=== PATIENT | female | born 1935 | race Caucasian/White ===

== ENCOUNTER 2017-05-25 17:42 | Inpatient (IN) | payer OTHER, BC ==
[~2017-05-25] VITALS: Ht 165.1 cm; Wt 110.1 kg
[~2017-05-25 17:42] MED LIST: ACT15 PO; ASPEC81 PO; CHOL100010 PO; CYAN10005 PO; EPGI40M SC; ESCI10TA17 PO; GABA-112 PO; GLC500 PO; PROLIA SC; SIMV40TA2 PO; TRAM-10 PO; midodrine PO
[2017-05-25] MEDS ORDERED: LEVOFLOXACIN / D5W 500 MG in PREMIXED IN D5W 100 ML IV SCH (18:00)
[2017-05-25] MEDS ORDERED: ACETAMINOPHEN 500 MG TAB PO STA (18:12)
[2017-05-25] MEDS ORDERED: ACETAMINOPHEN 500 MG TAB PO PRN (18:15)
--- NOTE | 2017-05-25 18:31 | DIAGNOSTIC IMAGING REPORT ---
CHEST ONE VIEW PORTABLE CLINICAL HISTORY: sob, cough COMPARISON STUDY: 03/12/2011 FINDINGS: The heart remains enlarged. There is no overt failure. There are minor left basilar opacities, likely atelectatic. There are no significant pleural effusions.[ IMPRESSION: 1. Mild cardiomegaly 2. No evidence of lobar consolidation 3. Minor left basilar opacities, likely atelectatic Electronically signed by: Klever Guillen M.D. 05/25/2017 6:30 PM Dictated Date/Time: 05/25/2017 6:29 PM
[2017-05-25 18:33] LABS: BASO % 0.4 %; BASO ABS # 0.02 K/uL (0-0.2); EOS % 0.5 %; EOS ABS # 0.03 K/uL (0-0.5); HEMATOCRIT 33.2 % (37-47); HEMOGLOBIN 10.6 g/dL (12.0-16.0); IG# 0.01 K/uL (0.00-0.02); LYMPH % 7.8 %; LYMPH ABS # 0.43 K/uL (1.2-3.4); MEAN CELL VOLUME 95.4 fL (80-100); MEAN CORPUSCULAR HEMOGLOBIN 30.5 pg (25-34); MEAN CORPUSCULAR HGB CONC 31.9 g/dl (32-36); MEAN PLATELET VOLUME 10.2 fL (7.4-10.4); MONO % 9.8 %; MONO ABS # 0.54 K/uL (0.11-0.59); NEUT % 81.3 %; NEUT ABS # 4.48 K/uL (1.4-6.5); PLATELET COUNT 173 K/uL (130-400); RED CELL DISTRIBUTION WIDTH CV 14.6 % (11.5-14.5); RED CELL DISTRIBUTION WIDTH SD 50.8 fL (36.4-46.3); WHITE BLOOD COUNT 5.51 K/uL (4.8-10.8)
[2017-05-25] MEDS ORDERED: ACETAMINOPHEN 325 MG TAB PO STA (18:47)
[2017-05-25 18:48] LABS: ALBUMIN 3.8 gm/dl (3.4-5.0); ALT/SGPT 19 U/L (12-78); BLOOD UREA NITROGEN 19 mg/dl (7-18); CALCIUM 9.4 mg/dl (8.5-10.1); CARBON DIOXIDE 27 mmol/L (21-32); CREATININE 1.03 mg/dl (0.60-1.20); GLUCOSE 124 mg/dl (70-99); LIPASE 51 U/L (73-393); SODIUM 136 mmol/L (136-145)
[2017-05-25 18:50] LABS: ALKALINE PHOSPHATASE 70 U/L (45-117); AST/SGOT 23 U/L (15-37); TOTAL PROTEIN 7.3 gm/dl (6.4-8.2)
--- NOTE | 2017-05-25 19:02 | EMERGENCY ROOM VISIT NOTE ---
History First contact with patient: 17:50 Chief Complaint: FLU LIKE SX Stated Complaint: FLU LIKE SX History of Present Illness The patient is a 81 year old female with history of HTN. T2DM, HLD, CKD, who presents to the Emergency Room with complaints of progressive Cough, Sore throat, Shortness of Breath nausea, with 1 episode of vomiting subjective fever. Symptoms started around 6 am today when she awakened She also reports, bodyache, fatigue, lightheadedness in addition to increased urinary frequency and urgency without dysuria. She denies Chest pain, palpitation, abdominal pain , diarrhea. She reports having taken Flu vaccine this season and previously had Prevnar 13 vaccine. Review of Systems Pt denies change in vision, fevers, chest pain,, diarrhea, pain with urination , and melena. Otherwise refer to HPI Past Medical/Surgical History Medical Problems: (1) Dizziness and giddiness (2) Flu-like symptoms (3) UTI (urinary tract infection) Hypertension T2DM HLD CKD Social History Smoking Status: Never Smoker Drug Use: none Housing Status: lives alone Occupation Status: retired Current/Historical Medications Scheduled Aspirin Enteric Coated (Ecotrin Or Generic *), 81 MG PO DAILY Bisacodyl (Dulcolax), 2 TAB PO UD Cholecalciferol (Vitamin D), 1,000 INTER.UNIT PO DAILY Cyanocobalamin (Vitamin B-12), 1,000 MCG PO DAILY Epoetin Lavell (Epogen Or Procrit *), 40,000 UNITS SC UD Gabapentin (Neurontin), 100 MG PO TID Metformin HCL (Glucophage *), 1,000 MG PO BID Pioglitazone (Actos *), 45 MG PO DAILY Simvastatin (Zocor), 40 MG PO QPM Tramadol (Ultram), 50 MG PO Q6HR PRN Scheduled PRN Hydrocodone/Acetaminophen 5MG/325MG ([place] 5MG/325MG), 1 TABLET PO DIRECTED PRN for Pain Physical Exam Vital Signs Date Time Temp Pulse Resp B/P (MAP) Pulse Ox O2 Delivery O2 Flow Rate FiO2 05/25/17 20:13 37.1 88 18 158/70 94 Room Air 05/25/17 19:33 37.8 91 16 153/104 94 Room Air 05/25/17 18:40 22 146/119 97 Room Air 05/25/17 18:24 93 05/25/17 17:50 37.9 102 20 134/114 95 Room Air Physical Exam GENERAL: alerto distress OROPHARYNX: no exudate, no erythema, lips, buccal mucosa, and tongue normal and mucous membranes are moist NECK: supple, no nuchal rigidity, no adenopathy, non-tender LUNGS: Clear to auscultation. Normal chest wall mechanics HEART: no murmurs, S1 normal and S2 normal ABDOMEN: abdomen soft, non-tender, normo-active bowel sounds, no masses, no rebound or guarding. SKIN: no rashes LOWER EXTREMITIES: No pitting edema. NEURO EXAM: Normal sensorium, cranial nerves II-XII grossly intact, normal speech Medical Decision & Procedures Laboratory Results 05/25/17 18:20 Red Blood Count 3.48, Mean Corpuscular Volume 95.4, Mean Corpuscular Hemoglobin 30.5, Mean Corpuscular Hemoglobin Concent 31.9, Mean Platelet Volume 10.2, Neutrophils (%) (Auto) 81.3, Lymphocytes (%) (Auto) 7.8, Monocytes (%) (Auto) 9.8, Eosinophils (%) (Auto) 0.5, Basophils (%) (Auto) 0.4, Neutrophils # (Auto) 4.48, Lymphocytes # (Auto) 0.43, Monocytes # (Auto) 0.54, Eosinophils # (Auto) 0.03, Basophils # (Auto) 0.02 05/25/17 18:20 Test 05/25/17 18:05 05/25/17 18:20 05/25/17 19:04 Urine Color YELLOW Urine Appearance CLEAR (CLEAR) Urine pH 8.5 (4.5-7.5) Urine Specific [place] 1.014 (1.000-1.030) Urine Protein NEG (NEG) Urine Glucose (UA) NEG (NEG) Urine Ketones NEG (NEG) Urine Occult Blood NEG (NEG) Urine Nitrite POS (NEG) Urine Bilirubin NEG (NEG) Urine Urobilinogen NEG (NEG) Urine Leukocyte Esterase TRACE (NEG) Urine WBC (Auto) 1-5 /hpf (0-5) Urine RBC (Auto) 0-4 /hpf (0-4) Urine Hyaline Casts (Auto) 1-5 /lpf (0-5) Urine Epithelial Cells (Auto) 10-20 /lpf (0-5) Urine Bacteria (Auto) 4+ (NEG) White Blood Count 5.51 K/uL (4.8-10.8) Red Blood Count 3.48 M/uL (4.2-5.4) Hemoglobin 10.6 g/dL (12.0-16.0) Hematocrit 33.2 % (37-47) Mean Corpuscular Volume 95.4 fL (80-100) Mean Corpuscular Hemoglobin 30.5 pg (25-34) Mean Corpuscular Hemoglobin Concent 31.9 g/dl (32-36) Platelet Count 173 K/uL (130-400) Mean Platelet Volume 10.2 fL (7.4-10.4) Neutrophils (%) (Auto) 81.3 % Lymphocytes (%) (Auto) 7.8 % Monocytes (%) (Auto) 9.8 % Eosinophils (%) (Auto) 0.5 % Basophils (%) (Auto) 0.4 % Neutrophils # (Auto) 4.48 K/uL (1.4-6.5) Lymphocytes # (Auto) 0.43 K/uL (1.2-3.4) Monocytes # (Auto) 0.54 K/uL (0.11-0.59) Eosinophils # (Auto) 0.03 K/uL (0-0.5) Basophils # (Auto) 0.02 K/uL (0-0.2) RDW Standard Deviation 50.8 fL (36.4-46.3) RDW Coefficient of Variation 14.6 % (11.5-14.5) Immature Granulocyte % (Auto) 0.2 % Immature Granulocyte # (Auto) 0.01 K/uL (0.00-0.02) Anion Gap 8.0 mmol/L (3-11) Est Creatinine Clear Calc Drug Dose 54.3 ml/min Estimated GFR () 59.0 Estimated GFR (Non- 50.9 BUN/Creatinine Ratio 18.7 (10-20) Calcium Level 9.4 mg/dl (8.5-10.1) Total Bilirubin 0.4 mg/dl (0.2-1) Direct Bilirubin < 0.1 mg/dl (0-0.2) Aspartate Amino Transf (AST/SGOT) 23 U/L (15-37) Alanine Aminotransferase (ALT/SGPT) 19 U/L (12-78) Alkaline Phosphatase 70 U/L (45-117) Total Protein 7.3 gm/dl (6.4-8.2) Albumin 3.8 gm/dl (3.4-5.0) Lipase 51 U/L (73-393) Influenza Type A Antigen Neg for Influ A (NEG) Influenza Type B Antigen Neg for Influ B (NEG) Medications Administered Medications (Trade) Dose Ordered Sig/Pool Route Start Time Stop Time Status Last Admin Dose Admin Acetaminophen (Tylenol Tab) 500 mg NOW STAT PO 05/25/17 18:12 05/25/17 18:18 DC 05/25/17 19:00 500 MG Levofloxacin (Levaquin / D5W) 750 mg NOW STAT IV 05/25/17 19:34 05/25/17 19:35 DC 05/25/17 19:42 750 MG Ondansetron HCl (Zofran Inj) 4 mg STK-MED ONCE .ROUTE 05/25/17 21:39 05/25/17 21:40 DC 05/25/17 21:44 4 MG Procedure CHEST ONE VIEW PORTABLE CLINICAL HISTORY: sob, cough COMPARISON STUDY: 03/12/2011 FINDINGS: The heart remains enlarged. There is no overt failure. There are minor left basilar opacities, likely atelectatic. There are no significant pleural effusions.[ IMPRESSION: 1. Mild cardiomegaly 2. No evidence of lobar consolidation 3. Minor left basilar opacities, likely atelectatic Medical Decision 81 yo F with history of HTN T2DM, HLD, CKD presenting with flu-like symptoms, SOB and urinary urgency/frequency found to have CXR consistent with Pneumonia, negative flu swab, and UA positive for UTI Differential diagnoses includes but is not limited to pneumonia, bronchitis, COPD/Asthma exacerbation, congestive heart failure Rapid flu: negative CMP: unremarkable CBC: H/H 10.6/33/2 BMP: unremarkable Lipase: negative CXR: . Minor left basilar opacities -Given 750 mg IV Levaquin -Given Acetaminophen 500 mg Based on age, symptoms of Cough, SOB, fever on arrival, Xray with Left basilar opacities UA consistent with UTI, patient was treated with IV Levaquin. Flu swab was negative and lab work unremarkable other than mild anemia as above. Upon evaluation, patient was stable. I discussed the findings and the treatment plan with the patient Lab work unremarkable as above. Patient expresses agreement and understanding. [facility] Patient will be evaluated for further management. Impression Primary Impression: Pneumonia Additional Impression: UTI (urinary tract infection) Departure Information Dispostion Admitted as an inpatient Referrals Ant Gifford M.D. (PCP) Patient Instructions My [facility] Resident Tracking Resident Involvement: Resident Care Provided Care Provided: Adult ED Problem Qualifiers
[2017-05-25] MEDS ORDERED: LEVAQUIN 750MG / 150ML D5W IV STA (19:34)
[2017-05-25 19:44] LABS: INFLUENZA B ANTIGEN Neg for Influ B (NEG)
[2017-05-25] MEDS ORDERED: HYDR-5688 PO (21:07)
[2017-05-25] MEDS ORDERED: BISA-16 PO (21:08)
[2017-05-25] MEDS ORDERED: ONDANSETRON INJ 2 MG/ML 2 ML VIAL IV PRN (21:15)
[2017-05-25] MEDS ORDERED: ACETAMINOPHEN 325 MG TAB PO PRN (21:15)
[2017-05-25] MEDS ORDERED: LEVOFLOXACIN / D5W 750 MG in PREMIXED IN D5W 150 ML IV SCH (21:30)
[2017-05-25] MEDS ORDERED: BISACODYL 5 MG TABEC PO PRN (21:30)
[2017-05-25] MEDS ORDERED: ONDANSETRON INJ 2 MG/ML 2 ML VIAL ONE (21:39)
[2017-05-25] MEDS ORDERED: SODIUM CHLORIDE 0.9% 1000ML 1,000 ML IV SCH (22:15)
--- NOTE | 2017-05-25 22:23 | EMERGENCY ROOM VISIT NOTE ---
History Report prepared by Carine: Estrellita Singleton Under the Supervision of: Dr. Reuben Shepherd D.O. First contact with patient: 17:50 Chief Complaint: FLU LIKE SX Stated Complaint: FLU LIKE SX History of Present Illness The patient is an 81 year old female who presents to the Emergency Room with complaints of persistent flu symptoms starting this morning. The patient started having some rhinorrhea yesterday. This morning she started having a sore throat, body aches, and headache. She is nauseous. She had a deep dry cough. She vomited once after coughing. She has had urinary frequency and urgency. She feels generally weak. She did not have any fevers above 100.4. She denies any ear pain, abdominal pain, or pain with urination. She has a history of hypertension, diabetes, hyperlipidemia, and CKD. She has not had her medications today. She received a flu shot this year. Source of History: patient Onset: this morning Position: other (global) Quality: other (flu symptoms) Timing: other (persistent) Associated Symptoms: + headache, + sorethroat, + cough, + nausea, + vomiting , + weakness, No fevers, No abdominal pain Note: Pt reports rhinorrhea, body aches. Review of Systems See HPI for pertinent positives & negatives. A total of 10 systems reviewed and were otherwise negative. Past Medical & Surgical Medical Problems: (1) Dizziness and giddiness (2) Flu-like symptoms (3) UTI (urinary tract infection) Family History Noncontributory secondary to age. Social History Smoking Status: Never Smoker Marital Status: Occupation Status: retired Current/Historical Medications Scheduled Aspirin Enteric Coated (Ecotrin Or Generic *), 81 MG PO DAILY Bisacodyl (Dulcolax), 2 TAB PO UD Cholecalciferol (Vitamin D), 1,000 INTER.UNIT PO DAILY Cyanocobalamin (Vitamin B-12), 1,000 MCG PO DAILY Epoetin [place] (Epogen Or Procrit *), 40,000 UNITS SC UD Gabapentin (Neurontin), 100 MG PO TID Metformin HCL (Glucophage *), 1,000 MG PO BID Pioglitazone (Actos *), 45 MG PO DAILY Simvastatin (Zocor), 40 MG PO QPM Tramadol (Ultram), 50 MG PO Q6HR PRN Scheduled PRN Hydrocodone/Acetaminophen 5MG/325MG ([place] 5MG/325MG), 1 TABLET PO DIRECTED PRN for Pain Allergies Coded Allergies: No Known Allergies (Verified , NONE, 05/25/17) Physical Exam Vital Signs Date Time Temp Pulse Resp B/P (MAP) Pulse Ox O2 Delivery O2 Flow Rate FiO2 05/25/17 20:13 37.1 88 18 158/70 94 Room Air 05/25/17 19:33 37.8 91 16 153/104 94 Room Air 05/25/17 18:40 22 146/119 97 Room Air 05/25/17 18:24 93 05/25/17 17:50 37.9 102 20 134/114 95 Room Air Physical Exam GENERAL: Chronically ill appearing, sitting up in bed, no acute distress EYE EXAM: normal conjunctiva. OROPHARYNX: no exudate, no erythema, lips, buccal mucosa, and tongue normal and mucous membranes are moist NECK: supple, no nuchal rigidity, no adenopathy, non-tender LUNGS: Diminished at the bases. Normal chest wall mechanics HEART: tachycardic, no murmurs, S1 normal and S2 normal ABDOMEN: abdomen soft, non-tender, normo-active bowel sounds, no masses, no rebound or guarding. BACK: Back is symmetrical on inspection and there is no deformity, no midline tenderness, no CVA tenderness. SKIN: no rashes and no bruising UPPER EXTREMITIES: upper extremities are grossly normal. LOWER EXTREMITIES: No pitting edema. NEURO EXAM: Normal sensorium, cranial nerves II-XII grossly intact, normal speech, no gross weakness of arms, no gross weakness of legs. Medical Decision & Procedures ER Provider Diagnostic Interpretation: Xray results as stated below per my and the radiologist's interpretation: CHEST ONE VIEW PORTABLE CLINICAL HISTORY: sob, cough COMPARISON STUDY: 03/12/2011 FINDINGS: The heart remains enlarged. There is no overt failure. There are minor left basilar opacities, likely atelectatic. There are no significant pleural effusions.[ IMPRESSION: 1. Mild cardiomegaly 2. No evidence of lobar consolidation 3. Minor left basilar opacities, likely atelectatic Electronically signed by: Klever Guillen M.D. 05/25/2017 6:30 PM Dictated Date/Time: 05/25/2017 6:29 PM Laboratory Results 05/25/17 18:20 Red Blood Count 3.48, Mean Corpuscular Volume 95.4, Mean Corpuscular Hemoglobin 30.5, Mean Corpuscular Hemoglobin Concent 31.9, Mean Platelet Volume 10.2, Neutrophils (%) (Auto) 81.3, Lymphocytes (%) (Auto) 7.8, Monocytes (%) (Auto) 9.8, Eosinophils (%) (Auto) 0.5, Basophils (%) (Auto) 0.4, Neutrophils # (Auto) 4.48, Lymphocytes # (Auto) 0.43, Monocytes # (Auto) 0.54, Eosinophils # (Auto) 0.03, Basophils # (Auto) 0.02 05/25/17 18:20 Test 05/25/17 18:05 05/25/17 18:20 05/25/17 19:04 Urine Color YELLOW Urine Appearance CLEAR (CLEAR) Urine pH 8.5 (4.5-7.5) Urine Specific [place] 1.014 (1.000-1.030) Urine Protein NEG (NEG) Urine Glucose (UA) NEG (NEG) Urine Ketones NEG (NEG) Urine Occult Blood NEG (NEG) Urine Nitrite POS (NEG) Urine Bilirubin NEG (NEG) Urine Urobilinogen NEG (NEG) Urine Leukocyte Esterase TRACE (NEG) Urine WBC (Auto) 1-5 /hpf (0-5) Urine RBC (Auto) 0-4 /hpf (0-4) Urine Hyaline Casts (Auto) 1-5 /lpf (0-5) Urine Epithelial Cells (Auto) 10-20 /lpf (0-5) Urine Bacteria (Auto) 4+ (NEG) White Blood Count 5.51 K/uL (4.8-10.8) Red Blood Count 3.48 M/uL (4.2-5.4) Hemoglobin 10.6 g/dL (12.0-16.0) Hematocrit 33.2 % (37-47) Mean Corpuscular Volume 95.4 fL (80-100) Mean Corpuscular Hemoglobin 30.5 pg (25-34) Mean Corpuscular Hemoglobin Concent 31.9 g/dl (32-36) Platelet Count 173 K/uL (130-400) Mean Platelet Volume 10.2 fL (7.4-10.4) Neutrophils (%) (Auto) 81.3 % Lymphocytes (%) (Auto) 7.8 % Monocytes (%) (Auto) 9.8 % Eosinophils (%) (Auto) 0.5 % Basophils (%) (Auto) 0.4 % Neutrophils # (Auto) 4.48 K/uL (1.4-6.5) Lymphocytes # (Auto) 0.43 K/uL (1.2-3.4) Monocytes # (Auto) 0.54 K/uL (0.11-0.59) Eosinophils # (Auto) 0.03 K/uL (0-0.5) Basophils # (Auto) 0.02 K/uL (0-0.2) RDW Standard Deviation 50.8 fL (36.4-46.3) RDW Coefficient of Variation 14.6 % (11.5-14.5) Immature Granulocyte % (Auto) 0.2 % Immature Granulocyte # (Auto) 0.01 K/uL (0.00-0.02) Anion Gap 8.0 mmol/L (3-11) Est Creatinine Clear Calc Drug Dose 54.3 ml/min Estimated GFR () 59.0 Estimated GFR (Non- 50.9 BUN/Creatinine Ratio 18.7 (10-20) Calcium Level 9.4 mg/dl (8.5-10.1) Total Bilirubin 0.4 mg/dl (0.2-1) Direct Bilirubin < 0.1 mg/dl (0-0.2) Aspartate Amino Transf (AST/SGOT) 23 U/L (15-37) Alanine Aminotransferase (ALT/SGPT) 19 U/L (12-78) Alkaline Phosphatase 70 U/L (45-117) Total Protein 7.3 gm/dl (6.4-8.2) Albumin 3.8 gm/dl (3.4-5.0) Lipase 51 U/L (73-393) Influenza Type A Antigen Neg for Influ A (NEG) Influenza Type B Antigen Neg for Influ B (NEG) Laboratory results per my review. Medications Administered Medications (Trade) Dose Ordered Sig/Pool Route Start Time Stop Time Status Last Admin Dose Admin Acetaminophen (Tylenol Tab) 500 mg NOW STAT PO 05/25/17 18:12 05/25/17 18:18 DC 05/25/17 19:00 500 MG Levofloxacin (Levaquin / D5W) 750 mg NOW STAT IV 05/25/17 19:34 05/25/17 19:35 DC 05/25/17 19:42 750 MG ED Course ED COURSE: Vital signs were reviewed and showed fever, tachycardia, hypertension. The patients medical record was reviewed The above diagnostic studies were performed and reviewed. ED treatments and interventions as stated above. 1811: Acetaminophen 500 mg PO. 1849: The patient was evaluated in room C11B. A complete history and physical examination was performed. 1933: Levofloxacin 750 mg IV. 2013: I reviewed the patient's case [facility] He will evaluate the patient for further management. 2014: Upon reevaluation, the patient is resting comfortably. I discussed my findings with the patient and she understands and agrees with the treatment plan. Based on the patients age, coexisting illnesses, exam and lab findings the decision to treat as an inpatient was made. The patient remained stable while under my care. The patient will be evaluated for further management. Medical Decision Differential diagnosis includes etiologies such as sepsis, UTI, pneumonia, metabolic, electrolyte abnormalities, cardiac sources, intracerebral event, toxicologic, neurologic, as well as others were entertained. Patient is an 81-year-old female who presents to ER for body aches, runny nose, feeling weak and coughing. Patient also admits to a sore throat. CBC all BMP, LFTs, bilirubin lipase is unremarkable. UA shows nitrites, leuks and +4 bacteria. Based on this patient was treated for UTI with IV antibiotics. Influence was negative. Chest x-ray shows a small consolidation. Patient was febrile and tachycardic upon presentation. She was given fluids. Heart rate trended down. Discussed case with internal medicine and patient was admitted for further workup. Medication Reconcilliation Current Medication List: was personally reviewed by me Blood Pressure Screening Patient's blood pressure: Elevated blood pressure Blood pressure disposition: Referred to PCP Consults Time Called: 2009 Consulting Physician[facility] Returned Call: 2013 I reviewed the patient's case with him. He will evaluate the patient for further management. Impression Primary Impression: UTI (urinary tract infection) Additional Impression: Pneumonia Scribe Attestation The scribe's documentation has been prepared under my direction and personally reviewed by me in its entirety. I confirm that the note above accurately reflects all work, treatment, procedures, and medical decision making performed by me. Departure Information Dispostion Being Evaluated By Hospitalist Referrals Ant Gifford M.D. (PCP) Patient Instructions My [facility] Problem Qualifiers Primary Impression: UTI (urinary tract infection) Urinary tract infection type: acute cystitis Hematuria presence: with hematuria Qualified Codes: N30.01 - Acute cystitis with hematuria Additional Impression: Pneumonia Pneumonia type: due to unspecified organism Laterality: unspecified laterality Lung location: unspecified part of lung Qualified Codes: J18.9 - Pneumonia, unspecified organism
[2017-05-25] MEDS: HYDROCODONE/ACETAMIN 5/325MG TAB PO PRN (22:36)
[2017-05-25 22:37] VITALS: BP 148/87; PULSE 118; TEMP 36.7; O2SAT 95; Ht 165.1 cm; Wt 110.1 kg
[2017-05-25 23:18] LABS: PTT PATIENT 23.2 SECONDS (21.0-31.0)
[2017-05-26] VITALS (7 sets, daily range): BP systolic 141–177; BP diastolic 67–78; PULSE 87–98; TEMP 36.4–39.2; O2SAT 91–97
[2017-05-26] MEDS: TRAMADOL HCL 50 MG TAB PO PRN ×2 (02:24→11:08)
[2017-05-26] MEDS: HEPARIN SOD 5000 UNIT/0.5 ML CARP SQ SCH ×2 (06:33→20:15)
[2017-05-26 07:12] LABS: HEMATOCRIT 34.4 % (37-47); MEAN CORPUSCULAR HEMOGLOBIN 30.4 pg (25-34); MEAN PLATELET VOLUME 10.5 fL (7.4-10.4); PLATELET COUNT 190 K/uL (130-400); RED CELL DISTRIBUTION WIDTH CV 14.5 % (11.5-14.5); RED CELL DISTRIBUTION WIDTH SD 50.7 fL (36.4-46.3); WHITE BLOOD COUNT 4.66 K/uL (4.8-10.8)
[2017-05-26 07:28] LABS: CALCIUM 9.2 mg/dl (8.5-10.1); CREATININE 1.07 mg/dl (0.60-1.20); POTASSIUM 3.9 mmol/L (3.5-5.1)
[2017-05-26 07:29] LABS: PHOSPHORUS 1.9 mg/dl (2.5-4.9)
[2017-05-26] MEDS ORDERED: SODIUM PHOSPHATE 3 MMOL/1 ML INFUSION IV ONE (07:45)
[2017-05-26] MEDS ORDERED: SODIUM PHOSPHATE INJ 15 MMOL in SODIUM CHLORIDE 0.9% 250ML 250 ML IV ONE (08:00)
--- NOTE | 2017-05-26 08:11 | HISTORY & PHYSICAL EXAMINATION ---
DATE OF ADMISSION: 05/25/2017 PRIMARY CARE PHYSICIAN: Dr. Gifford. CHIEF COMPLAINT: Flu-like symptoms with fever and chills and body aches for the last 2-3 days. HISTORY OF PRESENT COMPLAINT: She is an 81-year-old female with significant past medical history of chronic kidney disease stage III, type 2 diabetes, vitamin B12 deficiency, anemia, hyperlipidemia, generalized osteoarthritis, hypertension, migraine, hyperparathyroidism and also goiter, apparently has been complaining of flu-like symptoms for the last couple of days. She complains to have fever, sore throat but no difficulty in swallowing. She has cough without any phlegm and she has generalized body aches. She had nausea this morning and vomited once. She has been also going to the bathroom frequently to pass urine. She denies to have any dysuria. In the Emergency Room, she was hemodynamically stable and her UA examination was suggestive of infection and the chest x-ray did show probable atelectasis left lower lobe but no definite pneumonia. She received Levaquin, and from that point, she was admitted to medical floor for continuation of care. PAST MEDICAL HISTORY: Significant for chronic kidney disease stage III, type 2 diabetes, vitamin B12 deficiency, anemia, hypertension, hyperlipidemia, osteoarthritis, osteoporosis, hyperparathyroidism and also has goiter. PAST SURGICAL HISTORY: Significant for ligation of the oviduct, partial colectomy due to diverticulosis and diverticulitis, and minor wrist surgery. FAMILY HISTORY: Significant for mother at 77 from diabetes, AMI, osteoarthritis. Father at 78 from diabetes and AMI. Sister has diabetes. Brother from AMI and diabetes at the age of 44. SOCIAL HISTORY: She is a . She lives alone. She has 6 children. She does not smoke and does not use any tobacco and she has been reasonably ambulant. ALLERGIES: NKDA. MEDICATIONS: As an outpatient, she has been taking Procrit 40,000 units as directed, metformin 1 gram b.i.d., aspirin 81 mg daily, Dulcolax 10 mg daily, vitamin D 1000 unit daily, vitamin B12 1000 mcg daily, Neurontin 100 mg 3 times daily, hydrocodone 5/325 one tablet as directed, Actos 45 mg daily, simvastatin 40 mg daily and tramadol 50 mg q. 6 hourly p.r.n. REVIEW OF SYSTEMS: Other systems reviewed unremarkable except those mentioned in history of present complaint. PHYSICAL EXAMINATION: GENERAL: On examination in the Emergency Room, she was not having any acute distress. VITAL SIGNS: Temperature 37.8, pulse 88, blood pressure 158/70, saturation 94% on room air. HEENT: Unremarkable. NECK: Supple. No JVD, no bruit. CHEST: Clear to auscultation bilaterally with minimal crackles left base. HEART: S1, S2, regular, no murmur. ABDOMEN: Soft, benign, nontender. No organomegaly. She has moderate umbilical hernia with no obstruction. EXTREMITIES: Chronic edema bilaterally but no acute changes. CENTRAL NERVOUS SYSTEM: She is alert, awake, oriented x3. No focal sensory and/or motor deficit appreciated. LABORATORY DATA: Noted today white count was 5.51, H&H 10.6/33.2, platelets 173. Sodium 136, potassium 4.0, chloride 102, carbon dioxide 27, BUN 19, creatinine 1.03, random glucose 124. LFTs normal. Lipase less than 5. UA examination shows leukocyte esterase trace, bacteria 4+, white count 1-5. suggestive of infection, that was sent for culture. Chest x-ray reported as mild cardiomegaly, no evidence of lobar consolidation, minor left basilar opacities, likely atelectasis. EKG that was done last in February did not show any prolonged QT. IMPRESSION AND PLAN: 1. Urinary tract infection. She was started on intravenous Levaquin to cover the respiratory pathogens as well. She does not have any pneumonia but she does have atelectasis. She will be admitted to medical floor and continue Levaquin for now and wait for urine culture to come back. 2. Flu-like symptoms. Her flu test was negative for A and B. She does not have any significant respiratory symptom, no wheezing. We will give some cough medicine for symptomatic relief. 3. Diabetes type 2. Hold metformin. Put her on sliding scale coverage while in the hospital. 4. Chronic kidney disease stage III. Creatinine seems to be stable. Has some dehydration. We will put small amount of IV fluid while in the hospital. 5. Hypertension. Blood pressure seems to be controlled. 6. Gastrointestinal prophylaxis with Maalox and Mylanta as needed. 7. Deep venous thrombosis prophylaxis with subcu heparin. 8. Code status. She will be full code. In my clinical judgment, the beneficiary meets criteria as per CMS for 2-midnight stay in the hospital. MTDD
[2017-05-26] MEDS: GABAPENTIN 100 MG CAP PO SCH ×3 (08:12→20:12)
[2017-05-26] MEDS: CHOLECALCIFEROL 1000 INTER.UNIT TAB PO SCH (08:12)
[2017-05-26] MEDS: CYANOCOBALAMIN 500 MCG TAB (VIT B-12) PO SCH (08:12)
[2017-05-26] MEDS: PIOGLITAZONE TAB 15 MG TAB PO SCH (08:12)
[2017-05-26] MEDS: ASPIRIN 81 MG ECTAB PO SCH (08:12)
[2017-05-26] MEDS: MAGNESIUM SULFATE 1GM / D5W 1 GM in PREMIXED IN D5W 100 ML IV SCH ×2 (08:16→10:04)
[2017-05-26 12:23] LABS: INFLUENZA B PCR Neg for Influ B (NEG)
[2017-05-26 12:26] LABS: INFLUENZA A PCR POS for Influ A (NEG)
[2017-05-26] MEDS ORDERED: OSELTAMIVIR PHOSPHATE 75 MG CAP PO SCH (13:00)
[2017-05-26] MEDS ORDERED: TAMIFLU PHARMACY CONSULT IN PROGRESS PRN (14:00)
--- NOTE | 2017-05-26 14:15 | Progress Note ---
Internal Med Progress Note Date of Service: May 26, 2017. Provider Documentation: SUBJECTIVE: Seen and examined at bedside States feeling better Still has cough Denies dysuria, CP, SOB OBJECTIVE: Vital Signs-as noted below Physical Exam: General Appearance:Obese, no apparent distress Head: normocephalic, Atraumatic Eyes: normal inspection, EOMI, PERRL Neck: supple, Trachea midline Respiratory/Chest: Normal breath sounds, CTA Cardiovascular: S1, S2, No murmur Abdomen/GI:Soft, Non tender, Bowel sounds present, +Umbilical hernia Extremities/Musculoskelatal:normal inspection, no edema Neurologic/Psych:AAOX3, grossly no focal neurological deficits Skin: normal color, warm Lab data as noted below. ASSESSMENT & PLAN: UTI: Urine culture:E.coli Continue Levaquin Gentle IV fluids Influenza A Started on Tamiflu Supportive care DM II: Hold metformin Continue ISS, Monitor BG levels CKD III: Cr at baseline monitor renal function Hypomagnesemia/Hypophosphatemia: Replace and monitor Hypertension: Stable Obesity: BMI:40.4 DVT Px: Heparin SQ Code status: full code Vital Signs: Date Time Temp Pulse Resp B/P (MAP) Pulse Ox O2 Delivery O2 Flow Rate FiO2 05/26/17 14:26 37.1 87 17 177/67 (103) 93 05/26/17 08:00 Room Air 05/26/17 07:47 36.8 98 18 141/78 (99) 95 Room Air 05/26/17 03:18 39.2 05/26/17 00:23 36.4 98 18 149/77 (101) 97 Room Air 05/26/17 00:00 95 Room Air 05/25/17 22:37 36.7 118 20 148/87 95 Room Air 05/25/17 21:54 105 20 163/88 95 Room Air 05/25/17 20:13 37.1 88 18 158/70 94 Room Air 05/25/17 19:33 37.8 91 16 153/104 94 Room Air 05/25/17 18:40 22 146/119 97 Room Air 05/25/17 18:24 93 05/25/17 17:50 37.9 102 20 134/114 95 Room Air Lab Results: Results Past 24 Hours Test 05/25/17 18:05 05/25/17 18:20 05/25/17 19:04 05/25/17 22:50 Range/Units Urine Color YELLOW Urine Appearance CLEAR CLEAR Urine pH 8.5 4.5-7.5 Urine Specific [place] 1.014 1.000-1.030 Urine Protein NEG NEG Urine Glucose (UA) NEG NEG Urine Ketones NEG NEG Urine Occult Blood NEG NEG Urine Nitrite POS NEG Urine Bilirubin NEG NEG Urine Urobilinogen NEG NEG Urine Leukocyte Esterase TRACE NEG Urine WBC (Auto) 1-5 0-5 /hpf Urine RBC (Auto) 0-4 0-4 /hpf Urine Hyaline Casts (Auto) 1-5 0-5 /lpf Urine Epithelial Cells (Auto) 10-20 0-5 /lpf Urine Bacteria (Auto) 4+ NEG White Blood Count 5.51 4.8-10.8 K/uL Red Blood Count 3.48 4.2-5.4 M/uL Hemoglobin 10.6 12.0-16.0 g/dL Hematocrit 33.2 37-47 % Mean Corpuscular Volume 95.4 80-100 fL Mean Corpuscular Hemoglobin 30.5 25-34 pg Mean Corpuscular Hemoglobin Concent 31.9 32-36 g/dl Platelet Count 173 130-400 K/uL Mean Platelet Volume 10.2 7.4-10.4 fL Neutrophils (%) (Auto) 81.3 % Lymphocytes (%) (Auto) 7.8 % Monocytes (%) (Auto) 9.8 % Eosinophils (%) (Auto) 0.5 % Basophils (%) (Auto) 0.4 % Neutrophils # (Auto) 4.48 1.4-6.5 K/uL Lymphocytes # (Auto) 0.43 1.2-3.4 K/uL Monocytes # (Auto) 0.54 0.11-0.59 K/uL Eosinophils # (Auto) 0.03 0-0.5 K/uL Basophils # (Auto) 0.02 0-0.2 K/uL RDW Standard Deviation 50.8 36.4-46.3 fL RDW Coefficient of Variation 14.6 11.5-14.5 % Immature Granulocyte % (Auto) 0.2 % Immature Granulocyte # (Auto) 0.01 0.00-0.02 K/uL Sodium Level 136 136-145 mmol/L Potassium Level 4.0 3.5-5.1 mmol/L Chloride Level 102 98-107 mmol/L Carbon Dioxide Level 27 21-32 mmol/L Anion Gap 8.0 3-11 mmol/L Blood Urea Nitrogen 19 7-18 mg/dl Creatinine 1.03 0.60-1.20 mg/dl Est Creatinine Clear Calc Drug Dose 54.3 ml/min Estimated GFR () 59.0 Estimated GFR (Non- 50.9 BUN/Creatinine Ratio 18.7 10-20 Random Glucose 124 70-99 mg/dl Calcium Level 9.4 8.5-10.1 mg/dl Total Bilirubin 0.4 0.2-1 mg/dl Direct Bilirubin < 0.1 0-0.2 mg/dl Aspartate Amino Transf (AST/SGOT) 23 15-37 U/L Alanine Aminotransferase (ALT/SGPT) 19 12-78 U/L Alkaline Phosphatase 70 45-117 U/L Total Protein 7.3 6.4-8.2 gm/dl Albumin 3.8 3.4-5.0 gm/dl Lipase 51 73-393 U/L Influenza Type A Antigen Neg for Influ A NEG Influenza Type B Antigen Neg for Influ B NEG Prothrombin Time 10.4 9.0-12.0 SECONDS Prothromb Time International Ratio 1.0 0.9-1.1 Activated Partial Thromboplast Time 23.2 21.0-31.0 SECONDS Partial Thromboplastin Ratio 0.9 Test 05/26/17 06:52 05/26/17 07:33 05/26/17 10:53 Range/Units White Blood Count 4.66 4.8-10.8 K/uL Red Blood Count 3.62 4.2-5.4 M/uL Hemoglobin 11.0 12.0-16.0 g/dL Hematocrit 34.4 37-47 % Mean Corpuscular Volume 95.0 80-100 fL Mean Corpuscular Hemoglobin 30.4 25-34 pg Mean Corpuscular Hemoglobin Concent 32.0 32-36 g/dl RDW Standard Deviation 50.7 36.4-46.3 fL RDW Coefficient of Variation 14.5 11.5-14.5 % Platelet Count 190 130-400 K/uL Mean Platelet Volume 10.5 7.4-10.4 fL Sodium Level 138 136-145 mmol/L Potassium Level 3.9 3.5-5.1 mmol/L Chloride Level 104 98-107 mmol/L Carbon Dioxide Level 26 21-32 mmol/L Anion Gap 9.0 3-11 mmol/L Blood Urea Nitrogen 16 7-18 mg/dl Creatinine 1.07 0.60-1.20 mg/dl Est Creatinine Clear Calc Drug Dose 50.9 ml/min Estimated GFR () 56.4 Estimated GFR (Non- 48.6 BUN/Creatinine Ratio 15.1 10-20 Random Glucose 105 70-99 mg/dl Calcium Level 9.2 8.5-10.1 mg/dl Phosphorus Level 1.9 2.5-4.9 mg/dl Magnesium Level 1.4 1.8-2.4 mg/dl Bedside Glucose 124 70-90 mg/dl Influenza Type A (RT-PCR) POS for Influ A NEG Influenza Type B (RT-PCR) Neg for Influ B NEG Microbiology Results 05/25/17 Urine Culture - Preliminary, Resulted Escherichia Coli
[2017-05-26] MEDS: OSELTAMIVIR PHOSPHATE SUSP 30 MG/5 ML UDP PO SCH ×2 (15:35→20:12)
[2017-05-26] MEDS: LEVOFLOXACIN / D5W 500 MG in PREMIXED IN D5W 100 ML IV SCH (20:11)
[2017-05-26] MEDS: SIMVASTATIN 40 MG TAB PO SCH (20:12)
[2017-05-26] MEDS: HYDROCODONE/ACETAMIN 5/325MG TAB PO PRN (21:32)
[2017-05-27] MEDS: HEPARIN SOD 5000 UNIT/0.5 ML CARP SQ SCH ×2 (06:07→18:26)
[2017-05-27 06:46] LABS: HEMATOCRIT 36.3 % (37-47); HEMOGLOBIN 11.2 g/dL (12.0-16.0); MEAN CELL VOLUME 94.5 fL (80-100); MEAN CORPUSCULAR HEMOGLOBIN 29.2 pg (25-34); MEAN CORPUSCULAR HGB CONC 30.9 g/dl (32-36); MEAN PLATELET VOLUME 10.6 fL (7.4-10.4); PLATELET COUNT 150 K/uL (130-400); RED CELL DISTRIBUTION WIDTH CV 14.5 % (11.5-14.5); RED CELL DISTRIBUTION WIDTH SD 49.5 fL (36.4-46.3); WHITE BLOOD COUNT 3.18 K/uL (4.8-10.8)
[2017-05-27 06:59] VITALS: BP 186/96; PULSE 95; TEMP 36.9; O2SAT 93
[2017-05-27 07:19] LABS: CALCIUM 8.8 mg/dl (8.5-10.1); CREATININE 1.05 mg/dl (0.60-1.20); POTASSIUM 3.9 mmol/L (3.5-5.1)
[2017-05-27] MEDS: CYANOCOBALAMIN 500 MCG TAB (VIT B-12) PO SCH (08:03)
[2017-05-27] MEDS: GABAPENTIN 100 MG CAP PO SCH ×3 (08:03→20:47)
[2017-05-27] MEDS: PIOGLITAZONE TAB 15 MG TAB PO SCH (08:03)
[2017-05-27] MEDS: CHOLECALCIFEROL 1000 INTER.UNIT TAB PO SCH (08:03)
[2017-05-27] MEDS: ASPIRIN 81 MG ECTAB PO SCH (08:03)
[2017-05-27] MEDS: HYDROCODONE/ACETAMIN 5/325MG TAB PO PRN ×3 (08:06→20:51)
[2017-05-27] MEDS: OSELTAMIVIR PHOSPHATE SUSP 30 MG/5 ML UDP PO SCH ×2 (08:06→20:46)
[2017-05-27] MEDS ORDERED: AMLODIPINE BESYLATE 5 MG TAB PO ONE (13:45)
[2017-05-27] MEDS: MAGNESIUM CHLORIDE 64MG DELAYED REL TAB PO SCH ×2 (14:09→20:47)
--- NOTE | 2017-05-27 15:19 | Progress Note ---
Internal Med Progress Note Date of Service: May 27, 2017. Provider Documentation: SUBJECTIVE: Seen and examined at bedside Less cough Denies dysuria, CP, SOB Reports chronic back pain "I don't feel I am ready for discharge yet" No other complaints OBJECTIVE: Vital Signs-as noted below Physical Exam: General Appearance:Obese, no apparent distress Head: normocephalic, Atraumatic Eyes: normal inspection, EOMI, PERRL Neck: supple, Trachea midline Respiratory/Chest: Normal breath sounds, CTA Cardiovascular: S1, S2, No murmur Abdomen/GI:Soft, Non tender, Bowel sounds present, +Umbilical hernia Extremities/Musculoskelatal:normal inspection, no edema Neurologic/Psych:AAOX3, grossly no focal neurological deficits Skin: normal color, warm Lab data as noted below. ASSESSMENT & PLAN: UTI: Urine culture:E.coli Continue Levaquin Day # 3 Influenza A Continue Tamiflu Day # 2 Supportive care HTN: BP elevated likely secondary to pain Was on Midodrine at home (?Orthostatic Hypotension) Start on amlodipine not on BP meds at home DM II: Hold metformin Continue ISS, Monitor BG levels CKD III: Cr at baseline monitor renal function Hypomagnesemia/Hypophosphatemia: Replace and monitor Hypertension: Stable Obesity: BMI:40.4 DVT Px: Heparin SQ Code status: full code Disposition: Likely discharge tomorrow if stable Vital Signs: Date Time Temp Pulse Resp B/P (MAP) Pulse Ox O2 Delivery O2 Flow Rate FiO2 05/27/17 08:00 Room Air 05/27/17 06:59 36.9 95 18 186/96 (126) 93 Room Air 05/27/17 00:00 Room Air 05/26/17 23:12 37.8 87 20 156/78 (104) 91 Room Air 05/26/17 16:02 93 Room Air 05/26/17 14:26 37.1 87 17 177/67 (103) 93 Lab Results: Results Past 24 Hours Test 05/27/17 06:25 05/27/17 07:25 05/27/17 11:24 Range/Units White Blood Count 3.18 4.8-10.8 K/uL Red Blood Count 3.84 4.2-5.4 M/uL Hemoglobin 11.2 12.0-16.0 g/dL Hematocrit 36.3 37-47 % Mean Corpuscular Volume 94.5 80-100 fL Mean Corpuscular Hemoglobin 29.2 25-34 pg Mean Corpuscular Hemoglobin Concent 30.9 32-36 g/dl RDW Standard Deviation 49.5 36.4-46.3 fL RDW Coefficient of Variation 14.5 11.5-14.5 % Platelet Count 150 130-400 K/uL Mean Platelet Volume 10.6 7.4-10.4 fL Sodium Level 138 136-145 mmol/L Potassium Level 3.9 3.5-5.1 mmol/L Chloride Level 105 98-107 mmol/L Carbon Dioxide Level 28 21-32 mmol/L Anion Gap 5.0 3-11 mmol/L Blood Urea Nitrogen 16 7-18 mg/dl Creatinine 1.05 0.60-1.20 mg/dl Est Creatinine Clear Calc Drug Dose 51.9 ml/min Estimated GFR () 57.7 Estimated GFR (Non- 49.8 BUN/Creatinine Ratio 15.1 10-20 Random Glucose 114 70-99 mg/dl Calcium Level 8.8 8.5-10.1 mg/dl Phosphorus Level 3.0 2.5-4.9 mg/dl Magnesium Level 1.7 1.8-2.4 mg/dl Bedside Glucose 113 114 70-90 mg/dl
[2017-05-27 15:36] VITALS: BP 157/78; PULSE 84; TEMP 36.8; O2SAT 96
[2017-05-27 16:00] VITALS: O2SAT 96
[2017-05-27] MEDS: LEVOFLOXACIN / D5W 500 MG in PREMIXED IN D5W 100 ML IV SCH (18:28)
[2017-05-27] MEDS: SIMVASTATIN 40 MG TAB PO SCH (20:46)
[2017-05-27 22:55] VITALS: BP 150/82; PULSE 89; TEMP 37; O2SAT 94
[2017-05-28] MEDS: HEPARIN SOD 5000 UNIT/0.5 ML CARP SQ SCH ×2 (05:50→18:00)
[2017-05-28] MEDS: HYDROCODONE/ACETAMIN 5/325MG TAB PO PRN ×2 (05:56→13:12)
[2017-05-28 06:49] VITALS: BP 131/82; PULSE 82; TEMP 36.5; O2SAT 93
[2017-05-28 07:19] LABS: HEMATOCRIT 34.2 % (37-47); HEMOGLOBIN 10.9 g/dL (12.0-16.0); MEAN CELL VOLUME 94.7 fL (80-100); MEAN CORPUSCULAR HEMOGLOBIN 30.2 pg (25-34); MEAN CORPUSCULAR HGB CONC 31.9 g/dl (32-36); MEAN PLATELET VOLUME 10.9 fL (7.4-10.4); PLATELET COUNT 161 K/uL (130-400); RED CELL DISTRIBUTION WIDTH CV 14.9 % (11.5-14.5); RED CELL DISTRIBUTION WIDTH SD 51.6 fL (36.4-46.3); WHITE BLOOD COUNT 2.48 K/uL (4.8-10.8)
[2017-05-28] MEDS: GABAPENTIN 100 MG CAP PO SCH ×2 (07:39→13:13)
[2017-05-28] MEDS: MAGNESIUM CHLORIDE 64MG DELAYED REL TAB PO SCH (07:40)
[2017-05-28] MEDS: PIOGLITAZONE TAB 15 MG TAB PO SCH (07:40)
[2017-05-28] MEDS: CHOLECALCIFEROL 1000 INTER.UNIT TAB PO SCH (07:40)
[2017-05-28] MEDS: CYANOCOBALAMIN 500 MCG TAB (VIT B-12) PO SCH (07:41)
[2017-05-28] MEDS: ASPIRIN 81 MG ECTAB PO SCH (07:41)
[2017-05-28] MEDS: OSELTAMIVIR PHOSPHATE SUSP 30 MG/5 ML UDP PO SCH (07:41)
[2017-05-28 07:49] LABS: CALCIUM 8.4 mg/dl (8.5-10.1); CREATININE 1.24 mg/dl (0.60-1.20); PHOSPHORUS 2.9 mg/dl (2.5-4.9)
[2017-05-28] MEDS ORDERED: AMLODIPINE BESYLATE 5 MG TAB PO SCH (09:00)
[2017-05-28] MEDS ORDERED: CYCLOBENZAPRINE HCL 10 MG TAB PO ONE (14:15)
--- NOTE | 2017-05-28 15:12 | Progress Note ---
Internal Med Progress Note Date of Service: May 28, 2017. Provider Documentation: SUBJECTIVE: Seen and examined at bedside Feels well today Fever resolved Minimal cough Denies dysuria, CP, SOB Reports chronic back pain No other complaints OBJECTIVE: Vital Signs-as noted below Physical Exam: General Appearance:Obese, no apparent distress Head: normocephalic, Atraumatic Eyes: normal inspection, EOMI, PERRL Neck: supple, Trachea midline Respiratory/Chest: Normal breath sounds, CTA Cardiovascular: S1, S2, No murmur Abdomen/GI:Soft, Non tender, Bowel sounds present, +Umbilical hernia Extremities/Musculoskelatal:normal inspection, no edema Neurologic/Psych:AAOX3, grossly no focal neurological deficits Skin: normal color, warm Lab data as noted below. ASSESSMENT & PLAN: UTI: Urine culture:E.coli Continue Levaquin Day # 4 Influenza A Continue Tamiflu Day # 3 Supportive care HTN: BP better today Was on Midodrine at home (?Orthostatic Hypotension) not on BP meds at home BP elevated likely secondary to pain DM II: Hold metformin Continue ISS, Monitor BG levels CKD III: Cr at baseline monitor renal function Hypomagnesemia/Hypophosphatemia: Replace and monitor Hypertension: Stable Obesity: BMI:40.4 DVT Px: Heparin SQ Code status: full code Disposition: Likely discharge home today Patient previously had Home Health but currently denies any requirement Follow up with your PCP on 06/02/17 at 2:05pm Complete the antibiotic and Tamiflu course as prescribed Seek immediate medical attention if your symptoms reoccur or worsen Vital Signs: Date Time Temp Pulse Resp B/P (MAP) Pulse Ox O2 Delivery O2 Flow Rate FiO2 05/28/17 08:00 Room Air 05/28/17 06:49 36.5 82 20 131/82 (98) 93 Room Air 05/28/17 00:00 Room Air 05/27/17 22:55 37.0 89 18 150/82 (104) 94 Room Air 05/27/17 16:00 96 Room Air 05/27/17 15:36 36.8 84 18 157/78 (104) 96 Room Air Lab Results: Results Past 24 Hours Test 05/27/17 16:28 05/27/17 19:36 05/28/17 06:36 05/28/17 07:27 Range/Units Bedside Glucose 93 137 138 70-90 mg/dl White Blood Count 2.48 4.8-10.8 K/uL Red Blood Count 3.61 4.2-5.4 M/uL Hemoglobin 10.9 12.0-16.0 g/dL Hematocrit 34.2 37-47 % Mean Corpuscular Volume 94.7 80-100 fL Mean Corpuscular Hemoglobin 30.2 25-34 pg Mean Corpuscular Hemoglobin Concent 31.9 32-36 g/dl RDW Standard Deviation 51.6 36.4-46.3 fL RDW Coefficient of Variation 14.9 11.5-14.5 % Platelet Count 161 130-400 K/uL Mean Platelet Volume 10.9 7.4-10.4 fL Sodium Level 139 136-145 mmol/L Potassium Level 4.0 3.5-5.1 mmol/L Chloride Level 108 98-107 mmol/L Carbon Dioxide Level 25 21-32 mmol/L Anion Gap 6.0 3-11 mmol/L Blood Urea Nitrogen 27 7-18 mg/dl Creatinine 1.24 0.60-1.20 mg/dl Est Creatinine Clear Calc Drug Dose 43.9 ml/min Estimated GFR () 47.2 Estimated GFR (Non- 40.7 BUN/Creatinine Ratio 21.9 10-20 Random Glucose 147 70-99 mg/dl Calcium Level 8.4 8.5-10.1 mg/dl Phosphorus Level 2.9 2.5-4.9 mg/dl Magnesium Level 1.7 1.8-2.4 mg/dl Test 05/28/17 11:31 Range/Units Bedside Glucose 128 70-90 mg/dl
[2017-05-28] MEDS ORDERED: SLWMEC PO (15:15)
[2017-05-28] MEDS ORDERED: LVQ250 PO (15:15)
[2017-05-28] MEDS ORDERED: OSEL30CA PO (15:15)
--- NOTE | 2017-05-28 15:17 | Discharge Summary ---
Discharge Summary Date of Service May 28, 2017. Discharge Summary Admission Date: May 25, 2017 at 21:18 Discharge Date: May 28, 2017 Discharge Disposition: Home Principal Diagnosis: Influenza, UTI Procedures: CXR: 1. Mild cardiomegaly 2. No evidence of lobar consolidation 3. Minor left basilar opacities, likely atelectatic Consultations: None Pending Studies/Follow-Up: Follow up with your PCP on 06/02/17 at 2:05pm Complete the antibiotic and Tamiflu course as prescribed Seek immediate medical attention if your symptoms reoccur or worsen Medication Reconciliation New Medications: Oseltamivir Phosphate (Tamiflu) 30 Mg Cap 1 CAP PO BID for 3 Days, #6 CAP Levofloxacin (Levofloxacin) 250 Mg Tab 250 MG PO DAILY@11 for 2 Days, #2 TAB Magnesium Chloride (Slow-Mag Tab) 64 Mg Tabcr 64 MG PO BID for 7 Days, #14 EA Continued Medications: Aspirin Enteric Coated (Ecotrin Or Generic *) 81 Mg Ectab 81 MG PO DAILY Bisacodyl (Dulcolax) 5 Mg Tab 2 TAB PO UD for 1 Day, #2 TAB Cholecalciferol (Vitamin D) 1,000 Inter.unit Tab 1000 INTER.UNIT PO DAILY Cyanocobalamin (Vitamin B-12) 1,000 Mcg Tab 1000 MCG PO DAILY Epoetin Lavell (Epogen Or Procrit *) 40,000 Units [place] 01826 UNITS SC UD, 0 Refills depending on lab results Gabapentin (Neurontin) 100 Mg Cap 100 MG PO TID, 0 Refills Hydrocodone/Acetaminophen 5MG/325MG ([place] 5MG/325MG) Tab 1 TABLET PO DIRECTED PRN for Pain, TAB PRN PAIN Metformin HCL (Glucophage *) 1,000 Mg Tab 1000 MG PO BID Pioglitazone (Actos *) 45 Mg Tab 45 MG PO DAILY Simvastatin (Zocor) 40 Mg Tab 40 MG PO QPM, 0 Refills Tramadol (Ultram) 50 Mg Tab 50 MG PO Q6HR PRN, 0 Refills As needed for pain. Admission Information HPI (per Admitting provider): CHIEF COMPLAINT: Flu-like symptoms with fever and chills and body aches for the last 2-3 days. HISTORY OF PRESENT COMPLAINT: She is an 81-year-old female with significant past medical history of chronic kidney disease stage III, type 2 diabetes, vitamin B12 deficiency, anemia, hyperlipidemia, generalized osteoarthritis, hypertension, migraine, hyperparathyroidism and also goiter, apparently has been complaining of flu-like symptoms for the last couple of days. She complains to have fever, sore throat but no difficulty in swallowing. She has cough without any phlegm and she has generalized body aches. She had nausea this morning and vomited once. She has been also going to the bathroom frequently to pass urine. She denies to have any dysuria. In the Emergency Room, she was hemodynamically stable and her UA examination was suggestive of infection and the chest x-ray did show probable atelectasis left lower lobe but no definite pneumonia. She received Levaquin, and from that point, she was admitted to medical floor for continuation of care. Physical Exam (per Admitting): PHYSICAL EXAMINATION: GENERAL: On examination in the Emergency Room, she was not having any acute distress. VITAL SIGNS: Temperature 37.8, pulse 88, blood pressure 158/70, saturation 94% on room air. HEENT: Unremarkable. NECK: Supple. No JVD, no bruit. CHEST: Clear to auscultation bilaterally with minimal crackles left base. HEART: S1, S2, regular, no murmur. ABDOMEN: Soft, benign, nontender. No organomegaly. She has moderate umbilical hernia with no obstruction. EXTREMITIES: Chronic edema bilaterally but no acute changes. CENTRAL NERVOUS SYSTEM: She is alert, awake, oriented x3. No focal sensory and/or motor deficit appreciated. Hospital Course UTI: Urine culture:E.coli Continue Levaquin Day # 4 Influenza A Continue Tamiflu Day # 3 Supportive care HTN: BP better today Was on Midodrine at home (?Orthostatic Hypotension) not on BP meds at home BP elevated likely secondary to pain DM II: Hold metformin Continue ISS, Monitor BG levels CKD III: Cr at baseline monitor renal function Hypomagnesemia/Hypophosphatemia: Replace and monitor Hypertension: Stable Obesity: BMI:40.4 DVT Px: Heparin SQ Code status: full code Disposition: Likely discharge home today Patient previously had Home Health but currently denies any requirement Follow up with your PCP on 06/02/17 at 2:05pm Complete the antibiotic and Tamiflu course as prescribed Seek immediate medical attention if your symptoms reoccur or worsen Total time spent on discharge = 36 minutes This includes examination of the patient, discharge planning, medication reconciliation, and communication with other providers. Discharge Instructions Discharge Instructions Date of Service May 28, 2017. Admission Reason for Admission: Dizziness And Giddiness, Flu-Like Symptoms, Uti Discharge Discharge Diagnosis / Problem: Influenza, UTI Discharge Goals Goal(s): Decrease discomfort, Improve function Activity Recommendations Activity Limitations: resume your previous activity Exercise/Sports Limitations: as tolerated . Instructions / Follow-Up Instructions / Follow-Up Follow up with your PCP on 06/02/17 at 2:05pm Complete the antibiotic and Tamiflu course as prescribed Seek immediate medical attention if your symptoms reoccur or worsen Current Hospital Diet Patient's current hospital diet: Diabetes Type 2 Diet Discharge Diet Recommended Diet: Diabetes Type 2 Diet Pending Studies Studies pending at discharge: no Medical Emergencies . Who to Call and When: Medical Emergencies: If at any time you feel your situation is an emergency, please call 911 immediately. . Non-Emergent Contact Non-Emergency issues call your: Primary Care Provider Call Non-Emergent contact if: you have a fever, your pain is not controlled, your pain is worsening, your pain is unusual for you, your pain is concerning you, you have any medication questions Seek immediate medical attention if your symptoms reoccur or worsen . . "Provider Documentation" section prepared by Freddie Murillo. . VTE Core Measure Inpt VTE Proph given/why not?: Unfractionated heparin SQ <Electronically signed by Freddie Murillo MD> Signed: 05/28/17 1517 Signed: The status of this report is Signed * If report status is Draft, the document has not been finalized by the responsible provider.
[2017-05-28 15:26] VITALS: BP 131/82; PULSE 82; TEMP 36.5; O2SAT 93
[2017-05-28 16:05] VITALS: BP 147/80; PULSE 84; TEMP 36.8; O2SAT 90
[2017-05-28] MEDS ORDERED: LEVOFLOXACIN 250 MG TAB PO SCH (18:00)
[2017-05-28] MEDS ORDERED: LEVOFLOXACIN 500 MG TAB PO SCH (18:00)
== END 2017-05-28 18:36 | disposition home or self-care (01) | DRG 689 ==
LOC: EDBD 17:42 → C.EDC 17:43 → C.MS2W 21:18 → ENRESERV 21:32
PROVIDERS: ADMIT Internal Medicine; ATTEND Internal Medicine
DX: N39.0 Urinary tract infection, site not specified (principal); J10.00 Influenza due to other identified influenza virus with unspecified type of pneumonia; Z68.41 Body mass index [BMI] 40.0-44.9, adult; J18.9 Pneumonia, unspecified organism; Z87.440 Personal history of urinary (tract) infections; Z79.82 Long term (current) use of aspirin; E11.21 Type 2 diabetes mellitus with diabetic nephropathy; Z79.84 Long term (current) use of oral hypoglycemic drugs; N18.3 Chronic kidney disease, stage 3 (moderate); E53.8 Deficiency of other specified B group vitamins; E78.5 Hyperlipidemia, unspecified; I12.9 Hypertensive chronic kidney disease with stage 1 through stage 4 chronic kidney disease, or unspecified chronic kidney disease; E21.3 Hyperparathyroidism, unspecified; Z90.49 Acquired absence of other specified parts of digestive tract; Z83.3 Family history of diabetes mellitus; Z82.49 Family history of ischemic heart disease and other diseases of the circulatory system; B96.20 Unspecified Escherichia coli [E. coli] as the cause of diseases classified elsewhere; E66.9 Obesity, unspecified; E83.42 Hypomagnesemia; E83.39 Other disorders of phosphorus metabolism

== ENCOUNTER 2024-08-17 18:45 | Inpatient (IN) ==
[2024-08-17] MEDS: MoRPHine SULFATE 2 MG/ML CARP IV STA (19:15)
[2024-08-17] MEDS: ACETAMINOPHEN 1,000 MG/100 ML VIAL IV STA (19:16)
[2024-08-17] MEDS: ONDANSETRON INJ 2 MG/ML 2 ML VIAL IV STA (19:16)
--- NOTE | 2024-08-17 19:18 | Emergency Department Note ---
Impression & Plan Sepsis, Incarcerated umbilical hernia, Cholecystitis, Acute UTI, Dementia, Left bundle branch block ED Provider Note NAME: WENDY BEVERLY AGE: 88 SEX: F : 1935 ARRIVES VIA: Ambulance INFORMANT: Patient ED PROVIDER(S): Israel Cornell MD CHIEF COMPLAINT: Abdominal pain, confusion. PLAN: Disposition: Admit MEDICAL DECISION MAKING: The patient is an 88-year-old woman with a past medical history of severe dementia, diabetes, hypertension who presents to the emergency department via EMS for evaluation of acute onset of abdominal pain this evening where the patient's mental status had also declined where she was inconsolable and unresponsive but writhing in pain. Family reports that the patient was doing fine earlier today and had lunch without any issues. They deny any recent fevers, chills, cough or congestion. They do report that the patient deals with constipation and she does use a stool softener. They further added that since the patient's recent complicated history of cholecystitis where she was transferred from this facility to [facility] where she was managed with placement of an Axios stent, she has been doing well. They report that the patient has had a large abdominal hernia for years that in the past several weeks has been increasingly more uncomfortable for the patient. On evaluation the patient is in severe distress/pain with heart rate in the 130s-140s where she did have a rectal temperature of 40.0 with vital signs otherwise stable. Abdomen was rigid with large protruding umbilical abdominal hernia which was hard and tender to palpation. This was reduced at the bedside with gradual uniform downward pressure with subsequent significant relief in the patient's discomfort. EKG demonstrates sinus tachycardia with first degree AVB and baseline LBBB without sgarbossa criteria. CXR negative for acute cardiopulmonary process per my personal preliminary review/interpretation. WBC within normal limits. H/H and platelets within normal limits. There is left shift present but no neutrophilia. Chemistry without metabolic acidosis. Initial lactic acid 3.1. BUN/creatinine 32 consistent patient's clinically dry appearance. Alk phos is 292 similar to prior and otherwise LFTs including total bilirubin are normal. Initial high-sensitivity troponin 65 with repeat HS troponin increased to 116, nonspecific and in the setting of the patient's tachycardia. Lipase is not elevated. Procalcitonin is elevated 9.7. TSH within the limits. UA is consistent with infection with positive nitrites, WBCs, 3+ bacteria. Respiratory BioFire was negative. CT of the head was negative for acute abnormalities. CT of the abdomen pelvis demonstrates the patient's axials stent/Colegastrostomy tube in place. However description of the gallbladder is inflamed containing stones with pericholecystic fluid. Pneumobilia is also noted within the liver. This appearance is suggestive of cholecystitis. Mucosal thickening in the CBD can be seen in the setting of cholangitis. Description of a right hepatic lobe lesion is new from 07/18/2024. Patient [place] umbilical hernia is described containing nonobstructive transverse colon however imaging obtained after her bedside reduction of her clinically incarcerated hernia on presentation. Abdominal abdominal binder was placed following CT to avoid recurrence of incarceration as the hernia would spontaneously recur though easily reducible subsequently. Blood cultures were obtained and empiric treatment initiated with IV Zosyn given presentation consistent with sepsis. Patient was ordered for 30 cc/KG of IV fluid with normal saline per IBW. Patient's heart rate did progressively improve. Family at the bedside reported the patient continued to feel more comfortable and that placement of her abdominal binder following bedside reduction of her hernia has resulted in significant improvement in her pain. Case discussed with Gautam Hsu, general surgery PA-C with Dr. Cruz, general surgery on-call. Given the patient's recent Axios stent placement for cholecystitis and CT findings recommends consultation with patient's [facility] GI providers to see if there are any concerns where they would want the patient transferred. Case and imaging discussed with Dr. Calvillo, [facility]. Findings on CT imaging are not unexpected given the patient's recent Axios stent placement. Pneumobilia described confirms stent patency. Additionally, given the patient's normal LFTs, suggestion of cholangitis is not likely and can be excluded at this time. Agrees with description that patient's presentation is likely more related to her incarcerated hernia on presentation and urinary tract infection. General surgery was updated and agrees with admission to our facility for IV antibiotics and further management. Case was discussed with Dr. Martinez, [facility] hospitalist, who will evaluate the patient for admission. Further management per admitting team. Appreciate consultations and recommendations. Triage Nursing notes reviewed and agree them. Prior/external medical records reviewed Vital Signs: reviewed Differential diagnosis: Sepsis, UTI, pneumonia, metabolic, electrolyte abnormalities, cardiac sources, intracerebral event, toxicologic, neurologic, as well as other pathologies. ER treatment provided: See below. Diagnostics interpreted by me: ECG 1854: Sinus tachycardia with first-degree AV block,, 130 bpm, left bundle branch block, no Sgarbossa criteria, QTc 541, QRS 150. ECG 2306: Sinus tachycardia with first-degree AV block, 112 bpm, left bundle branch block, no Sgarbossa criteria, QTc 455, QRS 148. Cardiac Monitoring: An order for continuous cardiac monitoring was placed and demonstrated sinus tachycardia, 138 bpm, no ectopy. Laboratory studies: See below Imaging studies: See below Consultation(s): Gautam Hsu, general surgery PA-C with Dr. Cruz, general surgery on- call. Dr. Calvillo, [facility]. Dr. Martinez, [facility]. HPI: Per MDM. ROS: See above HPI for pertinent positives & negatives. A total of 10 systems reviewed and were otherwise negative. VITALS:See Below PHYSICAL EXAMINATION: GENERAL: Awake, alert, ill-appearing, in severe distress secondary to pain. HENT: Normocephalic, atraumatic. Oropharynx with dry mucous membranes and otherwise unremarkable. EYES: Normal conjunctiva. Sclera non-icteric. NECK: Supple. No nuchal rigidity. FROM. No JVD. RESPIRATORY: Clear to auscultation. CARDIAC: Tachycardic rate, normal rhythm. Extremities warm and well perfused. Pulses equal. ABDOMEN: Abdomen was rigid with large protruding umbilical abdominal hernia which was hard and tender to palpation. This was reduced at the bedside with gradual uniform downward pressure with subsequent significant relief in the patient's discomfort. MUSCULOSKELETAL: Chest examination reveals no tenderness. The back is symmetrical on inspection without obvious abnormality. There is no CVA tenderness to palpation. No joint edema. LOWER EXTREMITIES: Calves are equal size bilaterally and non-tender. No edema. No discoloration. NEURO: Alert to voice and follows commands. Moving all extremities equally. SKIN: No rash or jaundice noted. ED COURSE: Critical Care: I have personally spent greater than 65 minutes of critical care time in the direct management of this patient. This includes bedside care, interpretation of diagnostic studies, and testing, discussion with consultants, patient, and family members, and other required patient management activities. This 65 minutes is in excess of all separately billable procedures. 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 Current Living Situation: Other Current Living Situation Comment: [facility] Feels Safe at Home: Yes Allergies Allergies Allergy/AdvReac Type Severity Reaction Status Date / Time No Known Allergies Allergy Unknown NONE Verified 07/18/24 17:20 Home Meds Home Medications Medication Instructions Recorded Confirmed aspirin 81 mg tablet,delayed 81 mg PO QPM 07/18/24 08/17/24 release atorvastatin 40 mg tablet 40 mg PO QAM 07/18/24 08/17/24 cholecalciferol (vitamin D3) 25 25 mcg PO QAM 07/18/24 08/17/24 mcg (1,000 unit) tablet (Vitamin D3) cinacalcet 30 mg tablet 30 mg PO 3XWK 07/18/24 08/17/24 cyanocobalamin (vitamin B-12) 1,000 mcg PO QAM 07/18/24 08/17/24 1,000 mcg tablet docusate sodium 100 mg capsule 100 mg PO QAM 07/18/24 08/17/24 (Stool Softener) donepezil 5 mg tablet 5 mg PO QAM 07/18/24 08/17/24 duloxetine 60 mg capsule,delayed 60 mg PO QAM 07/18/24 08/17/24 release empagliflozin 25 mg tablet 25 mg PO QAM 07/18/24 08/17/24 (Jardiance) famotidine 10 mg tablet 10 mg PO QAM 07/18/24 08/17/24 gabapentin 100 mg capsule 100 mg PO TID 07/18/24 08/17/24 glipizide 5 mg tablet, extended 5 mg PO DAILYBB 07/18/24 08/17/24 release 24 hr hydrocodone 10 mg-acetaminophen 1 tab PO .Q4-6H 07/18/24 08/17/24 325 mg tablet lidocaine 5 % topical patch 2 patch topical .DAILY X 12HRS 07/18/24 08/17/24 magnesium oxide 400 mg (241.3 mg 400 mg PO QAM 07/18/24 08/17/24 magnesium) tablet metformin 500 mg tablet,extended 500 mg PO QAM 07/18/24 08/17/24 release 24 hr metoprolol succinate 25 mg 12.5 mg PO QAM 07/18/24 08/17/24 tablet,extended release 24 hr naloxone 4 mg/actuation nasal 4 mg intranasal DAILY PRN Drug 07/18/24 08/17/24 spray (Narcan) Intoxication Symptoms polysaccharide iron complex 150 mg 150 mg PO HS 07/18/24 08/17/24 iron capsule (Ferrex) sacubitril 24 mg-valsartan 26 mg 1 tab PO AMHS 07/18/24 08/17/24 tablet (Entresto) Results & Data (ED) Vital Signs Vital Signs - 24 hr 08/17/24 18:34 08/17/24 18:56 08/17/24 19:35 Temperature 36.6 C 40.0 C H Temperature Source Oral Rectal Pulse Rate 136 H 128 H Pulse Rate [Apical] 124 H Pulse Rate from SpO2 Sensor Pulse Rhythm Irregular Respiratory Rate 24 19 Blood Pressure 123/76 Blood Pressure [Left Arm] 124/77 Blood Pressure Mean 91 Blood Pressure Mean [Left Arm] 92 Blood Pressure Position Sitting Blood Pressure Position [Left Arm] Semi-fowlers Pulse Oximetry 92 90 Oxygen Delivery Method Room Air Room Air Oxygen Flow Rate Sepsis Recent Fever Within 48 Hours No Sepsis New/Unexplained Change in Mental Status No Sepsis Action Taken by Nursing Physician Notified Oxygen Flow Rate - Titration Pulse Oximetry Post Tiitration 08/17/24 19:45 08/17/24 19:46 08/17/24 21:00 Temperature Temperature Source Pulse Rate Pulse Rate [Apical] 108 H Pulse Rate from SpO2 Sensor Pulse Rhythm Respiratory Rate 19 Blood Pressure Blood Pressure [Left Arm] 124/77 Blood Pressure Mean Blood Pressure Mean [Left Arm] 92 Blood Pressure Position Blood Pressure Position [Left Arm] Pulse Oximetry 89 L 95 94 Oxygen Delivery Method Room Air Nasal Cannula Nasal Cannula Oxygen Flow Rate 2 2 Sepsis Recent Fever Within 48 Hours Sepsis New/Unexplained Change in Mental Status Sepsis Action Taken by Nursing Oxygen Flow Rate - Titration Pulse Oximetry Post Tiitration 08/17/24 21:00 08/17/24 22:59 08/17/24 23:00 Temperature 36.9 C Temperature Source Axillary Pulse Rate 110 H 111 H Pulse Rate [Apical] Pulse Rate from SpO2 Sensor 111 H Pulse Rhythm Respiratory Rate 18 Blood Pressure 105/68 Blood Pressure [Left Arm] Blood Pressure Mean 80 Blood Pressure Mean [Left Arm] Blood Pressure Position Blood Pressure Position [Left Arm] Pulse Oximetry 93 Oxygen Delivery Method Nasal Cannula Oxygen Flow Rate 2 Sepsis Recent Fever Within 48 Hours Sepsis New/Unexplained Change in Mental Status Sepsis Action Taken by Nursing Oxygen Flow Rate - Titration Pulse Oximetry Post Tiitration 08/17/24 23:12 08/17/24 23:33 08/18/24 00:16 Temperature Temperature Source Pulse Rate 113 H 108 H Pulse Rate [Apical] Pulse Rate from SpO2 Sensor 111 H 112 H Pulse Rhythm Respiratory Rate 23 20 Blood Pressure 97/64 L 90/62 L Blood Pressure [Left Arm] Blood Pressure Mean 75 71 Blood Pressure Mean [Left Arm] Blood Pressure Position Blood Pressure Position [Left Arm] Pulse Oximetry 94 94 87 L Oxygen Delivery Method Nasal Cannula Nasal Cannula Nasal Cannula Oxygen Flow Rate 2 3 2 Sepsis Recent Fever Within 48 Hours Sepsis New/Unexplained Change in Mental Status Sepsis Action Taken by Nursing Oxygen Flow Rate - Titration 3 Pulse Oximetry Post Tiitration 96 08/18/24 00:24 08/18/24 00:30 08/18/24 01:00 Temperature Temperature Source Pulse Rate 107 H 106 H 105 H Pulse Rate [Apical] Pulse Rate from SpO2 Sensor 109 H 106 H 105 H Pulse Rhythm Respiratory Rate 22 20 20 Blood Pressure 102/68 106/61 114/73 Blood Pressure [Left Arm] Blood Pressure Mean 79 76 76 Blood Pressure Mean [Left Arm] Blood Pressure Position Blood Pressure Position [Left Arm] Pulse Oximetry 94 94 93 Oxygen Delivery Method Nasal Cannula Nasal Cannula Nasal Cannula Oxygen Flow Rate 3 3 3 Sepsis Recent Fever Within 48 Hours Sepsis New/Unexplained Change in Mental Status Sepsis Action Taken by Nursing Oxygen Flow Rate - Titration Pulse Oximetry Post Tiitration 08/18/24 01:30 08/18/24 02:03 Temperature Temperature Source Pulse Rate 100 H 104 H Pulse Rate [Apical] Pulse Rate from SpO2 Sensor 103 H 104 H Pulse Rhythm Respiratory Rate 21 15 Blood Pressure 105/69 94/67 L Blood Pressure [Left Arm] Blood Pressure Mean 81 76 Blood Pressure Mean [Left Arm] Blood Pressure Position Blood Pressure Position [Left Arm] Pulse Oximetry 93 97 Oxygen Delivery Method Room Air Nasal Cannula Oxygen Flow Rate 3 Sepsis Recent Fever Within 48 Hours Sepsis New/Unexplained Change in Mental Status Sepsis Action Taken by Nursing Oxygen Flow Rate - Titration Pulse Oximetry Post Tiitration Laboratory Data 08/18/24 11:01 08/18/24 09:31 Lab Results 08/17/24 08/17/24 08/17/24 Range/Units 19:10 19:17 19:29 WBC 5.67 (4.8-10.8) K/ul RBC 4.10 L (4.20-5.40) M/uL Hgb 12.0 (12.0-16.0) g/dl POC Hgb 12.9 (12.0-16.0) g/dl Hct 38.4 (37.0-47.0) % POC Hct 38 (37-47) % MCV 93.7 (80.0-100.0) fL MCH 29.3 (25.0-34.0) pg MCHC 31.3 L (32.0-36.0) g/dL RDW Std Deviation 46.0 (36.4-46.3) fL RDW Coeff of Joseph 13.5 (11.5-14.5) % Plt Count 148 (130-400) K/uL MPV 11.0 (9.4-12.4) fL Immature Gran % (Auto) 6.5 % Neut % (Auto) 87.8 % Lymph % (Auto) 4.2 % [place] % (Auto) 1.1 % Eos % (Auto) 0.2 % Baso % (Auto) 0.2 % Neut # (Auto) 4.98 (1.40-6.50) K/uL Lymph # (Auto) 0.24 L (1.20-3.40) K/uL [place] # (Auto) 0.06 L (0.11-0.59) K/uL Eos # (Auto) 0.01 (0.00-0.50) K/uL Baso # (Auto) 0.01 (0.00-0.20) K/uL Immature Gran # (Auto) 0.37 H (0.01-0.20) K/uL Toxic Vacuolation 1+ Polychromasia 1+ PT Cancelled INR Cancelled POC Sodium 137 (135-144) mmol/L Sodium 139 (136-145) mmol/L POC Potassium 4.9 (3.3-5.0) mmol/L Potassium 5.0 (3.5-5.1) mmol/L POC Chloride 104 (101-112) mmol/L Chloride 102 (98-107) mmol/L Carbon Dioxide 28 (21-32) mmol/L POC Total CO2 25 (24-31) mmol/L Anion Gap 9 (3-11) POC Anion Gap 14.0 L (16-25) mmol/L POC BUN 32 H (7-18) mg/dl BUN 32 H (6-23) mg/dl Creatinine 0.99 (0.6-1.2) mg/dl POC Creatinine 1.0 (0.6-1.3) mg/dl Est Cr Clr Drug Dosing 40.7 ml/min eGFR 54.84 BUN/Creatinine Ratio 32.3 H (10-20) Glucose 154 H (70-99(Fasting)) mg/dl POC Glucose (other) 155 H (70-99) mg/dl Lactate (0.4-2.0) mmol/L Calcium 10.3 (8.6-10.3) mg/dl POC Ioniz Calcium George 1.17 (1.12-1.32) mmol/l Phosphorus 2.3 L (2.5-4.9) mg/dl Magnesium 1.9 (1.7-2.4) mg/dl Total Bilirubin 0.7 (0.2-1.0) mg/dl AST 28 (13-39) U/L ALT 49 (7-52) U/L Alkaline Phosphatase 292 H (34-104) U/L Troponin I High Sens 65.1 H* (0-14) pg/ml Total Protein 7.2 (6.0-8.3) gm/dl Albumin 3.9 (3.4-5.0) gm/dl Globulin 3.3 (2.5-4.0) gm/dl Albumin/Globulin Ratio 1.2 (0.9-2) Lipase 13 (11-82) U/L Procalcitonin (0-0.5) ng/ml TSH 0.601 (0.300-4.500) uIu/ml Urine Color Yellow Urine Appearance Cloudy A (Clear) Urine pH 5.5 (4.5-7.5) Ur Specific [place] 1.018 (1.000-1.030) Urine Protein Negative (Negative) Urine Glucose (UA) 3+ H (Negative) Urine Ketones Negative (Negative) Urine Blood Negative (Negative) Urine Nitrite Positive A (Negative) Urine Bilirubin Negative (Negative) Urine Urobilinogen Negative (Negative) Ur Leukocyte Esterase 2+ H (Negative) Urine WBC (Auto) >50 H (0-5) /hpf Urine RBC (Auto) 3-5 H (0-2) /hpf U Hyaline Cast (Auto) 0-2 (0-2) /lpf U Epithel Cells (Auto) 11-20 H (0-2) /hpf Urine Bacteria (Auto) 3+ H (None Seen) Urine Yeast Present A (None Prsent) Nasal Screen MRSA (PCR) (Negative) Adenovirus (PCR) (NotDetected) B. pertussis DNA (PCR) (NotDetected) B.parapertussis DNA PCR (NotDetected) C. pneumoniae DNA (PCR) (NotDetected) Coronavirus OC43 (PCR) (NotDetected) Coronavirus HKU1 (PCR) (NotDetected) Coronavirus 229E (PCR) (NotDetected) SARS-CoV-2 (PCR) (NotDetected) Coronavirus NL63 (PCR) (NotDetected) Enterobacterales (PCR) (NotDetected) Human Metapneumovir PCR (NotDetected) Influenza Type A (PCR) (NotDetected) Influenza Type B (PCR) (NotDetected) Klebsiella oxytoca PCR (NotDetected) M. pneumoniae (PCR) (NotDetected) Parainfluenza 1 (PCR) (NotDetected) Parainfluenza 2 (PCR) (NotDetected) Parainfluenza 3 (PCR) (NotDetected) Parainfluenza 4 (PCR) (NotDetected) RSV (PCR) (NotDetected) Entero/Rhino (PCR) (NotDetected) Staphylococcus sp PCR (NotDetected) mcr-1 Colistin Res Gene PCR (NotDetected) blaIMP Car res Gene PCR (NotDetected) KPC-Carbap Res Gene PCR (NotDetected) blaNDM Car Res Gene PCR (NotDetected) OXA-48 Carbapenem Resis Gene (PCR) (NotDetected) blaVIM Car Res Gene PCR (NotDetected) CTX-M Gene Resistance (PCR) (NotDetected) Bld Cult ID Panel PCR (NotDetected) 08/17/24 08/17/24 08/17/24 Range/Units 19:51 19:51 19:53 WBC (4.8-10.8) K/ul RBC (4.20-5.40) M/uL Hgb (12.0-16.0) g/dl POC Hgb (12.0-16.0) g/dl Hct (37.0-47.0) % POC Hct (37-47) % MCV (80.0-100.0) fL MCH (25.0-34.0) pg MCHC (32.0-36.0) g/dL RDW Std Deviation (36.4-46.3) fL RDW Coeff of Joseph (11.5-14.5) % Plt Count (130-400) K/uL MPV (9.4-12.4) fL Immature Gran % (Auto) % Neut % (Auto) % Lymph % (Auto) % [place] % (Auto) % Eos % (Auto) % Baso % (Auto) % Neut # (Auto) (1.40-6.50) K/uL Lymph # (Auto) (1.20-3.40) K/uL [place] # (Auto) (0.11-0.59) K/uL Eos # (Auto) (0.00-0.50) K/uL Baso # (Auto) (0.00-0.20) K/uL Immature Gran # (Auto) (0.01-0.20) K/uL Toxic Vacuolation Polychromasia PT 11.0 INR 1.0 POC Sodium (135-144) mmol/L Sodium (136-145) mmol/L POC Potassium (3.3-5.0) mmol/L Potassium (3.5-5.1) mmol/L POC Chloride (101-112) mmol/L Chloride (98-107) mmol/L Carbon Dioxide (21-32) mmol/L POC Total CO2 (24-31) mmol/L Anion Gap (3-11) POC Anion Gap (16-25) mmol/L POC BUN (7-18) mg/dl BUN (6-23) mg/dl Creatinine (0.6-1.2) mg/dl POC Creatinine (0.6-1.3) mg/dl Est Cr Clr Drug Dosing ml/min eGFR BUN/Creatinine Ratio (10-20) Glucose (70-99(Fasting)) mg/dl POC Glucose (other) (70-99) mg/dl Lactate 3.1 H* (0.4-2.0) mmol/L Calcium (8.6-10.3) mg/dl POC Ioniz Calcium George (1.12-1.32) mmol/l Phosphorus (2.5-4.9) mg/dl Magnesium (1.7-2.4) mg/dl Total Bilirubin (0.2-1.0) mg/dl AST (13-39) U/L ALT (7-52) U/L Alkaline Phosphatase (34-104) U/L Troponin I High Sens (0-14) pg/ml Total Protein (6.0-8.3) gm/dl Albumin (3.4-5.0) gm/dl Globulin (2.5-4.0) gm/dl Albumin/Globulin Ratio (0.9-2) Lipase (11-82) U/L Procalcitonin 9.71 H (0-0.5) ng/ml TSH (0.300-4.500) uIu/ml Urine Color Urine Appearance (Clear) Urine pH (4.5-7.5) Ur Specific [place] (1.000-1.030) Urine Protein (Negative) Urine Glucose (UA) (Negative) Urine Ketones (Negative) Urine Blood (Negative) Urine Nitrite (Negative) Urine Bilirubin (Negative) Urine Urobilinogen (Negative) Ur Leukocyte Esterase (Negative) Urine WBC (Auto) (0-5) /hpf Urine RBC (Auto) (0-2) /hpf U Hyaline Cast (Auto) (0-2) /lpf U Epithel Cells (Auto) (0-2) /hpf Urine Bacteria (Auto) (None Seen) Urine Yeast (None Prsent) Nasal Screen MRSA (PCR) Negative (Negative) Adenovirus (PCR) Not Detected (NotDetected) B. pertussis DNA (PCR) Not Detected (NotDetected) B.parapertussis DNA PCR Not Detected (NotDetected) C. pneumoniae DNA (PCR) Not Detected (NotDetected) Coronavirus OC43 (PCR) Not Detected (NotDetected) Coronavirus HKU1 (PCR) Not Detected (NotDetected) Coronavirus 229E (PCR) Not Detected (NotDetected) SARS-CoV-2 (PCR) Not Detected (NotDetected) Coronavirus NL63 (PCR) Not Detected (NotDetected) Enterobacterales (PCR) DETECTED A (NotDetected) Human Metapneumovir PCR Not Detected (NotDetected) Influenza Type A (PCR) Not Detected (NotDetected) Influenza Type B (PCR) Not Detected (NotDetected) Klebsiella oxytoca PCR DETECTED A (NotDetected) M. pneumoniae (PCR) Not Detected (NotDetected) Parainfluenza 1 (PCR) Not Detected (NotDetected) Parainfluenza 2 (PCR) Not Detected (NotDetected) Parainfluenza 3 (PCR) Not Detected (NotDetected) Parainfluenza 4 (PCR) Not Detected (NotDetected) RSV (PCR) Not Detected (NotDetected) Entero/Rhino (PCR) Not Detected (NotDetected) Staphylococcus sp PCR DETECTED A (NotDetected) mcr-1 Colistin Res Gene PCR Not Detected (NotDetected) blaIMP Car res Gene PCR Not Detected (NotDetected) KPC-Carbap Res Gene PCR Not Detected (NotDetected) blaNDM Car Res Gene PCR Not Detected (NotDetected) OXA-48 Carbapenem Resis Gene (PCR) Not Detected (NotDetected) blaVIM Car Res Gene PCR Not Detected (NotDetected) CTX-M Gene Resistance (PCR) Not Detected (NotDetected) Bld Cult ID Panel PCR See PCR Comment See PCR Comment (NotDetected) 08/17/24 08/17/24 Range/Units 21:27 23:28 WBC (4.8-10.8) K/ul RBC (4.20-5.40) M/uL Hgb (12.0-16.0) g/dl POC Hgb (12.0-16.0) g/dl Hct (37.0-47.0) % POC Hct (37-47) % MCV (80.0-100.0) fL MCH (25.0-34.0) pg MCHC (32.0-36.0) g/dL RDW Std Deviation (36.4-46.3) fL RDW Coeff of Joseph (11.5-14.5) % Plt Count (130-400) K/uL MPV (9.4-12.4) fL Immature Gran % (Auto) % Neut % (Auto) % Lymph % (Auto) % [place] % (Auto) % Eos % (Auto) % Baso % (Auto) % Neut # (Auto) (1.40-6.50) K/uL Lymph # (Auto) (1.20-3.40) K/uL [place] # (Auto) (0.11-0.59) K/uL Eos # (Auto) (0.00-0.50) K/uL Baso # (Auto) (0.00-0.20) K/uL Immature Gran # (Auto) (0.01-0.20) K/uL Toxic Vacuolation Polychromasia PT INR POC Sodium (135-144) mmol/L Sodium (136-145) mmol/L POC Potassium (3.3-5.0) mmol/L Potassium (3.5-5.1) mmol/L POC Chloride (101-112) mmol/L Chloride (98-107) mmol/L Carbon Dioxide (21-32) mmol/L POC Total CO2 (24-31) mmol/L Anion Gap (3-11) POC Anion Gap (16-25) mmol/L POC BUN (7-18) mg/dl BUN (6-23) mg/dl Creatinine (0.6-1.2) mg/dl POC Creatinine (0.6-1.3) mg/dl Est Cr Clr Drug Dosing ml/min eGFR BUN/Creatinine Ratio (10-20) Glucose (70-99(Fasting)) mg/dl POC Glucose (other) (70-99) mg/dl Lactate 1.7 (0.4-2.0) mmol/L Calcium (8.6-10.3) mg/dl POC Ioniz Calcium George (1.12-1.32) mmol/l Phosphorus (2.5-4.9) mg/dl Magnesium (1.7-2.4) mg/dl Total Bilirubin (0.2-1.0) mg/dl AST (13-39) U/L ALT (7-52) U/L Alkaline Phosphatase (34-104) U/L Troponin I High Sens 116.7 H* D (0-14) pg/ml Total Protein (6.0-8.3) gm/dl Albumin (3.4-5.0) gm/dl Globulin (2.5-4.0) gm/dl Albumin/Globulin Ratio (0.9-2) Lipase (11-82) U/L Procalcitonin (0-0.5) ng/ml TSH (0.300-4.500) uIu/ml Urine Color Urine Appearance (Clear) Urine pH (4.5-7.5) Ur Specific [place] (1.000-1.030) Urine Protein (Negative) Urine Glucose (UA) (Negative) Urine Ketones (Negative) Urine Blood (Negative) Urine Nitrite (Negative) Urine Bilirubin (Negative) Urine Urobilinogen (Negative) Ur Leukocyte Esterase (Negative) Urine WBC (Auto) (0-5) /hpf Urine RBC (Auto) (0-2) /hpf U Hyaline Cast (Auto) (0-2) /lpf U Epithel Cells (Auto) (0-2) /hpf Urine Bacteria (Auto) (None Seen) Urine Yeast (None Prsent) Nasal Screen MRSA (PCR) (Negative) Adenovirus (PCR) (NotDetected) B. pertussis DNA (PCR) (NotDetected) B.parapertussis DNA PCR (NotDetected) C. pneumoniae DNA (PCR) (NotDetected) Coronavirus OC43 (PCR) (NotDetected) Coronavirus HKU1 (PCR) (NotDetected) Coronavirus 229E (PCR) (NotDetected) SARS-CoV-2 (PCR) (NotDetected) Coronavirus NL63 (PCR) (NotDetected) Enterobacterales (PCR) (NotDetected) Human Metapneumovir PCR (NotDetected) Influenza Type A (PCR) (NotDetected) Influenza Type B (PCR) (NotDetected) Klebsiella oxytoca PCR (NotDetected) M. pneumoniae (PCR) (NotDetected) Parainfluenza 1 (PCR) (NotDetected) Parainfluenza 2 (PCR) (NotDetected) Parainfluenza 3 (PCR) (NotDetected) Parainfluenza 4 (PCR) (NotDetected) RSV (PCR) (NotDetected) Entero/Rhino (PCR) (NotDetected) Staphylococcus sp PCR (NotDetected) mcr-1 Colistin Res Gene PCR (NotDetected) blaIMP Car res Gene PCR (NotDetected) KPC-Carbap Res Gene PCR (NotDetected) blaNDM Car Res Gene PCR (NotDetected) OXA-48 Carbapenem Resis Gene (PCR) (NotDetected) blaVIM Car Res Gene PCR (NotDetected) CTX-M Gene Resistance (PCR) (NotDetected) Bld Cult ID Panel PCR (NotDetected) Administered Medications Atorvastatin Calcium (Atorvastatin 40 Mg Tab) 40 mg PO [facility] Stop: 09/17/24 08:59 Last Admin: 08/18/24 09:27 Dose: Not Given Documented By: SIERRA Donepezil HCl (Donepezil Hcl 5 Mg Tab) 5 mg PO [facility] Stop: 09/17/24 08:59 Last Admin: 08/18/24 09:27 Dose: Not Given Documented By: SIERRA Duloxetine HCl (Duloxetine Hcl 60 Mg Cap) 60 mg PO [facility] Stop: 09/17/24 08:59 Last Admin: 08/18/24 09:28 Dose: Not Given Documented By: SIERRA Famotidine (Famotidine 10 Mg Tablet) 10 mg PO [facility] Stop: 09/17/24 08:59 Last Admin: 08/18/24 09:28 Dose: Not Given Documented By: SIERRA Hydromorphone HCl (Hydromorphone Inj 0.5 Mg/0.5 Ml Syr) 0.5 mg IV Q6H PRN PRN Reason: Severe Pain (Scale 7, 8, 9,10) Stop: 09/01/24 03:49 Last Admin: 08/18/24 18:12 Dose: 0.5 mg Documented By: SIERRA Sodium Chloride (Nss) 1,000 mls @ 80 mls/hr IV .[id number] [facility] Stop: 08/19/24 03:49 Last Admin: 08/18/24 18:08 Dose: 80 mls/hr Documented By: Infusion: 08/18/24 16:39 Dose: Infused Documented By: Admin: 08/18/24 04:09 Dose: 80 mls/hr Documented By: MOODY Piperacillin Sod/Tazobactam Sod (Zosyn) 4.5 gm in 100 mls @ 25 mls/hr IV Q8H [facility]; Protocol Stop: 08/28/24 03:59 Last Infusion: 08/18/24 15:48 Dose: Infused Documented By: Admin: 08/18/24 11:29 Dose: 25 mls/hr Documented By: Infusion: 08/18/24 08:48 Dose: Infused Documented By: Admin: 08/18/24 04:48 Dose: 25 mls/hr Documented By: MOODY Insulin Aspart (Insulin Aspart Per Unit Charge) 0 units SC Q6 [facility] Stop: 09/17/24 05:59 Last Admin: 08/18/24 18:07 Dose: Not Given Documented By: Admin: 08/18/24 12:03 Dose: Not Given Documented By: Admin: 08/18/24 06:05 Dose: Not Given Documented By: MOODY Lidocaine (Lidocaine 5% 1 Patch) 2 patch TD QAM [facility] Stop: 09/17/24 08:59 Last Admin: 08/18/24 09:30 Dose: Not Given Documented By: SIERRA Discontinued Medications Albuterol (Albuterol 0.5% Neb Soln 2.5 Mg/0.5 Ml Vial) 10 mg NEB NOW STA Stop: 08/18/24 08:54 Last Admin: 08/18/24 09:17 Dose: 10 mg Documented By: COURTNEY Dextrose (Dextrose 50% 50 Ml Syringe) 50 ml IV NOW STA Stop: 08/18/24 08:54 Last Admin: 08/18/24 09:15 Dose: 50 ml Documented By: SIERRA Sodium Chloride (Nss) 500 mls @ 999 mls/hr IV .Q31M ONE Stop: 08/17/24 19:37 Last Infusion: 08/17/24 19:53 Dose: Infused Documented By: Admin: 08/17/24 19:22 Dose: 999 mls/hr Documented By: ISSAC Acetaminophen (Ofirmev) 1,000 mg in 100 mls @ 400 mls/hr IV NOW STA Stop: 08/17/24 19:21 Last Infusion: 08/17/24 19:35 Dose: Infused Documented By: Admin: 08/17/24 19:16 Dose: 400 mls/hr Documented By: ISSAC Piperacillin Sod/Tazobactam Sod (Zosyn) 4.5 gm in 100 mls @ 200 mls/hr IV NOW ONE; Protocol Stop: 08/17/24 20:10 Last Infusion: 08/17/24 21:30 Dose: Infused Documented By: Admin: 08/17/24 20:39 Dose: 200 mls/hr Documented By: ISSAC Sodium Chloride (Nss) 1,000 mls @ 999 mls/hr IV .Q1H1M ONE Stop: 08/17/24 23:54 Last Infusion: 08/18/24 01:56 Dose: Infused Documented By: Admin: 08/18/24 00:17 Dose: 999 mls/hr Documented By: CHRIS Sodium Chloride (Nss) 500 mls @ 999 mls/hr IV .Q31M ONE Stop: 08/17/24 23:58 Last Infusion: 08/18/24 01:56 Dose: Infused Documented By: Admin: 08/18/24 00:17 Dose: 999 mls/hr Documented By: CHRIS Calcium Gluconate () 1,000 mg in 60 mls @ 240 mls/hr IV NOW STA Stop: 08/18/24 09:07 Last Infusion: 08/18/24 09:50 Dose: Infused Documented By: Admin: 08/18/24 09:27 Dose: 240 mls/hr Documented By: SIERRA Insulin Human Regular 10 units (/ Syringe) 10 mls @ 3 mls/sec IV ONE ONE Stop: 08/18/24 09:01 Last Admin: 08/18/24 09:15 Dose: 3 mls/sec Documented By: SIERRA Co-signed By: DEMARCUS Ioversol (Optiray 320 100ml) 90 ml IV ONCE ONE Stop: 08/17/24 20:19 Last Admin: 08/17/24 20:18 Dose: 90 ml Documented By: STEPHANIE Metoprolol Succinate (Metoprolol Succ 25mg Ext Rel Tab) 12.5 mg PO QAM CHARLES Stop: 09/17/24 08:59 Last Admin: 08/18/24 09:29 Dose: Not Given Documented By: SIERRA Morphine Sulfate (Morphine Sulfate 2 Mg/Ml Carp) 2 mg IV NOW STA Stop: 08/17/24 19:10 Last Admin: 08/17/24 19:15 Dose: 2 mg Documented By: ISSAC Morphine Sulfate (Morphine Sulfate 2 Mg/Ml Carp) 2 mg IV NOW STA Stop: 08/18/24 00:09 Last Admin: 08/18/24 00:39 Dose: Not Given Documented By: CHRIS Ondansetron HCl (Ondansetron Inj 2 Mg/Ml 2 Ml Vial) 4 mg IV NOW STA Stop: 08/17/24 19:08 Last Admin: 08/17/24 19:16 Dose: 4 mg Documented By: ISSAC Sodium Zirconium Cyclosilicate (Sodium Zirconium Cyclosilicate 10 Gm Packet) 10 gm PO ONCE ONE Stop: 08/18/24 08:38 Last Admin: 08/18/24 08:49 Dose: Not Given Documented By: SIERRA Imaging Data Radiologist's Impression: Chest X-Ray 08/17/24 19:07 Exam(s): XR CXR 1 VIEW EXAM: XR Chest, 1 View CLINICAL HISTORY: Reason for exam: Chest pain, nonspecific. TECHNIQUE: Frontal view of the chest. COMPARISON: 05/25/2017 FINDINGS: Lungs: Atelectasis at the left lung base. The right lung is clear. Pleural space: No pleural effusion. No pneumothorax. Heart: Unremarkable. No cardiomegaly. IMPRESSION: Atelectasis at the left lung base. Electronically signed by: Rajinder Hector MD 08/17/24 21:53 PM Abdomen/Pelvis CT 08/17/24 19:22 Exam(s): CT ABDOMEN + PELVIS With Contrast IV Amt: 90 ml optiray 320 EXAM: CT Abdomen and Pelvis With Intravenous Contrast CLINICAL HISTORY: Reason for exam: abdominal pain, incarc s/p reduc, recurrent hernia. TECHNIQUE: Axial computed tomography images of the abdomen and pelvis with intravenous contrast. CTDI is 38.1 mGy and DLP is 5257.13 mGy-cm. Automated exposure control was utilized for the study. A dose lowering technique was utilized adhering to the principles of ALARA. CONTRAST: Patient received 90 ml optiray 320 of IV contrast COMPARISON: 07/18/2024 FINDINGS: Mediastinum: Small hiatal hernia. ABDOMEN: Liver: Lesion in the right hepatic lobe measuring 2.4 x 2.4 cm is new from the prior. Gallbladder and bile ducts: Cholegastrostomy tube in place. The gallbladder is inflamed containing stones with pericholecystic fluid. There is periportal edema and pneumobilia. The appearance is suggestive of cholecystitis. Pancreas: Unremarkable. Spleen: Unremarkable. Adrenals: Unremarkable. Kidneys and ureters: Multiple cysts in the kidneys bilaterally. Nonobstructing nephrolithiasis in the right. Largest cyst at the right apex measuring 10 cm. Stomach and bowel: Mucosal thickening in the CBD as can be seen in the setting of cholangitis. No bowel obstruction. Widemouthed umbilical hernia containing nonobstructed transverse colon. PELVIS: Appendix: No findings to suggest acute appendicitis. Bladder: Unremarkable. Reproductive: Left ovarian cyst measuring 4 cm. ABDOMEN and PELVIS: Intraperitoneal space: Unremarkable. No free air. No significant fluid collection. Bones/joints: Scoliosis and advanced degenerative changes in the lumbar spine. Lytic lesion measuring 2.2 cm within L2 is unchanged. Soft tissues: See above. Vasculature: Severe atherosclerotic calcifications. Lymph nodes: Unremarkable. IMPRESSION: 1. Cholegastrostomy tube in place. The gallbladder is inflamed containing stones with pericholecystic fluid and pneumobilia in the liver. The appearance is suggestive of cholecystitis. 2. Mucosal thickening in the CBD as can be seen in the setting of cholangitis. 3. Lesion in the right hepatic lobe measuring 2.4 x 2.4 cm is new from the prior. Consider MRI. 4. Severe atherosclerotic calcifications. 5. Left ovarian cyst measuring 4 cm. 6. Scoliosis and advanced degenerative changes in the lumbar spine. Lytic lesion measuring 2.2 cm within L2 is unchanged. Electronically signed by: Rajinder Hector MD 08/17/24 21:[address] 08/17/24 19:22 Exam(s): CT HEAD Without Contrast EXAM: CT Head Without Intravenous Contrast CLINICAL HISTORY: Reason for exam: confusion. TECHNIQUE: Axial computed tomography images of the head/brain without intravenous contrast. CTDI is 38.1 mGy and DLP is 5257.13 mGy-cm. Automated exposure control was utilized for the study. A dose lowering technique was utilized adhering to the principles of ALARA. COMPARISON: 03/10/2011 FINDINGS: Artifacts: Images are markedly degraded by motion artifact. Brain: No intracranial hemorrhage, mass-effect, or cerebral edema. Atrophy and chronic microvascular ischemic changes. Ventricles: Unremarkable. Bones/joints: Unremarkable. No fracture. Soft tissues: Unremarkable. Sinuses: No acute sinusitis. Mastoid air cells: Unremarkable as visualized. IMPRESSION: Images are markedly degraded by motion artifact. No grossly evident acute abnormality. Electronically signed by: Rajinder Hector MD 08/17/24 21:45 PM Discharge Plan Visit Data Chief Complaint: Abdominal Pain Stated Complaint: AB PAIN ED Provider: Israel Cornell Discharge Problem: Sepsis, Incarcerated umbilical hernia, Cholecystitis, Acute UTI, Dementia, Left bundle branch block Patient Disposition: Admitted As Inpatient Discharge Instructions Interventions: ED Discharge Assessment Last Done: 08/18/24 03:22 Discharge Problem: Sepsis Qualifiers: Sepsis type: sepsis due to unspecified organism Sepsis acute organ dysfunction status: unspecified Qualified Code(s): A41.9 - Sepsis, unspecified organism Dementia Qualifiers: Dementia type: unspecified type Dementia severity: unspecified severity D ementia behavioral or psychological symptom: unspecified whether behavioral, psychotic, or mood disturbance or anxiety Qualified Code(s): F03.90 - Unspecified dementia, unspecified severity, without behavioral disturbance, psychotic disturbance, mood disturbance, and anxiety
[2024-08-17] MEDS: SODIUM CHLORIDE 0.9% 500 ML IV ONE (19:22)
[2024-08-17 19:29] LABS: iSTAT Hemoglobin 12.9 g/dl (12.0-16.0); iSTAT Ionized Calcium 1.17 mmol/l (1.12-1.32); iSTAT Potassium 4.9 mmol/L (3.3-5.0)
[2024-08-17 19:37] LABS: Hematocrit (blood only) 38.4 % (37.0-47.0); Mean Corpuscular Hemoglobin 29.3 pg (25.0-34.0); Mean Corpuscular Hgb Conc 31.3 g/dL (32.0-36.0); Mean Corpuscular Volume 93.7 fL (80.0-100.0); Platelet Count 148 K/uL (130-400); RDW Coefficient of Variation 13.5 % (11.5-14.5); White Blood Count 5.67 K/ul (4.8-10.8)
[2024-08-17 19:56] LABS: Albumin Globulin Ratio 1.2 (0.9-2); Albumin Level 3.9 gm/dl (3.4-5.0); BUN Creatinine Ratio 32.3 (10-20); Bilirubin,Total 0.7 mg/dl (0.2-1.0); Calcium 10.3 mg/dl (8.6-10.3); Creatinine Clr Calc Pharmacy 40.7 ml/min; Globulin 3.3 gm/dl (2.5-4.0); Magnesium 1.9 mg/dl (1.7-2.4); Phosphorus 2.3 mg/dl (2.5-4.9); Total Protein 7.2 gm/dl (6.0-8.3)
[2024-08-17 20:06] LABS: Troponin I High Sensitivity 65.1 pg/ml (0-14)
[2024-08-17 20:13] LABS: Thyroid Stimulating Hormone 0.601 uIu/ml (0.300-4.500)
[2024-08-17 20:17] LABS: Appearance Urine Cloudy (Clear); Bacteria Urine Automated 3+ (None Seen); Bilirubin Urine Negative (Negative); Blood Urine Negative (Negative); Cast Urine Automated 0-2 /lpf (0-2); Color Urine Yellow; Glucose Urine UA 3+ (Negative); Ketones Urine Negative (Negative); Leukocyte Esterase Urine 2+ (Negative); Nitrite Urine Positive (Negative); Protein Urine Negative (Negative); Specific Gravity Urine 1.018 (1.000-1.030); Urobilinogen Urine Negative (Negative); WBC Urine Automated >50 /hpf (0-5); pH Urine 5.5 (4.5-7.5)
[2024-08-17] MEDS: OPTIRAY 320 100ml IV ONE (20:18)
[2024-08-17 20:28] LABS: Basophils # (auto) 0.01 K/uL (0.00-0.20); Basophils % (auto) 0.2 %; Eosinophils # (auto) 0.01 K/uL (0.00-0.50); Eosinophils % (auto) 0.2 %; Immature Granulocytes # (auto) 0.37 K/uL (0.01-0.20); Immature Granulocytes % (auto) 6.5 %; Lymphocytes # (auto) 0.24 K/uL (1.20-3.40); Lymphocytes % (auto) 4.2 %; Monocytes # (auto) 0.06 K/uL (0.11-0.59); Monocytes % (auto) 1.1 %; Neutrophils # (auto) 4.98 K/uL (1.40-6.50); Neutrophils % (auto) 87.8 %; Polychromasia 1+; Toxic Vacuolation 1+
[2024-08-17] MEDS: PIPERACILLIN/TAZOBACTAM 4.5 GM/100 ML BAG IV ONE (20:39)
[2024-08-17 20:56] LABS: Adenovirus PCR Not Detected (NotDetected); Bordetella parapertussis PCR Not Detected (NotDetected); Bordetella pertussis PCR Not Detected (NotDetected); Chlamydia pneumoniae PCR Not Detected (NotDetected); Coronavirus 229E PCR Not Detected (NotDetected); Coronavirus CoV-2 (COVID19)PCR Not Detected (NotDetected); Coronavirus HKU1 PCR Not Detected (NotDetected); Coronavirus NL63 PCR Not Detected (NotDetected); Coronavirus OC43PCR Not Detected (NotDetected); Human Metapneumovirus PCR Not Detected (NotDetected); Influenza A PCR Not Detected (NotDetected); Influenza B PCR Not Detected (NotDetected); Mycoplasma pneumoniae PCR Not Detected (NotDetected); Parainfluenza Virus 1 PCR Not Detected (NotDetected); Parainfluenza Virus 2 PCR Not Detected (NotDetected); Parainfluenza Virus 3 PCR Not Detected (NotDetected); Parainfluenza Virus 4 PCR Not Detected (NotDetected); Respiratory Syncytial VirusPCR Not Detected (NotDetected); Rhinovirus/Enterovirus PCR Not Detected (NotDetected)
--- NOTE | 2024-08-17 21:46 | CT Scan Report ---
Exam(s): CT HEAD Without Contrast EXAM: CT Head Without Intravenous Contrast CLINICAL HISTORY: Reason for exam: confusion. TECHNIQUE: Axial computed tomography images of the head/brain without intravenous contrast. CTDI is 38.1 mGy and DLP is 5257.13 mGy-cm. Automated exposure control was utilized for the study. A dose lowering technique was utilized adhering to the principles of ALARA. COMPARISON: 03/10/2011 FINDINGS: Artifacts: Images are markedly degraded by motion artifact. Brain: No intracranial hemorrhage, mass-effect, or cerebral edema. Atrophy and chronic microvascular ischemic changes. Ventricles: Unremarkable. Bones/joints: Unremarkable. No fracture. Soft tissues: Unremarkable. Sinuses: No acute sinusitis. Mastoid air cells: Unremarkable as visualized. IMPRESSION: Images are markedly degraded by motion artifact. No grossly evident acute abnormality. Electronically signed by: Rajinder Hector MD 08/17/24 21:45 PM
--- NOTE | 2024-08-17 21:53 | CT Scan Report ---
Exam(s): CT ABDOMEN + PELVIS With Contrast IV Amt: 90 ml optiray 320 EXAM: CT Abdomen and Pelvis With Intravenous Contrast CLINICAL HISTORY: Reason for exam: abdominal pain, incarc s/p reduc, recurrent hernia. TECHNIQUE: Axial computed tomography images of the abdomen and pelvis with intravenous contrast. CTDI is 38.1 mGy and DLP is 5257.13 mGy-cm. Automated exposure control was utilized for the study. A dose lowering technique was utilized adhering to the principles of ALARA. CONTRAST: Patient received 90 ml optiray 320 of IV contrast COMPARISON: 07/18/2024 FINDINGS: Mediastinum: Small hiatal hernia. ABDOMEN: Liver: Lesion in the right hepatic lobe measuring 2.4 x 2.4 cm is new from the prior. Gallbladder and bile ducts: Cholegastrostomy tube in place. The gallbladder is inflamed containing stones with pericholecystic fluid. There is periportal edema and pneumobilia. The appearance is suggestive of cholecystitis. Pancreas: Unremarkable. Spleen: Unremarkable. Adrenals: Unremarkable. Kidneys and ureters: Multiple cysts in the kidneys bilaterally. Nonobstructing nephrolithiasis in the right. Largest cyst at the right apex measuring 10 cm. Stomach and bowel: Mucosal thickening in the CBD as can be seen in the setting of cholangitis. No bowel obstruction. Widemouthed umbilical hernia containing nonobstructed transverse colon. PELVIS: Appendix: No findings to suggest acute appendicitis. Bladder: Unremarkable. Reproductive: Left ovarian cyst measuring 4 cm. ABDOMEN and PELVIS: Intraperitoneal space: Unremarkable. No free air. No significant fluid collection. Bones/joints: Scoliosis and advanced degenerative changes in the lumbar spine. Lytic lesion measuring 2.2 cm within L2 is unchanged. Soft tissues: See above. Vasculature: Severe atherosclerotic calcifications. Lymph nodes: Unremarkable. IMPRESSION: 1. Cholegastrostomy tube in place. The gallbladder is inflamed containing stones with pericholecystic fluid and pneumobilia in the liver. The appearance is suggestive of cholecystitis. 2. Mucosal thickening in the CBD as can be seen in the setting of cholangitis. 3. Lesion in the right hepatic lobe measuring 2.4 x 2.4 cm is new from the prior. Consider MRI. 4. Severe atherosclerotic calcifications. 5. Left ovarian cyst measuring 4 cm. 6. Scoliosis and advanced degenerative changes in the lumbar spine. Lytic lesion measuring 2.2 cm within L2 is unchanged. Electronically signed by: Rajinder Hector MD 08/17/24 21:52 PM
--- NOTE | 2024-08-17 21:54 | XRay Report ---
Exam(s): XR CXR 1 VIEW EXAM: XR Chest, 1 View CLINICAL HISTORY: Reason for exam: Chest pain, nonspecific. TECHNIQUE: Frontal view of the chest. COMPARISON: 05/25/2017 FINDINGS: Lungs: Atelectasis at the left lung base. The right lung is clear. Pleural space: No pleural effusion. No pneumothorax. Heart: Unremarkable. No cardiomegaly. IMPRESSION: Atelectasis at the left lung base. Electronically signed by: Rajinder Hector MD 08/17/24 21:53 PM
--- NOTE | 2024-08-18 00:01 | Surgery Consultation ---
<Statement entered by Suzette Cruz, - 08/18/24 10:26> This case was discussed overnight with the surgical PA and we discussed transfer but the facility would not accept because her WBC was WNL at the time of presentation. We agreed to keep her to the medical service and she is not a surgical candidate therefor GI here would follow up for further recommendations. Date of Consultation August 17, 2024 Assessment & Plan (1) Abdominal pain: I evaluated the patient at the request of the emergency room physician in room C11 and surgical recommendations are as follows: Cause of patient's abdominal pain may be multifactorialventral hernia, cholecystitis, cholangitis are all possible etiologies The treating emergency room physician has reduced the patient's ventral hernia and at the time my exam this did not appear to be causing the patient any pain. An abdominal binder has been placed and should be left in place for the present time Concerning the possibility of cholecystitisthe patient has had an Axios stent placed at [facility]. Due to concern for possible cholecystitis as well as cholangitis would recommend following serial labs and placed the patient on broad-spectrum antibiotics (Zosyn has been initiated by the treating emergency room physician). Patient did have a febrile episode in the emergency department at approximately 7:35 PM. She did receive Tylenol and her fever did resolve. The exact cause of her fever could be multifactorial as the patient has possible cholangitis and cholecystitis, but she also has an underlying urinary tract infection. Antibiotic should be continued as as noted above. Appropriate c ultures have been sent and antibiotics can be tailored based on these results I have discussed the case with my attending physician Dr. Eli Kraus. She agrees with the above-noted plan. We have requested that the treating emergency room physician contact the gastroenterology service at [facility] to see if they have further recommendations concerning the management of this patient Additional recommendations will be forthcoming based on her clinical course as it unfolds Addendum: After my initial visit with the patient the treating emergency room physician was able to discuss the case with the gastroenterology service at [facility]. They note that this patient has had Axios stent and with normal LFTs it is unlikely that she has true cholangitis or cholecystitis. The gastroenterology service also felt that the CT scan findings noted on today's CT scan are expected after the procedure she had. Hence, she did not necessitate transfer. Therefore, we will continue with treatment plan with hernia precautions and antibiotics as outlined above History of Present Illness Reason for Consultation: Abdominal pain History of Present Illness This is an 88-year-old female who presented to [facility] emergency department secondary to abdominal pain. The patient has underlying dementia and therefore could not provide much in the way of historythe history is obtained from her family who was present at bedside as well as review of records. Patient was previously seen at [facility] on 07/18/2024. At that time the patient presented secondary to abdominal pain. She did have imaging performed at this time and a CT scan of the abdomen pelvis showed findings concerning for acute cholecystitispatient was noted to have a distended gallbladder with biliary ductal dilatation. No obstructing stones were seen. There was concern however that the patient had choledocholithiasis as she was noted to have elevated LFTs with a AST of 1961 and ALT of 05/03/2000. Her alkaline phosphatase was elevated 211. It is noteworthy to mention however that her bilirubin was normal. It was recommended the patient be transferred to facility where ERCP services were available and patient was ultimately transferred to [facility]. While at [facility] the patient was seen by gastroenterology and she had an Axios stent placed. According to notes reviewed the patient was evaluated by general surgery and she was felt to be a high surgical risk, hence the rationale for placing the Axios stent. According the patient's daughter she was initially doing well upon return home but earlier today the patient developed what her daughter described as a rigid abdomen with abdominal pain. She had 1 episode of nausea and vomiting. While at home she did not have any fevers noted. They also note that she has not had a bowel movement in approximately 2 days. Upon presentation to the emergency department the patient did have labs and imaging which I independently reviewed. A CT scan of the head today showed no acute stroke or other acute abnormalities. Chest x-ray showed atelectasis of the left lung with no evidence of pneumonia. A CT scan of the abdomen pelvis showed that patient had an Axios stent in place and the gallbladder appeared inflamed containing gallstones with pericholecystic fluid. Some periportal edema pneumobilia was noted raising the concern for cholecystitis. In addition there is mucosal thickening noted of the common bile duct raising the concern for cholangitis. The patient was also noted to have a lesion of the right hepatic lobe measuring 2.4 x 2.4 cm which was a new finding compared to previous imaging labs today include a CBC will white blood cell count is normal. Her hemoglobin and hematocrit were both normal. Platelet count was normal. Coagulation studies are normal. Chemistry profile showed sodium and potassium as well as the creatinine were normal. There was a slight elevation of her BUN at 32. A lactic acid level was initially elevated at 3.1 and was checked approximately 3-1/2 hours later and had normalized to 1.7. Patient had an elevation of her alkaline phosphatase at 292 but her transaminases and bilirubin are normal. Urinalysis was positive for nitrites as well as pyuria with greater than 50 white blood cells per high-power field. There is 3+ bacteria on this study as well as 2+ leukocyte esterase. A bio fire study was performed and all viruses tested for were negative. The treating emergency room physician noted that the patient had an apparent ventral hernia which she was able to reduce. He did note that the patient's abdomen became far less rigid and she seemed more comfortable after this maneuver. At the time of my interview and encounter the patient she was resting comf ortably in bed and did not appear to be in any distress or pain. Allergies Allergy/AdvReac Type Severity Reaction Status Date / Time No Known Allergies Allergy Unknown NONE Verified 07/18/24 17:20 Home Medications Medication Instructions Recorded Confirmed Type aspirin 81 mg tablet,delayed 81 mg PO QPM 07/18/24 08/17/24 History release atorvastatin 40 mg tablet 40 mg PO QAM 07/18/24 08/17/24 History cholecalciferol (vitamin D3) 25 25 mcg PO QAM 07/18/24 08/17/24 History mcg (1,000 unit) tablet (Vitamin D3) cinacalcet 30 mg tablet 30 mg PO 3XWK 07/18/24 08/17/24 History cyanocobalamin (vitamin B-12) 1,000 mcg PO QAM 07/18/24 08/17/24 History 1,000 mcg tablet docusate sodium 100 mg capsule 100 mg PO QAM 07/18/24 08/17/24 History (Stool Softener) donepezil 5 mg tablet 5 mg PO QAM 07/18/24 08/17/24 History duloxetine 60 mg capsule,delayed 60 mg PO QAM 07/18/24 08/17/24 History release empagliflozin 25 mg tablet 25 mg PO QAM 07/18/24 08/17/24 History (Jardiance) famotidine 10 mg tablet 10 mg PO QAM 07/18/24 08/17/24 History gabapentin 100 mg capsule 100 mg PO TID 07/18/24 08/17/24 History glipizide 5 mg tablet, extended 5 mg PO DAILYBB 07/18/24 08/17/24 History release 24 hr hydrocodone 10 mg-acetaminophen 1 tab PO .Q4-6H 07/18/24 08/17/24 History 325 mg tablet lidocaine 5 % topical patch 2 patch topical .DAILY X 12HRS 07/18/24 08/17/24 History magnesium oxide 400 mg (241.3 mg 400 mg PO QAM 07/18/24 08/17/24 History magnesium) tablet metformin 500 mg tablet,extended 500 mg PO QAM 07/18/24 08/17/24 History release 24 hr metoprolol succinate 25 mg 12.5 mg PO QAM 07/18/24 08/17/24 History tablet,extended release 24 hr naloxone 4 mg/actuation nasal 4 mg intranasal DAILY PRN Drug 07/18/24 08/17/24 History spray (Narcan) Intoxication Symptoms polysaccharide iron complex 150 mg 150 mg PO HS 07/18/24 08/17/24 History iron capsule (Ferrex) sacubitril 24 mg-valsartan 26 mg 1 tab PO AMHS 07/18/24 08/17/24 History tablet (Entresto) Patient History Social History Smoking Status: Unknown if ever smoked Preferred Language: Turkmen Feels Safe at Home: Yes Review of Systems Review of Systems: Unobtainable due to cognitive status Physical Exam Constitutional: well developed and well nourished; no acute distress Eyes: no conjunctival abnormality ENMT: Ears: no external ear abnormality Oral mucosas dry Neck: trachea midline Respiratory: Breath sounds are present bilaterally. The patient was not using accessory muscles to aid in respiration Cardiovascular: Rate/Rhythm: regular rate and regular rhythm Gastrointestinal (Abdomen): At the time of my exam the patient's abdomen was soft and nonrigid. There is no rebound tenderness, guarding, or signs of peritonitis. There is no pain noted with palpation at the time of my exam. The patient did have a readily palpable fascial defect/ventral hernia just superior to the umbilicus and midline. Hernia contents were not protruding through the defect. Palpation of this area did not exacerbate pain. There is no overlying skin changes. Musculoskeletal: No apparent calf tenderness with palpation of the lower extremities Skin: no rashes Neurologic: Patient was able to move all 4 extremities and follow some simple commands Results & Data Vital Signs (Past 12 Hours) Vital Signs Temp Pulse Pulse Resp BP BP Pulse Ox 08/17/24 23:12 113 H 23 97/64 L 94 08/17/24 23:00 111 H 18 105/68 93 08/17/24 21:00 36.9 C 08/17/24 21:00 108 H 19 124/77 94 08/17/24 19:46 95 08/17/24 19:45 89 L 08/17/24 19:35 40.0 C H 124 H 19 124/77 90 08/17/24 18:56 128 H 08/17/24 18:34 36.6 C 136 H 24 123/76 92 O2 Del Method O2 Flow Rate 08/17/24 23:12 Nasal Cannula 2 08/17/24 23:00 Nasal Cannula 2 08/17/24 21:00 08/17/24 21:00 Nasal Cannula 2 08/17/24 19:46 Nasal Cannula 2 08/17/24 19:45 Room Air 08/17/24 19:35 Room Air 08/17/24 18:56 08/17/24 18:34 Room Air PG Care Time/CCT Total # of Minutes Spent Total Time Spent with Patient: Total time spent is greater than 50% in coordination of care (as documented) at patient's floor/unit and/or counseling patient: Coding Level of Care Code 12401 INT INP/OBS CARE 3/75MIN Diagnoses Abdominal pain R10.9
[2024-08-18] MEDS: SODIUM CHLORIDE 0.9% 500 ML IV ONE (00:17)
[2024-08-18] MEDS: SODIUM CHLORIDE 0.9% 1,000 ML IV ONE (00:17)
[2024-08-18] MEDS: MoRPHine SULFATE 2 MG/ML CARP IV STA (00:39)
--- NOTE | 2024-08-18 02:34 | History & Physical Report ---
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 Patient has severe dementia. Currently oriented to name. As per daughter she does not know where she is. She ambulates with a walker. She can eat regular food. Tonight patient was complaining of severe abdominal pain. She was laying like a ball in the bed with pain and was having shaking chills. Daughter states patient has hernia for a long time but lately she is getting more pains. Because of severe pain today she was brought to the ER. In the ER when she came in her heart rate were in 130s -140s and rectal temperature 40 centigrade. And there was a large protruding ventral abdominal hernia which is hard and tender to palpation and ER physician gradually reduced it. Seems after reduction of the hernia patient had significant relief in the discomfort. Initial lactate was 3.1 and repeat is 1.7. Initial troponin 65 and repeat 116. Currently heart rate improved. Hemodynamically stable. Patient is somewhat drowsy. Cannot get much history from the patient. As per daughter no fevers. She has chronic back pain. No nausea. Stools are dark because of medications. Has some cough. On July 18, 2024 patient was transferred from [facility] ER for sepsis and acute cholecystitis and elevated LFTs to [facility] for possible MRCP and ERCP. Patient was found to have E. coli bacteremia and acute cholecystitis with biliary dilatation. Patient had ERCP which showed CBD dilatation and hyperechoic material consistent with sludge in gallbladder. Axios stent was placed for treatment of a acalculous cholecystitis. Atrophy of the entire harper creas noted. Cystic lesion in the right kidney identified. Also found to have L2 hemangioma and degenerative disease and renal ultrasound showing bilateral cyst. Patient discharged on 07/22/2024 with Augmentin for another [address] scan in the ER showing possible cholecystitis and possible cholangitis. ER physician talked to the [facility] at [place] Dr. Miriam Smyth and notified CAT scan findings. [facility] thinks the CAT scan findings are not unexpected given the patient recent Axios stent placement. And was thought normal LFTs most likely does not suggest cholangitis at this time. Her presentation thought more related to incarcerated hernia and UTI. Incarcerated umbilical hernia Presents with severe abdominal pain Initial lactic is 3.1 repeat is 1.7 Tachycardic on presentation Symptoms improved with hernia reduction in the ER Started on IV Zosyn which will be continued N.p.o., IV fluids, pain control Close monitor Appreciate surgical input Sepsis Possible from the above and also UTI On IV Zosyn Currently hemodynamically stable Will follow cultures Close monitor Recent acalculous cholecystitis S/p Axios stent placement Possible cholecystitis and cholangitis on CT scan ER discussed with the [facility] on-call and thought to be expected given recent access stent placement If any concern with consult GI Elevated troponin Mostly demand ischemia Will follow serial enzymes and echo Right hepatic lobe lesion On the CT scan Lytic lesion measuring 2.2 cm on the L2 is unchanged Needs follow-up Severe dementia Continue donezepil Monitor for delirium Chronic back pain Continue lidocaine patch Holding hydrocodone for now IV Dilaudid as needed for now Diabetes Hold home p.o. medications Sliding scale Close monitor History of chronic systolic and diastolic CHF Echo in 03/2024 shows EF of 50%. Previous echo 1 year ago EF 40% Continue metoprolol succinate, Entresto with holding parameters Getting gentle fluids monitor for volume overload. 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 Patient has severe dementia. Currently oriented to name. As per daughter she does not know where she is. She ambulates with a walker. She can eat regular food. Tonight patient was complaining of severe abdominal pain. She was laying like a ball in the bed with pain and was having shaking chills. Daughter states patient has hernia for a long time but lately she is getting more pains. Because of severe pain today she was brought to the ER. In the ER when she came in her heart rate were in 130s -140s and rectal temperature 40 centigrade. And there was a large protruding ventral abdominal hernia which is hard and tender to palpation and ER physician gradually reduced it. Seems after reduction of the hernia patient had significant relief in the discomfort. Initial lactate was 3.1 and repeat is 1.7. Initial troponin 65 and repeat 116. Currently heart rate improved. Hemodynamically stable. Patient is somewhat drowsy. Cannot get much history from the patient. As per daughter no fevers. She has chronic back pain. No nausea. Stools are dark because of medications. Has some cough. On July 18, 2024 patient was transferred from [facility] ER for sepsis and acute cholecystitis and elevated LFTs to [facility] for possible MRCP and ERCP. Patient was found to have E. coli bacteremia and acute cholecystitis with biliary dilatation. Patient had ERCP which showed CBD dilatation and hyperechoic material consistent with sludge in gallbladder. Axios stent was placed for treatment of a acalculous cholecystitis. Atrophy of the entire pancreas noted. Cystic lesion in the right kidney identified. Also found to have L2 hemangioma and degenerative disease and renal ultrasound showing bilateral cyst. Patient discharged on 07/22/2024 with Augmentin for another [address] scan in the ER showing possible cholecystitis and possible cholangitis. ER physician talked to the [facility] [place] Dr. Miriam Smyth and notified CAT scan findings. [facility] thinks the CAT scan findings are not unexpected given the patient recent Axios stent placement. And was thought normal LFTs most likely does not suggest cholangitis at this time. Her presentation thought more related to incarcerated hernia and UTI. Past medical history. As mentioned above. Past surgical history. Colonoscopy. EGD with endoscopic ultrasound. Ligation ordered. Sigmoid colectomy with primary anastomosis. Completion proctoscopy right salpingo-oophorectomy. Social history. No smoking. No alcohol use. No drug use. Family history. Father had diabetes. Heart disorder. Mother had diabetes. [place]. Brother had [place]. Brother has diabetes. Allergies Allergy/AdvReac Type Severity Reaction Status Date / Time No Known Allergies Allergy Unknown NONE Verified 07/18/24 17:20 Home Medications Medication Instructions Recorded Confirmed Type aspirin 81 mg tablet,delayed 81 mg PO QPM 07/18/24 08/17/24 History release atorvastatin 40 mg tablet 40 mg PO QAM 07/18/24 08/17/24 History cholecalciferol (vitamin D3) 25 25 mcg PO QAM 07/18/24 08/17/24 History mcg (1,000 unit) tablet (Vitamin D3) cinacalcet 30 mg tablet 30 mg PO 3XWK 07/18/24 08/17/24 History cyanocobalamin (vitamin B-12) 1,000 mcg PO QAM 07/18/24 08/17/24 History 1,000 mcg tablet docusate sodium 100 mg capsule 100 mg PO QAM 07/18/24 08/17/24 History (Stool Softener) donepezil 5 mg tablet 5 mg PO QAM 07/18/24 08/17/24 History duloxetine 60 mg capsule,delayed 60 mg PO QAM 07/18/24 08/17/24 History release empagliflozin 25 mg tablet 25 mg PO QAM 07/18/24 08/17/24 History (Jardiance) famotidine 10 mg tablet 10 mg PO QAM 07/18/24 08/17/24 History gabapentin 100 mg capsule 100 mg PO TID 07/18/24 08/17/24 History glipizide 5 mg tablet, extended 5 mg PO DAILYBB 07/18/24 08/17/24 History release 24 hr hydrocodone 10 mg-acetaminophen 1 tab PO .Q4-6H 07/18/24 08/17/24 History 325 mg tablet lidocaine 5 % topical patch 2 patch topical .DAILY X 12HRS 07/18/24 08/17/24 History magnesium oxide 400 mg (241.3 mg 400 mg PO QAM 07/18/24 08/17/24 History magnesium) tablet metformin 500 mg tablet,extended 500 mg PO QAM 07/18/24 08/17/24 History release 24 hr metoprolol succinate 25 mg 12.5 mg PO QAM 07/18/24 08/17/24 History tablet,extended release 24 hr naloxone 4 mg/actuation nasal 4 mg intranasal DAILY PRN Drug 07/18/24 08/17/24 History spray (Narcan) Intoxication Symptoms polysaccharide iron complex 150 mg 150 mg PO HS 07/18/24 08/17/24 History iron capsule (Ferrex) sacubitril 24 mg-valsartan 26 mg 1 tab PO AMHS 07/18/24 08/17/24 History tablet (Entresto) Past Med/Surg History Problem List (Updated 08/18/24 @ 03:50 by Background Daemon) Abdominal pain Left bundle branch block (Acute) Dementia (Acute) Acute UTI (Acute) Cholecystitis (Acute) Incarcerated umbilical hernia (Acute) Sepsis (Acute) Dizziness and giddiness Flu-like symptoms Pneumonia (Acute) UTI (urinary tract infection) Social History Smoking Status: Unknown if ever smoked Preferred Language: Maori Communication Ability: Impaired 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 ENT- oropharynx clear Neck- supple, no JVD. Lungs- clear to auscultation no wheezing or crackles Heart- regular rhythm; no murmur, no gallop. Abdomen- normal bowel sounds, Abdominal binder placed. Extremities- lower extremity edema present Neuro- Drowsy but arousable. oriented x1 PERRL, no facial palsy; no dysarthria. Results & Data Results & Data Vital Signs (Past 12 Hours) Vital Signs Temp Pulse Pulse Resp BP BP Pulse Ox 08/18/24 01:30 100 H 21 105/69 93 08/18/24 01:00 105 H 20 114/73 93 08/18/24 00:30 106 H 20 106/61 94 08/18/24 00:24 107 H 22 102/68 94 08/18/24 00:16 87 L 08/17/24 23:33 108 H 20 90/62 L 94 08/17/24 23:12 113 H 23 97/64 L 94 08/17/24 23:00 111 H 18 105/68 93 08/17/24 22:59 110 H 08/17/24 21:00 36.9 C 08/17/24 21:00 108 H 19 124/77 94 08/17/24 19:46 95 08/17/24 19:45 89 L 08/17/24 19:35 40.0 C H 124 H 19 124/77 90 08/17/24 18:56 128 H 08/17/24 18:34 36.6 C 136 H 24 123/76 92 O2 Del Method O2 Flow Rate 08/18/24 01:30 Room Air 08/18/24 01:00 Nasal Cannula 3 08/18/24 00:30 Nasal Cannula 3 08/18/24 00:24 Nasal Cannula 3 08/18/24 00:16 Nasal Cannula 2 08/17/24 23:33 Nasal Cannula 3 08/17/24 23:12 Nasal Cannula 2 08/17/24 23:00 Nasal Cannula 2 08/17/24 22:59 08/17/24 21:00 08/17/24 21:00 Nasal Cannula 2 08/17/24 19:46 Nasal Cannula 2 08/17/24 19:45 Room Air 08/17/24 19:35 Room Air 08/17/24 18:56 08/17/24 18:34 Room Air Diagnostic Findings Laboratory Results WBC 5.67 K/ul (4.8-10.8) 08/17/24 19:10 RBC 4.10 M/uL (4.20-5.40) L 08/17/24 19:10 Hgb 12.0 g/dl (12.0-16.0) 08/17/24 19:10 POC Hgb 12.9 g/dl (12.0-16.0) 08/17/24 19:17 Hct 38.4 % (37.0-47.0) 08/17/24 19:10 POC Hct 38 % (37-47) 08/17/24 19:17 MCV 93.7 fL (80.0-100.0) 08/17/24 19:10 MCH 29.3 pg (25.0-34.0) 08/17/24 19:10 MCHC 31.3 g/dL (32.0-36.0) L 08/17/24 19:10 RDW Std Deviation 46.0 fL (36.4-46.3) 08/17/24 19:10 RDW Coeff of Joseph 13.5 % (11.5-14.5) 08/17/24 19:10 Plt Count 148 K/uL (130-400) 08/17/24 19:10 MPV 11.0 fL (9.4-12.4) 08/17/24 19:10 Immature Gran % (Auto) 6.5 % 08/17/24 19:10 Neut % (Auto) 87.8 % 08/17/24 19:10 Lymph % (Auto) 4.2 % 08/17/24 19:10 [place] % (Auto) 1.1 % 08/17/24 19:10 Eos % (Auto) 0.2 % 08/17/24 19:10 Baso % (Auto) 0.2 % 08/17/24 19:10 Neut # (Auto) 4.98 K/uL (1.40-6.50) 08/17/24 19:10 Lymph # (Auto) 0.24 K/uL (1.20-3.40) L 08/17/24 19:10 [place] # (Auto) 0.06 K/uL (0.11-0.59) L 08/17/24 19:10 Eos # (Auto) 0.01 K/uL (0.00-0.50) 08/17/24 19:10 Baso # (Auto) 0.01 K/uL (0.00-0.20) 08/17/24 19:10 Immature Gran # (Auto) 0.37 K/uL (0.01-0.20) H 08/17/24 19:10 Toxic Vacuolation 1+ 08/17/24 19:10 Polychromasia 1+ 08/17/24 19:10 PT 11.0 Seconds (9.0-12.0) 08/17/24 19:53 INR 1.0 (0.9-1.1) 08/17/24 19:53 POC Sodium 137 mmol/L (135-144) 08/17/24 19:17 Sodium 139 mmol/L (136-145) 08/17/24 19:10 POC Potassium 4.9 mmol/L (3.3-5.0) 08/17/24 19:17 Potassium 5.0 mmol/L (3.5-5.1) 08/17/24 19:10 POC Chloride 104 mmol/L (101-112) 08/17/24 19:17 Chloride 102 mmol/L (98-107) 08/17/24 19:10 Carbon Dioxide 28 mmol/L (21-32) 08/17/24 19:10 POC Total CO2 25 mmol/L (24-31) 08/17/24 19:17 Anion Gap 9 (3-11) 08/17/24 19:10 POC Anion Gap 14.0 mmol/L (16-25) L 08/17/24 19:17 POC BUN 32 mg/dl (7-18) H 08/17/24 19:17 BUN 32 mg/dl (6-23) H 08/17/24 19:10 Creatinine 0.99 mg/dl (0.6-1.2) 08/17/24 19:10 POC Creatinine 1.0 mg/dl (0.6-1.3) 08/17/24 19:17 Est Cr Clr Drug Dosing 40.7 ml/min 08/17/24 19:10 eGFR 54.84 08/17/24 19:10 BUN/Creatinine Ratio 32.3 (10-20) H 08/17/24 19:10 Glucose 154 mg/dl (70-99(Fasting)) H 08/17/24 19:10 POC Glucose (other) 155 mg/dl (70-99) H 08/17/24 19:17 Lactate 1.7 mmol/L (0.4-2.0) 08/17/24 23:28 Calcium 10.3 mg/dl (8.6-10.3) 08/17/24 19:10 POC Ioniz Calcium George 1.17 mmol/l (1.12-1.32) 08/17/24 19:17 Phosphorus 2.3 mg/dl (2.5-4.9) L 08/17/24 19:10 Magnesium 1.9 mg/dl (1.7-2.4) 08/17/24 19:10 Total Bilirubin 0.7 mg/dl (0.2-1.0) 08/17/24 19:10 AST 28 U/L (13-39) 08/17/24 19:10 ALT 49 U/L (7-52) 08/17/24 19:10 Alkaline Phosphatase 292 U/L (34-104) H 08/17/24 19:10 Troponin I High Sens 116.7 pg/ml (0-14) H* D 08/17/24 21:27 Total Protein 7.2 gm/dl (6.0-8.3) 08/17/24 19:10 Albumin 3.9 gm/dl (3.4-5.0) 08/17/24 19:10 Globulin 3.3 gm/dl (2.5-4.0) 08/17/24 19:10 Albumin/Globulin Ratio 1.2 (0.9-2) 08/17/24 19:10 Lipase 13 U/L (11-82) 08/17/24 19:10 Procalcitonin 9.71 ng/ml (0-0.5) H 08/17/24 19:51 TSH 0.601 uIu/ml (0.300-4.500) 08/17/24 19:10 Urine Color Yellow 08/17/24 19: Urine Appearance Cloudy (Clear) A 08/17/24 19: Urine pH 5.5 (4.5-7.5) 08/17/24 19: Ur Specific [place] 1.018 (1.000-1.030) 08/17/24 19: Urine Protein Negative (Negative) 08/17/24 19: Urine Glucose (UA) 3+ (Negative) H 08/17/24 19: Urine Ketones Negative (Negative) 08/17/24: Urine Blood Negative (Negative) 08/17/24: Urine Nitrite Positive (Negative) A 08/17/24 19: Urine Bilirubin Negative (Negative) 08/17/24 19: Urine Urobilinogen Negative (Negative) 08/17/24 19:29 Ur Leukocyte Esterase 2+ (Negative) H 08/17/24 19:29 Urine WBC (Auto) >50 /hpf (0-5) H 08/17/24 19:29 Urine RBC (Auto) 3-5 /hpf (0-2) H 08/17/24 19:29 U Hyaline Cast (Auto) 0-2 /lpf (0-2) 08/17/24 19:29 U Epithel Cells (Auto) 11-20 /hpf (0-2) H 08/17/24 19:29 Urine Bacteria (Auto) 3+ (None Seen) H 08/17/24 19:29 Urine Yeast Present (None Prsent) A 08/17/24 19:29 Nasal Screen MRSA (PCR) Negative (Negative) 08/17/24 19:51 Adenovirus (PCR) Not Detected (NotDetected) 08/17/24 19:51 B. pertussis DNA (PCR) Not Detected (NotDetected) 08/17/24 19:51 B.parapertussis DNA PCR Not Detected (NotDetected) 08/17/24 19:51 C. pneumoniae DNA (PCR) Not Detected (NotDetected) 08/17/24 19:51 Coronavirus OC43 (PCR) Not Detected (NotDetected) 08/17/24 19:51 Coronavirus HKU1 (PCR) Not Detected (NotDetected) 08/17/24 19:51 Coronavirus 229E (PCR) Not Detected (NotDetected) 08/17/24 19:51 SARS-CoV-2 (PCR) Not Detected (NotDetected) 08/17/24 19:51 Coronavirus NL63 (PCR) Not Detected (NotDetected) 08/17/24 19:51 Human Metapneumovir PCR Not Detected (NotDetected) 08/17/24 19:51 Influenza Type A (PCR) Not Detected (NotDetected) 08/17/24 19:51 Influenza Type B (PCR) Not Detected (NotDetected) 08/17/24 19:51 M. pneumoniae (PCR) Not Detected (NotDetected) 08/17/24 19:51 Parainfluenza 1 (PCR) Not Detected (NotDetected) 08/17/24 19:51 Parainfluenza 2 (PCR) Not Detected (NotDetected) 08/17/24 19:51 Parainfluenza 3 (PCR) Not Detected (NotDetected) 08/17/24 19:51 Parainfluenza 4 (PCR) Not Detected (NotDetected) 08/17/24 19:51 RSV (PCR) Not Detected (NotDetected) 08/17/24 19:51 Entero/Rhino (PCR) Not Detected (NotDetected) 08/17/24 19:51 Impressions Chest X-Ray 08/17/24 19:07 Exam(s): XR CXR 1 VIEW EXAM: XR Chest, 1 View CLINICAL HISTORY: Reason for exam: Chest pain, nonspecific. TECHNIQUE: Frontal view of the chest. COMPARISON: 05/25/2017 FINDINGS: Lungs: Atelectasis at the left lung base. The right lung is clear. Pleural space: No pleural effusion. No pneumothorax. Heart: Unremarkable. No cardiomegaly. IMPRESSION: Atelectasis at the left lung base. Electronically signed by: Rajinder Hector MD 08/17/24 21:53 PM Abdomen/Pelvis CT 08/17/24 19:22 Exam(s): CT ABDOMEN + PELVIS With Contrast IV Amt: 90 ml optiray 320 EXAM: CT Abdomen and Pelvis With Intravenous Contrast CLINICAL HISTORY: Reason for exam: abdominal pain, incarc s/p reduc, recurrent hernia. TECHNIQUE: Axial computed tomography images of the abdomen and pelvis with intravenous contrast. CTDI is 38.1 mGy and DLP is 5257.13 mGy-cm. Automated exposure control was utilized for the study. A dose lowering technique was utilized adhering to the principles of ALARA. CONTRAST: Patient received 90 ml optiray 320 of IV contrast COMPARISON: 07/18/2024 FINDINGS: Mediastinum: Small hiatal hernia. ABDOMEN: Liver: Lesion in the right hepatic lobe measuring 2.4 x 2.4 cm is new from the prior. Gallbladder and bile ducts: Cholegastrostomy tube in place. The gallbladder is inflamed containing stones with pericholecystic fluid. There is periportal edema and pneumobilia. The appearance is suggestive of cholecystitis. Pancreas: Unremarkable. Spleen: Unremarkable. Adrenals: Unremarkable. Kidneys and ureters: Multiple cysts in the kidneys bilaterally. Nonobstructing nephrolithiasis in the right. Largest cyst at the right apex measuring 10 cm. Stomach and bowel: Mucosal thickening in the CBD as can be seen in the setting of cholangitis. No bowel obstruction. Widemouthed umbilical hernia containing nonobstructed transverse colon. PELVIS: Appendix: No findings to suggest acute appendicitis. Bladder: Unremarkable. Reproductive: Left ovarian cyst measuring 4 cm. ABDOMEN and PELVIS: Intraperitoneal space: Unremarkable. No free air. No significant fluid collection. Bones/joints: Scoliosis and advanced degenerative changes in the lumbar spine. Lytic lesion measuring 2.2 cm within L2 is unchanged. Soft tissues: See above. Vasculature: Severe atherosclerotic calcifications. Lymph nodes: Unremarkable. IMPRESSION: 1. Cholegastrostomy tube in place. The gallbladder is inflamed containing stones with pericholecystic fluid and pneumobilia in the liver. The appearance is suggestive of cholecystitis. 2. Mucosal thickening in the CBD as can be seen in the setting of cholangitis. 3. Lesion in the right hepatic lobe measuring 2.4 x 2.4 cm is new from the prior. Consider MRI. 4. Severe atherosclerotic calcifications. 5. Left ovarian cyst measuring 4 cm. 6. Scoliosis and advanced degenerative changes in the lumbar spine. Lytic lesion measuring 2.2 cm within L2 is unchanged. Electronically signed by: Rajinder Hector MD 08/17/24 21:[address] 08/17/24 19:22 Exam(s): CT HEAD Without Contrast EXAM: CT Head Without Intravenous Contrast CLINICAL HISTORY: Reason for exam: confusion. TECHNIQUE: Axial computed tomography images of the head/brain without intravenous contrast. CTDI is 38.1 mGy and DLP is 5257.13 mGy-cm. Automated exposure control was utilized for the study. A dose lowering technique was utilized adhering to the principles of ALARA. COMPARISON: 03/10/2011 FINDINGS: Artifacts: Images are markedly degraded by motion artifact. Brain: No intracranial hemorrhage, mass-effect, or cerebral edema. Atrophy and chronic microvascular ischemic changes. Ventricles: Unremarkable. Bones/joints: Unremarkable. No fracture. Soft tissues: Unremarkable. Sinuses: No acute sinusitis. Mastoid air cells: Unremarkable as visualized. IMPRESSION: Images are markedly degraded by motion artifact. No grossly evident acute abnormality. Electronically signed by: Rajinder Hector MD 08/17/24 21:45 PM ECG Additional Comments: ECG. Sinus tachycardia with first AV block with rate of 112. Left axis deviation. Left bundle branch block. QTc 455. Code Status & VTE Plan VTE Prophylaxis Plan VTE Prophylaxis will be ordered: Yes
--- OUTSIDE RECORDS SUMMARY | 2024-08-18 02:54 | External Medical Summary | Summary of Care ---
Author Name Unknown Organization [facility] Address [address] [place] [address] Phone [phone] Care Team Providers Care Strategic Debriefing Officer Name Role Phone Helena Rodriguez MD Primary Care Provide r Reason for Referral * Evaluate & Treat - Unlimited Visits (Within 30 days (routine)) - Authorized Specialty Diagnoses / Procedures Referred By Brendon pedraza Referred To Contact General Surgery Diagnoses Umbilical hernia without obstruction and without gangrene Helena Rodriguez MD [address] [place] [address] [place] [address] Phone: tel: fax: Referral ID Status Reason Start Date Expiration Date Visits Requested Visits Authorized [id number] Authorized Specialty Services Required 08/17/[phone] Question Answer Referral Priority Within 30 days (routine) [facility] should this [facility] be scheduled? [facility] What condition is the patient being seen for? General Surgery Conditions What condition is the patient being seen for? Hernia (excluding Hiatal) Reason for Visit * Reason Onset Date Comments Referral 08/16/2024 Encounter Details Date Type Department Care Team (Late st Contact Info) Description 08/16/2024 [facility] [address] [place] [address] [place] [phone] Helena Rodriguez MD [address] [place] [address] [place] [address] Referral Allergies No known active allergiesdocumented as of this encounter (statuses as of 08/17/2024) Medications VITAMIN B-12 CR TBCR 1000 MCG ORIndications:Othe r vitamin B12 deficiency anemia one pill each day 100 5 07/03/19 02 Active ASPIRIN 81 MG PO TABS one tab by mouth daily 0 0 03/02/20 07 Active VITAMIN D 1000 UNIT PO CAPS one tab by mouth daily Active MEDICAL INSTRUCTIONS Patient may have epidural injections. Aware it can affect blood sugar readings. Patient has well controlled diabetes. 1 Each 1 02/14/20 16 Active Hydrocodone-Acetam inophen 10-325 MG per tablet Take 1 Tablet by mouth every 8 hours as needed. 0 03/23/20 18 Active NARCAN 4 MG/0.1ML LIQD Inhale 1 [place] by mouth as needed. 0 03/23/20 18 Active Blood Glucose Monitor System w/Device KitIndications:Typ e 2 diabetes mellitus with stage 3a chronic kidney disease, without long-term current use of insulin (HCC) Check glucose as needed 1 Kit 03/19/20 22 Active HumaLOG KwikPen 100 UNIT/ML Subcutaneous Solution Pen-injector Medium Subcutaneous WITH MEALS AND AT BEDTIME ,InstrMedium DOSE Scale <70 FOLLOWING Hypoglycemic Protocol; 70-140=0 units, 141-180= TWO units, 181-220= FOUR units, 221-260= SIX units, 261-300= EIGHT units, 301-340= 10 units, >340 = 12 units AND call 10/23/19 24 Active metFORMIN HCl ER 500 MG Oral Tablet Extended Release 24 Hour (Glucophage XR)Indications:Typ e 2 diabetes mellitus with stage 3a chronic kidney disease, without long-term current use of insulin (HCC) Take 1 Tablet by mouth in the morning. In the morning.. 90 Tablet 1 11/27/19 24 Active OneTouch Verio In Vitro Strip (Glucose Blood)Indications: Type 2 diabetes mellitus with stage 3a chronic kidney disease, without long-term current use of insulin (HCC) Use up to 4 times a day E11.9 100 Strip 11 11/27/19 24 Active Atorvastatin Calcium 40 MG Oral Tablet (Lipitor)Indicatio ns:Dyslipidemia, goal LDL below 100 Take 1 Tablet by mouth in the morning. 90 Tablet 3 12/18/19 24 Active Lidocaine 5 % External Patch (Lidoderm) lidocaine 5 % topical patch Active Metoprolol Succinate ER 25 MG Oral Tablet Extended Release 24 Hour (Toprol XL) Take 0.5 Tablets by mouth daily. 45 Tablet 3 12/29/19 24 Active Cinacalcet HCl 30 MG Oral Tablet (Sensipar)Indicati ons:Hypercalcemia, Hyperparathyroidis m, primary (HCC) TAKE 1 TABLET BY MOUTH ON THURSDAY, THURSDAY AND THURSDAY WITH DINNER 36 Tablet 3 03/01/20 24 Active Donepezil HCl 5 MG Oral Tablet (Aricept) Take 1 tablet by mouth with largest meal of the day 30 Tablet 5 03/21/20 24 Active OneTouch Delica Plus [id number] ns:Type 2 diabetes mellitus with stage 3a chronic kidney disease, without long-term current use of insulin ([facility]) Check glucose daily as needed 100 Each 1 04/14/20 24 Active Gabapentin 100 MG Oral Capsule (Neurontin)Indicat ions:Osteoarthriti s of hip, unspecified laterality, unspecified osteoarthritis type,Chronic bilateral low back pain without sciatica Take 1 Capsule by mouth in the morning and 1 Capsule at noon and 1 Capsule before bedtime. 270 Capsule 3 04/26/20 24 Active Famotidine 10 MG Oral Tablet (Pepcid) Take 1 Tablet by mouth in the morning. 90 Tablet 1 05/10/19 25 Active Jardiance 25 MG Oral TabletIndications: Type 2 diabetes mellitus with stage 3a chronic kidney disease, with long-term current use of insulin ([facility]) TAKE ONE TABLET BY MOUTH EVERY MORNING 90 Tablet 1 05/10/19 25 Active Magnesium Oxide 400 MG Oral Tablet Take 1 Tablet by mouth in the morning. 90 Tablet 1 06/07/19 25 Active DULoxetine HCl 60 MG Oral Capsule Delayed Release Particles (Cymbalta) TAKE ONE CAPSULE BY MOUTH EVERY DAY 90 Capsule 1 06/07/19 25 Active Ferrex 150 150 MG Oral CapsuleIndications :Anemia, unspecified type TAKE ONE CAPSULE BY MOUTH AT BEDTIME 90 Capsule 1 06/07/19 25 Active Loperamide HCl 2 MG Oral Capsule (Imodium) Take 1 Capsule by mouth every 6 hours as needed for Diarrhea. 10 Capsule 07/23/19 25 Active glipiZIDE ER 5 MG Oral Tablet Extended Release 24 Hour (Glucotrol XL) TAKE ONE TABLET BY MOUTH EVERY MORNING 30 minutes BEFORE A meal 90 Tablet 1 08/11/19 25 Active Entresto 24-26 MG Oral TabletIndications: Chronic diastolic (congestive) heart failure (HCC) Take 1 Tablet by mouth in the morning and 1 Tablet before bedtime. 180 Tablet 1 08/11/19 25 Active documented as of this encounter (statuses as of 08/17/2024) Active Problems Problem Noted Date Diagnosed Date Mild dementia without behavi oral disturbance, psychotic disturbance, mood disturbance, or anxiety 08/01/2024 Chronic systolic congestive heart failure 2024 Elevated LFTs 07/19/2024 Bacteremia 07/19/2024 Acute cholecystitis 07/18/2024 Acute hepatitis 07/18/2024 Altered mental status 07/18/2024 Leukocytosis 07/18/2024 Thrombocytopenia 07/18/2024 DDD (degenerative disc disease), lumbar 12/06/19 Chronic diastolic (congestive) heart failure 03/2023 Immunization not carried out because of patient decision 09/26/2021 Chronic kidney disease, stage 3a 09/04/2020 Overview: Per CKD protocol Type 2 diabetes mellitus wit h stage 3a chronic kidney disease 09/04/2020 Overview: Per CKD protocol Anemia due to stage 3b chronic kidney disease Overview: Per CKD protocol 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 11/02/2018 Spinal stenosis of lumbar re gion without neurogenic claudication 05/03/2018 Senile osteoporosis 03/20/2017 Class 2 severe obesity with body mass index (BMI) of 35 to 39.9 with serious comorbidity 03/10/2017 Overview: Per Obesity protocol #1 Goiter, nontoxic, multinodular 01/21/2016 Chronic bilateral low back pain without sciatica 03/06/2015 Hyperparathyroidism, primary 04/17/2014 Adjustment disorder with depressed mood 11/23/19 14 Migraine variant 03/25/2011 History of compression fracture of vertebral col umn 12/20/2010 HTN, goal below 140/90 06/17/2010 Generalized osteoarthritis 02/11/2010 Vitamin D deficiency 12/25/2009 DYSLIPIDEMIA, GOAL LDL BELOW 100 04/03/2009 Overview (04/03/2009): Per Lipid Taxonomy. Type 2 diabetes mellitus wit h hemoglobin A1c goal of less than 8.0% 02/22/2009 Overview (08/21/2015): Per Diabetes Taxonomy. ICD-10 update of inactive term Hx of colonic polyps 02/14/2009 B12 DEFIC ANEMIA NEC 03/26/2001 INFORMATION Overview (02/28/2008): procrit handout given to pt documented as of this encounter (statuses as of 08/17/2024) Resolved Problems Problem Noted Date Diagnosed Date Resolved Date Severe dementia associated w ith alcoholism, without behavioral disturbance, psychotic disturbance, mood disturbance, or anxiety 02/25/2024 08/01/2024 Type 2 diabetes mellitus wit h stage 3a chronic kidney disease, without long-term current use of insulin 06/08/2023 07/09/2023 Diabetes mellitus with stage 3 chronic kidney disease 03/05/2020 09/06/2020 Overview: Per CKD protocol Hypertensive kidney disease with stage 3b chronic kidney disease 03/05/2020 08/01/2024 Overview: Per CKD protocol Hypertensive kidney disease with chronic kidney disease stage III 05/17/2019 03/08/2020 Overview: Per CKD protocol Hypertensive kidney disease with chronic kidney disease stage III 05/09/2019 05/17/2019 Type 2 diabetes mellitus wit h stage 3 chronic kidney disease, without long-term current use of insulin 02/12/2017 03/08/2020 Overview: Per CKD protocol Neurogenic orthostatic hypotension 09/21/2016 02/12/2017 Low back pain 08/28/2014 03/06/2015 MEDICATION USE AGREEMENT 08/28/2014 Hyperparathyroidism 04/06/2014 02/13/20 17 Hypercalcemia 04/06/2014 05/03/2018 Vertebral fracture, pathological 12/20/2010 05/09/2019 Overview (05/09/2019): Hx on PL and noted as years ago Osteoporosis 10/26/2009 03/20/2017 Severe obesity with body mas s index (BMI) of 35.0 to 39.9 with serious comorbidity 10/08/2009 Overview (02/10/2018): Per Obesity Protocol, #19 ICD-10 update of inactive diagnosis ADVANCE DIRECTIVE INFORMATION 02/14/2009 02/29/2024 Overview (02/14/2009): Yes, Patient instructed to provide copy of advance directive for provider to review and to be scanned into Electronic Medical Record. Has a Power of Plush Weaver for Medical needs. KIDNEY DZ,CHRONIC (GFR 30-59) STAGE III 12/06/2008 09/06/2020 Overview (12/06/2008): Modified by CKD Protocol #1. Chronic renal insufficiency 07/24/2008 12/06/2008 Overview (12/06/2008): Modified by CKD Protocol #1. Anemia of other chronic disease 07/24/2008 03/06/2015 Closed fracture of metatarsal bone 11/10/2006 03/06/2015 Overview (01/26/2017): ICD-10 update of inactive term Chronic renal insufficiency 11/01/2004 09/25/2008 Overview (11/05/2004): 27/1.1 GFR 52.3 Anemia of chronic renal fail ure, stage 3 (moderate) 03/26/2001 03/08/2020 Type 2 diabetes mellitus wit h hemoglobin A1c goal of less than 7.0% 02/22/2009 Overview (08/21/2015): Per Diabetes Taxonomy. ICD-10 update of inactive term HYPERTENSION NOS 03/20/2009 Overview (03/20/2009): Modified per HTN protocol #16. Dyslipidemia, goal to be determined 04/03/2009 Overview (04/03/2009): Per Lipid Taxonomy. documented as of this encounter (statuses as of 08/17/2024) Immunizations Name Administration Dates Next Due Pneumococcal Conjugate Vacc, 13 Valent (Prevnar) 03/06/2015 Pneumococcal Polysaccharide PPV23 (Pneumovax) 02/21/2003 Season Influenza, Quad, PF, Adjuvanted, 65+ Yrs, IM (FLUAD) 03/12/2020 Seasonal Influenza Vac., MDV , IM, 0.5 mL (Fluzone) 02/22/2014,01/17/2013,01/12/2012,01/25,02/08/2010,01/25/2009,02/15/20 08,03/02/2007,01/29/2006,03/06/2005,,02/04/2002,03/26/2001 03/26/2002 Seasonal Influenza, High Dos e, Trivalent, PF, IM (Fluzone HD) 03/30/2024 Seasonal Influenza, PF, 6 M & above, IM , (FluLaval or Fluzone) 05/03/2018,02/12/2017 Seasonal Influenza, Quadriva lent Hd (Fluzone Hd) 06/08/2023,01/16/2022,01/04/2021 Seasonal Influenza, Quadriva lent, No Preserve, IM 01/07/2016,01/22/2015 Seasonal Influenza, Trivalen t, Adjuvanted, 65+ YRS, PF, (Fluad) 03/14/2019 TD, Preservative Free 08/31/2007 TDAP (age 10 and older)(Boostrix) 06/08/2023 Zoster Vaccine Recombinant (Shingrix) 12/05/2021 ,08/29/2021 documented as of this encounter Social History Tobacco Use Types Packs/Day Years Used Date Smoking Tobacco: Never Smokeless Tobacco: Never Alcohol Use Standard Drinks/Week Comments No 0 (1 standard drink = 0.6 oz pur e alcohol) PHQ-2 Answer Date Recorded PHQ Adult Total Score 1 09/26/2021 Hunger Vital Sign Answer Date Recorded Within the past 12 months, y ou worried that your food would run out before you got the money to buy more. Never true 09/15/19 21 Within the past 12 months, t he food you bought just didn't last and you didn't have money to get more. Never true 09/14/2020 Personal Safety Answer Date Recorded Do you feel unsafe or have concerns for your saf ety? No 07/18/2024 Do you have concerns for you r family's safety? (Household - for ages 0-17 years) Not on file 07/18/2024 Utilities Answer Date Recorded Do you have trouble paying y our heating, water, or electric bill? No 07/18/2024 Is your family able to pay t he heat, water, or electric bill? (Household - for ages 0-17 years) Not on file 07/18/2024 Does your family have access to good internet? (Household - for ages 0-17 years) Not on file 07/18/2024 Transportation Needs Answer Date Record ed Do you have trouble getting a ride to medical visits or work? (Adult - for ages 18 years and over) Not on file 07/18/2024 Does your family have a hard time getting a ride to doctors visits? (Household - for ages 0-17 years) Not on file 07/18/2024 Has lack of transportation k ept you from medical appointments, meetings, work, or from getting things needed for daily living? Check all that apply. No 07/18/2024 Do you (or your family) have trouble finding or paying for a ride (transportation)? (Household - for ages 0-17 years) Not on file 07/18/2024 Housing Stability Answer Date Recorded Do you currently live in a s helter or have no steady place to sleep at night? (Adult - for ages 18 years and over) Not on file 07/18/2024 Do you think you are at risk of becoming homeless? (Adult - for ages 18 years and over) Not on file 07/18/2024 Does your family worry about paying for your home or becoming homeless? (Household - for ages 0-17 years) Not on file 0 07/18/2024 Are you homeless or worried that you might be in the future? No 07/18/2024 Are you (or your family) malka eless or worried that you might be in the future? (Household - for ages 0-17 years) Not on file Food Insecurity Answer Date Recorded Worried About Running Out of Food in the Last Ye ar Not on file 07/18/2024 Ran Out of Food in the Last Year Not on file 07/18/2024 Do you need food for this week? No 07/18/2024 Comments No Sex and Gender Information Value Date Recorded Sex Assigned at Female 09/14/2020 3:09 PM EDT Legal Sex Female 5:27 AM EST Gender Identity Female 09/14/2020 3:09 PM EDT Sexual Orientation Straight 09/14/2020 3: 09 PM EDT documented as of this encounter Functional Status * Are you deaf or do you have serious difficulty hearing? Answer Date of Assessment Author No 07/19/2024 1:01 AM Brittany Alvares RN * Are you blind or do you have serious difficulty seeing, even when wearing glasses? Answer Date of Assessment Author No 07/19/2024 1:01 AM Brittany Alvares RN * Do you have serious difficulty walking or climbing stairs? (5 years old or older) Answer Date of Assessment Author No 07/19/2024 1:01 AM Brittany Alvares RN * Do you have difficulty dressing or bathing? (5 years old or older) Answer Date of Assessment Author No 07/19/2024 1:01 AM Brittany Alvares RN * Because of a physical, mental, or emotional condition, do you have difficulty doing errands alone such as visiting a doctor’s office or shopping? (15 years old or older) Answer Date of Assessment Author Yes 07/19/2024 1:01 AM Brittany Alvares RN documented as of this encounter Mental Status * Because of a physical, mental, or emotional condition, do you have serious difficulty concentrating, remembering, or making decisions? (5 years old or older) Answer Entry Date Author Yes 07/19/2024 1:01 AM Brittany Alvares RN documented in this encounter Miscellaneous Notes * Addendum Note - Helena Rodriguez MD - 08/17/2024 1:38 PM EDTAddended by: HELENA RODRIGUEZ on: 08/17/2024 01:38 PM Modules accepted: Orders * Telephone Encounter - Helena Rodriguez MD - 08/17/2024 1:38 PM EDT Referral signed If symptoms worsen then ER visit or call the clinic * Telephone Encounter - Pooja Ledesma LPN - 08/17/2024 11:10 AM EDT Daughter Obdulia states Val had hernia about 20 years, above her belly button and she has been c/o it hurting, it sticks out, no prior hernia surgery. She has also been getting constipated a lot, shewas taking stool softeners but it was not helping. She started taking Dlcolax soft chews. Obdulia can be reached at [phone] Provider route your message to your [facility] NURSE POOL. * Telephone Encounter - Ghazala Jin OSA - 08/17/2024 11:05 AM EDT Reason for patient's call: Obdulia/daughter is returning phone call about the referral request. Caller was transferred to Pooja at the nurse line. * Telephone Encounter - Lidia Cardona OSA - 08/17/2024 11:01 AM EDT Pts daughter called obdulia, successfully transferred to nurse line, * Telephone Encounter - Dasha Hayden CMA - 08/17/2024 10:42 AM EDT Attempted to call patient, there was no answer, left voicemail. When patient returns call, ok for CHRISTOPHER to relay message, please refer to below documentation. If needed, can transfer to dedicated nurse line. [phone] also tried secondary number but the number has been changed or disconnected * Telephone Encounter - Helena Rodriguez MD - 08/17/2024 8:07 AM EDT Ya I do not recall hernia concern during visit - can we call and inquire where the hernia, how long and any priuor hx of surgery * Telephone Encounter - Kecia Artis MED ASSIST - 08/16/2024 3:26 PM EDT New referral request pended. * Telephone Encounter - Lianne Kelly OSA - 08/16/2024 1:28 PM EDT Has the patient been seen for this problem? (Y/N)?: yes If No, an appt needs to be scheduled before a referral will be placed (exception: proceed with referral request if referral request is for a yearly routine appointment with speciality) Patient Name: Val Marques Patient Primary care provider: Helena Rodriguez MD Does this need to be an insurance referral (Y/N)?: yes If Yes, does the insurance referral need to be placed into the [employer] system? Name of preferred specialist: na Type of specialist: general surgery [facility] Phone #: na Specialist's Fax #: na Reason for visit: hernia Date of visit: tbd documented in this encounter Plan of Treatment Upcoming Encounters Date Type Department Care Team (Latest Contact Info) Description 08/25/2024 12:30 PM EDT Office Visit Neurology [facility] [address] [facility] [place] [address] Julia Hutton PA-C [address] [facility] [place] [address] 10/25/2024 11:53 AM EDT Hospital Encounter OR [facility], Operating Room, [facility] - 4th Floor [address] [place] [phone] Lorri Jackson, DO [address] [place] [address] 10/25/2024 11:53 AM EDT - 10/25/2024 12:41 PM EDT Surgery OR [facility], Operating Room, [facility] - 4th Floor [address] [place] [phone] Lorri Jackson, DO [address] [place] [address] ENDOSCOPIC RETROGRADE CHOLANGIOPANCREATOGRAPHY (ERCP) DIAGNOSTIC 01/26/2025 1:30 PM EDT Office Visit Cardiology [address] [place] [address] Ousmane Waddell PA-C [address] [place] [address] 02/21/2025 11:00 AM EDT Office Visit Family Medicine [address] [place] [phone] Jessica Thakur MD [address] [place] [address] [place] [phone] Scheduled Procedures Name Priority Associated Diagnoses Date/Ti me ENDOSCOPIC RETROGRADE CHOLANGIOPANCREATOGRAPHY (ERCP) DIAGNOSTIC Acute cholecystitis 10/25/2024 11:53 AM EDT Scheduled Referrals Name Type Priority Associated Diagnoses Orde r Schedule SURGERY REFERRAL OP Referral Within 30 da ys (routine) Umbilical hernia without obstruction and without gangrene Ordered: 08/17/2024 Health Maintenance Due Date Last Done Comments Depression Screening 1947 *BISPHONATE OR OTHER ACCEPTABLE MEDICATION NEEDED FOR OSTEOPOROSIS (REFER TO SMARTSET #1146) 05/22/2021 Adult Wellness Visit 09/26/2022 09/26/2021, 09/15/19 Diabetic Foot Exam 09/26/2022 09/26/2021, 0 09/14/2020, 11/18/2019, Additional history exists DXA Scan 12/06/2022 12/06/2020, 02/25, 02/25/2016, Additional history exists COVID-19 Vaccine ( season) 2023 Diabetic Eye Exam 04/15/2024 04/15/2023, , 07/13/2020, Additional history exists Albumin/Creatinine Ratio 06/08/2024 024, 12/05/2022, 01/16/2022, Additional history exists HbA1c 01/19/2025 07/19/2024, 11/26, 10/05/2023, Additional history exists CKD HGB USE SMARTSET 14323 07/22/202507/22, 07/21/2024, 07/20/2024, Additional history exists CKD PHOS USE SMARTSET 48617 07/22/202506/26, 07/22/2024, 07/21/2024, Additional history exists DTap/Tdap Vaccines (2 - Td or Tdap) 06/08/2033 06/08/2023, 08/31/2007 Pneumococcal Vaccine: 50+ Years Completed 03/06/2015, 02/21/2003 Zoster Vaccines Completed 12/05/2021, 08/29/2021 VITAMIN D LEVEL ONCE IN A LIFETIME-USE SMARTSET# [id number] Completed 01/16/2022, 06/21/2020, 11/18/2019, Additional history exists Influenza Vaccine (FLU shot) Completed 07/2023, 06/08/2023, 01/16/2022, Additional history exists HPV (Gardasil) Vaccine Aged Out No lo nger eligible based on patient's age to complete this topic Hepatitis B Vaccine Aged Out No longe r eligible based on patient's age to complete this topic MENINGOCOCCAL (MENACTRA/MENVEO) Aged Out No longer eligible based on patient's age to complete this topic Meningitis B Vaccine (Bexsero/Trumemba) Aged Out No longer eligible based on patient's age to complete this topic documented as of this encounter Medical Devices Implanted Type Area Pig Caster Device Identifier Shelf Expiration Date Model / Serial / Lot Stent [employer] [id number] - [id number] Implanted:Qty: 1 on 07/19/2024 by Lorri Jackson DO at OR [facility] [employer] : ENDOSCOPY [id number] 02/25/2026 [id number] / / [id number] documented as of this encounter Visit Diagnoses Diagnosis Umbilical hernia without obstruction and without gangrene- Primary Acute cholecystitis documented in this encounter Advance Directives Documents on File Type Date Recorded 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 Question Answer Comments Discussion of Advance Directives occurred with: Patient Care Teams Strategic Debriefing Officer Relationship Specialty Start Date End Date Helena Rodriguez MD [address] [place] [address] [place] [id number] PCP - General Family Medicine 05/08/22 documented as of this encounter
--- OUTSIDE RECORDS SUMMARY | 2024-08-18 02:55 | External Medical Summary | Summary of Care ---
Author Name Unknown Organization [facility] Address [address] [place] [address] Phone [phone] Care Team Providers Care Veneer Measurer Name Role Phone Helena Rodriguez MD Primary Care Provide r Reason for Referral * Evaluate & Treat - Unlimited Visits (Within 30 days (routine)) - Authorized Specialty Diagnoses / Procedures Referred By Brendon pedraza Referred To Contact General Surgery Diagnoses Umbilical hernia without obstruction and without gangrene Helena Rodriguez MD [address] [place] [address] [place] [address] Phone: tel: fax: Referral ID Status Reason Start Date Expiration Date Visits Requested Visits Authorized [id number] Authorized Specialty Services Required 08/17/[phone] [...] Contact Info) Description 08/16/2024 [facility] [address] [place] [address] [place] [phone] Helena Rodriguez MD [address] [place] [address] [place] [address] Referral Allergies No known [...] Active NARCAN 4 MG/0.1ML LIQD Inhale 1 [place] by mouth as needed. 0 03/23/20 18 [...] 5 03/21/20 24 Active OneTouch Delica Plus [id number] ns:Type 2 diabetes mellitus with stage 3a chronic kidney disease, without long-term current use of insulin ([facility]) Check glucose daily as needed 100 Each [...] disease, with long-term current use of insulin ([facility]) TAKE ONE TABLET BY MOUTH EVERY MORNING [...] Electronic Medical Record. Has a Power of Hr Manager for Medical needs. KIDNEY DZ,CHRONIC (GFR 30-59) [...] soft chews. Obdulia can be reached at [phone] Provider route your message to your [facility] NURSE POOL. * Telephone Encounter - Ghazala [...] needed, can transfer to dedicated nurse line. [phone] also tried secondary number but the number [...] referral need to be placed into the [employer] system? Name of preferred specialist: na Type of specialist: general surgery Location of specialist: [facility] Phone #: na Specialist's Fax #: na Reason for visit: hernia Date of visit: tbd documented in this encounter Plan of Treatment Upcoming Encounters Date Type Department Care Team (Latest Contact Info) Description 08/25/2024 12:30 PM EDT Office Visit Neurology [facility] [place] [address] [facility] [place] [address] Julia Hutton PA-C [address] [facility] [place] [address] 10/25/2024 11:53 AM EDT Hospital Encounter OR GL, Operating Room, [facility] - 4th Floor [address] [place] [phone] Lorri Jackson, DO [address] [place] [address] 10/25/2024 11:53 AM EDT - 10/25/2024 12:41 PM EDT Surgery OR [facility], Operating Room, [facility] - 4th Floor [address] [place] [phone] Lorri Jackson, DO [address] [place] [address] ENDOSCOPIC RETROGRADE CHOLANGIOPANCREATOGRAPHY (ERCP) DIAGNOSTIC 01/26/2025 1:30 PM EDT Office Visit Cardiology [address] [place] [address] Ousmane Waddell PA-C [address] [place] [address] 02/21/2025 11:00 AM EDT Office Visit Family Medicine [address] [place] [phone] Jessica Thakur MD [address] [place] [address] [place] [phone] Scheduled Procedures Name Priority Associated Diagnoses Date/Ti [...] Additional history exists CKD HGB USE SMARTSET 10361 07/22/202507/22, 07/21/2024, 07/20/2024, Additional history exists CKD PHOS USE SMARTSET 13191 07/22/202506/26, 07/22/2024, 07/21/2024, Additional history exists DTap/Tdap Vaccines (2 - Td or Tdap) 06/08/2033 06/08/2023, 08/31/2007 Pneumococcal Vaccine: 50+ Years Completed 03/06/2015, 02/21/2003 Zoster Vaccines Completed 12/05/2021, 08/29/2021 VITAMIN D LEVEL ONCE IN A LIFETIME-USE SMARTSET# [id number] Completed 01/16/2022, 06/21/2020, 11/18/2019, Additional history exists [...] this encounter Medical Devices Implanted Type Area Education And Training Coordinator Device Identifier Shelf Expiration Date Model / Serial / Lot Stent Axios [id number] - [id number] Implanted:Qty: 1 on 07/19/2024 by Lorri Jackson DO at OR [facility] [employer] : ENDOSCOPY [id number] 02/25/2026 [id number] / / [id number] documented as of this encounter Visit Diagnoses Diagnosis Umbilical hernia without obstruction and without gangrene- Primary Acute cholecystitis documented in this encounter Advance Directives Documents on File Type Date Recorded Patient Screen Door Maker Expl anation Advance Directives and Living Will 07/25/2024 signed on 12/12/2008 ADVANCE DIRECTIVE / LIVING WILL Advance Directives and Living Will 08/13/2023 signed on 12/12/2008 ADVANCE DIRECTIVE / LIVING WILL AND DURABLE POWER OF ENGINE EMISSION TECHNICIAN WITH HEALTH CARE PROVISIONS * Full Code (Latest Code Status on File) Date Activated Date Inactivated Comments 07/18/2024 11:12 PM 07/23/2024 1:30 AM This order reflects the patients wishes and were consensually agreed upon. Question Answer Comments Discussion of Advance Directives occurred with: Patient Care Teams Veneer Measurer Relationship Specialty Start Date End Date Helena Rodriguez MD [address] [place] [address] [place] [address] PCP - General Family Medicine 05/08/22 documented as of this encounter
--- OUTSIDE RECORDS SUMMARY | 2024-08-18 02:55 | External Medical Summary | Summary of Care ---
Author Name Unknown Organization [facility] Address [address] [place] [address] Phone [phone] Care Team Providers Care Pipe Smoking Machine Operator Name Role Phone Helena Rodriguez MD Primary Care Provide r Reason for Referral * Evaluate & Treat - Unlimited Visits (Within 30 days (routine)) - Authorized Specialty Diagnoses / Procedures Referred By Brendon pedraza Referred To Contact General Surgery Diagnoses Umbilical hernia without obstruction and without gangrene Helena Rodriguez MD [address] [place] [address] [place] [address] Phone: tel: fax: Referral ID Status Reason Start Date Expiration Date Visits Requested Visits Authorized [id number] Authorized Specialty Services Required 08/17/[phone] [...] Contact Info) Description 08/16/[facility]24 [facility] [address] [place] [address] [place] [phone] Helena Rodriguez MD [address] [place] [address] [place] [address] Referral Allergies No known [...] Active NARCAN 4 MG/0.1ML LIQD Inhale 1 [place] by mouth as needed. 0 03/23/20 18 [...] 5 03/21/20 24 Active OneTouch Delica Plus [id number] ns:Type 2 diabetes mellitus with stage 3a chronic kidney disease, without long-term current use of insulin ([facility]) Check glucose daily as needed 100 [...] long-term current use of insulin ([facility]) TAKE ONE TABLET BY MOUTH EVERY [...] Electronic Medical Record. Has a Power of Returned Goods Inspector for Medical needs. KIDNEY DZ,CHRONIC (GFR 30-59) [...] soft chews. Obdulia can be reached at [phone] Provider route your message to your [facility] NURSE POOL. * Telephone Encounter [...] needed, can transfer to dedicated nurse line. [phone] also tried secondary number but the number [...] referral need to be placed into the [employer] system? Name of preferred specialist: na Type of specialist: general surgery Location of specialist: [facility] Phone #: na Specialist's Fax #: na Reason for visit: hernia Date of visit: tbd documented in this encounter Plan of Treatment Upcoming Encounters Date Type Department Care Team (Latest Contact Info) Description 08/25/2024 12:30 PM EDT Office Visit Neurology [facility] [place] [address] Julia Hutton PA-C [address] [facility] [place] [address] 10/25/2024 11:53 AM EDT Hospital Encounter OR GL, Operating Room, [facility] - 4th Floor [address] [place] [address] Lorri Jackson, DO [address] [place] [address] 10/25/2024 11:53 AM EDT - 10/25/2024 12:41 PM EDT Surgery OR [facility], Operating Room, [facility] - 4th Floor [address] [place] [phone] Lorri Jackson, DO [address] [place] [address] ENDOSCOPIC RETROGRADE CHOLANGIOPANCREATOGRAPHY (ERCP) DIAGNOSTIC 01/26/2025 1:30 PM EDT Office Visit Cardiology [address] [place] [address] Ousmane Waddell PA-C [address] [place] [address] 02/21/2025 11:00 AM EDT Office Visit Family Medicine [address] [place] [phone] Jessica Thakur MD [address] [place] [address] [place] [phone] Scheduled Procedures Name Priority Associated Diagnoses Date/Ti [...] Additional history exists CKD HGB USE SMARTSET 66040 07/22/202507/22, 07/21/2024, 07/20/2024, Additional history exists CKD PHOS USE SMARTSET 28129 07/22/202506/26, 07/22/2024, 07/21/2024, Additional history exists DTap/Tdap Vaccines (2 - Td or Tdap) 06/08/2033 06/08/2023, 08/31/2007 Pneumococcal Vaccine: 50+ Years Completed 03/06/2015, 02/21/2003 Zoster Vaccines Completed 12/05/2021, 08/29/2021 VITAMIN D LEVEL ONCE IN A LIFETIME-USE SMARTSET# [id number] Completed 01/16/2022, 06/21/2020, 11/18/2019, Additional history exists [...] this encounter Medical Devices Implanted Type Area Salesperson Yard Goods Device Identifier Shelf Expiration Date Model / Serial / Lot Stent Axios [id number] - [id number] Implanted:Qty: 1 on 07/19/2024 by Lorri Jackson DO at OR [facility] [employer] : ENDOSCOPY [id number] 02/25/2026 [id number] / / [id number] documented as of this encounter Visit Diagnoses Diagnosis Umbilical hernia without obstruction and without gangrene- Primary Acute cholecystitis documented in this encounter Advance Directives Documents on File Type Date Recorded Patient Senior Relationship Manager Expl anation Advance Directives and Living Will 07/25/2024 signed on 12/12/2008 ADVANCE DIRECTIVE / LIVING WILL Advance Directives and Living Will 08/13/2023 signed on 12/12/2008 ADVANCE DIRECTIVE / LIVING WILL AND DURABLE POWER OF ACCT EXEC WITH HEALTH CARE PROVISIONS * Full Code (Latest Code Status on File) Date Activated Date Inactivated Comments 07/18/2024 11:12 PM 07/23/2024 1:30 AM This order reflects the patients wishes and were consensually agreed upon. Question Answer Comments Discussion of Advance Directives occurred with: Patient Care Teams Pipe Smoking Machine Operator Relationship Specialty Start Date End Date Helena Rodriguez MD [address] [place] [address] [place] [address] PCP - General Family Medicine 05/08/22 documented as of this encounter
--- OUTSIDE RECORDS SUMMARY | 2024-08-18 02:55 | External Medical Summary | Summary of Care ---
Author Name Unknown Organization [facility] [address] [facility] [address] Phone [phone] Care Team Providers Care Duct Installer Name Role Phone Helena Rodriguez MD Primary Care Provide r Reason for Visit * Reason Comments eRx-Medication Refill Encounter Details Date Type Department Care Team (Late st Contact Info) Description 08/09/2024 Refill Family Medicine [address] [phone] Helena Rodriguez MD [address] [place] [address] [place] [address] Chronic diastolic (congestive) heart failure (HCC) Allergies No known active allergiesdocumented as of this encounter (statuses as of 08/10/2024) Medications VITAMIN B-12 CR TBCR 1000 MCG ORIndications:Oth er vitamin B12 deficiency anemia one pill each day 100 5 002 Active ASPIRIN 81 MG PO TABS one tab by mouth daily 0 0 007 Active VITAMIN D 1000 UNIT PO CAPS one tab by mouth daily Active MEDICAL INSTRUCTIONS Patient may have epidural injections. Aware it can affect blood sugar readings. Patient has well controlled diabetes. 1 Each 1 016 Active Hydrocodone-Aceta minophen 10-325 MG per tablet Take 1 Tablet by mouth every 8 hours as needed. 0 018 Active NARCAN 4 MG/0.1ML LIQD Inhale 1 [place] by mouth as needed. 0 018 Active Blood Glucose Monitor System w/Device KitIndications:Ty pe 2 diabetes mellitus with stage 3a chronic kidney disease, without long-term current use of insulin ([facility]) Check glucose as needed 1 Kit Active HumaLOG KwikPen 100 UNIT/ML Subcutaneous Solution Pen-injector Medium Subcutaneous WITH MEALS AND AT BEDTIME ,InstrMedium DOSE Scale <70 FOLLOWING Hypoglycemic Protocol; 70-140=0 units, 141-180= TWO units, 181-220= FOUR units, 221-260= SIX units, 261-300= EIGHT units, 301-340= 10 units, >340 = 12 units AND call 024 Active metFORMIN HCl ER 500 MG Oral Tablet Extended Release 24 Hour (Glucophage XR)Indications:Ty pe 2 diabetes mellitus with stage 3a chronic kidney disease, without long-term current use of insulin ([facility]) Take 1 Tablet by mouth in the morning. In the morning.. 90 Tablet 1 024 Active OneTouch Verio In Vitro Strip (Glucose Blood)Indications :Type 2 diabetes mellitus with stage 3a chronic kidney disease, without long-term current use of insulin ([facility]) Use up to 4 times a day E11.9 100 Strip 11 024 Active Atorvastatin Calcium 40 MG Oral Tablet (Lipitor)Indicati ons:Dyslipidemia, goal LDL below 100 Take 1 Tablet by mouth in the morning. 90 Tablet 3 024 Active Lidocaine 5 % External Patch (Lidoderm) lidocaine 5 % topical patch Active Metoprolol Succinate ER 25 MG Oral Tablet Extended Release 24 Hour (Toprol XL) Take 0.5 Tablets by mouth daily. 45 Tablet 3 024 Active Cinacalcet HCl 30 MG Oral Tablet (Sensipar)Indicat ions:Hypercalcemi a,Hyperparathyroi dism, primary (HCC) TAKE 1 TABLET BY MOUTH ON THURSDAY, THURSDAY AND THURSDAY WITH DINNER 36 Tablet 3 024 Active Donepezil HCl 5 MG Oral Tablet (Aricept) Take 1 tablet by mouth with largest meal of the day 30 Tablet 5 024 Active OneTouch Delica Plus [id number] ons:Type 2 diabetes mellitus with stage 3a chronic kidney disease, without long-term current use of insulin ([facility]) Check glucose daily as needed 100 Each 024 Active Gabapentin 100 MG Oral Capsule (Neurontin)Indica tions:Osteoarthri tis of hip, unspecified laterality, unspecified osteoarthritis type,Chronic bilateral low back pain without sciatica Take 1 Capsule by mouth in the morning and 1 Capsule at noon and 1 Capsule before bedtime. 270 Capsule 3 024 Active Famotidine 10 MG Oral Tablet (Pepcid) Take 1 Tablet by mouth in the morning. 90 Tablet 1 025 Active Jardiance 25 MG Oral TabletIndications :Type 2 diabetes mellitus with stage 3a chronic kidney disease, with long-term current use of insulin ([facility]) TAKE ONE TABLET BY MOUTH EVERY MORNING 90 Tablet 1 025 Active Magnesium Oxide 400 MG Oral Tablet Take 1 Tablet by mouth in the morning. 90 Tablet 1 025 Active DULoxetine HCl 60 MG Oral Capsule Delayed Release Particles (Cymbalta) TAKE ONE CAPSULE BY MOUTH EVERY DAY 90 Capsule 025 Active Ferrex 150 150 MG Oral CapsuleIndication s:Anemia, unspecified type TAKE ONE CAPSULE BY MOUTH AT BEDTIME 90 Capsule 025 Active Loperamide HCl 2 MG Oral Capsule (Imodium) Take 1 Capsule by mouth every 6 hours as needed for Diarrhea. 10 Capsule 025 Active glipiZIDE ER 5 MG Oral Tablet Extended Release 24 Hour (Glucotrol XL) TAKE ONE TABLET BY MOUTH EVERY MORNING 30 minutes BEFORE A meal 90 Tablet 1 025 Active Entresto 24-26 MG Oral TabletIndications :Chronic diastolic (congestive) heart failure (HCC) Take 1 Tablet by mouth in the morning and 1 Tablet before bedtime. 180 Tablet 1 025 Active glipiZIDE ER 5 MG Oral Tablet Extended Release 24 Hour (Glucotrol XL) TAKE ONE TABLET BY MOUTH EVERY MORNING 30 minutes BEFORE A meal 90 Tablet 1 024 2024 Discontinued Entresto 24-26 MG Oral TabletIndications :Chronic diastolic (congestive) heart failure (HCC) Take 1 Tablet by mouth in the morning and 1 Tablet before bedtime. 180 Tablet 1 025 2024 Discontinued documented as of this encounter (statuses as of 08/10/2024) Active Problems Problem Noted Date Diagnosed Date Mild dementia without behavi oral disturbance, psychotic disturbance, mood disturbance, or anxiety 08/01/2024 Chronic systolic congestive heart failure 2024 Elevated LFTs 07/19/2024 Bacteremia 07/19/2024 Acute cholecystitis 07/18/2024 Acute hepatitis 07/18/2024 Altered mental status 07/18/2024 Leukocytosis 07/18/2024 Thrombocytopenia 07/18/2024 DDD (degenerative disc disease), lumbar 12/06/19 23 Chronic diastolic (congestive) heart failure 03/2023 Immunization [...] as of this encounter (statuses as of 08/10/2024) Resolved Problems Problem Noted Date Diagnosed Date [...] Electronic Medical Record. Has a Power of Water Taxi Operator for Medical needs. KIDNEY DZ,CHRONIC (GFR 30-59) [...] as of this encounter (statuses as of 08/10/2024) Immunizations Name Administration Dates Next Due Pneumococcal Conjugate Vacc, 13 Valent (Prevnar) 03/06/2015 Season Influenza, Quad, PF, Adjuvanted, 65+ Yrs, IM (FLUAD) 03/12/2020 Seasonal Influenza Vac., MDV , IM, 0.5 mL (Fluzone) 02/22/2014,01/17/2013,01/12/2012,2010,02/08/2010,01/25/2009,02/15/2008,1 05/02/2006,01/29/2006 Seasonal Influenza, High Dos e, Trivalent, PF, [...] of Assessment Author No 07/19/2024 1:01 AM EDT Brittany Petty RN * Are you blind or do you have serious difficulty seeing, even when wearing glasses? Answer Date of Assessment Author No 07/19/2024 1:01 AM EDT Brittany Petty RN * Do you have serious difficulty walking or climbing stairs? (5 years old or older) Answer Date of Assessment Author No 07/19/2024 1:01 AM EDT Brittany Petty RN * Do you have difficulty dressing or bathing? (5 years old or older) Answer Date of Assessment Author No 07/19/2024 1:01 AM EDT Brittany Petty RN * Because of a physical, mental, or emotional condition, do you have difficulty doing errands alone such as visiting a doctor’s office or shopping? (15 years old or older) Answer Date of Assessment Author Yes 07/19/2024 1:01 AM EDT Brittany Petty RN documented as of this encounter Mental Status * Because of a physical, mental, or emotional condition, do you have serious difficulty concentrating, remembering, or making decisions? (5 years old or older) Answer Entry Date Author Yes 07/19/2024 1:01 AM MAYANKT Brittany Petty RN documented in this encounter Miscellaneous Notes * Telephone Encounter - Helena Rodriguez MD - 08/10/2024 8:34 AM EDT Signed Prescriptions: Disp Refills glipiZIDE ER 5 MG Oral Tablet Extended Rel*90 Tab*1 Sig: TAKE ONE TABLET BY MOUTH EVERY MORNING 30 minutes BEFORE A meal Authorizing Provider: HELENA RODRIGUEZ Ordering User: FELECIA BROWER Entresto 24-26 MG Oral Tablet 180 Ta*1 Sig: Take 1 Tablet by mouth in the morning and 1 Tablet before bed time. Authorizing Provider: HELENA RODRIGUEZ Refused Prescriptions: Disp Refills Magnesium Oxide 400 MG Oral Tablet 90 Tab*1 Sig: Take 1 Tablet by mouth in the morning. Refused By: FELECIA BROWER Reason for Refusal: Too soon * Telephone Encounter - Felecia Brower [facility] - 08/10/2024 8:08 AM EDT Pending Prescriptions: Disp Refills Entresto 24-26 MG Oral Tablet 180 Ta*1 Sig: Take 1 Tablet by mouth in the morning and 1 Tablet before bedtime. Signed Prescriptions: Disp Refills glipiZIDE ER 5 MG Oral Tablet Extended Rel*90 Tab*1 Sig: TAKE ONE TABLET BY MOUTH EVERY MORNING 30 minutes BEFORE A meal Authorizing Kathleen urias: HELENA RODRIGUEZ Ordering User: FELECIA BROWER Refused Prescriptions: Disp Refills Magnesium Oxide 400 MG Oral Tablet 90 Tab*1 Sig: Take 1 Tablet by mouth in the morning. Refused By: FELECIA BROWER Reason for Refusal: Too soon * Telephone Encounter - Felecia Brower RPh - 08/10/2024 8:08 AM EDT Refill pharmacists currently not authorized to approve refills for this class of medication per refill protocol. Please approve if appropriate. Thank you, Felecia Brower, DavidD. Clinical Pharmacist Pharmacy Refill Call Center 08/10/2024, 8:08 AM documented in this encounter Plan of Treatment Upcoming Encounters Date Type Department Care Team (Latest Contact Info) Description 08/25/2024 12:30 PM EDT Office Visit Neurology [facility] [place] [address] Julia Hutton PA-C [address] [facility] [place] [address] 10/25/2024 11:53 AM EDT Hospital Encounter OR GL, Operating Room, [facility] - 4th Floor [address] [place] [address] Lorri Jackson, DO [address] [place] [address] 10/25/2024 11:53 AM EDT - 10/25/2024 12:41 PM EDT Surgery OR [facility], Operating Room, [facility] - 4th Floor [address] [place] [phone] Lorri Jackson, DO [address] [place] [address] ENDOSCOPIC RETROGRADE CHOLANGIOPANCREATOGRAPHY (ERCP) DIAGNOSTIC 11/03/2024 3:30 PM EDT Office Visit Cardiology [address] [place] [address] Ousmane Waddell PA-C [address] [place] [address] 02/21/2025 11:00 AM EDT Office Visit Family Medicine [address] [place] [phone] Jessica Thakur MD [address] [place] [address] [place] [address] Scheduled Procedures Name Priority Associated Diagnoses Date/Ti me ENDOSCOPIC RETROGRADE CHOLANGIOPANCREATOGRAPHY (ERCP) DIAGNOSTIC Acute cholecystitis 10/25/2024 11:53 AM EDT Health Maintenance Due Date Last Done Comments [...] Additional history exists CKD HGB USE SMARTSET 34339 07/22/202507/22, 07/21/2024, 07/20/2024, Additional history exists CKD PHOS USE SMARTSET 80367 07/22/202506/26, 07/22/2024, 07/21/2024, Additional history exists DTap/Tdap Vaccines (2 - Td or Tdap) 06/08/2033 06/08/2023, 08/31/2007 Pneumococcal Vaccine: 50+ Years Completed 03/06/2015, 02/21/2003 Zoster Vaccines Completed 12/05/2021, 08/29/2021 VITAMIN D LEVEL ONCE IN A LIFETIME-USE SMARTSET# [id number] Completed 01/16/2022, 06/21/2020, 11/18/2019, Additional history exists [...] this encounter Medical Devices Implanted Type Area Field Merchandiser Device Identifier Shelf Expiration Date Model / Serial / Lot Stent Axios [id number] - [id number] Implanted:Qty: 1 on 07/19/2024 by Lorri Jackson DO at OR [facility] : ENDOSCOPY [id number] 02/25/2026 [id number] / / [id number] documented as of this encounter Visit Diagnoses Diagnosis Chronic diastolic (congestive) heart failure (HCC) Acute cholecystitis documented in this encounter Advance Directives Documents on File Type Date Recorded Patient Career Development Engineer Expl anation Advance Directives and Living Will 07/25/2024 signed on 12/12/2008 ADVANCE DIRECTIVE / LIVING WILL Advance Directives and Living Will 08/13/2023 signed on 12/12/2008 ADVANCE DIRECTIVE / LIVING WILL AND DURABLE POWER OF DEPARTMENT OF NATURAL RESOURCES OFFICER WITH HEALTH CARE PROVISIONS * Full Code (Latest Code Status on File) Date Activated Date Inactivated Comments 07/18/2024 11:12 PM 07/23/2024 1:30 AM This order reflects the patients wishes and were consensually agreed upon. Question Answer Comments Discussion of Advance Directives occurred with: Patient Care Teams Duct Installer Relationship Specialty Start Date End Date Helena Rodriguez MD [address] [place] [address] [place] [phone] PCP - General Family Medicine 05/08/22 documented as of this encounter
--- OUTSIDE RECORDS SUMMARY | 2024-08-18 02:55 | External Medical Summary | Summary of Care ---
Author Name Unknown Organization [facility] Address [address] [place] [facility] [place] [address] Phone [phone] Care Team Providers Care Security Systems Technician Name Role Phone Melanie Ramirez MD Primary Care Provide r Reason for Visit * Reason Onset Date Comments Referral 08/16/2024 Encounter Details Date Type Department Care Team (Late st Contact Info) Description 08/16/2024 Telephone Family [address] [address] Melanie Ramirez MD [address] [place] [address] [place] [address] Referral Allergies No known [...] Active NARCAN 4 MG/0.1ML LIQD Inhale 1 [place] by mouth as needed. 0 03/23/20 18 Active Blood Glucose Monitor System w/Device KitIndications:Typ e 2 diabetes mellitus with stage 3a chronic kidney disease, without long-term current use of insulin ([facility]) Check glucose as needed 1 Kit 03/19/20 22 Active HumaLOG KwikPen 100 UNIT/ML Subcutaneous Solution Pen-injector Medium Subcutaneous WITH MEALS AND AT BEDTIME ,InstrMedium DOSE Scale <70 FOLLOWING Hypoglycemic Protocol; 70-140=0 units, 141-180= TWO units, 181-220= FOUR units, 221-260= SIX units, 261-300= EIGHT units, 301-340= 10 units, >340 = 12 units AND call MD 10/23/19 24 Active metFORMIN HCl ER 500 MG Oral Tablet Extended Release 24 Hour (Glucophage XR)Indications: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 In the morning.. 90 Tablet 1 11/27/19 24 Active OneTouch Verio In Vitro Strip (Glucose Blood)Indications: Type 2 diabetes mellitus with stage 3a chronic kidney disease, without long-term current use of insulin ([facility]) Use up to 4 times a day [...] 5 03/21/20 24 Active OneTouch Delica Plus [id number] ns:Type 2 diabetes mellitus with stage 3a chronic kidney disease, without long-term current use of insulin ([facility]) Check glucose daily as needed 100 Each [...] disease, with long-term current use of insulin ([facility]) TAKE ONE TABLET BY MOUTH EVERY MORNING [...] Electronic Medical Record. Has a Power of Street Superintendent for Medical needs. KIDNEY DZ,CHRONIC (GFR 30-59) [...] MDV , IM, 0.5 mL (Fluzone) 02/22/2014,01/17/2013,01/12/2012,01/25,02/08/2010,01/25/2009,02/15/20 08,03/02/2007,01/29/2006,03/06/2005,1 ,02/04/2002,03/26/2001 03/26/2002 Seasonal Influenza, High Dos e, Trivalent, [...] Entry Date Author Yes 07/19/2024 1:01 AM EDBrittany Jose RN documented in this encounter Miscellaneous Notes * Telephone Encounter - Pooja Ledesma LPN [...] soft chews. Obdulia can be reached at [phone] Provider route your message to your [facility] * Telephone Encounter - Ghazala Jin OSA [...] needed, can transfer to dedicated nurse line. [phone] also tried secondary number but the number has been changed or disconnected * Telephone Encounter - Melanie Ramirez MD - 08/17/2024 8:07 AM EDT Ya [...] Name: Val Marques Patient Primary care provider: Melanie Ramirez MD Does this need to be an insurance referral (Y/N)?: yes If Yes, does the insurance referral need to be placed into the [employer] system? Name of preferred specialist: ashley Type of specialist: general surgery Location of specialist: [facility] Specialist's Phone #: na Specialist's Fax #: na Reason for visit: hernia Date of visit: tbd documented in this encounter Plan of Treatment Upcoming Encounters Date Type Department Care Team (Latest Contact Info) Description 08/25/2024 12:30 PM EDT Office Visit Neurology [facility] [place] [address] [facility] [place] [address] Julia Hutton PA-C [address] [place] [address] 10/25/2024 11:53 AM EDT Hospital Encounter OR [facility], Operating Room, [facility] - 4th Floor [address] [place] [address] Lorri Jackson, DO [address] [place] [address] 10/25/2024 11:53 AM EDT - 10/25/2024 12:41 PM EDT Surgery OR [facility], Operating Room, [facility] Floor [address] [place] [address] Lorri Jackson, DO [address] [place] [address] ENDOSCOPIC RETROGRADE CHOLANGIOPANCREATOGRAPHY (ERCP) DIAGNOSTIC 01/26/2025 1:30 PM EDT Office Visit Cardiology [address] [place] [address] Ousmane Waddell PA-C [address] [place] [address] 02/21/2025 11:00 AM EDT Office Visit Family Medicine [address] [place] [phone] Jessica Thakur MD [address] [place] [address] [place] [address] Scheduled Procedures Name Priority Associated Diagnoses Date/Ti me ENDOSCOPIC RETROGRADE CHOLANGIOPANCREATOGRAPHY (ERCP) DIAGNOSTIC Acute cholecystitis 10/25/2024 11:53 AM EDT Health Maintenance Due Date Last Done Comments Depression Screening 1947 *BISPHONATE OR OTHER ACCEPTABLE MEDICATION NEEDED FOR OSTEOPOROSIS (REFER TO SMARTSET #1146) 05/22/2021 Adult Wellness Visit 09/26/2022 09/26/2021, 09/15/19 21 Diabetic Foot Exam 09/26/2022 09/26/2021, 0 09/14/2020, 11/18/2019, Additional history exists DXA Scan 12/06/2022 12/06/2020, 02/25, 02/25/2016, Additional history exists COVID-19 Vaccine ( season) 2023 Diabetic Eye Exam 04/15/2024 04/15/2023, , 07/13/2020, Additional history exists Albumin/Creatinine Ratio 06/08/2024 024, 12/05/2022, 01/16/2022, Additional history exists HbA1c 01/19/2025 07/19/2024, 0812/2023, 10/05/2023, Additional history exists CKD HGB USE SMARTSET 87338 07/22/202507/22, 07/21/2024, 07/20/2024, Additional history exists CKD PHOS USE SMARTSET 47200 07/22/202506/26, 07/22/2024, 07/21/2024, Additional history exists DTap/Tdap Vaccines (2 - Td or Tdap) 06/08/2033 06/08/2023, 08/31/2007 Pneumococcal Vaccine: 50+ Years Completed 03/06/2015, 02/21/2003 Zoster Vaccines Completed 12/05/2021, 08/29/2021 VITAMIN D LEVEL ONCE IN A LIFETIME-USE SMARTSET# [id number] Completed 01/16/2022, 06/21/2020, 11/18/2019, Additional history exists [...] this encounter Medical Devices Implanted Type Area Miller First Device Identifier Shelf Expiration Date Model / Serial / Lot Stent Axios [id number] - [id number] Implanted:Qty: 1 on 07/19/2024 by Lorri Jackson DO at OR [facility] : ENDOSCOPY [id number] 02/25/2026 [id number] / / [id number] documented as of this encounter Advance Directives Documents on File Type Date Recorded Patient Barrel Reamer Expl anation Advance Directives and Living Will 07/25/2024 signed on 12/12/2008 ADVANCE DIRECTIVE / LIVING WILL Advance Directives and Living Will 08/13/2023 signed on 12/12/2008 ADVANCE DIRECTIVE / LIVING WILL AND DURABLE POWER OF AGENCY DEVELOPMENT MANAGER WITH HEALTH CARE PROVISIONS * Full Code (Latest Code Status on File) Date Activated Date Inactivated Comments 07/18/2024 11:12 PM 07/23/2024 1:30 AM This order reflects the patients wishes and were consensually agreed upon. Question Answer Comments Discussion of Advance Directives occurred with: Patient Care Teams Security Systems Technician Relationship Specialty Start Date End Date Melanie Ramirez MD [address] [place] [address] [place] [address] PCP - General Family Medicine 05/08/22 documented as of this encounter
--- OUTSIDE RECORDS SUMMARY | 2024-08-18 02:55 | External Medical Summary | Summary of Care ---
Author Name Unknown Organization [facility] Address [address] [place] [address] Phone [phone] Care Team Providers Care Industrial Sweeper Cleaner Name Role Phone Melanie Ramirez MD Primary Care Provide r Reason for Visit * Reason Onset Date Comments Appointment 08/16/2024 General surgery referral Encounter Details Date Type Department Care Team (Late st Contact Info) Description 08/16/2024 Telephone Gastroenterology, [address] [address] Services, Scheduling [address] [place] [address] Appointment (General surgery referral) Allergies No known active allergiesdocumented as of this encounter (statuses as of 08/16/2024) Medications VITAMIN B-12 CR TBCR 1000 MCG [...] Active NARCAN 4 MG/0.1ML LIQD Inhale 1 [place] by mouth as needed. 0 03/23/20 18 [...] 5 03/21/20 24 Active OneTouch Delica Plus [id number] ns:Type 2 diabetes mellitus with stage 3a chronic kidney disease, without long-term current use of insulin ([facility]) Check glucose daily as needed [...] disease, with long-term current use of insulin ([facility]) TAKE ONE TABLET BY MOUTH [...] as of this encounter (statuses as of 08/16/2024) Active Problems Problem Noted Date Diagnosed Date [...] as of this encounter (statuses as of 08/16/2024) Resolved Problems Problem Noted Date Diagnosed Date [...] Electronic Medical Record. Has a Power of Bill Of Materials Clerk for Medical needs. KIDNEY DZ,CHRONIC (GFR 30-59) [...] as of this encounter (statuses as of 08/16/2024) Immunizations Name Administration Dates Next Due Pneumococcal [...] Entry Date Author Yes 07/19/2024 1:01 AM EDT Brittany Petty RN documented in this encounter Miscellaneous Notes * Telephone Encounter - Sybil Sainz OSA - 08/16/2024 1:23 PM EDT Daughter Obdulia was calling to see if she can get her seen with Gastroenterology for a hernia, I did check with Gastroenterology at [place] to see if see's patients for a hernia and was told that is done with General surgery, so Obdulia the daughter will call and get referral from PCP toGeneral Surgery for hernia documented in this encounter Plan of Treatment Upcoming Encounters Date Type Department Care Team (Latest Contact Info) Description 08/25/2024 12:30 PM EDT [facility] [address] [facility] [place] [address] Julia Hutton PA-C [facility] [place] [address] 10/25/2024 11:53 AM EDT Hospital Encounter OR [facility], Operating Room, [facility] - 4th Floor [address] [facility] [place] [phone] Lorri Jackson, DO [address] [place] [address] 10/25/2024 11:53 AM EDT - 10/25/2024 12:41 PM EDT Surgery OR [facility], Operating Room, [facility] - 4th Floor [address] [place] [place] [address] Lorri Jackson DO [address] [place] [address] ENDOSCOPIC RETROGRADE CHOLANGIOPANCREATOGRAPHY (ERCP) DIAGNOSTIC 01/26/2025 1:30 PM EDT Office Visit Cardiology [address] [place] [address] Ousmane Waddell PA-C [address] [place] [address] 02/21/2025 11:00 AM EDT Office Visit Family Medicine [address] [place] [phone] Jessica Thakur MD [address] [place] [address] [place] [address] Scheduled Procedures Name Priority Associated Diagnoses Date/Ti [...] Additional history exists CKD HGB USE SMARTSET 11803 07/22/202507/22, 07/21/2024, 07/20/2024, Additional history exists CKD PHOS USE SMARTSET 69800 07/22/202506/26, 07/22/2024, 07/21/2024, Additional history exists DTap/Tdap Vaccines (2 - Td or Tdap) 06/08/2033 06/08/2023, 08/31/2007 Pneumococcal Vaccine: 50+ Years Completed 03/06/2015, 02/21/2003 Zoster Vaccines Completed 12/05/2021, 08/29/2021 VITAMIN D LEVEL ONCE IN A LIFETIME-USE SMARTSET# [id number] Completed 01/16/2022, 06/21/2020, 11/18/2019, Additional history exists [...] this encounter Medical Devices Implanted Type Area Rotary Drill Operator Helper Device Identifier Shelf Expiration Date Model / Serial / Lot Stent Axios [id number] - [id number] Implanted:Qty: 1 on 07/19/2024 by Lorri Jackson DO at OR [facility] : ENDOSCOPY [id number] 02/25/2026 [id number] / / [id number] documented as of this encounter Advance Directives Documents on File Type Date Recorded Patient Protective Signal Operations Supervisor Expl anation Advance Directives and Living Will 07/25/2024 signed on 12/12/2008 ADVANCE DIRECTIVE / LIVING WILL Advance Directives and Living Will 08/13/2023 signed on 12/12/2008 ADVANCE DIRECTIVE / LIVING WILL AND DURABLE POWER OF SUPERVISOR MODEL MAKING WITH HEALTH CARE PROVISIONS * Full Code (Latest Code Status on File) Date Activated Date Inactivated Comments 07/18/2024 11:12 PM 07/23/2024 1:30 AM This order reflects the patients wishes and were consensually agreed upon. Question Answer Comments Discussion of Advance Directives occurred with: Patient Care Teams Industrial Sweeper Cleaner Relationship Specialty Start Date End Date Melanie Ramirez MD [address] [place] [address] [place] [phone] PCP - General Family Medicine 05/08/22 documented as of this encounter
--- OUTSIDE RECORDS SUMMARY | 2024-08-18 02:55 | External Medical Summary | Summary of Care ---
Author Name Unknown Organization [facility] Address [address] [place] [facility] [place] [address] Phone [phone] Care Team Providers Care Roll Shop Supervisor Name Role Phone Melanie Ramirez MD Primary Care Provide r Reason for Visit * Reason Onset Date Comments Referral 08/16/2024 Encounter Details Date Type Department Care Team (Late st Contact Info) Description 08/16/2024 Telephone Family [address] [address] Melanie Ramirez MD [address] [place] [address] [place] [address] Referral Allergies No known [...] Active NARCAN 4 MG/0.1ML LIQD Inhale 1 [place] by mouth as needed. 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 In the morning.. 90 Tablet 1 11/27/19 24 Active OneTouch Verio In Vitro Strip (Glucose Blood)Indications: Type 2 diabetes mellitus with stage 3a chronic kidney disease, without long-term current use of insulin ([facility]) Use up to 4 times a day [...] 5 03/21/20 24 Active OneTouch Delica Plus [id number] ns:Type 2 diabetes mellitus with stage 3a chronic kidney disease, without long-term current use of insulin ([facility]) Check glucose daily as needed 100 Each [...] disease, with long-term current use of insulin ([facility]) TAKE ONE TABLET BY MOUTH EVERY MORNING [...] Electronic Medical Record. Has a Power of Television Writer for Medical needs. KIDNEY DZ,CHRONIC (GFR 30-59) [...] of Assessment Author No 07/19/2024 1:01 AM EDBrittany Jose RN * Are you blind or do [...] encounter Miscellaneous Notes * Telephone Encounter - Melanie Ramirez MD [...] referral need to be placed into the [employer] system? Name of preferred specialist: ashley Type of specialist: general surgery Location of specialist: [facility] Specialist's Phone #: na Specialist's Fax #: na Reason for visit: hernia Date of visit: tbd documented in this encounter Plan of Treatment Upcoming Encounters Date Type Department Care Team (Latest Contact Info) Description 08/25/2024 12:30 PM EDT Office Visit Neurology [facility] [place] [address] [facility] [place] [address] Julia Hutton PA-C [address] [place] [address] 10/25/2024 11:53 AM EDT Hospital Encounter OR [facility], Operating Room, [facility] - 4th Floor [address] [place] [address] Lorri Jackson, DO [address] [place] [address] 10/25/2024 11:53 AM EDT - 10/25/2024 12:41 PM EDT Surgery OR [facility], Operating Room, [facility] Floor [address] [place] [address] Lorri Jackson, DO [address] [place] [address] ENDOSCOPIC RETROGRADE CHOLANGIOPANCREATOGRAPHY (ERCP) DIAGNOSTIC 01/26/2025 1:30 PM EDT Office Visit Cardiology [address] [place] [address] Ousmane Waddell PA-C [address] [place] [address] 02/21/2025 11:00 AM EDT Office Visit Family Medicine [address] [place] [address] Jessica Thakur MD [address] [place] [address] [place] [phone] Scheduled Procedures Name Priority Associated Diagnoses Date/Ti [...] Additional history exists CKD HGB USE SMARTSET 71695 07/22/202507/22, 07/21/2024, 07/20/2024, Additional history exists CKD PHOS USE SMARTSET 79816 07/22/202506/26, 07/22/2024, 07/21/2024, Additional history exists DTap/Tdap Vaccines (2 - Td or Tdap) 06/08/2033 06/08/2023, 08/31/2007 Pneumococcal Vaccine: 50+ Years Completed 03/06/2015, 02/21/2003 Zoster Vaccines Completed 12/05/2021, 08/29/2021 VITAMIN D LEVEL ONCE IN A LIFETIME-USE SMARTSET# [id number] Completed 01/16/2022, 06/21/2020, 11/18/2019, Additional history exists [...] this encounter Medical Devices Implanted Type Area Miniature Set Constructor Device Identifier Shelf Expiration Date Model / Serial / Lot Stent Axios [id number] - [id number] Implanted:Qty: 1 on 07/19/2024 by Lorri Jackson DO at OR [facility] : ENDOSCOPY [id number] 02/25/2026 [id number] / / [id number] documented as of this encounter Advance Directives Documents on File Type Date Recorded Patient Cane Loader Expl anation Advance Directives and Living Will 07/25/2024 signed on 12/12/2008 ADVANCE DIRECTIVE / LIVING WILL Advance Directives and Living Will 08/13/2023 signed on 12/12/2008 ADVANCE DIRECTIVE / LIVING WILL AND DURABLE POWER OF EXECUTIVE RECEPTIONIST WITH HEALTH CARE PROVISIONS * Full Code (Latest Code Status on File) Date Activated Date Inactivated Comments 07/18/2024 11:12 PM 07/23/2024 1:30 AM This order reflects the patients wishes and were consensually agreed upon. Question Answer Comments Discussion of Advance Directives occurred with: Patient Care Teams Roll Shop Supervisor Relationship Specialty Start Date End Date Melanie Ramirez MD [address] [place] [address] [place] [address] PCP - General Family Medicine 05/08/22 documented as of this encounter
--- OUTSIDE RECORDS SUMMARY | 2024-08-18 02:55 | External Medical Summary | Summary of Care ---
Author Name Unknown Organization [facility] Address [address] [place] [address] Phone [phone] Care Team Providers Care Medical Record Transcriber Name Role Phone Melanie Ramirez MD Primary Care Provide r Reason for Visit * Reason Comments Re-Check Encounter Details Date Type Department Care Team (Late st Contact Info) Description 08/01/2024 10:40 AM EDT Office Visit Family Medicine [address] [phone] Melanie Ramirez MD [address] [place] [address] [place] [id number] Type 2 diabetes mellitus with stage 3a chronic kidney disease, with long-term current use of insulin ([facility]; HTN, goal below 140/90; Mild dementia without behavioral disturbance, psychotic disturbance, mood disturbance, or anxiety, unspecified dementia type (HCC); Chronic systolic congestive heart failure (HCC); Chronic kidney disease, stage 3a ([facility]); Benign hypertension with CKD (chronic kidney disease) stage III ([facility]); Cholecystitis; Sepsis, due to unspecified organism, unspecified whether acute organ dysfunction present ([facility]) Allergies No known active allergiesdocumented as of this encounter (statuses as of 08/01/2024) Medications VITAMIN B-12 CR TBCR 1000 MCG [...] Active NARCAN 4 MG/0.1ML LIQD Inhale 1 Lutz by mouth as needed. 0 03/23/20 18 [...] morning.. 90 Tablet 1 11/27/19 24 Active glipiZIDE ER 5 MG Oral Tablet Extended Release 24 Hour (Glucotrol XL) TAKE ONE TABLET BY MOUTH EVERY MORNING 30 minutes BEFORE A meal 90 Tablet 1 11/27/19 24 Active OneTouch [...] 5 03/21/20 24 Active OneTouch Delica Plus [id number] ns:Type 2 diabetes mellitus with stage 3a [...] MORNING 90 Tablet 1 05/10/19 25 Active Entresto 24-26 MG Oral TabletIndications: Chronic diastolic (congestive) heart failure ([facility]) Take 1 Tablet by mouth in the morning and 1 Tablet before bedtime. 180 Tablet 1 05/11/19 25 Active Magnesium Oxide 400 MG Oral [...] BEDTIME 90 Capsule 1 06/07/19 25 Active Omeprazole 20 MG Oral Capsule Delayed Release (PriLOSEC) Take 1 Capsule by mouth in the morning and 1 Capsule before bedtime. Do all this for 14 days. 28 Capsule 07/23/19 25 025 Active Loperamide HCl 2 MG Oral Capsule (Imodium) Take 1 Capsule by mouth every 6 hours as needed for Diarrhea. 10 Capsule 07/23/19 25 Active documented as of this encounter (statuses as of 08/01/2024) Active Problems Problem Noted Date Diagnosed Date [...] as of this encounter (statuses as of 08/01/2024) Resolved Problems Problem Noted Date Diagnosed Date [...] Electronic Medical Record. Has a Power of Primer Assembler for Medical needs. KIDNEY DZ,CHRONIC (GFR 30-59) [...] as of this encounter (statuses as of 08/01/2024) Immunizations Name Administration Dates Next Due Pneumococcal [...] PM EDT documented as of this encounter Last Filed Vital Signs Vital Sign Reading Time Taken Comments Blood Pressure 132/76 08/01/2024 10:38 AM EDT Pulse 89 08/01/2024 10:38 AM EDT Temperature 36 °C (96.8 °F) 08/01/2024 10: 38 AM EDT Respiratory Rate - - Oxygen Saturation 95% 08/01/2024 10: 38 AM EDT Inhaled Oxygen Concentration - - Weight 84.3 kg (185 lb 12.8 oz) 025 10:38 AM EDT Height - - Body Mass Index 32.91 07/18/2024 10:35 PM EDT documented in this encounter Functional Status * Are you [...] Brittany Petty RN documented in this encounter Progress Notes * Melanie Ramirez MD - 08/01/2024 10:42 AM EDT Subjective: HPI: Val Marques is a 88 year old female with hx of DMII, HTN, CKD III, Primary hyperparathyroidism, Anemia, Chronic back pain, thyroid nodule (benign) and Systolic and diastolic HF, mild mitral regurgitation, Dementia seen for Pt was admitted to the hospital from 07/18-07/22 - pt underwent ERCP s/p Axios stent of the CBD - also started on IV zosyn for + Bcx - discharged on Augmentin BID, omeprazole 20mg BID Today: - here with daughter - completed the augmentin - diarrhea resolved - taking omeprazole - denied any fever - eating well - denied any N/V Patient Active Problem List Diagnosis B12 DEFIC ANEMIA NEC INFORMATION Hx of colonic polyps Type 2 diabetes mellitus with hemoglobin A1c goal of less than 8.0% (HCC) DYSLIPIDEMIA, GOAL LDL BELOW 100 Vitamin D deficiency Generalized osteoarthritis HTN, goal below 140/90 History of compression fracture of vertebral column Migraine variant Adjustment disorder with depressed mood Hyperparathyroidism, primary (HCC) Chronic bilateral low back pain without sciatica Goiter, nontoxic, multinodular Class 2 severe obesity with body mass index (BMI) of 35 to 39.9 with serious comorbidity (HCC) Senile osteoporosis Spinal stenosis of lumbar region without neurogenic claudication Autonomic neuropathy due to type 2 diabetes mellitus (HCC) Anemia due to stage 3b chronic kidney disease Chronic kidney disease, stage 3a (HCC) Type 2 diabetes mellitus with stage 3a chronic kidney disease (HCC) Immunization not carried out because of patient decision Chronic diastolic (congestive) heart failure (HCC) DDD (degenerative disc disease), lumbar Acute cholecystitis Acute hepatitis Altered mental status Leukocytosis Thrombocytopenia (HCC) Elevated LFTs Bacteremia Mild dementia without behavioral disturbance, psychotic disturbance, mood disturbance, or anxiety (HCC) Chronic systolic congestive heart failure (HCC) Current Outpatient Medications Medication Sig Dispense Refill VITAMIN B-12 CR TBCR 1000 MCG OR one pill each day 100 5 ASPIRIN 81 MG PO TABS one tab by mouth daily 0 0 VITAMIN D 1000 UNIT PO CAPS one tab by mouth daily Hydrocodone-Acetaminophen 10-325 MG per tablet Take 1 Tablet by mouth every 8 hours as needed. 0 NARCAN 4 MG/0.1ML LIQD Inhale 1 Lutz by mouth as needed. 0 HumaLOG KwikPen 100 UNIT/ML Subcutaneous Solution Pen-injector Medium Subcutaneous WITH MEALS AND AT BEDTIME ,InstrMedium DOSE Scale <70 FOLLOWING Hypoglycemic Protocol; 70-140=0 units, 141-180= TWO units, 181-220= FOUR units, 221-260= SIX units, 261-300= EIGHT units, 301-340= 10 units, >340 = 12 units AND call metFORMIN HCl ER 500 MG Oral Tablet Extended Release 24 Hour (Glucophage XR) Take 1 Tablet by mouthin the morning. In the morning.. 90 Tablet 1 glipiZIDE ER 5 MG Oral Tablet Extended Release 24 Hour (Glucotrol XL) TAKE ONE TABLET BY MOUTH EVERY MORNING 30 minutes BEFORE A meal 90 Tablet 1 Atorvastatin Calcium 40 MG Oral Tablet (Lipitor) Take 1 Tablet by mouth in the morning. 90 Tablet 3 Lidocaine 5 % External Patch (Lidoderm) lidocaine 5 % topical patch Metoprolol Succinate ER 25 MG Oral Tablet Extended Release 24 Hour (Toprol XL) Take 0.5 Tablets by mouth daily. 45 Tablet 3 Cinacalcet HCl 30 MG Oral Tablet (Sensipar) TAKE 1 TABLET BY MOUTH ON THURSDAY, THURSDAY AND THURSDAY WITH DINNER 36 Tablet 3 Donepezil HCl 5 MG Oral Tablet (Aricept) Take 1 tablet by mouth with largest meal of the day 30 Tablet 5 Gabapentin 100 MG Oral Capsule (Neurontin) Take 1 Capsule by mouth in the morning and 1 Capsule at noon and 1 Capsule before bedtime. 270 Capsule 3 Famotidine 10 MG Oral Tablet (Pepcid) Take 1 Tablet by mouth in the morning. 90 Tablet 1 Jardiance 25 MG Oral Tablet TAKE ONE TABLET BY MOUTH EVERY MORNING 90 Tablet 1 Entresto 24-26 MG Oral Tablet Take 1 Tablet by mouth in the morning and 1 Tablet before bedtime. 180 Tablet 1 Magnesium Oxide 400 MG Oral Tablet Take 1 Tablet by mouth in the morning. 90 Tablet 1 DULoxetine HCl 60 MG Oral Capsule Delayed Release Particles (Cymbalta) TAKE ONE CAPSULE BY MOUTH EVERY DAY 90 Capsule 1 Ferrex 150 150 MG Oral Capsule TAKE ONE CAPSULE BY MOUTH AT BEDTIME 90 Capsule 1 Omeprazole 20 MG Oral Capsule Delayed Release (PriLOSEC) Take 1 Capsule by mouth in the morning and1 Capsule before bedtime. Do all this for 14 days. 28 Capsule 0 Loperamide HCl 2 MG Oral Capsule (Imodium) Take 1 Capsule by mouth every 6 hours as needed for Diarrhea. 10 Capsule 0 MEDICAL INSTRUCTIONS Patient may have epidural injections. Aware it can affect blood sugar readings. Patient has well controlled diabetes. 1 Each 1 Blood Glucose Monitor System w/Device Kit Check glucose as needed 1 Kit 0 OneTouch Verio In Vitro Strip (Glucose Blood) Use up to 4 times a day E11.9 100 Strip 11 OneTouch Delica Plus [id number] Check glucose daily as needed 100 Each 1 No current facility-administered medications for this visit. Past Medical History: Diagnosis Date Anemia of other chronic disease 07/24/2008 Benign essential hypertension with target blood pressure below 140/90 Chronic renal insufficiency 11/01/2004 27/1.1 GFR 52.3 Closed fracture of metatarsal bone(s) 11/10/2006 Diverticulosis of colon (without mention of hemorrhage) 08/26/2013 sigmoid & descending colon DM type 2, goal A1c below 7 Goiter, nontoxic, multinodular 01/21/2016 Hyperlipidemia LDL goal <100 INFORMATION procrit handout given to pt Kidney disease, chronic, stage III (GFR 30-59 ml/min) ([facility]) 12/06/2008 Modified by CKD Protocol #1. Obesity, Class II, BMI 35.0-39.9, with comorbidity (see actual BMI) 10/08/2009 Per Obesity Protocol, #19 Other osteoporosis 10/26/2009 Other vitamin B12 deficiency anemia 03/26/2001 Senile osteoporosis 03/20/2017 Vertebral fracture, pathological 12/20/2010 Vitamin D deficiency 12/25/2009 Past Surgical History: Procedure Laterality Date COLONOSCOPY W/ LESION REMOVAL, SNARE 11/28/2008 one 40 mm polyp in mid sigmoid colon, incomplete resection, one 8 mm polyp in distal sigmoid colon,diverticulosis entire colonprocedure reached ascending colon, but did not extend to cecum due to significant looping, path pending COLONOSCOPY W/ SUBMUCOUS INJ 11/28/2008 COLONOSCOPY, DIAGNOSTIC (RECTUM) 05/03/2010 multiple diverticula- repeat in 3 years COLONOSCOPY, DIAGNOSTIC (RECTUM) 08/26/2013 hyperplastic polyp, diverticulosis, repeat 3 yrs/COLONOSCOPY FLEXIBLE PROXIMAL DIAGNOSTIC performedby Saadia Acevedo DO at ENDOSCOPY [facility] COLONOSCOPY, DIAGNOSTIC (RECTUM) 10/03/2016 colo-colonic anastomosis healthy, sigmoid and descending diverticulosis, no repeat exam recommended, performed by Saadia Acevedo DO at ENDOSCOPY [facility] EGD, W/ENDOSCOPIC US N/A 07/19/2024 dilation CBD/sludge, axios stent placed/cystic lesion/gastritis/duodenitis/biopsies show gastritis/ESOPHAGOGASTRODUODENOSCOPY (EGD), FLEXIBLE, TRANSORAL, ENDOSCOPIC ULTRASOUND performed by Lorri Jackson DO at OR [facility] LIGATE/CUT OVIDUCT(S) PARTIAL COLECTOMY W/ANASTOMOSIS 12/18/2008 Sigmoid colectomy with primary anastomosis, completion proctoscopy right salpingo-oophorectomy 12/18/08 XR WRIST 3 OR MORE VIEWS Left 05/12/2016 comminuted fracture of distal radius with minimal displacement of fx fragments, chondrocalcinosis Review of patient's allergies indicates: No Known Allergies Family History Problem Relation Name Age of Onset Diabetes Mother Heart Disorder Mother 77 [place] Diabetes Father Heart Disorder Father 60 [place] Diabetes Grandmother (Maternal) Diabetes Brother Heart Disorder Brother 44 [place] Eye Problems None Denies family hx of eye conditions Diabetes Sister Other (CKD/ESRD) None Social History Tobacco Use Smoking status: Never Smokeless tobacco: Never Substance Use Topics Alcohol use: No Vaping/E-Cigarette Use Vaping/E-Cigarette Use Never User Vaping/E-Cigarette Substances Vaping/E-Cigarette Devices ROS: -Per HPI OBJECTIVE: BP 132/76 | Pulse 89 | Temp 96.8 °F (36 °C) | Wt 185 lb 12.8 oz (84.3 kg) | SpO2 95% | BMI 32.91 kg/m² | BSA 1.94 m² PHYSICAL EXAM: Vitals are reviewed General:. NAD, well developed HEENT:. Normal Conjunctiva, EOMI Cardiac:. Normal S1, S2, no murmur Lungs:. CTA, no wheezing or crackles Abd:. soft, ND, NT, reducible umbilical hernia MSK:. Normal gait Psych:. AAOx3, normal affect ASSESSMENT/PLAN: Pt is recovering well CMP today Sched for ERCp again in October Pt completed the augmentin BP wnl Per daughter pt's dementia is stable Type 2 diabetes mellitus with stage 3a chronic kidney disease, with long-term current use of insulin (HCC) (Primary) - COMPREHENSIVE METABOLIC PANEL HTN, goal below 140/90 Mild dementia without behavioral disturbance, psychotic disturbance, mood disturbance, or anxiety, unspecified dementia type (HCC) Chronic systolic congestive heart failure (HCC) Chronic kidney disease, stage 3a (HCC) Benign hypertension with CKD (chronic kidney disease) stage III (HCC) Cholecystitis Sepsis, due to unspecified organism, unspecified whether acute organ dysfunction present (HCC) Follow Up: Return in about 6 months (around 01/31/2025). I spent a total of 40-54 minutes (exact time 43 mins) on the date of service in preparation, delivery, and documentation of the care provided to Val Marques excluding any time spent in the performance of separately billed services or time spent by another provider/QHP. Melanie Ramirez MD Family medicine, [place] [phone] documented in this encounter Nursing Notes * Love Simental, STACIE - 08/01/2024 10:34 AM EDT She is here for a 6 mo routine visit. She was admitted to [facility] for acute cholecystitis. Discharged on 07/22/2024 documented in this encounter Plan of Treatment Upcoming Encounters Date Type Department Care Team (Latest Contact Info) Description 08/25/2024 12:30 PM EDT Office Visit Neurology [place] [address] [facility] [place] [address] Julia Hutton PA-C [address] [place] [address] 10/25/2024 12:23 PM EDT Hospital Encounter OR [facility], Operating Room, [facility] - 4th Floor [address] [place] [phone] Lorri Jackson, DO [address] [place] [address] 10/25/2024 12:23 PM EDT - 10/25/2024 1:11 PM EDT Surgery OR [facility], Operating Room, [facility] - 4th Floor [address] [place] [phone] Lorri Jackson, DO [address] [place] [address] ENDOSCOPIC RETROGRADE CHOLANGIOPANCREATOGRAPHY (ERCP) DIAGNOSTIC 11/03/2024 3:30 PM EDT Office Visit Cardiology [address] [place] [address] Ousmane Waddell PA-C [address] [place] [address] 02/21/2025 11:00 AM EDT Office Visit Family Medicine [address] [place] [phone] Jessica Thakur MD [address] [place] [address] [place] [phone] Pending Results Name Type Priority Associated Diagnoses Date /Time COMPREHENSIVE METABOLIC PANEL Lab Routine Type 2 diabetes mellitus with stage 3a chronic kidney disease, with long-term current use of insulin ([facility]) 08/01/2024 11:03 AM EDT Scheduled Procedures Name Priority Associated Diagnoses Date/Ti ne ENDOSCOPIC RETROGRADE CHOLANGIOPANCREATOGRAPHY (ERCP) DIAGNOSTIC Acute cholecystitis 10/25/2024 12:23 PM EDT Health Maintenance Due Date Last Done [...] Additional history exists CKD HGB USE SMARTSET 34150 07/22/202507/22, 07/21/2024, 07/20/2024, Additional history exists CKD PHOS USE SMARTSET 20854 07/22/202506/26, 07/22/2024, 07/21/2024, Additional history exists DTap/Tdap Vaccines (2 - Td or Tdap) 06/08/2033 06/08/2023, 08/31/2007 Pneumococcal Vaccine: 50+ Years Completed 03/06/2015, 02/21/2003 Zoster Vaccines Completed 12/05/2021, 08/29/2021 VITAMIN D LEVEL ONCE IN A LIFETIME-USE SMARTSET# [id number] Completed 01/16/2022, 06/21/2020, 11/18/2019, Additional history exists [...] this encounter Medical Devices Implanted Type Area Filler Sifter Machine Device Identifier Shelf Expiration Date Model / Serial / Lot Stent Axios [id number] - [id number] Implanted:Qty: 1 on 07/19/2024 by Lorri Jackson DO at OR [facility] : ENDOSCOPY [id number] 02/25/2026 [id number] / / [id number] documented as of this encounter Visit Diagnoses Diagnosis Type 2 diabetes mellitus with stage 3a chronic kidney disease, with long-term current use of insulin (HCC)- Primary HTN, goal below 140/90 Unspecified essential hypertension Mild dementia without behavioral disturbance, psychotic disturbance, mood disturbance, or anxiety, unspecified dementia type (HCC) Chronic systolic congestive heart failure (HCC) Chronic systolic heart failure Chronic kidney disease, stage 3a (HCC) Benign hypertension with CKD (chronic kidney disease) stage III (HCC) Benign hypertensive kidney disease with chronic kidney disease stage I through stage IV, or unspecified Cholecystitis Cholecystitis, unspecified Sepsis, due to unspecified organism, unspecified whether acute organ dysfunction present (HCC) Acute cholecystitis documented in this encounter Advance Directives Documents on File Type Date Recorded Patient Zoo Keeper Expl anation Advance Directives and Living Will 07/25/2024 signed on 12/12/2008 ADVANCE DIRECTIVE / LIVING WILL Advance Directives and Living Will 08/13/2023 signed on 12/12/2008 ADVANCE DIRECTIVE / LIVING WILL AND DURABLE POWER OF BELT AND LINK SHOP SUPERVISOR WITH HEALTH CARE PROVISIONS * Full Code (Latest Code Status on File) Date Activated Date Inactivated Comments 07/18/2024 11:12 PM 07/23/2024 1:30 AM This order reflects the patients wishes and were consensually agreed upon. Question Answer Comments Discussion of Advance Directives occurred with: Patient Care Teams Medical Record Transcriber Relationship Specialty Start Date End Date Melanie Ramirez MD [address] [place] [address] [place] [address] PCP - General Family Medicine 05/08/22 documented as of this encounter"
--- OUTSIDE RECORDS SUMMARY | 2024-08-18 02:55 | External Medical Summary ---
Author Name Unknown Address Unknown Organization K01:[facility] [place] - [address] [facility] [place] [address] Laboratory Report Ordering Provider Test Date Status MICHAEL MALIK 08/01/2024 11:03:19 Delmy l Observation Date Value Abnormality Reference (Units ) Status BUN 08/01/2024 11:03:19 26 Above high normal 6-20 (mg/dL) Final Creatinine 08/01/2024 11:03:19 0.9 0.5-1.0 (mg/dL) Final Glomerular filtration rate/1.73 sq M.predicted [Volume Rate/Area] in Serum, Plasma or Blood by Creatinine-based formula (CKD-EPI) 08/01/2024 11:03:19 65 >=60 (mL/min) Final eGFR is calculated based on the CKD-EPI 2020 equation. Sodium 08/01/2024 11:03:19 142 135-146 (m mol/L) Final Potassium 08/01/2024 11:03:19 4.8 3.5-5.1 (m mol/L) Final Cl 08/01/2024 11:03:19 104 98-107 (mm ol/L) Final CO2 08/01/2024 11:03:19 24 22-32 (mmo l/L) Final Anion gap 08/01/2024 11:03:19 14 7-15 (mmol /L) Final Glucose 08/01/2024 11:03:19 148 Above high normal 70 -120 (mg/dL) Final Albumin 08/01/2024 11:03:19 4.0 3.8-5.0 (g /dL) Final AST (Aspartate aminotransferase) 08/01/2024 11:03:19 19 10-35 (U/L) Fin al Alk Phos 08/01/2024 11:03:19 97 35-130 (U/ L) Final Bilirubin, Total 08/01/2024 11:03:19 0.2 <=1 .2 (mg/dL) Final Calcium 08/01/2024 11:03:19 10.2 8.4-10.2 ( mg/dL) Final Protein 08/01/2024 11:03:19 6.0 6.0-8.3 (g /dL) Final ALT (Alanine aminotransferase) 08/01/2024 11:03:19 44 Above high normal 10-35 (U/L) Final Performing Location [facility] – [place] - [address] [facility] [id number]
--- OUTSIDE RECORDS SUMMARY | 2024-08-18 02:55 | External Medical Summary | Summary of Care ---
Author Name Unknown Organization [facility] Address [address] [facility] [address] Phone [phone] Care Team Providers Care Solutions Sales Executive Name Role Phone Melanie Ramirez MD Primary Care Provide r Reason for Visit * Reason Comments Outpatient Testing Encounter Details Date Type Department Care Team (Late st Contact Info) Description 08/01/2024 11:20 AM EDT Laboratory Laboratory [address] [place] [address] [place], Lab [address] [place] [address] Iron deficiency anemia, unspecified iron deficiency anemia type; HTN, goal below 140/90 Allergies No known active allergiesdocumented as of [...] Active NARCAN 4 MG/0.1ML LIQD Inhale 1 [place] by mouth as needed. 0 03/23/20 18 Active Blood Glucose Monitor System w/Device KitIndications:Typ e 2 diabetes mellitus with stage 3a chronic kidney disease, without long-term current use of insulin ([facility]) Check glucose as needed 1 Kit 03/19/20 [...] without long-term current use of insulin ([facility]) Use up to 4 times a day [...] 5 03/21/20 24 Active OneTouch Delica Plus [id number] ns:Type 2 diabetes mellitus with stage 3a chronic kidney disease, without long-term current use of insulin ([facility]) Check glucose daily as needed 100 [...] with long-term current use of insulin ([facility]) TAKE ONE TABLET BY MOUTH EVERY [...] Electronic Medical Record. Has a Power of Supervisory Training Specialist for Medical needs. KIDNEY DZ,CHRONIC (GFR 30-59) [...] Brittany Petty RN documented in this encounter Plan of Treatment Upcoming Encounters Date Type Department Care Team (Latest Contact Info) Description 08/25/2024 12:30 PM EDT Office Visit Neurology [facility] [address] [facility] [address] Julia Hutton PA-C [address] [place] [address] 10/25/2024 12:23 PM EDT Hospital Encounter OR [facility], Operating Room, [facility] - 4th Floor [address] [place] [phone] Lorri Jackson DO [address] [place] [address] 10/25/2024 12:23 PM EDT - 10/25/2024 1:11 PM EDT Surgery OR GL, Operating Room, [facility] - 4th Floor [address] [place] [address] Lorri Jackson DO [address] [place] [address] ENDOSCOPIC RETROGRADE CHOLANGIOPANCREATOGRAPHY (ERCP) DIAGNOSTIC 11/03/2024 3:30 PM EDT Office Visit Cardiology [address] [place] [address] Ousmane Waddell PA-C [address] [place] [address] 02/21/2025 11:00 AM EDT Office Visit Family Medicine [address] [place] [address] Jessica Thakur MD [address] [place] [address] [place] [address] Scheduled Procedures Name Priority Associated Diagnoses Date/Ti [...] , 07/13/2020, Additional history exists Albumin/Creatinine Ratio 06/08/202406/08/2 024, 12/05/2022, 01/16/2022, Additional history exists HbA1c 01/19/2025 07/19/2024, 11/26, 10/05/2023, Additional history exists CKD HGB USE SMARTSET 70233 07/22/202507/22, 07/21/2024, 07/20/2024, Additional history exists CKD PHOS USE SMARTSET 35302 07/22/202506/26, 07/22/2024, 07/21/2024, Additional history exists DTap/Tdap Vaccines (2 - Td or Tdap) 06/08/2033 06/08/2023, 08/31/2007 Pneumococcal Vaccine: 50+ Years Completed 03/06/2015, 02/21/2003 Zoster Vaccines Completed 12/05/2021, 08/29/2021 VITAMIN D LEVEL ONCE IN A LIFETIME-USE SMARTSET# [id number] Completed 01/16/2022, 06/21/2020, 11/18/2019, Additional history exists [...] this encounter Medical Devices Implanted Type Area Store Administrator Device Identifier Shelf Expiration Date Model / Serial / Lot Stent Axios [id number] - [id number] Implanted:Qty: 1 on 07/19/2024 by Lorri Jacksno DO at OR [facility] [employer] : ENDOSCOPY [id number] 02/25/2026 [id number] / / [id number] documented as of this encounter Visit Diagnoses Diagnosis Iron deficiency anemia, unspecified iron deficiency anemia type HTN, goal below 140/90 Unspecified essential hypertension Acute cholecystitis documented in this encounter Advance Directives Documents on File Type Date Recorded Patient Historiographer Expl anation Advance Directives and Living Will 07/25/2024 signed on 12/12/2008 ADVANCE DIRECTIVE / LIVING WILL Advance Directives and Living Will 08/13/2023 signed on 12/12/2008 ADVANCE DIRECTIVE / LIVING WILL AND DURABLE POWER OF MEDICAL AND SCIENTIFIC ILLUSTRATOR WITH HEALTH CARE PROVISIONS * Full Code (Latest Code Status on File) Date Activated Date Inactivated Comments 07/18/2024 11:12 PM 07/23/2024 1:30 AM This order reflects the patients wishes and were consensually agreed upon. Question Answer Comments Discussion of Advance Directives occurred with: Patient Care Teams Solutions Sales Executive Relationship Specialty Start Date End Date Melanie Ramirez MD [address] [place] [address] [place] [address] PCP - General Family Medicine 05/08/22 documented as of this encounter
--- OUTSIDE RECORDS SUMMARY | 2024-08-18 02:55 | External Medical Summary | Summary of Care ---
Author Name Unknown Organization [facility] Address [address] [facility] [address] Phone [phone] Care Team Providers Care Belt Maker Name Role Phone Melanie Ramirez MD Primary Care Provide r Reason for Visit * Reason Comments Outpatient Testing Encounter Details Date Type Department Care Team (Late st Contact Info) Description 08/01/2024 11:20 AM EDT Laboratory Laboratory [address] [place] [phone] [place], Lab [address] [place] [address] Iron deficiency anemia, unspecified iron deficiency anemia [...] Active NARCAN 4 MG/0.1ML LIQD Inhale 1 [place] by mouth as needed. 0 03/23/20 18 Active Blood Glucose Monitor System w/Device KitIndications:Typ e 2 diabetes mellitus with stage 3a chronic kidney disease, without long-term current use of insulin ([facility]) Check glucose as needed 1 Kit 03/19/20 [...] disease, without long-term current use of insulin ([facility]) Use up to 4 times a day [...] 5 03/21/20 24 Active OneTouch Delica Plus [id number] ns:Type 2 diabetes mellitus with stage 3a chronic kidney disease, without long-term current use of insulin ([facility]) Check glucose daily as needed 100 Each [...] disease, with long-term current use of insulin ([facility]) TAKE ONE TABLET BY MOUTH EVERY MORNING [...] Electronic Medical Record. Has a Power of Garden Equipment Mechanic for Medical needs. KIDNEY DZ,CHRONIC (GFR 30-59) [...] 08/25/2024 12:30 PM EDT Office Visit Neurology [facility] [address] [facility] [address] Julia Hutton PA-C [address] [place] [address] 10/25/2024 12:23 PM EDT Hospital Encounter [facility], Operating Room, [facility] - 4th Floor [address] [place] [phone] Lorri Jackson DO [address] [place] [address] 10/25/2024 12:23 PM EDT - 10/25/2024 1:11 PM EDT Surgery OR GL, Operating Room, [facility] - 4th Floor [address] [place] [phone] Lorri Jackson DO [address] [place] [address] ENDOSCOPIC RETROGRADE CHOLANGIOPANCREATOGRAPHY (ERCP) DIAGNOSTIC 11/03/2024 3:30 PM EDT Office Visit Cardiology [address] [place] [address] Ousmane Waddell PA-C [address] [place] [address] 02/21/2025 11:00 AM EDT Office Visit Family Medicine [address] [place] [phone] Jessica Thakur MD [address] [place] [address] [place] [phone] Scheduled Procedures Name Priority Associated Diagnoses Date/Ti [...] Additional history exists CKD HGB USE SMARTSET 87643 07/22/202507/22, 07/21/2024, 07/20/2024, Additional history exists CKD PHOS USE SMARTSET 77146 07/22/202506/26, 07/22/2024, 07/21/2024, Additional history exists DTap/Tdap Vaccines (2 - Td or Tdap) 06/08/2033 06/08/2023, 08/31/2007 Pneumococcal Vaccine: 50+ Years Completed 03/06/2015, 02/21/2003 Zoster Vaccines Completed 12/05/2021, 08/29/2021 VITAMIN D LEVEL ONCE IN A LIFETIME-USE SMARTSET# [id number] Completed 01/16/2022, 06/21/2020, 11/18/2019, Additional history exists [...] this encounter Medical Devices Implanted Type Area Rail Setter Device Identifier Shelf Expiration Date Model / Serial / Lot Stent Axios [id number] - [id number] Implanted:Qty: 1 on 07/19/2024 by Lorri Jackson DO at OR [facility] [employer] : ENDOSCOPY [id number] 02/25/2026 [id number] / / [id number] documented as of this encounter Visit Diagnoses Diagnosis Iron deficiency anemia, unspecified iron deficiency anemia type HTN, goal below 140/90 Unspecified essential hypertension Acute cholecystitis documented in this encounter Advance Directives Documents on File Type Date Recorded Patient Lead Coater Expl anation Advance Directives and Living Will 07/25/2024 signed on 12/12/2008 ADVANCE DIRECTIVE / LIVING WILL Advance Directives and Living Will 08/13/2023 signed on 12/12/2008 ADVANCE DIRECTIVE / LIVING WILL AND DURABLE POWER OF IT PROGRAM ENGAGEMENT DIRECTOR WITH HEALTH CARE PROVISIONS * Full Code (Latest Code Status on File) Date Activated Date Inactivated Comments 07/18/2024 11:12 PM 07/23/2024 1:30 AM This order reflects the patients wishes and were consensually agreed upon. Question Answer Comments Discussion of Advance Directives occurred with: Patient Care Teams Belt Maker Relationship Specialty Start Date End Date Melanie Ramirez MD [address] [place] [address] [place] [address] PCP - General Family Medicine 05/08/22 documented as of this encounter
--- OUTSIDE RECORDS SUMMARY | 2024-08-18 02:56 | External Medical Summary | Summary of Care ---
Author Name Unknown Organization [facility] Address [address] [place] [address] Phone [phone] Care Team Providers Care Salesperson [employer] Name Role Phone Melanie Ramirez MD Primary Care Provide r Reason for Referral * Evaluate & Treat - Unlimited Visits (Within 3 days (urgent)) - Authorized Specialty Diagnoses / Procedures Referred By Brendon pedraza Referred To Contact Physical Therapy / Physical Medicine And Rehab Diagnoses Ambulatory dysfunction Vianney Salazar MD [address] [place] [id number] Phone: tel: fax: Referral ID Status Reason Start Date Expiration Date Visits Requested Visits Authorized [id number] Authorized Specialty Services Required 07/22/[phone] Question Answer Referral Priority Within 3 days (urgent) Where should this appointment be scheduled? [facility] Comments Discharge Order Reason for Visit * Auth/Cert Specialty Diagnoses / Procedures Referred By Brendon pedraza Referred To Contact Diagnoses acute cholecystitis, CBD dilation Fredrick Ochoa MD [address] [place] [id number] Phone: tel: fax: [address] [phone] Referral ID Status Reason Start Date Expiration Date Visits Re quested Visits Authorized [id number] Encounter Details Date Type Department Care Team (Late st Contact Info) Description 07/18/2024 10:27 PM EDT - 07/22/2024 8:38 PM EDT Hospital Encounter [id number] [facility] 6th Floor [address] [place] [id number] [phone] Fredrick Ochoa MD [address] [place] [address] [phone] Ignacio De MD [address] [place], [place] [id number] Oliverio Barrios MD [address] [place] [address] [phone] Jerry Lara MD [address] [place] [address] [phone] Vianney Salazar MD [address] [place] [address] [phone] Various: KRAVS,UGI,UEUS,CDIQ DC Discharge Disposition: Home - Self Care Allergies No known active allergiesdocumented as of this encounter (statuses as of 07/23/2024) Medications VITAMIN B-12 CR TBCR 1000 MCG [...] Active NARCAN 4 MG/0.1ML LIQD Inhale 1 [place] by mouth as needed. 0 03/23/20 18 [...] 5 03/21/20 24 Active OneTouch Delica Plus [id number] ns:Type 2 diabetes mellitus with stage 3a chronic kidney disease, without long-term current use of insulin ([facility]) Check glucose daily as needed [...] with long-term current use of insulin ([facility]) TAKE ONE TABLET BY MOUTH [...] BEDTIME 90 Capsule 1 06/07/19 25 Active Amoxicillin-Pot Clavulanate 875-125 MG Oral Tablet (Augmentin) Take 1 Tablet by mouth in the morning and 1 Tablet before bedtime. Do all this for 9 days. 18 Tablet 07/23/19 25 025 Active Omeprazole 20 MG Oral Capsule Delayed [...] as of this encounter (statuses as of 07/23/2024) Active Problems Problem Noted Date Diagnosed Date Elevated LFTs 07/19/2024 Bacteremia 07/19/2024 Acute cholecystitis 07/18/2024 Acute hepatitis 07/18/2024 Altered mental status 07/18/2024 Leukocytosis 07/18/2024 Thrombocytopenia 07/18/2024 Severe dementia associated w ith alcoholism, without behavioral disturbance, psychotic disturbance, mood disturbance, or anxiety 02/25/2024 DDD (degenerative disc disease), lumbar 12/06/19 23 Chronic diastolic (congestive) heart failure 03/2023 Immunization not carried out because of patient decision 09/26/2021 Chronic kidney disease, stage 3a 09/04/2020 Overview: Per CKD protocol Type 2 diabetes mellitus wit h stage 3a chronic kidney disease 09/04/2020 Overview: Per CKD protocol Anemia due to stage 3b chronic kidney disease Overview: Per CKD protocol Hypertensive kidney disease with stage 3b chronic kidney disease 03/05/2020 Overview: Per CKD protocol Autonomic neuropathy due [...] as of this encounter (statuses as of 07/23/2024) Resolved Problems Problem Noted Date Diagnosed Date Resolved Date Type 2 diabetes mellitus wit h stage [...] Electronic Medical Record. Has a Power of Central Office Operator Supervisor for Medical needs. KIDNEY DZ,CHRONIC (GFR 30-59) [...] as of this encounter (statuses as of 07/23/2024) Immunizations Name Administration Dates Next Due Pneumococcal [...] Sign Reading Time Taken Comments Blood Pressure 149/88 07/22/2024 7:21 PM EDT Pulse 82 07/22/2024 7:21 PM EDT Temperature 36.9 °C (98.4 °F) 07/22/2024 7:21 PM ED T Respiratory Rate 15 07/22/2024 7:21 PM EDT Oxygen Saturation 98% 07/22/2024 7:21 PM EDT Inhaled Oxygen Concentration - - Weight 83.2 kg (183 lb 6.8 oz) 07/18/2024 10:35 PM EDT Height 160 cm (5' 3") 07/18/2024 10:35 PM EDT Body Mass Index 32.49 07/18/2024 10:35 PM EDT documented in this [...] Brittany Petty RN documented in this encounter Discharge Summaries * Vianney Salazar MD - 07/22/2024 5:27 PM EDT [address] [id number] Admission Date: 07/18/2024 Discharge Date: 07/22/2024 RECOMMENDED TO DO FOR NEXT PROVIDER(S): Please ensure follow up with GI for repeat EGD in 3 months REASON(S) FOR MEDICATION CHANGE(S): Tab Augmentin 875mg BID till 07/31/24 Tab omeprazole 20mg BID Tab imodium prn DISPOSITION ON DISCHARGE: home Active Hospital Problems Diagnosis *Principal Diagnosis - Acute cholecystitis Elevated LFTs Bacteremia Acute hepatitis Altered mental status Leukocytosis Thrombocytopenia (HCC) Severe dementia associated with alcoholism, without behavioral disturbance, psychotic disturbance, mood disturbance, or anxiety (HCC) Chronic diastolic (congestive) heart failure (HCC) Type 2 diabetes mellitus with stage 3a chronic kidney disease (HCC) Chronic bilateral low back pain without sciatica HTN, goal below 140/90 Type 2 diabetes mellitus with hemoglobin A1c goal of less than 8.0% (HCC) Resolved Hospital Problems No resolved problems to display. ADMISSION HISTORY & PHYSICAL EXAM (focused): Per Admitting Provider 88 yo woman with below pmh that includes dm2, htn, s/p cva, hypothyroidism, back pain, severe dementia. She lives with family and this morning was noted for being less responsive than usual. Typically she can converse with family but that morning she wasn't responding to them, wouldn't get out of bed, wasn't eating. She was brought to [facility] for evaluation and while there, was noted for hypoxia and hypotension. She received ivf and labs showed transaminitis to over 1000. Also ct showed inflamed gb. Case was discussed with dr. Jackson who felt that MRCP may be useful for evaluation of potential biliary obstruction. Hence, she was brought here for MRCP and potential ERCP. As per family, she was well yesterday, eating, and at her baseline function. She hasn't fallen recently. She receives vicodin q6 for her back pain and they don't think she has been taking other tylenol. BP: / 154/73 Pulse: 80 Resp: 16 Temp: 36.1 Temp Summary: No data recorded SpO2: 95 O2 flow rate: 2L Supplemental O2 Delivery: NC Constitutional: (+) chronically ill appearing elderly woman resting in bed HEENT: normal: normocephalic, atraumatic Eyes: sclera and conjunctiva normal Neck: supple CV: normal rate Chest: normal respiratory effort, lungs clear to auscultation Abdomen: nsoft, bowel sounds normal, mild ruq tenderness; mild lower abd tenderness Extremities: non-pitting edema; ample adipose tissue on lower legs. Skin: warm, dry, intact: Neuro: alert, oriented to person only. Speaks gibberish which according to family is close to baseline. Moves all extremities but appears weak. No obvious muscle tenderness on palpation. HOSPITAL COURSE (focused): 88-year-old woman with history of diabetes mellitus type 2, hypertension, CVA, hypothyroidism, dementia who was transferred from [facility] on 07/18/24 where she had presented for altered mental status and found to have E coli bacteremia and acute cholecystitis with biliary dilatation Was managed for sepsis with bacteremia from acute cholecystitis Patient had MRCP and ERCP on 07/19/2024 MRCP noted mild intrahepatic and moderate extrahepatic biliary doctor dilatation with CBD measuringup to 1.2 cm with filling defect, a 1 x 0.9 cm T2 hyperintense/T1 hypointense lesion within mid pole of right kidney, focal wall thickening along posterior right renal lower pole which could be artifactual and a 2.6 x 2.5 cm hyperintense lesion within lower lumbar vertebral body Patient had ERCP which showed CBD dilatation, hyper echoic material consistent with sludge in gallbladder. Axios stent was placed for treatment of acalculous cholecystitis. Pancreatic parenchymal abnormalities consisting of atrophy noted the entire pancreas. Endo sonographic images of the left adrenal gland were unremarkable. A cystic lesion measuring 90 mm x 17 mm identified in the right kidney I reviewed blood culture from [facility] that was drawn on 07/18/2025 Blood culture growing E coli. Sensitivities noted Was initially on IV zosyn, then descalated to ampicilin Patient's home atorvastatin was held during hospital stay due to elevated LFT Had diarrhea and C diff was ruled out Diarrhea improved with prn imodium Other notable findings on imaging: CT lumbar noted L2 hemangioma and DDD Renal USS showed bilateral cysts Operations & Procedures: EGD, ERCP and EUS Complications: none significant Significant Lab and Imaging Results: Results for orders placed or performed during the hospital encounter of 07/18/24 CBC Result Value Ref Range WBC 16.50 (H) 4.00 - 10.80 K/uL RBC 3.92 3.85 - 5.15 M/uL HGB 12.0 12.0 - 15.3 g/dL HCT 38.0 36.0 - 45.2 % MCV 96.9 81.5 - 97.5 fL MCH 30.6 27.0 - 34.0 pg MCHC 31.6 32.0 - 36.0 g/dL RDW 13.3 11.5 - 15.5 % PLT 106 (L) 140 - 400 K/uL MPV 10.9 6.6 - 11.1 fL nRBCs 0 <=0 /100 WBCs COMPREHENSIVE METABOLIC PANEL Result Value Ref Range BUN 34 (H) 6 - 20 mg/dL CREATININE 1.1 (H) 0.5 - 1.0 mg/dL EGFR 48 (L) >=60 mL/min SODIUM 141 135 - 146 mmol/L POTASSIUM 4.6 3.5 - 5.1 mmol/L CHLORIDE 104 98 - 107 mmol/L CO2 24 22 - 32 mmol/L ANION GAP 13 7 - 15 mmol/L GLUCOSE 168 (H) 70 - 120 mg/dL Albumin 4.0 3.8 - 5.0 g/dL AST 1,387 (H) 10 - 35 U/L Alkaline Phosphatase 254 (H) 35 - 130 U/L Bilirubin, Total 0.5 <=1.2 mg/dL CALCIUM 9.9 8.4 - 10.2 mg/dL Protein 6.5 6.0 - 8.3 g/dL ALT 1,908 (H) 10 - 35 U/L ACETAMINOPHEN LEVEL Result Value Ref Range Acetaminophen Level <5.0 (L) 10.0 - 30.0 ug/mL TROPONIN T, HIGH SENSITIVITY Result Value Ref Range Troponin T, High Sensitivity 100 (H) <=14 ng/L LIPID PANEL WITH DIRECT LDL IF TG IS HIGH Result Value Ref Range Triglycerides 95 <=174 mg/dL Cholesterol 145 <200 mg/dL HDL Cholesterol 38 (L) >49 mg/dL Non-HDL Cholesterol 107 <=159 mg/dL LDL Cholesterol 88 <=129 mg/dL TYPE AND SCREEN Result Value Ref Range ABO A Rh Positive Red Blood Cell Antibody Screen Negative Specimen Expiration Date 07/21/2024 23:59 PT INR Result Value Ref Range Prothrombin Time 16.0 (H) 11.6 - 15.2 seconds INR 1.3 (H) 0.8 - 1.2 MAGNESIUM Result Value Ref Range Magnesium 1.8 1.5 - 2.6 mg/dL PHOSPHORUS Result Value Ref Range Phosphorus 3.5 2.5 - 4.8 mg/dL BILIRUBIN, DIRECT Result Value Ref Range Bilirubin, Direct 0.2 0.0 - 0.3 mg/dL ABO/RH Result Value Ref Range ABO A Rh Positive TROPONIN T, HIGH SENSITIVITY Result Value Ref Range Troponin T, High Sensitivity 102 (HH) <=14 ng/L COMPREHENSIVE METABOLIC PANEL Result Value Ref Range BUN 32 (H) 6 - 20 mg/dL CREATININE 0.8 0.5 - 1.0 mg/dL EGFR 72 >=60 mL/min SODIUM 139 135 - 146 mmol/L POTASSIUM 4.0 3.5 - 5.1 mmol/L CHLORIDE 103 98 - 107 mmol/L CO2 18 (L) 22 - 32 mmol/L ANION GAP 18 (H) 7 - 15 mmol/L GLUCOSE 189 (H) 70 - 120 mg/dL Albumin 3.6 (L) 3.8 - 5.0 g/dL AST 1,315 (H) 10 - 35 U/L Alkaline Phosphatase 198 (H) 35 - 130 U/L Bilirubin, Total 0.4 <=1.2 mg/dL CALCIUM 9.5 8.4 - 10.2 mg/dL Protein 6.4 6.0 - 8.3 g/dL ALT 1,894 (H) 10 - 35 U/L PT INR Result Value Ref Range Prothrombin Time 17.1 (H) 11.6 - 15.2 seconds INR 1.4 (H) 0.8 - 1.2 CBC Result Value Ref Range WBC 15.73 (H) 4.00 - 10.80 K/uL RBC 3.73 3.85 - 5.15 M/uL HGB 11.4 (L) 12.0 - 15.3 g/dL HCT 36.3 36.0 - 45.2 % MCV 97.3 81.5 - 97.5 fL MCH 30.6 27.0 - 34.0 pg MCHC 31.4 32.0 - 36.0 g/dL RDW 13.4 11.5 - 15.5 % PLT 96 (L) 140 - 400 K/uL MPV 11.1 6.6 - 11.1 fL nRBCs 0 <=0 /100 WBCs MAGNESIUM Result Value Ref Range Magnesium 2.0 1.5 - 2.6 mg/dL PHOSPHORUS Result Value Ref Range Phosphorus 2.9 2.5 - 4.8 mg/dL HEMOGLOBIN A1C Result Value Ref Range Hemoglobin A1C 7.0 (H) 4.0 - 5.6 % Estimated Average Glucose 154 (H) <126 mg/dL LACTATE Result Value Ref Range Lactate 1.8 0.4 - 2.0 mmol/L ACUTE HEPATITIS PANEL Result Value Ref Range Hepatitis A Antibody IgM Negative Negative Hepatitis B Core Antibody IgM Negative Negative Hepatitis B Surface Antigen Negative Negative Hepatitis C Antibody Negative Negative BNP, NT-PRO Result Value Ref Range BNP, NT-Pro 13,969 (H) <300 pg/mL CK Result Value Ref Range CK 94 26 - 192 U/L TROPONIN T, HIGH SENSITIVITY Result Value Ref Range Troponin T, High Sensitivity 103 (HH) <=14 ng/L TROPONIN T, HIGH SENSITIVITY Result Value Ref Range Troponin T, High Sensitivity 112 (HH) <=14 ng/L HEMOGLOBIN AND HEMATOCRIT PANEL Result Value Ref Range HGB 11.6 (L) 12.0 - 15.3 g/dL HCT 36.8 36.0 - 45.2 % COMPREHENSIVE METABOLIC PANEL Result Value Ref Range BUN 24 (H) 6 - 20 mg/dL CREATININE 1.2 (H) 0.5 - 1.0 mg/dL EGFR 46 (L) >=60 mL/min SODIUM 144 135 - 146 mmol/L POTASSIUM 3.0 (L) 3.5 - 5.1 mmol/L CHLORIDE 107 98 - 107 mmol/L CO2 20 (L) 22 - 32 mmol/L ANION GAP 17 (H) 7 - 15 mmol/L GLUCOSE 166 (H) 70 - 120 mg/dL Albumin 3.3 (L) 3.8 - 5.0 g/dL AST 298 (H) 10 - 35 U/L Alkaline Phosphatase 190 (H) 35 - 130 U/L Bilirubin, Total 0.4 <=1.2 mg/dL CALCIUM 9.1 8.4 - 10.2 mg/dL Protein 6.1 6.0 - 8.3 g/dL ALT 983 (H) 10 - 35 U/L CBC Result Value Ref Range WBC 11.12 (H) 4.00 - 10.80 K/uL RBC 3.74 3.85 - 5.15 M/uL HGB 11.6 (L) 12.0 - 15.3 g/dL HCT 36.6 36.0 - 45.2 % MCV 97.9 81.5 - 97.5 fL MCH 31.0 27.0 - 34.0 pg MCHC 31.7 32.0 - 36.0 g/dL RDW 13.6 11.5 - 15.5 % PLT 99 (L) 140 - 400 K/uL MPV 11.6 6.6 - 11.1 fL nRBCs 0 <=0 /100 WBCs MAGNESIUM Result Value Ref Range Magnesium 2.0 1.5 - 2.6 mg/dL COMPREHENSIVE METABOLIC PANEL Result Value Ref Range BUN 15 6 - 20 mg/dL CREATININE 1.0 0.5 - 1.0 mg/dL EGFR 52 (L) >=60 mL/min SODIUM 146 135 - 146 mmol/L POTASSIUM 2.8 (L) 3.5 - 5.1 mmol/L CHLORIDE 112 (H) 98 - 107 mmol/L CO2 22 22 - 32 mmol/L ANION GAP 12 7 - 15 mmol/L GLUCOSE 151 (H) 70 - 120 mg/dL Albumin 3.4 (L) 3.8 - 5.0 g/dL AST 100 (H) 10 - 35 U/L Alkaline Phosphatase 148 (H) 35 - 130 U/L Bilirubin, Total 0.4 <=1.2 mg/dL CALCIUM 9.1 8.4 - 10.2 mg/dL Protein 5.8 (L) 6.0 - 8.3 g/dL ALT 582 (H) 10 - 35 U/L CBC Result Value Ref Range WBC 6.69 4.00 - 10.80 K/uL RBC 3.63 3.85 - 5.15 M/uL HGB 11.0 (L) 12.0 - 15.3 g/dL HCT 35.1 (L) 36.0 - 45.2 % MCV 96.7 81.5 - 97.5 fL MCH 30.3 27.0 - 34.0 pg MCHC 31.3 32.0 - 36.0 g/dL RDW 13.2 11.5 - 15.5 % PLT 104 (L) 140 - 400 K/uL MPV 11.1 6.6 - 11.1 fL nRBCs 0 <=0 /100 WBCs PHOSPHORUS Result Value Ref Range Phosphorus 1.4 (L) 2.5 - 4.8 mg/dL CLOSTRIDIUM DIFFICILE, PCR Result Value Ref Range Stool Consistency Liquid Clostridium difficile Result Negative Negative. No C. difficile toxin B gene DNA detected by PCR (Amplified Probe). POTASSIUM Result Value Ref Range POTASSIUM 3.7 3.5 - 5.1 mmol/L CBC Result Value Ref Range WBC 4.89 4.00 - 10.80 K/uL RBC 3.48 3.85 - 5.15 M/uL HGB 10.6 (L) 12.0 - 15.3 g/dL HCT 32.9 (L) 36.0 - 45.2 % MCV 94.5 81.5 - 97.5 fL MCH 30.5 27.0 - 34.0 pg MCHC 32.2 32.0 - 36.0 g/dL RDW 13.2 11.5 - 15.5 % PLT 112 (L) 140 - 400 K/uL MPV 11.6 6.6 - 11.1 fL nRBCs 0 <=0 /100 WBCs COMPREHENSIVE METABOLIC PANEL Result Value Ref Range BUN 11 6 - 20 mg/dL CREATININE 1.0 0.5 - 1.0 mg/dL EGFR 58 (L) >=60 mL/min SODIUM 145 135 - 146 mmol/L POTASSIUM 3.5 3.5 - 5.1 mmol/L CHLORIDE 113 (H) 98 - 107 mmol/L CO2 23 22 - 32 mmol/L ANION GAP 9 7 - 15 mmol/L GLUCOSE 146 (H) 70 - 120 mg/dL Albumin 3.3 (L) 3.8 - 5.0 g/dL AST 41 (H) 10 - 35 U/L Alkaline Phosphatase 121 35 - 130 U/L Bilirubin, Total 0.4 <=1.2 mg/dL CALCIUM 9.5 8.4 - 10.2 mg/dL Protein 5.5 (L) 6.0 - 8.3 g/dL ALT 370 (H) 10 - 35 U/L MAGNESIUM Result Value Ref Range Magnesium 1.5 1.5 - 2.6 mg/dL PHOSPHORUS Result Value Ref Range Phosphorus 1.3 (L) 2.5 - 4.8 mg/dL PHOSPHORUS Result Value Ref Range Phosphorus 2.5 2.5 - 4.8 mg/dL GLUCOSE METER, POINT OF CARE Result Value Ref Range Glucose - POCT 143 (H) 70 - 120 mg/dL GLUCOSE METER, POINT OF CARE Result Value Ref Range Glucose - POCT 165 (H) 70 - 120 mg/dL GLUCOSE METER, POINT OF CARE Result Value Ref Range Glucose - POCT 142 (H) 70 - 120 mg/dL GLUCOSE METER, POINT OF CARE Result Value Ref Range Glucose - POCT 190 (H) 70 - 120 mg/dL GLUCOSE METER, POINT OF CARE Result Value Ref Range Glucose - POCT 157 (H) 70 - 120 mg/dL GLUCOSE METER, POINT OF CARE Result Value Ref Range Glucose - POCT 161 (H) 70 - 120 mg/dL GLUCOSE METER, POINT OF CARE Result Value Ref Range Glucose - POCT 173 (H) 70 - 120 mg/dL GLUCOSE METER, POINT OF CARE Result Value Ref Range Glucose - POCT 167 (H) 70 - 120 mg/dL GLUCOSE METER, POINT OF CARE Result Value Ref Range Glucose - POCT 134 (H) 70 - 120 mg/dL GLUCOSE METER, POINT OF CARE Result Value Ref Range Glucose - POCT 151 (H) 70 - 120 mg/dL GLUCOSE METER, POINT OF CARE Result Value Ref Range Glucose - POCT 197 (H) 70 - 120 mg/dL GLUCOSE METER, POINT OF CARE Result Value Ref Range Glucose - POCT 213 (H) 70 - 120 mg/dL GLUCOSE METER, POINT OF CARE Result Value Ref Range Glucose - POCT 148 (H) 70 - 120 mg/dL GLUCOSE METER, POINT OF CARE Result Value Ref Range Glucose - POCT 165 (H) 70 - 120 mg/dL GLUCOSE METER, POINT OF CARE Result Value Ref Range Glucose - POCT 218 (H) 70 - 120 mg/dL GLUCOSE METER, POINT OF CARE Result Value Ref Range Glucose - POCT 185 (H) 70 - 120 mg/dL *Note: Due to a large number of results and/or encounters for the requested time period, some results have not been displayed. A complete set of results can be found in Results Review. US RENAL Final Result PROCEDURE INFORMATION: Exam: US Retroperitoneal, Complete, Kidneys and Bladder Exam date and time: 07/20/2024 9:48 AM Age: 88 years old Clinical indication: Abnormal findings; Abnormal radiologic finding of the abdomen; Radiologic exam and body structure: Mri; Additional info: For better assessment of mri findings TECHNIQUE: Imaging protocol: Real-time ultrasound of the retroperitoneum with image documentation. Complete exam focused on the bilateral kidneys and urinary bladder. COMPARISON: MRI ABDOMEN WO CONTRAST 07/19/2024 8:30 AM FINDINGS: Right kidney: Normal in size, measuring 10.5 cm sagittal x 5.1 cm AP x 4.4 cm TRV. Cortical echogenicity is normal. There is no hydronephrosis. No shadowing calculi are identified. There is a 7.9 cm x 7.6 cm x 7.4 cm exophytic cortical cyst in the upper pole which appears essentially simple. There is a 1.7 cm simple cortical cyst in the lateral mid right kidney and a 0.8 cm simple cyst in the medial lower pole, best seen on the cine images. No solid mass is identified. There is nonspecific trace perinephric fluid. Left kidney: Normal in size, measuring 9.8 cm sagittal x 5.1 cm AP x 4.9 cm TRV. Cortical echogenicity is normal. There is no hydronephrosis. No shadowing calculi are identified. There are multiple simple-appearing cortical cysts in the left kidney, the largest measuring up to 3.2 cm in the upper pole. No solid mass is identified. Urinary bladder: Bladder wall thickness is normal. No intraluminal abnormality is identified. Ureteral jets were not visualized. Left ovary/adnexa: Incidentally noted is a 3.7 cm x 4.5 cm x 4.1 cm septated cystic structure the in the left adnexa. IMPRESSION IMPRESSION: 1. Bilateral renal cysts as described above. No suspicious renal masses. 2. 3.7 cm x 4.5 cm x 4.1 cm septated cystic structure in the left adnexa, incompletely characterized. This can be further assessed with nonemergent pelvic MRI (without and with contrast). THIS DOCUMENT HAS BEEN ELECTRONICALLY SIGNED BY ZEN HARMON MD CT L SPINE WO CONTRAST Final Result PROCEDURE INFORMATION: Exam: CT Lumbar Spine Without Contrast Exam date and time: 07/20/2024 10:32 AM Age: 88 years old Clinical indication: Low back pain; Additional info: For better assessment of mri findings TECHNIQUE: Imaging protocol: Computed tomography of the lumbar spine without contrast. Radiation optimization: All CT scans at this facility use at least one of these dose optimization techniques: automated exposure control; mA and/or kV adjustment per patient size (includes targeted exams where dose is matched to clinical indication); or iterative reconstruction. COMPARISON: MRI ABDOMEN WO CONTRAST 07/19/2024 8:30 AM FINDINGS: Bones/joints: There is marked diffuse osseous demineralization. There is a chronic-appearing biconcave compression deformity at L1 with moderate loss of vertebral body height. In the L2 vertebral body is an approximately 2.4 cm lucent lesion with faint sclerosis and subtle internal stippled calcifications. This correlates to the focus of abnormal marrow signal identified in the lumbar spine on the recent abdominal MRI. Its CT and MR appearance are most compatible with an atypical hemangioma. There is a less well-circumscribed, approximately 2.5 cm typical hemangioma in the left L4 vertebral body. There is moderate levoscoliosis of the lumbar spine, apex at L2. Lumbar lordosis is maintained. No spondylolisthesis is noted. Multilevel findings: There is multilevel moderate to severe facet hypertrophy throughout the lumbar spine which contributes to multilevel osseous encroachment on the neural foramina, most severe at L2-L3. There are multilevel endplate osteophytes with multilevel loss of intervertebral disc height, most severe on the right at L2-L3. Disc osteophyte complexes and facet and ligamentous hypertrophy at L2-L3 and L3-L4 contribute to severe acquired central canal narrowing. Soft tissues: No acute abnormality in the paraspinal soft tissues. Other findings: Severe atherosclerotic vascular calcifications. Partially imaged cortical cyst and 6 mm nonobstructing calculus in the right kidney. Partially imaged cortical cysts in the left kidney. Sigmoid diverticulosis. IMPRESSION IMPRESSION: 1. 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 2. Advanced multilevel lumbar spondylosis and degenerative disc disease, most severe at L2-L3 and L3-L4, with a superimposed moderate levoscoliosis. If clinically warranted, consider further evaluation with MRI. COMMENTS: Consistent with the [employer]'s Incidental Findings Committee white paper ([employer] 2018): Any incidental renal lesion less than 1 cm or classified as too small to characterize, or any incidental cystic renal lesion characterized as simple-appearing, is likely benign. No follow-up imaging is recommended for these lesions per consensus recommendations based on imaging criteria. THIS DOCUMENT HAS BEEN ELECTRONICALLY SIGNED BY ZEN HARMON MD US ENDOSCOPIC Final Result This is an imaging study not interpreted or resulted by a [facility] or [facility] contracted radiologist. FLUORO ERCP Final Result This procedure will not be read by a Radiologist. Please see operative note. MRI ABDOMEN WO CONTRAST Final Result EXAM MRI ABDOMEN WO CONTRAST-07/19/2024 8:52 am HISTORY hepatitis and cholecystitis COMPARISON None TECHNIQUE Limited multiplanar, multisequential MR imaging of the abdomen was performed without the administration of intravenous contrast. Study was terminated early due to patient's inability to tolerate the exam. FINDINGS Moderate motion degradation. Liver: Normal morphology. Biliary ducts: Mild intrahepatic and moderate extrahepatic biliary ductal dilatation. Common bile duct measures up to 1.2 cm. A filling defect seen within the CBD on T2FS (series 6, image 29) without definite correlate on coronal or MRCP sequences favors artifact and less likely stone. Gallbladder: Distended. No cholelithiasis. Pancreas: Pancreatic parenchymal atrophy. Spleen: Normal in size. Adrenal glands: Within normal limits. Kidneys: Large right renal upper pole T2 hyperintense lesion measuring 7.2 x 10.0 x 6.7 cm, likely a cyst. A 1.0 x 0.9 cm T2 hypointense/T1 hyperintense lesion within the midpole may represent a hemorrhagic/proteinaceous cyst though incompletely characterized due to lack of intravenous contrast (series 5, image 32). Focal wall thickening along the posterior right renal lower pole may be artifactual (series 5, image 35). Left renal T2 hyperintense lesions, likely cysts. Bilateral perinephric fat stranding, nonspecific. Lymph nodes: Within normal limits. Peritoneum: No ascites. Vessels: Within normal limits. Abdominal wall: Ventral abdominal hernia containing nonobstructed loops of bowel and fat. Lower chest: Moderate hiatal hernia. Bones: Degenerative changes. A 2.6 x 2.5 cm hyperintense lesion within a lumbar vertebral body, indeterminate. IMPRESSION IMPRESSION 1. Moderately motion degraded limited examination of the abdomen. Mild intrahepatic and moderate extrahepatic biliary ductal dilatation. Common bile duct measures up to 1.2 cm. A filling defect seen within the CBD on T2FS without definite correlate on coronal or MRCP sequences favors artifact and less likely stone. 2. A 1.0 x 0.9 cm T2 hypointense/T1 hyperintense lesion within the midpole may represent a hemorrhagic/proteinaceous cyst though incompletely characterized due to lack of intravenous contrast. Recommend dedicated renal ultrasound for further evaluation of findings. 3. Focal wall thickening along the posterior right renal lower pole may be artifactual. Recommend renal ultrasound to exclude focal mass. 4. A 2.6 x 2.5 cm hyperintense lesion within a lower lumbar vertebral body, indeterminate. Consider CT of the lumbar spine for further characterization. This exam was submitted to the radiology air control/anti air warfare officer worklist and the ordering provider will be notified that the final report is available in EPIC. Results Pending at Discharge: Lab Results Pending at Discharge: CBC Routine BASIC METABOLIC PANEL Routine MAGNESIUM Routine PHOSPHORUS Routine MEDICATION UPDATES AT DISCHARGE START taking these medications INSTRUCTIONS amoxicillin-clavulanate 875-125 MG per Tablet Commonly known as: Augmentin Take 1 Tablet by mouth in the morning and 1 Tablet before bedtime. Do all this for 9 days. loperamide 2 MG Capsule Commonly known as: Imodium Take 1 Capsule by mouth every 6 hours as needed for Diarrhea. omeprazole 20 MG Cpdr Commonly known as: PriLOSEC Take 1 Capsule by mouth in the morning and 1 Capsule before bedtime. Do all this for 14 days. CONTINUE taking these medications INSTRUCTIONS Aspirin 81 MG Tablet one tab by mouth daily atorvaSTATin 40 MG Tablet Commonly known as: Lipitor Take 1 Tablet by mouth in the morning. Blood Glucose Monitor System w/Device Kit Check glucose as needed cinacalcet 30 MG Tablet Commonly known as: Sensipar TAKE 1 TABLET BY MOUTH ON THURSDAY, THURSDAY AND THURSDAY WITH DINNER donepezil 5 MG Tablet Commonly known as: Aricept Take 1 tablet by mouth with largest meal of the day DULoxetine 60 MG Cpep Commonly known as: Cymbalta TAKE ONE CAPSULE BY MOUTH EVERY DAY Entresto 24-26 MG Tabs Generic drug: sacubitril-valsartan 24-26 mg per tab Take 1 Tablet by mouth in the morning and 1 Tablet before bedtime. Famotidine 10 MG Tablet Commonly known as: Pepcid Take 1 Tablet by mouth in the morning. Ferrex 150 150 MG Capsule Generic drug: Polysaccharide Iron Complex TAKE ONE CAPSULE BY MOUTH AT BEDTIME Gabapentin 100 MG Capsule Commonly known as: Neurontin Take 1 Capsule by mouth in the morning and 1 Capsule at noon and 1 Capsule before bedtime. glipiZIDE XL 5 MG Tb24 Commonly known as: Glucotrol XL TAKE ONE TABLET BY MOUTH EVERY MORNING 30 minutes BEFORE A meal HumaLOG KwikPen 100 UNIT/ML Sopn Generic drug: Insulin Lispro (1 Unit Dial) Medium Subcutaneous WITH MEALS AND AT BEDTIME ,InstrMedium DOSE Scale <70 FOLLOWING HypoglycemicProtocol; 70-140=0 units, 141-180= TWO units, 181-220= FOUR units, 221-260= SIX units, 261-300= EIGHT units, 301-340= 10 units, >340 = 12 units AND call HYDROcodone-acetaminophen 10-325 mg per tab Take 1 Tablet by mouth every 8 hours as needed. Jardiance 25 MG Tabs Generic drug: Empagliflozin TAKE ONE TABLET BY MOUTH EVERY MORNING Lidocaine 5 % Commonly known as: Lidoderm lidocaine 5 % topical patch Magnesium Oxide 400 MG Tablet Take 1 Tablet by mouth in the morning. MEDICAL INSTRUCTIONS Patient may have epidural injections. Aware it can affect blood sugar readings. Patient has well controlled diabetes. metFORMIN ER 500 MG Tb24 Commonly known as: Glucophage XR Take 1 Tablet by mouth in the morning. In the morning.. metoprolol succinate XL 25 MG Tb24 Commonly known as: Toprol XL Take 0.5 Tablets by mouth daily. OneTouch Delica Plus [id number] Misc Check glucose daily as needed OneTouch Verio Strp Generic drug: Glucose Blood Use up to 4 times a day E11.9 Vitamin B-12 ER 1000 MCG Tbcr one pill each day Vitamin D 1000 UNIT Capsule one tab by mouth daily CONTINUE taking these medications but follow up with your Primary Care Physician (PCP). INSTRUCTIONS Narcan 4 MG/0.1ML Liqd Generic drug: naloxone Inhale 1 [place] by mouth as needed. SCHEDULED FOLLOW-UP: Future Appointments Appt Date/Time Provider Department 08/01/2024 10:40 AM Melanie Ramirez MD Family Medicine [facility] 08/25/2024 12:30 PM Julia Hutton PA-C Neurology [facility] 11/03/2024 3:30 PM Ousmane Waddell PA-C Cardiology [facility] Outpatient Follow Up PHYSICAL THERAPY REFERRAL OP Other Information Indwelling Devices: LINES ALL Duration Peripheral Line Left;Lower;Posterior Arm 24 Gauge <1 day Peripheral Line Right Hand Other-Describe <1 day Vital Signs (last recorded): Most Recent Systolic BP: 166 mmHg (07/22/24 152) Most Recent Diastolic BP: 82 mmHg (07/22/24 152) Pulse: 79 (07/22/24 152) Resp: 15 (07/22/241528) Most Recent Temperature: 36.28 C (07/22/241528) Weight: 83.2 kg (183 lb 6.8 oz) (07/18/242234) SpO2: 97 % (07/22/241528) Allergies: Patient has no known allergies. Activity: as tolerated Diet: cardiac diet and diabetic diet Code Status: Full Code Condition on Discharge: stable Isolation status: None Cognition: diminished HOSPITAL CONSULTS ORDERED: GASTROENTEROLOGY CONSULT IP ADULT PHYSICAL THERAPY CONSULT IP ADULT OCCUPATIONAL THERAPY CONSULT IP GENERAL SURGERY CONSULT IP CARDIOLOGY CONSULT IP HEMATOLOGY CONSULT IP CARE MANAGEMENT CONSULT IP REFERRING PHYSICIAN: REF: NATALIE BURRISNusrat Chaparro [address] [place] [address] (office) [phone] (fax) PRIMARY CARE PROVIDER: PCP: Melanie Ramirez MD [address] [place] [address] / [place] [address] (office) [phone] (fax) Note: To contact a physician responsible for this patient’s hospital care, please call [employer] [phone]. I spent a total of 35 minutes coordinating, documenting, and providing care for this patient excluding time spent in the performance of separately billed services. documented in this encounter Discharge Instructions * Discharge Instr - AVS* Vianney Salazar MD - 07/22/2024 4:46 PM EDT Discharge Date: 07/22/24 The information below provides you with the instructions and the list of medications you need to betaking following discharge from the hospital. If you have any questions, please ask before leaving. If you have questions after leaving, you can reach us at the numbers below. YOUR HOSPITAL PROVIDERS: Discharging Provider: Vianney Salazar MD Provider Department: Hospital Medicine To reach this Provider Thursday through Thursday (8:00 AM to 4:30 PM) for any questions or test results: Call [phone] For after-hours concerns: Call [phone] and have your provider paged, or the provider international project manager for the Department of Hospital Medicine paged. Please note, the discharging provider will not be able to provide you with any medications refills.Please discuss these with your primary care provider. Worsening Symptoms: If you have new symptoms, or your symptoms get worse, please contact your Discharge Provider or Primary Care Provider (PCP). If these providers are not available, you can go to your local [facility] or Urgent Care Clinic during their business hours. In an EMERGENCY situation: Call 911 or go to the nearest emergency room. A BRIEF SUMMARY OF YOUR HOSPITAL STAY: You were transferred from [facility] where you presented with altered mental status Your main diagnosis at discharge was: Bacteremia from acute cholecystitis Operations & Procedures performed: EGD/ERCP with stent placement Complications: none significant Inpatient test results that are pending at discharge: Pathology Advance Directive Documented: Advance Directive Does the Patient have an Advance Directive? Yes YOUR FOLLOW UP APPOINTMENTS: Primary Care Provider Information: PCP: Melanie Ramirez MD [address] [place] [address] / [place] [address] (office) [phone] (fax) An appointment was requested with your PCP (Melanie Ramirez MD) within 7 days. (Please take this form to this visit with your primary care physician.) You need the following studies in the future: You need repeat EGD in 3 months. INSTRUCTIONS: Diet: Carbohydrate-controlled diet, Heart healthy diet Activity: No restrictions and As tolerated Additional Instructions: - Call your primary care physician or seek medical attention if you have any medical problems. - Please ensure follow up with Gastroenterology - Please continue antibiotics till 07/31/24 to complete treatment - You were started on Omeprazole 20mg twice a day for Gastritis seen on endoscopy documented in this encounter Progress Notes * Nik Sommer, [facility] - 07/22/2024 5:25 PM EDT PHARMACY DISCHARGE MEDICATION RECONCILIATION REVIEW [address] [address] Name: Val Beverly Location: [facility] [id number] Date: 07/22/2024 Time: 5:25 PM This discharge medication reconciliation was reviewed by a pharmacist and no corrections or interventions were required. * Vianney Salazar MD - 07/22/2024 3:39 PM EDT Images from the original note were not included. [facility] [id number]-[id number] INTERVAL HISTORY: 88-year-old woman with history of diabetes mellitus type 2, hypertension, CVA, hypothyroidism, dementia who was transferred from [facility] on 07/18/24 where she had presented for altered mental status and found to have E coli bacteremia and acute cholecystitis with biliary dilatation Patient had MRCP and ERCP on 07/19/2024 and got axios stent placement Patient seen and examined today. Diarrhea much improved No complaints ROS limited due to dementia Objective Physical Exam Most Recent Vital Signs: BP: 166 mmHg/82 mmHg (07/22/24 1529) Pulse: 79 (07/22/24 1529) Resp: 15 (07/22/24 1529) Temp: 36.28 C (07/22/24 1529) Temp Summary: Temp Min: 36.1 °C (97 °F) Max: 36.5 °C (97.7 °F) SpO2: 97 % (07/22/24 1529) O2 flow rate: Supplemental O2 Delivery: Room Air, None (07/22/24 1529) Constitutional: no acute distress HEENT: normal: normocephalic, atraumatic; no masses, tenderness, or adenopathy Eyes: sclera and conjunctiva normal CV: normal rate, normal rhythm Chest: normal respiratory effort, lungs clear to auscultation and percussion Abdomen: normal: soft, bowel sounds normal, no masses, tenderness or organomegaly Musculoskeletal: No pedal edema Neuro: alert, oriented to person, cooperative Psych: confused Peripheral Line Right Hand Other-Describe (Active) Number of days: 0 Peripheral Line Left;Lower;Posterior Arm 24 Gauge (Active) Number of days: 0 STUDIES: Encounter Orders Labs and other studies reviewed with pertinent findings noted below: Lab results within last 7 days (see chart for full results) Units 07/22/24 0538 07/21/24 1456 07/21/24 0547 07/20/24 0531 SODIUM mmol/L 145 -- 146 144 POTASSIUM mmol/L 3.5 3.7 2.8* 3.0* CHLORIDE mmol/L 113* -- 112* 107 CO2 mmol/L 23 -- 22 20* BUN mg/dL 11 -- 15 24* CREATININE mg/dL 1.0 -- 1.0 1.2* Lab results within last 7 days (see chart for full results) Units 07/22/24 0538 07/21/24 0547 07/20/24 0531 HGB g/dL 10.6* 11.0* 11.6* HCT % 32.9* 35.1* 36.6 WBC K/uL 4.89 6.69 11.12* PLT K/uL 112* 104* 99* Lab results within last 7 days (see chart for full results) Units 07/22/24 0538 07/21/24 0547 07/20/24 0531 Protein g/dL 5.5* 5.8* 6.1 Bilirubin, Total mg/dL 0.4 0.4 0.4 Alkaline Phosphatase U/L 121 148* 190* AST U/L 41* 100* 298* ALT U/L 370* 582* 983* Assessment and Plan IMPRESSION : Principal Problem: Acute cholecystitis Active Problems: Type 2 diabetes mellitus with hemoglobin A1c goal of less than 8.0% (HCC) HTN, goal below 140/90 Chronic bilateral low back pain without sciatica Type 2 diabetes mellitus with stage 3a chronic kidney disease (HCC) Chronic diastolic (congestive) heart failure (HCC) Severe dementia associated with alcoholism, without behavioral disturbance, psychotic disturbance, mood disturbance, or anxiety (HCC) Acute hepatitis Altered mental status Leukocytosis Thrombocytopenia (HCC) Elevated LFTs Bacteremia Resolved Problems: * No resolved hospital problems. * DIFFERENTIAL AND PLAN: 88-year-old woman with history of diabetes mellitus type 2, hypertension, CVA, hypothyroidism, dementia who was transferred from [facility] on 07/18/24 where she had presented for altered mental status and found to have E coli bacteremia and acute cholecystitis with biliary dilatation Patient had MRCP and ERCP on 07/19/2024 MRCP noted mild intrahepatic and moderate extrahepatic biliary doctor dilatation with CBD measuringup to 1.2 cm with filling defect, a 1 x 0.9 cm T2 hyperintense/T1 hypointense lesion within mid pole of right kidney, focal wall thickening along posterior right renal lower pole which could be artifactual and a 2.6 x 2.5 cm hyperintense lesion within lower lumbar vertebral body Patient had ERCP with showed CBD dilatation, hyper echoic material consistent with sludge in gallbladder. Axial stent was placed for treatment of I calculous cholecystitis. Pancreatic parenchymal abnormalities consisting of atrophy noted the entire pancreas. Endo sonographic images of the left adrenal gland were unremarkable. A cystic lesion measuring 90 mm x 17 mm identified in the right kidney I reviewed blood culture from [facility] [place] [facility] that was drawn on 07/18/2025 Blood culture growing E coli. Sensitivities noted Antibiotics deescalated to ampicillin Patient will need repeat upper endoscopy in 3 months C diff negative. Continue prn imodium Cards eval noted Continue ASA and toprol Atorvastatin still on hold. LFTs trending down, almost all normalized. Plan to resume on discharge Hypophosphatemia being repleted Monitor other electrolytes and replete as appropriate CT lumbar noted L2 hemangioma and DDD Previous provider noted she discussed this with HemOnc and no further inpatient workup noted. Renal USS showed bilateral cysts PHARMACOLOGIC VTE PROPHYLAXIS: hEParin CODE STATUS: Full Code EXPECTED DISCHARGE DATE: 07/23/2024 Called daughter Obdulia and updated her She reported they won't be able to get patient today. Plan for DC tomorrow AM I spent a total of 50 minutes coordinating, documenting, and providing care for this patient excluding time spent in the performance of separately billed services or time spent by another provider/QHP. * Vianney Salazar MD - 07/21/2024 12:26 PM EDT Images from the original note were not included. [facility] [id number] INTERVAL HISTORY: 88-year-old woman with history of diabetes mellitus type 2, hypertension, CVA, hypothyroidism, dementia who was transferred from [facility] on 07/18/24 where she had presented for altered mental status and found to have E coli bacteremia and acute cholecystitis with biliary dilatation Patient had MRCP and ERCP on 07/19/2024 and got axios stent placement Patient seen and examined today. Patient having diarrhea Denied abd pain, nausea, vomiting ROS limited due to dementia Objective Physical Exam Most Recent Vital Signs: BP: 146 mmHg/96 mmHg (07/21/24 1133) Pulse: 74 (07/21/24 1133) Resp: 15 (07/21/24 113) Temp: 36.11 C (07/21/24 113) Temp Summary: Temp Min: 36.1 °C (97 °F) Max: 36.8 °C (98.2 °F) SpO2: 95 % (07/21/24 113) O2 flow rate: Supplemental O2 Delivery: Room Air, None (07/21/241132) Constitutional: no acute distress HEENT: normal: normocephalic, atraumatic; no masses, tenderness, or adenopathy Eyes: sclera and conjunctiva normal CV: normal rate, normal rhythm Chest: normal respiratory effort, lungs clear to auscultation and percussion Abdomen: normal: soft, bowel sounds normal, no masses, tenderness or organomegaly Musculoskeletal: No pedal edema Neuro: alert, oriented to person, cooperative Psych: confused Peripheral Line Left;Lower Arm 22 Gauge (Active) Number of days: 1 STUDIES: Encounter Orders Labs and other studies reviewed with pertinent findings noted below: Lab results within last 7 days (see chart for full results) Units 07/21/24 0547 07/20/24 0531 07/19/24 0354 SODIUM mmol/L 146 144 139 POTASSIUM mmol/L 2.8* 3.0* 4.0 CHLORIDE mmol/L 112* 107 103 CO2 mmol/L 22 20* 18* BUN mg/dL 15 24* 32* CREATININE mg/dL 1.0 1.2* 0.8 Lab results within last 7 days (see chart for full results) Units 07/21/24 0547 07/20/24 0531 07/19/24 1701 07/19/24 0354 HGB g/dL 11.0* 11.6* 11.6* 11.4* HCT % 35.1* 36.6 36.8 36.3 WBC K/uL 6.69 11.12* -- 15.73* PLT K/uL 104* 99* -- 96* Assessment and Plan IMPRESSION : Principal Problem: Acute cholecystitis Active Problems: Type 2 diabetes mellitus with hemoglobin A1c goal of less than 8.0% (HCC) HTN, goal below 140/90 Chronic bilateral low back pain without sciatica Type 2 diabetes mellitus with stage 3a chronic kidney disease (HCC) Chronic diastolic (congestive) heart failure (HCC) Severe dementia associated with alcoholism, without behavioral disturbance, psychotic disturbance, mood disturbance, or anxiety (HCC) Acute hepatitis Altered mental status Leukocytosis Thrombocytopenia (HCC) Elevated LFTs Bacteremia Resolved Problems: * No resolved hospital problems. * DIFFERENTIAL AND PLAN: 88-year-old woman with history of diabetes mellitus type 2, hypertension, CVA, hypothyroidism, dementia who was transferred from [facility] on 07/18/24 where she had presented for altered mental status and found to have E coli bacteremia and acute cholecystitis with biliary dilatation Patient had MRCP and ERCP on 07/19/2024 MRCP noted mild intrahepatic and moderate extrahepatic biliary doctor dilatation with CBD measuringup to 1.2 cm with filling defect, a 1 x 0.9 cm T2 hyperintense/T1 hypointense lesion within mid pole of right kidney, focal wall thickening along posterior right renal lower pole which could be artifactual and a 2.6 x 2.5 cm hyperintense lesion within lower lumbar vertebral body Patient had ERCP with showed CBD dilatation, hyper echoic material consistent with sludge in gallbladder. Axial stent was placed for treatment of I calculous cholecystitis. Pancreatic parenchymal abnormalities consisting of atrophy noted the entire pancreas. Endo sonographic images of the left adrenal gland were unremarkable. A cystic lesion measuring 90 mm x 17 mm identified in the right kidney I reviewed blood culture from [facility] that was drawn on 07/18/2025 Blood culture growing E coli. Sensitivities noted Continue IV Zosyn for now. Plan to change to augmentin to complete 2 weeks of antibiotics Diet advanced to regular Patient will need repeat upper endoscopy in 3 months Get c diff. If negative, start imodium Cards eval noted Continue ASA and toprol Atorvastatin still on hold. LFTs trending down. Monitor Hypokalemia being repleted Monitor other electrolytes and replete as appropriate CT lumbar noted L2 hemangioma and DDD Previous provider noted she discussed this with HemOnc and no further inpatient workup noted. Renal USS showed bilateral cysts PHARMACOLOGIC VTE PROPHYLAXIS: hEParin CODE STATUS: Full Code EXPECTED DISCHARGE DATE: 07/21/2024 Call to her daughter Obdulia to update her today was unanswered. I spent a total of 50 minutes coordinating, documenting, and providing care for this patient excluding time spent in the performance of separately billed services or time spent by another provider/QHP. * Monae Jalloh PA-C - 07/21/2024 11:47 AM EDT PROGRESS NOTE - Gastroenterology Service [facility] [place] [id number] Name: Val Beverly Location: [facility] [id number] Date: 07/21/2024 Time: 11:48 AM SUBJECTIVE: The patient was seen and examined, chart reviewed. No acute events overnight. LFTs continue to downtrend. Patient has no specific complaints. She is afebrile. Has had several loose yelllow BMs. No melena hematochezia or hematemesis. Tolerated her breakfast today. ROS: Unable to obtain due to severe dementia OBJECTIVE: Vital Signs Last 24 Hours: Systolic BP: Most Recent Systolic BP Av.7 mmHg Min: 130 mmHg Max: 168 mmHg Temperature: Most Recent Temperature Av.4 C Min: 36.11 C Max: 36.78 C Pulse: Pulse Av Min: 72 Max: 93 Respirations: Resp Av.3 Min: 15 Max: 18 SpO2: SpO2 Av % Min: 92 % Max: 96 % Constitutional: No acute distress. HEENT: Sclera anicteric. Chest: Normal respiratory GI: Abdomen is soft, non-tender and bowel sounds normal. Neurology: Awake and alert, +confused LABS: Recent Results (from the past 24 hours) GLUCOSE METER, POINT OF CARE Collection Time: 07/20/24 4:28 PM Result Value Ref Range Glucose - POCT 167 (H) 70 - 120 mg/dL GLUCOSE METER, POINT OF CARE Collection Time: 07/20/24 9:29 PM Result Value Ref Range Glucose - POCT 134 (H) 70 - 120 mg/dL COMPREHENSIVE METABOLIC PANEL Collection Time: 07/21/24 5:47 AM Result Value Ref Range BUN 15 6 - 20 mg/dL CREATININE 1.0 0.5 - 1.0 mg/dL EGFR 52 (L) >=60 mL/min SODIUM 146 135 - 146 mmol/L POTASSIUM 2.8 (L) 3.5 - 5.1 mmol/L CHLORIDE 112 (H) 98 - 107 mmol/L CO2 22 22 - 32 mmol/L ANION GAP 12 7 - 15 mmol/L GLUCOSE 151 (H) 70 - 120 mg/dL Albumin 3.4 (L) 3.8 - 5.0 g/dL AST 100 (H) 10 - 35 U/L Alkaline Phosphatase 148 (H) 35 - 130 U/L Bilirubin, Total 0.4 <=1.2 mg/dL CALCIUM 9.1 8.4 - 10.2 mg/dL Protein 5.8 (L) 6.0 - 8.3 g/dL ALT 582 (H) 10 - 35 U/L CBC Collection Time: 07/21/24 5:47 AM Result Value Ref Range WBC 6.69 4.00 - 10.80 K/uL RBC 3.63 3.85 - 5.15 M/uL HGB 11.0 (L) 12.0 - 15.3 g/dL HCT 35.1 (L) 36.0 - 45.2 % MCV 96.7 81.5 - 97.5 fL MCH 30.3 27.0 - 34.0 pg MCHC 31.3 32.0 - 36.0 g/dL RDW 13.2 11.5 - 15.5 % PLT 104 (L) 140 - 400 K/uL MPV 11.1 6.6 - 11.1 fL nRBCs 0 <=0 /100 WBCs PHOSPHORUS Collection Time: 07/21/24 5:47 AM Result Value Ref Range Phosphorus 1.4 (L) 2.5 - 4.8 mg/dL GLUCOSE METER, POINT OF CARE Collection Time: 07/21/24 7:47 AM Result Value Ref Range Glucose - POCT 151 (H) 70 - 120 mg/dL GLUCOSE METER, POINT OF CARE Collection Time: 07/21/24 11:32 AM Result Value Ref Range Glucose - POCT 197 (H) 70 - 120 mg/dL IMPRESSION: Val Beverly is a(n) 88 year old female with severe dementia, who presents as a transfer from [facility] with severely elevated LFTs but normal bilirubin, leukocytosis, + bacteremia. CT suggestive of acute cholecystitis, biliary dilation. MRCP w/ CBD dilation, ? CBD stone vs artifact; deemed not a good candidate for cholecystectomy. She underwent EGD/EUS on 07/19 - found to have gastritis and duodenitis, biopsies pending, and EUS showed CBD dilation without obvious filling defect, as well as massively dilated GB with sludge, and EUS guided placement of Axios stent was performed for acalculous cholecystitis resulting in excellent drainage of the gallbladder. LFTs continue to trend down. VSS. Suspect significant LFT elevation was due to ischemic hepatitis/shock liver in conjunction with bacteremia. Acute hep panel negative. She is afebrile, abd soft, nontender. RECOMMENDATIONS: - Advance diet as tolerated - Trend LFTs - Await pathology results of the stomach and duodenum - Continue IV ABX for bacteremia - Use broad-spectrum antibiotics for 14 days - Avoid use of nonsteroidals and anticoagulants for 1 week - Obtain sensitivities from [facility] for blood cultures, and repeat blood cultures to ensure bacteremiaresolving - PPI BID - If having significant diarrhea check C diff given recent ABX use - Repeat the upper endoscopic ultrasound in 3 months for stent revision; our office will arrange - GI will sign off, please call with questions I have discussed the case with my attending, Dr Espino. Cosigned by Marry Espino DO at 07/21/2024 12:38 PM EDT Associated attestation - Marry Espino DO - 07/21/2024 12:38 PM EDT I have reviewed the advanced practitioner's documentation on the date of service referenced in note, and I agree with, and take responsibility for the plan of care. Abdomen soft and non-tender. 88 y/o F with PMH fo severe dementia, HFrEF (EF 25%), DM2, CKD, history of CVA transferred from [facility] where she initially presented with altered mentation found to have abnormal LFTs. AST 1961, ALT 1701, ALP 211, normal bilirubin. Leukocytosis with a WBC of 18.8 K. Blood cultures are + for E. Coli and Enterobacter. CT abdomen concerning for acute cholecystitis with biliary dilation. MRCP with biliary dilation ? CBD stone vs. Artifact, thickening of the right renal pole recommending ultrasound torule out a mass, and a 2.6 cm lesion in the lumbar vertebral body recommending CT lumbar spine for further evaluation. Seen by surgery and deemed not a good surgical candidate for cholecystectomy. She has been afebrile but does have a leukocytosis. She underwent EUS this admission with axios stent placement. EUS showed CBD dilation without obvious filling defect, as well as massively dilated GB with sludge, and EUS guided placement of Axios stent was performed for acalculous cholecystitis resulting in excellent drainage of the gallbladder. Doing very well. LFTs significantly improved and I suspect this was from shock liver given rapid improvement. She is now having some diarrhea today. Continue to trend daily LFTs. Continue IV abx given bacteremia and would complete a 2 week course of antibiotics. Avoid NSAIDs. Repeat blood cultures to ensure bacteremia is clearing. Will repeat EUSin 3 months for retreatment and we will arrange this procedure for patient. Ok to advance diet as tolerated. Check C. Diff given her diarrhea. GI will sign off. Please call back with questions. Marry Espino, DO Gastroenterology and Hepatology * Vianney Salazar MD - 07/20/2024 9:23 AM EDT Images from the original note were not included. [facility] [id number] INTERVAL HISTORY: 88-year-old woman with history of diabetes mellitus type 2, hypertension, CVA, hypothyroidism, dementia who was transferred from [facility] on 07/18/24 where she had presented for altered mental status and found to have E coli bacteremia and acute cholecystitis with biliary dilatation Patient had MRCP and ERCP on 07/19/2024 and got axios stent placement Patient seen and examined today. Patient reports feeling better. Patient is alert, oriented to person Poor insight into current hospital stay She denies any complaints. ROS limited due to dementia Objective Physical Exam Most Recent Vital Signs: BP: 153 mmHg/79 mmHg (07/20/24 1110) Pulse: 80 (07/20/24 1110) Resp: 18 (07/20/24 1110) Temp: 36.28 C (07/20/24 1110) Temp Summary: Temp Min: 36 °C (96.8 °F) Max: 37 °C (98.6 °F) SpO2: 93 % (07/20/24 1110) O2 flow rate: Supplemental O2 Delivery: Room Air, None (07/20/24 111) Constitutional: no acute distress HEENT: normal: normocephalic, atraumatic; no masses, tenderness, or adenopathy Eyes: sclera and conjunctiva normal CV: normal rate, normal rhythm Chest: normal respiratory effort, lungs clear to auscultation and percussion Abdomen: normal: soft, bowel sounds normal, no masses, tenderness or organomegaly Musculoskeletal: No pedal edema Neuro: alert, oriented to person, cooperative Psych: confused Peripheral Line Left;Lower Arm 22 Gauge (Active) Number of days: 0 STUDIES: Encounter Orders Labs and other studies reviewed with pertinent findings noted below: Lab results within last 7 days (see chart for full results) Units 07/20/24 0531 07/19/24 0354 07/18/24 2325 SODIUM mmol/L 144 139 141 POTASSIUM mmol/L 3.0* 4.0 4.6 CHLORIDE mmol/L 107 103 104 CO2 mmol/L 20* 18* 24 BUN mg/dL 24* 32* 34* CREATININE mg/dL 1.2* 0.8 1.1* Lab results within last 7 days (see chart for full results) Units 07/20/24 0531 07/19/24 1701 07/19/24 0354 07/18/24 2325 HGB g/dL 11.6* 11.6* 11.4* 12.0 HCT % 36.6 36.8 36.3 38.0 WBC K/uL 11.12* -- 15.73* 16.50* PLT K/uL 99* -- 96* 106* US RENAL Final Result PROCEDURE INFORMATION: Exam: US Retroperitoneal, Complete, Kidneys and Bladder Exam date and time: 07/20/2024 9:48 AM Age: 88 years old Clinical indication: Abnormal findings; Abnormal radiologic finding of the abdomen; Radiologic exam and body structure: Mri; Additional info: For better assessment of mri findings TECHNIQUE: Imaging protocol: Real-time ultrasound of the retroperitoneum with image documentation. Complete exam focused on the bilateral kidneys and urinary bladder. COMPARISON: MRI ABDOMEN WO CONTRAST 07/19/2024 8:30 AM FINDINGS: Right kidney: Normal in size, measuring 10.5 cm sagittal x 5.1 cm AP x 4.4 cm TRV. Cortical echogenicity is normal. There is no hydronephrosis. No shadowing calculi are identified. There is a 7.9 cm x 7.6 cm x 7.4 cm exophytic cortical cyst in the upper pole which appears essentially simple. There is a 1.7 cm simple cortical cyst in the lateral mid right kidney and a 0.8 cm simple cyst in the medial lower pole, best seen on the cine images. No solid mass is identified. There is nonspecific trace perinephric fluid. Left kidney: Normal in size, measuring 9.8 cm sagittal x 5.1 cm AP x 4.9 cm TRV. Cortical echogenicity is normal. There is no hydronephrosis. No shadowing calculi are identified. There are multiple simple-appearing cortical cysts in the left kidney, the largest measuring up to 3.2 cm in the upper pole. No solid mass is identified. Urinary bladder: Bladder wall thickness is normal. No intraluminal abnormality is identified. Ureteral jets were not visualized. Left ovary/adnexa: Incidentally noted is a 3.7 cm x 4.5 cm x 4.1 cm septated cystic structure the in the left adnexa. IMPRESSION IMPRESSION: 1. Bilateral renal cysts as described above. No suspicious renal masses. 2. 3.7 cm x 4.5 cm x 4.1 cm septated cystic structure in the left adnexa, incompletely characterized. This can be further assessed with nonemergent pelvic MRI (without and with contrast). THIS DOCUMENT HAS BEEN ELECTRONICALLY SIGNED BY ZEN HARMON MD CT L SPINE WO CONTRAST Final Result PROCEDURE INFORMATION: Exam: CT Lumbar Spine Without Contrast Exam date and time: 07/20/2024 10:32 AM Age: 88 years old Clinical indication: Low back pain; Additional info: For better assessment of mri findings TECHNIQUE: Imaging protocol: Computed tomography of the lumbar spine without contrast. Radiation optimization: All CT scans at this facility use at least one of these dose optimization techniques: automated exposure control; mA and/or kV adjustment per patient size (includes targeted exams where dose is matched to clinical indication); or iterative reconstruction. COMPARISON: MRI ABDOMEN WO CONTRAST 07/19/2024 8:30 AM FINDINGS: Bones/joints: There is marked diffuse osseous demineralization. There is a chronic-appearing biconcave compression deformity at L1 with moderate loss of vertebral body height. In the L2 vertebral body is an approximately 2.4 cm lucent lesion with faint sclerosis and subtle internal stippled calcifications. This correlates to the focus of abnormal marrow signal identified in the lumbar spine on the recent abdominal MRI. Its CT and MR appearance are most compatible with an atypical hemangioma. There is a less well-circumscribed, approximately 2.5 cm typical hemangioma in the left L4 vertebral body. There is moderate levoscoliosis of the lumbar spine, apex at L2. Lumbar lordosis is maintained. No spondylolisthesis is noted. Multilevel findings: There is multilevel moderate to severe facet hypertrophy throughout the lumbar spine which contributes to multilevel osseous encroachment on the neural foramina, most severe at L2-L3. There are multilevel endplate osteophytes with multilevel loss of intervertebral disc height, most severe on the right at L2-L3. Disc osteophyte complexes and facet and ligamentous hypertrophy at L2-L3 and L3-L4 contribute to severe acquired central canal narrowing. Soft tissues: No acute abnormality in the paraspinal soft tissues. Other findings: Severe atherosclerotic vascular calcifications. Partially imaged cortical cyst and 6 mm nonobstructing calculus in the right kidney. Partially imaged cortical cysts in the left kidney. Sigmoid diverticulosis. IMPRESSION IMPRESSION: 1. 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 2. Advanced multilevel lumbar spondylosis and degenerative disc disease, most severe at L2-L3 and L3-L4, with a superimposed moderate levoscoliosis. If clinically warranted, consider further evaluation with MRI. COMMENTS: Consistent with the [employer]'s Incidental Findings Committee white paper ([employer] 2018): Any incidental renal lesion less than 1 cm or classified as too small to characterize, or any incidental cystic renal lesion characterized as simple-appearing, is likely benign. No follow-up imaging is recommended for these lesions per consensus recommendations based on imaging criteria. THIS DOCUMENT HAS BEEN ELECTRONICALLY SIGNED BY ZEN HARMON MD US ENDOSCOPIC Final Result This is an imaging study not interpreted or resulted by a [facility]. FLUORO ERCP Final Result This procedure will not be read by a Radiologist. Please see operative note. MRI ABDOMEN WO CONTRAST Final Result EXAM MRI ABDOMEN WO CONTRAST-07/19/2024 8:52 am HISTORY hepatitis and cholecystitis COMPARISON None TECHNIQUE Limited multiplanar, multisequential MR imaging of the abdomen was performed without the administration of intravenous contrast. Study was terminated early due to patient's inability to tolerate the exam. FINDINGS Moderate motion degradation. Liver: Normal morphology. Biliary ducts: Mild intrahepatic and moderate extrahepatic biliary ductal dilatation. Common bile duct measures up to 1.2 cm. A filling defect seen within the CBD on T2FS (series 6, image 29) without definite correlate on coronal or MRCP sequences favors artifact and less likely stone. Gallbladder: Distended. No cholelithiasis. Pancreas: Pancreatic parenchymal atrophy. Spleen: Normal in size. Adrenal glands: Within normal limits. Kidneys: Large right renal upper pole T2 hyperintense lesion measuring 7.2 x 10.0 x 6.7 cm, likely a cyst. A 1.0 x 0.9 cm T2 hypointense/T1 hyperintense lesion within the midpole may represent a hemorrhagic/proteinaceous cyst though incompletely characterized due to lack of intravenous contrast (series 5, image 32). Focal wall thickening along the posterior right renal lower pole may be artifactual (series 5, image 35). Left renal T2 hyperintense lesions, likely cysts. Bilateral perinephric fat stranding, nonspecific. Lymph nodes: Within normal limits. Peritoneum: No ascites. Vessels: Within normal limits. Abdominal wall: Ventral abdominal hernia containing nonobstructed loops of bowel and fat. Lower chest: Moderate hiatal hernia. Bones: Degenerative changes. A 2.6 x 2.5 cm hyperintense lesion within a lumbar vertebral body, indeterminate. IMPRESSION IMPRESSION 1. Moderately motion degraded limited examination of the abdomen. Mild intrahepatic and moderate extrahepatic biliary ductal dilatation. Common bile duct measures up to 1.2 cm. A filling defect seen within the CBD on T2FS without definite correlate on coronal or MRCP sequences favors artifact and less likely stone. 2. A 1.0 x 0.9 cm T2 hypointense/T1 hyperintense lesion within the midpole may represent a hemorrhagic/proteinaceous cyst though incompletely characterized due to lack of intravenous contrast. Recommend dedicated renal ultrasound for further evaluation of findings. 3. Focal wall thickening along the posterior right renal lower pole may be artifactual. Recommend renal ultrasound to exclude focal mass. 4. A 2.6 x 2.5 cm hyperintense lesion within a lower lumbar vertebral body, indeterminate. Consider CT of the lumbar spine for further characterization. This exam was submitted to the radiology air control/anti air warfare officer worklist and the ordering provider will be notified that the final report is available in EPIC. Assessment and Plan IMPRESSION : Principal Problem: Acute cholecystitis Active Problems: Type 2 diabetes mellitus with hemoglobin A1c goal of less than 8.0% (HCC) HTN, goal below 140/90 Chronic bilateral low back pain without sciatica Type 2 diabetes mellitus with stage 3a chronic kidney disease (HCC) Chronic diastolic (congestive) heart failure (HCC) Severe dementia associated with alcoholism, without behavioral disturbance, psychotic disturbance, mood disturbance, or anxiety (HCC) Acute hepatitis Altered mental status Leukocytosis Thrombocytopenia (HCC) Elevated LFTs Bacteremia Resolved Problems: * No resolved hospital problems. * DIFFERENTIAL AND PLAN: 88-year-old woman with history of diabetes mellitus type 2, hypertension, CVA, hypothyroidism, dementia who was transferred from [facility] on 07/18/24 where she had presented for altered mental status and found to have E coli bacteremia and acute cholecystitis with biliary dilatation Patient had MRCP and ERCP on 07/19/2024 MRCP noted mild intrahepatic and moderate extrahepatic biliary doctor dilatation with CBD measuringup to 1.2 cm with filling defect, a 1 x 0.9 cm T2 hyperintense/T1 hypointense lesion within mid pole of right kidney, focal wall thickening along posterior right renal lower pole which could be artifactual and a 2.6 x 2.5 cm hyperintense lesion within lower lumbar vertebral body Patient had ERCP with showed CBD dilatation, hyper echoic material consistent with sludge in gallbladder. Axial stent was placed for treatment of I calculous cholecystitis. Pancreatic parenchymal abnormalities consisting of atrophy noted the entire pancreas. Endo sonographic images of the left adrenal gland were unremarkable. A cystic lesion measuring 90 mm x 17 mm identified in the right kidney I reviewed blood culture from [facility] [place] knee that was drawn on 07/18/2025 Blood culture growing E coli. Sensitivities pending Continue IV Zosyn for now. We will need 2 weeks of broad-spectrum antibiotics. Discussed with GI. Diet started. Patient will need repeat upper endoscopy in 3 months Cards eval noted ASA and toprol resumed Atorvastatin still on hold. LFTs trending down. Monitor Reviewed EKG from today with [employer] Dr Ladd. Cards noted it is not Afib. Replete hypokalemia and monitor CT lumbar noted L2 hemangioma and DDD Previous provider noted she discussed this with HemOnc and no further inpatient workup noted. Renal USS showed bilateral cysts PHARMACOLOGIC VTE PROPHYLAXIS: hEParin CODE STATUS: Full Code EXPECTED DISCHARGE DATE: 07/21/2024 I called her daughter Obdulia and updated her I spent a total of 60 minutes coordinating, documenting, and providing care for this patient excluding time spent in the performance of separately billed services or time spent by another provider/QHP. * Monae Jalloh PA-C - 07/20/2024 8:26 AM EDT PROGRESS NOTE - Gastroenterology Service [facility]-[address] [id number] Name: Val Beverly Location: [facility] [id number] Date: 07/20/2024 Time: 8:27 AM SUBJECTIVE: The patient was seen and examined, chart reviewed. No acute events overnight. LFTs trending down today. She's tolerating clears for breakfast. Denies any abd pain, vomiting, but other ROS limited due to cognitive issues/dementia ROS: Unable to be obtained d/t severe dementia OBJECTIVE: Vital Signs Last 24 Hours: Systolic BP: Most Recent Systolic BP Av.7 mmHg Min: 93 mmHg Max: 155 mmHg Temperature: Most Recent Temperature Av.5 C Min: 36 C Max: 37.22 C Pulse: Pulse Av.2 Min: 83 Max: 114 Respirations: Resp Av.4 Min: 14 Max: 19 SpO2: SpO2 Av.7 % Min: 90 % Max: 100 % Constitutional: No acute distress; + chronically ill. HEENT: Sclera anicteric. CV: Heart is regular Chest: Normal resp effort, lungs CTA GI: Abdomen is soft, non-tender and bowel sounds normal. Extremities: No edema. Neurology: Awake and alert. + Confused. Sitting upright in bed, feeding her self clears. LABS: Recent Results (from the past 24 hours) TROPONIN T, HIGH SENSITIVITY Collection Time: 07/19/24 11:25 AM Result Value Ref Range Troponin T, High Sensitivity 112 (HH) <=14 ng/L GLUCOSE METER, POINT OF CARE Collection Time: 07/19/24 12:03 PM Result Value Ref Range Glucose - POCT 142 (H) 70 - 120 mg/dL HEMOGLOBIN AND HEMATOCRIT PANEL Collection Time: 07/19/24 5:01 PM Result Value Ref Range HGB 11.6 (L) 12.0 - 15.3 g/dL HCT 36.8 36.0 - 45.2 % GLUCOSE METER, POINT OF CARE Collection Time: 07/19/24 5:57 PM Result Value Ref Range Glucose - POCT 190 (H) 70 - 120 mg/dL GLUCOSE METER, POINT OF CARE Collection Time: 07/19/24 11:25 PM Result Value Ref Range Glucose - POCT 157 (H) 70 - 120 mg/dL COMPREHENSIVE METABOLIC PANEL Collection Time: 07/20/24 5:31 AM Result Value Ref Range BUN 24 (H) 6 - 20 mg/dL CREATININE 1.2 (H) 0.5 - 1.0 mg/dL EGFR 46 (L) >=60 mL/min SODIUM 144 135 - 146 mmol/L POTASSIUM 3.0 (L) 3.5 - 5.1 mmol/L CHLORIDE 107 98 - 107 mmol/L CO2 20 (L) 22 - 32 mmol/L ANION GAP 17 (H) 7 - 15 mmol/L GLUCOSE 166 (H) 70 - 120 mg/dL Albumin 3.3 (L) 3.8 - 5.0 g/dL AST 298 (H) 10 - 35 U/L Alkaline Phosphatase 190 (H) 35 - 130 U/L Bilirubin, Total 0.4 <=1.2 mg/dL CALCIUM 9.1 8.4 - 10.2 mg/dL Protein 6.1 6.0 - 8.3 g/dL ALT 983 (H) 10 - 35 U/L CBC Collection Time: 07/20/24 5:31 AM Result Value Ref Range WBC 11.12 (H) 4.00 - 10.80 K/uL RBC 3.74 3.85 - 5.15 M/uL HGB 11.6 (L) 12.0 - 15.3 g/dL HCT 36.6 36.0 - 45.2 % MCV 97.9 81.5 - 97.5 fL MCH 31.0 27.0 - 34.0 pg MCHC 31.7 32.0 - 36.0 g/dL RDW 13.6 11.5 - 15.5 % PLT 99 (L) 140 - 400 K/uL MPV 11.6 6.6 - 11.1 fL nRBCs 0 <=0 /100 WBCs GLUCOSE METER, POINT OF CARE Collection Time: 07/20/24 5:48 AM Result Value Ref Range Glucose - POCT 161 (H) 70 - 120 mg/dL EGD 07/19/2024: - Normal esophagus. - Z-line regular, 35 cm from the incisors. - Gastritis. Biopsied. - Duodenitis. EUS 07/19/2024: - There was dilation in the common bile duct which measured up to 11 mm. - Hyperechoic material consistent with sludge was visualized endosonographically in the gallbladder. Axios stent was placed for treament of acalculous cholecystitis. - Pancreatic parenchymal abnormalities consisting of atrophy were noted in the entire pancreas. - Endosonographic images of the left adrenal gland were unremarkable. - A cystic lesion measuring 90 mm by 70 mm was identified in the right kidney. - Use broad spectrum antibiotics for 2 weeks. - Repeat the upper endoscopic ultrasound in 3 months for retreatment. IMPRESSION: Val Beverly is a(n) 88 year old female with severe dementia, who presents as a transfer from [facility] with severely elevated LFTs but normal bilirubin, leukocytosis, + bacteremia. CT suggestive of acute cholecystitis, biliary dilation. MRCP w/ CBD dilation, ? CBD stone vs artifact; deemed not a good candidate for cholecystectomy. She underwent EGD/EUS yesterday-found to have gastritis and duodenitis, biopsies pending, and EUS showed CBD dilation without obvious filling defect, as well as massively dilated GB with sludge, and EUS guided placement of Axios stent was performed for acalculous cholecystitis resulting in excellent drainage of the gallbladder. Today, leukocytosis and LFTs trending down. VSS. Suspect significant LFT elevation was due to ischemic hepatitis/shock liver in conjunction with bacteremia. Acute hep panel negative. She is afebrile,abd soft, nontender. RECOMMENDATIONS: - Clear liquid diet as tolerated - Trend daily LFTs, CBC - Await pathology results of the stomach and duodenum - Continue IV ABX for bacteremia - Use broad-spectrum antibiotics for 14 days - Avoid use of nonsteroidals and anticoagulants for 1 week - Obtain sensitivities from [facility] for blood cultures, and repeat blood cultures to ensure bacteremiaresolving - PPI BID - Ok to finish NAC (was given due to ? Tylenol ingestion though had normal APAP level) - K slightly low today, correct electrolytes as needed - Repeat the upper endoscopic ultrasound in 3 months for stent revision; our office will arrange - Please see attending addendum for further discussions/recommendations. I have discussed the case with my attending, Dr Espino. Cosigned by Marry Espino DO at 07/20/2024 12:48 PM EDT Associated attestation - Marry Espino DO - 07/20/2024 12:48 PM EDT I have reviewed the advanced practitioner's documentation on the date of service referenced in note, and I agree with, and take responsibility for the plan of care. Abdomen soft and non-tender. 88 y/o F with PMH fo severe dementia, HFrEF (EF 25%), DM2, CKD, history of CVA transferred from [facility] where she initially presented with altered mentation found to have abnormal LFTs. AST 1961, ALT 1701, ALP 211, normal bilirubin. Leukocytosis with a WBC of 18.8 K. Blood cultures are + for E. Coli and Enterobacter. CT abdomen concerning for acute cholecystitis with biliary dilation. MRCP with biliary dilation ? CBD stone vs. Artifact, thickening of the right renal pole recommending ultrasound torule out a mass, and a 2.6 cm lesion in the lumbar vertebral body recommending CT lumbar spine for further evaluation. Seen by surgery and deemed not a good surgical candidate for cholecystectomy. She has been afebrile but does have a leukocytosis. She underwent EUS yesterday with axios stent placement. EUS showed CBD dilation without obvious filling defect, as well as massively dilated GB with sludge, and EUS guided placement of Axios stent was performed for acalculous cholecystitis resulting in excellent drainage of the gallbladder. Doing very well. LFTs significantly improved today and I suspect this was from shock liver given rapid improvement. Continue to trend daily LFTs. Continue IV abx given bacteremia and would complete a 2 week course of antibiotics. Avoid NSAIDs. Repeat blood cultures to ensure bacteremia is clearing. Will repeat EUSin 3 months for retreatment and we will arrange this procedure for patient. Ok to advance diet as tolerated. Marry Espino, DO Gastroenterology and Hepatology * Oliverio Barrios MD - 07/19/2024 10:46 AM EDT PROGRESS NOTE - Hospitalist [facility] Name:Val Beverly SEX: female AGE: [id number] year old Date: 07/19/2024 88 yo F patient with Dementia, Type 2 DM, CHF (EF 25% in March 2024), Hx of frequent UTIs, Hypothyroidism was sent from [facility] . She was admitted to [facility] - was she was not responding appropriately. Found to have hypotension, hypoxia- received iv fluids ; transaminitis >1000. CT showed inflamed GB. Case was discussed - patient was transferred for MRCP and potential ERCP Labs showed elevated troponin 102>103, probnp 13k; elevated wbc count 16k AST 1315, ALT 1894 with normal bilirubin + blood cultures gram - baccilli, ecoli - per [facility] SUBJECTIVE: Patient is pleasantly confused, not in any distress. She denies any pain, shortness of breath, nausea, vomiting OBJECTIVE: VITALS: BP 154/83 | Pulse 95 | Temp 36.4 °C (97.5 °F) (Temporal Artery) | Resp 12 | Ht 1.6 m (5' 3") | Wt83.2 kg (183 lb 6.8 oz) | SpO2 94% | BMI 32.49 kg/m² | BSA 1.92 m² Intake/Output Summary (Last 24 hours) at 07/19/2024 1046 Last data filed at 07/19/2024 0507 Gross per 24 hour Intake 877.68 ml Output -- Net 877.68 ml PHYSICAL EXAMINATION: Constitutional: no distress HEENT: normocephalic, atraumatic CV: normal rate and rhythm Chest: lungs clear to auscultation Abdomen: soft, non tender Extremities: no edema, Skin: warm, dry, intact: Neuro: alert, oriented to person, place, and time, follows commands, moving all extremities Psych: normal mood and affect LABS: Lab results within last 7 days (see chart for full results) Units 07/19/24 0354 07/18/24 2325 HGB g/dL 11.4* 12.0 HCT % 36.3 38.0 WBC K/uL 15.73* 16.50* PLT K/uL 96* 106* Lab results within last 7 days (see chart for full results) Units 07/19/24 0354 07/18/24 2325 SODIUM mmol/L 139 141 POTASSIUM mmol/L 4.0 4.6 CHLORIDE mmol/L 103 104 CO2 mmol/L 18* 24 BUN mg/dL 32* 34* CREATININE mg/dL 0.8 1.1* Recent Cultures (2 Weeks) No lab values to display. IMPRESSION AND PLAN: Principal Problem: Acute cholecystitis Active Problems: Type 2 diabetes mellitus with hemoglobin A1c goal of less than 8.0% (HCC) HTN, goal below 140/90 Chronic bilateral low back pain without sciatica Type 2 diabetes mellitus with stage 3a chronic kidney disease (HCC) Chronic diastolic (congestive) heart failure (HCC) Severe dementia associated with alcoholism, without behavioral disturbance, psychotic disturbance, mood disturbance, or anxiety (HCC) Acute hepatitis Altered mental status Leukocytosis Thrombocytopenia (HCC) Elevated LFTs Bacteremia Resolved Problems: * No resolved hospital problems. * Plan: MRCP done - showed CBD dilation upto 1.2cm, filling defect noted in CBD hemorrhagic /proteinaceous cyst noted on kidney - consider renal ultrasound 2.6 x 2.5cm hyperintense lesion noted on lower lumbar vertebral body- consider CT - IV zosyn for E.coli bacteremia, susceptibilities will need to be obtained from [facility] in the next few days - GI following case ; possible need for ERCP - gentle hydration - On AK protocol - Gen surgery consult for acute cholecystitis - Patient will warrant OP work up for renal cyst and lesion noted on lumbar vertebral body (she just received contrast in the past 24 hours, too soon to order repeat CT) - Cardiology consulted for elevated troponin - 2cm lytic lesion noted on CT scan lumbar spine done at [facility] (please see paper chart) - Hematologyconsulted- Discussed with Dr Mcintyre - 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 No workup necessary as an inpatient , can be seen OP followup Diet : NPO Activity :OOB DVT Prophylaxis: SCD 55 minutes were spent in the care of this patient. More than half of my time was spent counseling the patient or family, coordinating care for the patient on the floor, and chart review . This chart was completed in part utilizing [employer] Speech Voice Recognition Software. Grammatical errors, random word insertions, prounoun erros, and incomplete sentences are an occasional consequence of this system due to software limitations, ambient noise, and hardware issues. Any formal questions or concerns about the content, text, or information contained within the body of this dictation should be directly addressed to the provider for clarification. Note: To contact a physician responsible for this patient’s hospital care, please call [employer] [phone]. * Liliana Cao RN - 07/19/2024 12:09 AM EDT Nursing Critical Care Response Note [facility] [id number] Name: Val Beverly Date: 07/19/2024 Time: 12:09 AM Event Location: [facility], Unit Area: 6B In the role of the Critical Response Nurse I was involved in the care of this patient. Method of notification to the critical care response nurse: Unit call/request for assistance Reason for notification or follow up: Vascular access Other. EKG Observations/Interventions/Assessment: Pt ordered EKG and and needs 2nd PIV for IV medication Outcome/Plan EKG completed. Unable to place PIV. Reached out to ED staff for assistance. documented in this encounter H&P Notes * Lorri Jackson, - 07/19/2024 1:40 PM EDT Endoscopy Pre-Procedure Assessment Name: Val Beverly Date: 07/19/2024 Time: 1:40 PM Procedure(s): Upper GI Endoscopy; with Indication(s) of upper abdominal symptoms that persist despite an appropriate trial of therapy ERCP; with Indication(s) of treatment of suspected choledocholithiasis Endoscopic Ultrasound; with Indication(s) of providing endoscopic therapy under ultrasonographic guidance, possible Axios GB stent for acalculous cholecystitis in a patient deemed to be a poor surgical candidate for cholecystectomy. The patient had presented with worsening mental status and history of abdominal pain leukocytosis and elevation of her liver associated enzymes. Blood cultures at an outside hospital were positive for Gram-negative rods. Given the marked dilation of the biliary tree the patient is thought to have either cholangitis or perhaps cholecystitis. She was deemed to be a nonsurgical candidate by our General Surgery Service thus ERCP with biliary decompression is being performed today. Pending results we have also discussed the role of gallbladder drainage with a Axios Device. Endoscopy Pre-Procedure Assessment: Prior to the procedure, the patient is identified. The patient's history, medications and allergieshave been reviewed. The patient is competent. The risks and benefits of the proposed procedure and the planned sedation have been discussed with the POA. All questions have been answered and informedconsent for the procedure has been obtained. Prior to Admission medications Medication Sig Last Dose Discont. DULoxetine HCl 60 MG Oral Capsule Delayed Release Particles (Cymbalta) TAKE ONE CAPSULE BY MOUTH EVERY DAY 07/18/2024 Ferrex 150 150 MG Oral Capsule TAKE ONE CAPSULE BY MOUTH AT BEDTIME 07/18/2024 Magnesium Oxide 400 MG Oral Tablet Take 1 Tablet by mouth in the morning. 07/18/2024 Entresto 24-26 MG Oral Tablet Take 1 Tablet by mouth in the morning and 1 Tablet before bedtime. 07/18/2024 Famotidine 10 MG Oral Tablet (Pepcid) Take 1 Tablet by mouth in the morning. 07/18/2024 Jardiance 25 MG Oral Tablet TAKE ONE TABLET BY MOUTH EVERY MORNING 07/18/2024 Gabapentin 100 MG Oral Capsule (Neurontin) Take 1 Capsule by mouth in the morning and 1 Capsule at noon and 1 Capsule before bedtime. 07/18/2024 [employer] Delica Plus [id number] Check glucose daily as needed 07/18/2024 Donepezil HCl 5 MG Oral Tablet (Aricept) Take 1 tablet by mouth with largest meal of the day 07/18/2024 Cinacalcet HCl 30 MG Oral Tablet (Sensipar) TAKE 1 TABLET BY MOUTH ON THURSDAY, THURSDAY AND THURSDAY WITH DINNER 07/18/2024 Lidocaine 5 % External Patch (Lidoderm) lidocaine 5 % topical patch 07/18/2024 Metoprolol Succinate ER 25 MG Oral Tablet Extended Release 24 Hour (Toprol XL) Take 0.5 Tablets by mouth daily. 07/18/2024 Atorvastatin Calcium 40 MG Oral Tablet (Lipitor) Take 1 Tablet by mouth in the morning. 07/18/2024 glipiZIDE ER 5 MG Oral Tablet Extended Release 24 Hour (Glucotrol XL) TAKE ONE TABLET BY MOUTH EVERY MORNING 30 minutes BEFORE A meal 07/18/2024 metFORMIN HCl ER 500 MG Oral Tablet Extended Release 24 Hour (Glucophage XR) Take 1 Tablet by mouthin the morning. In the morning.. 07/18/2024 [employer] Verio In Vitro Strip (Glucose Blood) Use up to 4 times a day E11.9 07/18/2024 HumaLOG KwikPen 100 UNIT/ML Subcutaneous Solution Pen-injector Medium Subcutaneous WITH MEALS AND AT BEDTIME ,InstrMedium DOSE Scale <70 FOLLOWING Hypoglycemic Protocol; 70-140=0 units, 141-180= TWO units, 181-220= FOUR units, 221-260= SIX units, 261-300= EIGHT units, 301-340= 10 units, >340 = 12 units AND call MD 07/18/2024 Blood Glucose Monitor System w/Device Kit Check glucose as needed 07/18/2024 Hydrocodone-Acetaminophen 10-325 MG per tablet Take 1 Tablet by mouth every 8 hours as needed. 07/18/2024 MEDICAL INSTRUCTIONS Patient may have epidural injections. Aware it can affect blood sugar readings. Patient has well controlled diabetes. 07/18/2024 VITAMIN D 1000 UNIT PO CAPS one tab by mouth daily 07/18/2024 ASPIRIN 81 MG PO TABS one tab by mouth daily 07/17/2024 VITAMIN B-12 CR TBCR 1000 MCG OR one pill each day 07/18/2024 NARCAN 4 MG/0.1ML LIQD Inhale 1 [place] by mouth as needed. Patient not taking: Reported on 07/18/2024 Not Taking Review of patient's allergies indicates: No Known Allergies BP 128/73 | Pulse 96 | Temp 37.2 °C (99 °F) (Temporal Artery) | Resp 16 | Ht 1.6 m (5' 3") | Wt 83.2 kg (183 lb 6.8 oz) | SpO2 90% | BMI 32.49 kg/m² | BSA 1.92 m² Physical Exam: Mental Status Examination: alert but confused. Airway Examination: normal oropharyngeal airway and neck mobility. Respiratory Examination: poor air movement. CV Examination: systolic murmur. ASA Grade: IV - A patient with severe systemic disease that is a constant threat to life. Abdomen: tender MRI ABDOMEN WO CONTRAST-07/19/2024 8:52 am HISTORY hepatitis and cholecystitis COMPARISON None TECHNIQUE Limited multiplanar, multisequential MR imaging of the abdomen was performed without the administration of intravenous contrast. Study was terminated early due to patient's inability to tolerate the exam. FINDINGS Moderate motion degradation. Liver: Normal morphology. Biliary ducts: Mild intrahepatic and moderate extrahepatic biliary ductal dilatation. Common bile duct measures up to 1.2 cm. A filling defect seen within the CBD on T2FS (series 6, image 29) withoutdefinite correlate on coronal or MRCP sequences favors artifact and less likely stone. Gallbladder: Distended. No cholelithiasis. Pancreas: Pancreatic parenchymal atrophy. Spleen: Normal in size. Adrenal glands: Within normal limits. Kidneys: Large right renal upper pole T2 hyperintense lesion measuring 7.2 x 10.0 x 6.7 cm, likely a cyst. A 1.0 x 0.9 cm T2 hypointense/T1 hyperintense lesion within the midpole may represent a hemorrhagic/proteinaceous cyst though incompletely characterized due to lack of intravenous contrast (series 5, image 32). Focal wall thickening along the posterior right renal lower pole may be artifactual (series 5, image 35). Left renal T2 hyperintense lesions, likely cysts. Bilateral perinephric fatstranding, nonspecific. Lymph nodes: Within normal limits. Peritoneum: No ascites. Vessels: Within normal limits. Abdominal wall: Ventral abdominal hernia containing nonobstructed loops of bowel and fat. Lower chest: Moderate hiatal hernia. Bones: Degenerative changes. A 2.6 x 2.5 cm hyperintense lesion within a lumbar vertebral body, indeterminate. IMPRESSION IMPRESSION 1. Moderately motion degraded limited examination of the abdomen. Mild intrahepatic and moderate extrahepatic biliary ductal dilatation. Common bile duct measures up to 1.2 cm. A filling defect seen within the CBD on T2FS without definite correlate on coronal or MRCP sequences favors artifact and less likely stone. 2. A 1.0 x 0.9 cm T2 hypointense/T1 hyperintense lesion within the midpole may represent a hemorrhagic/proteinaceous cyst though incompletely characterized due to lack of intravenous contrast. Recommend dedicated renal ultrasound for further evaluation of findings. 3. Focal wall thickening along the posterior right renal lower pole may be artifactual. Recommend renal ultrasound to exclude focal mass. 4. A 2.6 x 2.5 cm hyperintense lesion within a lower lumbar vertebral body, indeterminate. ConsiderCT of the lumbar spine for further characterization. This exam was submitted to the radiology air control/anti air warfare officer worklist and the ordering provider will be notified that the final report is available in EPIC. Latest Reference Range & Units 07/18/24 23:25 07/19/24 05:38 INR 0.8 - 1.2 1.3 (H) 1.4 (H) Prothrombin Time 11.6 - 15.2 seconds 16.0 (H) 17.1 (H) (H): Data is abnormally high Latest Reference Range & Units 07/18/24 23:25 07/19/24 03:54 WBC 4.00 - 10.80 K/uL 16.50 (H) 15.73 (H) RBC 3.85 - 5.15 M/uL 3.92 3.73 HGB 12.0 - 15.3 g/dL 12.0 11.4 (L) HCT 36.0 - 45.2 % 38.0 36.3 MCV 81.5 - 97.5 fL 96.9 97.3 MCH 27.0 - 34.0 pg 30.6 30.6 MCHC 32.0 - 36.0 g/dL 31.6 31.4 RDW 11.5 - 15.5 % 13.3 13.4 PLT 140 - 400 K/uL 106 (L) 96 (L) MPV 6.6 - 11.1 fL 10.9 11.1 (H): Data is abnormally high (L): Data is abnormally low Latest Reference Range & Units 07/18/24 23:25 07/19/24 03:54 Albumin 3.8 - 5.0 g/dL 4.0 3.6 (L) AST 10 - 35 U/L 1,387 (H) 1,315 (H) ALT 10 - 35 U/L 1,908 (H) 1,894 (H) Alkaline Phosphatase 35 - 130 U/L 254 (H) 198 (H) Bilirubin, Total <=1.2 mg/dL 0.5 0.4 (L): Data is abnormally low (H): Data is abnormally high This patient has undergone a preprocedural evaluation. A determination has been made to proceed with the planned procedure under [facility] procedural guidelines and the [facility] Non-Emergent, Elective Medical Services and Treatment Recommendations (published on 08-02-19). The community and hospital prevalence of COVID-19 has been discussed as well as this patient's specific risks associated with SARS-CoV-19 infection. Based upon the clinical acuity and patient-specific care considerations, this procedure is deemed a Tier I - High acuity treatment or service with immediate threat to life or threat of severe progressive disease. Lack of treatment or service would result in patient harm. After reviewing the risks and benefits, the patient is deemed in satisfactory condition to undergo the procedure. The anesthesia plan is to use general anesthesia. We have discussed the risks and benefits of upper endoscopy to include bleeding, infection, perforation, discomfort, aspiration and need for follow-up studies. I have discussed the risks and benefits of EUS to include (not limited to) bleeding, infection, perforation, pain, aspiration, cardiac complications, pancreatitis and the need for follow-up studies. We discussed the increased risk of all complications associated with use of an Axios device for gallbladder drainage as the patient was deemed a poor surgical candidate. These include bleeding, perforation, pain, not placement of a stent and the need for emergency surgical intervention. We have discussed the risks and benefits of ERCP to include bleeding, infection, perforation, aspiration, pain, pancreatitis, and failed cannulation. Lorri Jackson DO 07/19/2024 * Fredrick Ochoa MD - 07/18/2024 10:55 PM EDT Images from the original note were not included. [facility] [id number] PRESENTING PROBLEM: altered mental state. Concern over acute cholecystitis, transaminitis. HPI: This is an 88 yo woman with below pmh that includes dm2, htn, s/p cva, hypothyroidism, back pain, severe dementia. She lives with family and this morning was noted for being less responsive thanusual; typically she can converse with family but this morning she wasn't responding to them, wouldn't get out of bed, wasn't eating. She was brought to [facility] for evaluation and while there, wasnoted for hypoxia and hypotension. She received ivf and labs showed transaminitis to over 1000. Also ct showed inflamed gb. Case was discussed with dr. Jackson who felt that MRCP may be useful for evaluation of potential biliary obstruction. Hence, she was brought here for MRCP and potential ERCP. As per family, she was well yesterday, eating, and at her baseline function. She hasn't fallen recently. She receives vicodin q6 for her back pain and they don't think she has been taking other tylenol. I discussed case with Dr. Jackson and ED provider from [facility], and then accepted her as a transfer patient here. Subjective Patient's past history, medications, and allergies were reviewed. Objective Physical Exam Most Recent Vital Signs: BP: / 154/73 Pulse: 80 Resp: 16 Temp: 36.1 Temp Summary: No data recorded SpO2: 95 O2 flow rate: 2L Supplemental O2 Delivery: NC Constitutional: (+) chronically ill appearing elderly woman resting in bed HEENT: normal: normocephalic, atraumatic Eyes: sclera and conjunctiva normal Neck: supple CV: normal rate Chest: normal respiratory effort, lungs clear to auscultation Abdomen: nsoft, bowel sounds normal, mild ruq tenderness; mild lower abd tenderness Extremities: non-pitting edema; ample adipose tissue on lower legs. Skin: warm, dry, intact: Neuro: alert, oriented to person only. Speaks gibberish which according to family is close to baseline. Moves all extremities but appears weak. No obvious muscle tenderness on palpation. STUDIES: Encounter Orders Labs and other studies reviewed with pertinent findings noted below: Results for orders placed or performed in visit on 04/26/24 CBC Result Value Ref Range WBC 6.40 4.00 - 10.80 K/uL RBC 4.09 3.85 - 5.15 M/uL HGB 12.6 12.0 - 15.3 g/dL HCT 40.3 36.0 - 45.2 % MCV 98.5 81.5 - 97.5 fL MCH 30.8 27.0 - 34.0 pg MCHC 31.3 32.0 - 36.0 g/dL RDW 13.2 11.5 - 15.5 % PLT 156 140 - 400 K/uL MPV 12.2 6.6 - 11.1 fL nRBCs 0 <=0 /100 WBCs MAGNESIUM Result Value Ref Range Magnesium 2.2 1.5 - 2.6 mg/dL BASIC METABOLIC PANEL Result Value Ref Range BUN 39 (H) 6 - 20 mg/dL CREATININE 0.9 0.5 - 1.0 mg/dL EGFR 60 >=60 mL/min SODIUM 141 135 - 146 mmol/L POTASSIUM 4.8 3.5 - 5.1 mmol/L CHLORIDE 106 98 - 107 mmol/L CO2 23 22 - 32 mmol/L ANION GAP 12 7 - 15 mmol/L GLUCOSE 255 (H) 70 - 120 mg/dL CALCIUM 10.4 (H) 8.4 - 10.2 mg/dL *Note: Due to a large number of results and/or encounters for the requested time period, some results have not been displayed. A complete set of results can be found in Results Review. New labs pending As per transfer papers: she had leukocytosis of 19, lactate of 3.2. ast was 1900 and alt of 1700. Bili wnl Ck 59 Alb 4.1 Creat 1.19 bun 39, glucose 159. Otherwise bmp was nl Plt 129 Hgb 12.5 UA nl Negative RVP CT abd/pelvis: concern for acute cholecystitis with inflammation around gb, distended gb. Cbd 1.2 cm Cxr: benign, atelectasis I personally reviewed EKG and it shows sinus rhythm with lbbb Assessment and Plan IMPRESSION: Principal Problem: Acute cholecystitis Active Problems: Type 2 diabetes mellitus with hemoglobin A1c goal of less than 8.0% (HCC) HTN, goal below 140/90 Chronic bilateral low back pain without sciatica Type 2 diabetes mellitus with stage 3a chronic kidney disease (HCC) Chronic diastolic (congestive) heart failure (HCC) Severe dementia associated with alcoholism, without behavioral disturbance, psychotic disturbance, mood disturbance, or anxiety (HCC) Acute hepatitis Altered mental status Resolved Problems: * No resolved hospital problems. * DIFFERENTIAL AND PLAN: Patient presents with episode of unresponsiveness and weakness in setting of hypotension and hypoxia. Image studies are concerning for acute cholecystis and she has very high transaminitis without significant bilirubin elevation. I suspect the insult to her liver is either from hypotension such as shock liver, or possibly toxic - in case she was exposed to more tylenol than reported by family. Infectious causes should also be considered. -admit to monitored bed -npo and ivf -zosyn for acute cholecystitis -start mucomyst protocol for potential tylenol toxicity -MRCP in AM -gi and surgery consults -avoid further tylenol -hepatitis viral panel -insulin sliding scale for dm2 -fall precautions -neuro checks -would hold anti-htn meds for now as she was hypotensive in ED -supplemental o2 as needed PHARMACOLOGIC VTE PROPHYLAXIS: scd CODE STATUS: Full EXPECTED DISCHARGE DATE: 2 days or more I spent a total of 80 minutes coordinating, documenting, and providing care for this patient excluding time spent in the performance of separately billed services or time spent by another provider/QHP. This includes extensive coordination with transfer center and review of case with GI sub specialist. Addendum: [facility] called overnight to report blood culture positive for g- documented in this encounter Procedure Notes * Oliverio Barrios MD - 07/19/2024 1:55 PM EDTAssociated Order(s): UPPER GI ENDOSCOPY [facility] Patient Name: Val Beverly Procedure Date: 07/19/2024 1:55 PM Date of : 1935 Admit Type: Outpatient Note Status: Finalized Date of : 1935 Admit Type: Outpatient Age: 88 Room: OR 5 Gender: Female Note Status: Finalized Procedure: Upper GI endoscopy Indications: Epigastric abdominal pain Providers: Lorri Jackson DO (Doctor) Referring MD: Oliverio Barrios Medicines: General Anesthesia Complications: No immediate complications. Estimated blood loss: Minimal. Procedure: Pre-Anesthesia Assessment: - Prior to the procedure, a History and Physical was performed, and patient medications, allergies and sensitivities were reviewed. The patient's tolerance of previous anesthesia was reviewed. - The risks and benefits of the procedure and the sedation options and risks were discussed with the patient. All questions were answered and informed consent was obtained. - Patient identification and proposed procedure were verified prior to the procedure by the physician, the nurse and the reinsurance claim analyst. The procedure was verified in the procedure room. - Pre-procedure physical examination revealed no contraindications to sedation. - ASA Grade Assessment: IV - A patient with severe systemic disease that is a constant threat to life. - After reviewing the risks and benefits, the patient was deemed in satisfactory condition to undergo the procedure. - The anesthesia plan was to use general anesthesia. - Immediately prior to administration of medications, the patient was re- assessed for adequacy to receive sedatives. - The heart rate, respiratory rate, oxygen saturations, blood pressure, adequacy of pulmonary ventilation, and response to care were monitored throughout the procedure. - The physical status of the patient was re-assessed after the procedure. After obtaining informed consent, the endoscope was passed under direct vision. All instruments were visually inspected immediately before and after removal from the patient to ensure they are fully intact. Throughout the procedure, the patient's blood pressure, pulse, and oxygen saturations were monitored continuously. The [id number]-Q190 Endoscope ([id number]) was introduced through the mouth, and advanced to the third part of duodenum. The upper GI endoscopy was accomplished without difficulty. The patient tolerated the procedure well. Findings & Specimens: The examined esophagus was normal. The Z-line was regular and was found 35 cm from the incisors. Diffuse moderate inflammation characterized by congestion (edema), erythema and granularity was found in the entire examined stomach. Biopsies were taken with a cold forceps for histology. The pathology specimen was placed into Bottle A. Estimated blood loss was minimal. Diffuse mild inflammation characterized by erythema, granularity and aphthous ulcerations was foundin the entire duodenum. Impression: - Normal esophagus. - Z-line regular, 35 cm from the incisors. - Gastritis. Biopsied. - Duodenitis. Recommendation: - Perform an upper endoscopic ultrasound (UEUS) today. Lorri Jackson DO 07/19/2024 2:41:17 PM This report has been signed electronically. Estimated Blood Loss: Estimated blood loss was minimal. * Oliverio Barrios MD - 07/19/2024 10:33 AM EDTAssociated Order(s): UPPER ENDOSCOPIC [facility] Patient Name: Val Beverly Procedure Date: 07/19/2024 10:33 AM Date of : 1935 Admit Type: Outpatient Note Status: Draft Date of : 1935 Admit Type: Outpatient Age: 88 Room: OR 5 Gender: Female Note Status: Field Reimbursement Manager Override Procedure: Upper EUS Indications: Elevated liver enzymes, Epigastric abdominal pain, For stent placement due to 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 Estimated blood loss: Minimal. Procedure: Pre-Anesthesia Assessment: - Prior to the procedure, a History and Physical was performed, and patient medications, allergies and sensitivities were reviewed. The patient's tolerance of previous anesthesia was reviewed. - The risks and benefits of the procedure and the sedation options and risks were discussed with the patient. All questions were answered and informed consent was obtained. - Patient identification and proposed procedure were verified prior to the procedure by the physician, the nurse and the reinsurance claim analyst. The procedure was verified in the procedure room. - Pre-procedure physical examination revealed no contraindications to sedation. - ASA Grade Assessment: IV - A patient with severe systemic disease that is a constant threat to life. - After reviewing the risks and benefits, the patient was deemed in satisfactory condition to undergo the procedure. - The anesthesia plan was to use general anesthesia. - Immediately prior to administration of medications, the patient was re- assessed for adequacy to receive sedatives. - The heart rate, respiratory rate, oxygen saturations, blood pressure, adequacy of pulmonary ventilation, and response to care were monitored throughout the procedure. - The physical status of the patient was re-assessed after the procedure. After obtaining informed consent, the endoscope was passed under direct vision. All instruments were visually inspected immediately before and after removal from the patient to ensure they are fully intact. Throughout the procedure, the patient's blood pressure, pulse, and oxygen saturations were monitored continuously. The Endosonoscope was introduced through the mouth, and advanced to the second part of duodenum. The upper EUS was accomplished without difficulty. The patient tolerated the procedure well. Findings & Specimens: ENDOSONOGRAPHIC FINDING: : A large periampullary diverticulum was seen. There was dilation in the common bile duct which measured up to 11 mm. Moderate hyperechoic material consistent with sludge was visualized endosonographically in the gallbladder. The gallbaldder was disteded measuring 48 mm by 75 mm in the greatest dimension. The decision was made to create a Choledoudenostomy using the AXIOS stent system. Once an appropriate position in the duodenal bulb was identified, the common wall between the stomach and the gallbladder was interrogated utilizing color Doppler imaging to identify interposed vessels. The duodenal wall and the gallbladder were punctured under endosonographic guidance with the 19 gauge needle. Bile was aspirated. Then gallbladder was injected with 18 ml of full strength ionic contrast under fluoroscopy confirming the GB location, patency of the cystic duct and anticipated placement of the stent. The AXIOS stent and electrocautery device was introduced through the working channel and advanced into the duodenum. Current was applied to the cautery tip and then the AXIOS device was advanced into the gallbladder. A 10 x 10 mm AXIOS stent was placed with the flanges in close approximation to the rosales of the gallbladder and the duodenal bulb ([employer] Axios, [id number], lot [id number]). The stent was successfully placed and notable for drainage of bilious fluid and sludge. No lymphadenopathy seen. Pancreatic parenchymal abnormalities were noted in the entire pancreas. These consisted of atrophy. There was no sign of significant endosonographic abnormality in the left adrenal gland. No adrenal gland enlargement was identified. A hypoechoic lesion suggestive of a cyst was identified in the upper pole of the right kidney. The lesion measured 90 mm by 70 mm in maximal cross-sectional diameter. There was a single compartment without septae. The outer wall of the lesion was not seen. There was no associated mass. There was no internal debris within the fluid-filled cavity. Impression: - There was dilation in the common bile duct which measured up to 11 mm. - Hyperechoic material consistent with sludge was visualized endosonographically in the gallbladder. Axios stent was placed for treament of acalculous cholecystitis. - Pancreatic parenchymal abnormalities consisting of atrophy were noted in the entire pancreas. - Endosonographic images of the left adrenal gland were unremarkable. - A cystic lesion measuring 90 mm by 70 mm was identified in the right kidney. Recommendation: - [facility] patient to [facility] for [facility] care. - NPO today. - Use broad spectrum antibiotics for 2 weeks. - Repeat the upper endoscopic ultrasound in 3 months for retreatment. Lorri Jackson DO 07/19/2024 2:51:18 PM This report has been signed electronically. Estimated Blood Loss: Estimated blood loss was minimal. documented in this encounter Consult Notes * Fawn Cordova RN - 07/20/2024 1:49 PM EDTAssociated Order(s): CARE MANAGEMENT CONSULT IP CARE MANAGEMENT - ADULT INITIAL SCREENING [address] [id number] Name: Val Beverly Location: [facility] [id number] Date: 07/20/2024 Time: 1:49 PM Discussed patient with the interdisciplinary care team. This Hr Advisor performed a chart review and spoke with daughter via phone to complete admission screen and assessed needs for transition planning. The senior caregiver role and services were explained and emotional support was provided. Chief Complaint: No chief complaint on file. Prior Living Arrangements What was your living situation prior to admission/observation?: With Child (07/20/241346) Living Quarters: House (07/20/241346) Number of steps to enter living quarters:: 3 (07/20/241346) Do you have serious difficulty walking or climbing stairs? (5 years old or older): No (07/19/24 0101) History of falling: No (07/20/24 0920) Prior Level of Functioning Describe the patient's ability prior to admission/observation to perform ADLs: Requires assistance (07/20/24 134) Requires assistance with: Bathing (07/20/241346) Describe the patient's mobility status prior to admission: Patient requires assistance with ambulation (07/20/24 134) Patient uses assistive device: Yes (07/20/241346) If yes, choose:: Walker (07/20/241346) Caregiver Information Emergency Contacts None on File Other Contacts Name Relation Home Work Mobile OBDULIA MARADIAGA Adult Child [phone] STANLEY BEVERLY Adult Child [phone] Kristina Beverly Adult Child [phone] Bernardo Shelli Adult Child [phone] Patient to [facility] 07/18 with diagnosis of acute cholecystitis. Prior to admission patient resided with her son and daughter in law. Patient was independent with ADL's but required assistance with bathing. Son and daughter in law performed IADL's and family provided transportation to appointments. Goal is to return home on DC with daughter providing transportation. Daughter in law declining any home health on [place] stating that the last time they felt it made it worse for patient and it stressed her out. Family to provide transportation on [place]. Risk Stratification/Psychosocial/Care Gaps Risk Stratification Psycho Social / Medical Concerns Identified: Adjustment to illness/injury (07/20/241346) Accessed [employer] to connect patients to social care resources: No (07/20/241346) OBRA or OPTIONS needed for placement: No (07/20/241346) Readmission Risk Score: 14.16 (07/20/24 1201) AM-PAC Score With Stairs : 17 (07/20/24 0920) Prior to Admission Services Services Prior to Admission PROGRAM COORDINATOR Services (Services received within the last 30 days with exception, Psych within last two years): Durable Medical Equipment (07/20/241346) PROGRAM COORDINATOR Durable Medical Equipment (DME) in home: Raised toilet seat;Hospital bed;Walker Rolling (07/20/241346) [place] Dept[employer] of Aging (PDA) Waiver Program: N/A (07/20/241346) PROGRAM COORDINATOR Transportation (Services received within the last 30 days): Family/Friends Personal Vehicle (07/20/241346) Outpatient Hr Advisor: No care service team leader to display Patient/Family Expectations: home with son and daughter in law For further screening information, please refer to the Care Management flow document. * Briana Hair OT - 07/19/2024 2:04 PM EDTAssociated Order(s): ADULT OCCUPATIONAL THERAPY CONSULT IP OT consult noted, but the pt was not available. Will re-attempt consult at a later date/ time as allowed by pt's availability, pt's tolerance, and OT's schedule. * Marry Gonzales CRNP - 07/19/2024 12:42 PM EDTAssociated Order(s): Cardiology Consult IP Cardiology CONSULT [facility] [address] Name: Val Beverly Location: [facility] [id number] Date: 07/19/2024 Time: 12:42 PM Cardiology Consult IP Consult performed by: Marry Gonzales CRNP Consult ordered by: Oliverio Barrios MD REQUESTING SERVICE: Hospitalist REASON FOR CONSULT: Elevated Troponin HPI: 88-year-old female seen in consultation in regard to elevated troponin. Acute transfer from [facility] for MRCP due to concern for biliary dilation/acute cholecystitis. Unable to obtain HPI ROS from patient due to severe underlying dementia. Appears her mental status has not at baseline prompting family to bring her into the hospital due to lethargy/AMS changes. Has a known history of recurrent UTIs, history of cardiomyopathy with most recently ejection fraction recovered to normal, HTN, HLD, CKD, and anemia. PAST MEDICAL HISTORY: Past Medical History: Diagnosis Date Anemia of [...] chronic, stage III (GFR 30-59 ml/min) ([facility]) 12/06/2008 Modified by CKD Protocol #1. Obesity, Class II, BMI 35.0-39.9, with comorbidity (see actual BMI) 10/08/2009 Per Obesity Protocol, #19 Other osteoporosis 10/26/2009 Other vitamin B12 deficiency anemia 03/26/2001 Senile osteoporosis 03/20/2017 Vertebral fracture, pathological 12/20/2010 Vitamin D deficiency 12/25/2009 PAST SURGICAL HISTORY: Past Surgical History: Procedure Laterality Date COLONOSCOPY W/ LESION REMOVAL, SNARE 11/28/08 done one 40 mm polyp in mid sigmoid colon, incomplete resection, one 8 mm polyp in distal sigmoid colon,diverticulosis entire colonprocedure reached ascending colon, but did not extend to cecum due to significant looping, path pending COLONOSCOPY W/ SUBMUCOUS INJ 11/28/08 done COLONOSCOPY, DIAGNOSTIC (RECTUM) 05/03/10 multiple diverticula- repeat in 3 years COLONOSCOPY, DIAGNOSTIC (RECTUM) 08/26/2013 hyperplastic polyp, diverticulosis, repeat 3 yrs/COLONOSCOPY FLEXIBLE PROXIMAL DIAGNOSTIC performedby Saadia Acevedo DO at [facility] COLONOSCOPY, DIAGNOSTIC (RECTUM) 10/03/2016 colo-colonic anastomosis healthy, sigmoid and descending diverticulosis, no repeat exam recommended, performed by Saadia Acevedo DO at [facility] LIGATE/CUT OVIDUCT(S) PARTIAL COLECTOMY W/ANASTOMOSIS 12/18/08 Sigmoid colectomy with primary anastomosis, completion proctoscopy right salpingo-oophorectomy 12/18/08 XR WRIST 3 OR MORE VIEWS Left 05/12/2016 comminuted fracture of distal radius with minimal displacement of fx fragments, chondrocalcinosis FAMILY HISTORY: Family History Problem Relation Name Age of Onset Diabetes Mother Heart Disorder Mother 77 [place] Diabetes Father Heart Disorder Father 60 [place] Diabetes Grandmother (Maternal) Diabetes Brother Heart Disorder Brother 44 [place] Eye Problems None Denies family hx of eye conditions Diabetes Sister Other (CKD/ESRD) None SOCIAL HISTORY: Social History Tobacco Use Smoking status: Never Smokeless tobacco: Never Vaping Use Vaping status: Never Used Substance Use Topics Alcohol use: No Drug use: No ALLERGIES: Patient has no known allergies. ROS: Review of Systems Unable to perform ROS: Dementia PHYSICAL EXAMINATION: Most Recent Vital Signs: BP: 107 mmHg/50 mmHg (07/19/24 1204) Pulse: 107 (07/19/24 1204) Resp: 16 (07/19/24 1053) Temp: 36.28 C (07/19/24 1204) Temp Summary: Temp Min: 36 °C (96.8 °F) Max: 36.4 °C (97.5 °F) SpO2: 95 % (07/19/24 1204) O2 flow rate: Supplemental O2 Delivery: Room Air, None (07/19/24 1204) Physical Exam Vitals and nursing note reviewed. Constitutional: General: She is awake. She is not in acute distress. Appearance: Normal appearance. She is well-developed. She is not ill-appearing. HENT: Head: Normocephalic and atraumatic. Eyes: General: No scleral icterus. Extraocular Movements: Extraocular movements intact. Conjunctiva/sclera: Conjunctivae normal. Pupils: Pupils are equal, round, and reactive to light. Neck: Thyroid: No thyromegaly. Vascular: No carotid bruit or JVD. Cardiovascular: Rate and Rhythm: Normal rate. Pulses: Normal pulses. Carotid pulses are 2+ on the right side and 2+ on the left side. Radial pulses are 2+ on the right side and 2+ on the left side. Posterior tibial pulses are 2+ on the right side and 2+ on the left side. Heart sounds: Normal heart sounds, S1 normal and S2 normal. No murmur heard. Pulmonary: Effort: Pulmonary effort is normal. No respiratory distress. Breath sounds: Normal breath sounds. No wheezing, rhonchi or rales. Abdominal: General: Bowel sounds are normal. There is no distension. Palpations: Abdomen is soft. There is no mass. Tenderness: There is no abdominal tenderness. Musculoskeletal: General: No swelling. Cervical back: Neck supple. Right lower leg: No edema. Left lower leg: No edema. Skin: General: Skin is warm and dry. Capillary Refill: Capillary refill takes less than 2 seconds. Findings: No rash or wound. Neurological: General: No focal deficit present. Mental Status: She is alert and oriented to person, place, and time. Psychiatric: Attention and Perception: Attention and perception normal. Behavior: Behavior is cooperative. Judgment: Judgment normal. Current Facility-Administered Medications Medication Dose Route Frequency Provider acetylcysteine (ACETADOTE) 8,400 mg in D5W 1,000 mL infusion 8,400 mg Intravenous Once Fredrick Ochoa MD NSS infusion Intravenous Continuous Oliverio Barrios MD [START ON 07/20/2024] Piperacillin-Tazobactam (Zosyn) 4.5 g in 100 mL NSS ivpb (FOUR hour infusion) 4.5 g IV Piggyback Q8H Now Fredrick Ochoa MD Piperacillin-Tazobactam (Zosyn) 4.5 g in 100 mL NSS ivpb (HALF hour infusion) 4.5 g IV Piggyback Q6H Now Fredrick Ochoa MD dextrose 50% inj 25 mL 25 mL IV Push PRN Apple Anne CRNP dextrose 50% inj 50 mL 50 mL IV Push PRN Apple Anne CRNP glucagon (Glucagen) inj 1 mg 1 mg Intramuscular PRN Apple Anne CRNP Glucose (Glutose 15) 40 % gel 15 g of glucose 15 g of glucose Oral PRN Apple Anne CRNP Glucose (Glutose 15) 40 % gel 30 g of glucose 30 g of glucose Oral PRN Apple Anne CRNP glucose chew tab 16 g 16 g Oral PRN Apple Anne CRNP HYDROmorphone (Dilaudid) inj 0.2 mg 0.2 mg IV Push Q4H PRN Apple Anne CRNP Or HYDROmorphone (Dilaudid) inj 0.5 mg 0.5 mg IV Push Q4H PRN Apple Anne CRNP insulin aspart (NovoLOG) inj Subcutaneous Q6H Apple Anne CRNP ondansetron (Zofran) inj 4 mg 4 mg IV Push Q6H PRN Apple Anne CRNP sodium chloride 0.9 % flush peripheral arnulfo 3 mL 3 mL IV Push Q8H Apple Anne CRNP Results Labs & Imaging Reviewed Below: ECG 07/18/24 NSR, 1st Deg AV Block 76 bpm QTc 483 ms 06/18/23 NSR, PACs 97 bpm QTc 454 ms Echocardiograms 03/30/24 The qualitative LV ejection fraction is 50-54% (normal). The LV wall thickness is mildly increased (concentric). The septal motion is abnormal consistent with intrventricular conduction delay. The left atrium is mildly enlarged (35-41 ml/m^2). There is aortic valve sclerosis without stenosis. Trivial tricuspid regurgitation. There is no evidence of pulmonary hypertension. Compared to last available study changes are noted as follows: LV systolic function has improved. Zio 01/19/24 CONCLUSIONS: Duration: 6 days, 14 hours Patient had a min HR of 51 bpm, max HR of 146 bpm, and avg HR of 74 bpm. Predominant underlying rhythm was Sinus Rhythm. First Degree AV Block was present. Intermittent Bundle Branch Block was present. 1 run of Supraventricular Tachycardia occurred lasting 7 beats with a max rate of 111 bpm (avg 102 bpm). Isolated SVEs were rare (<1.0%), SVE Couplets were rare (<1.0%), and no SVE Triplets were present. Isolated VEs were rare (<1.0%), VE Couplets were rare (<1.0%), and no VE Triplets were present. Ventricular Bigeminy and Trigeminy were present. LABS: Labs reviewed as indicated below: Latest Reference Range & Units 07/18/24 23:25 07/19/24 03:53 07/19/24 03:54 07/19/24 07:33 07/19/24 11:25 ABO A A ABO/RH Rpt Rh Positive Positive TYPE AND SCREEN Rpt Specimen Expiration Date 07/21/2024 23:59 Red Blood Cell Antibody Screen Negative Troponin T, High Sensitivity <=14 ng/L 100 (H) 102 (HH) 103 (HH) 112 (HH) CK 26 - 192 U/L 94 BNP, NT-Pro <300 pg/mL 13,969 (H) SODIUM 135 - 146 mmol/L 141 139 POTASSIUM 3.5 - 5.1 mmol/L 4.6 4.0 CHLORIDE 98 - 107 mmol/L 104 103 CO2 22 - 32 mmol/L 24 18 (L) BUN 6 - 20 mg/dL 34 (H) 32 (H) CREATININE 0.5 - 1.0 mg/dL 1.1 (H) 0.8 EGFR >=60 mL/min 48 (L) 72 ANION GAP 7 - 15 mmol/L 13 18 (H) GLUCOSE 70 - 120 mg/dL 168 (H) 189 (H) CALCIUM 8.4 - 10.2 mg/dL 9.9 9.5 Magnesium 1.5 - 2.6 mg/dL 1.8 2.0 Phosphorus 2.5 - 4.8 mg/dL 3.5 2.9 Lactate 0.4 - 2.0 mmol/L 1.8 Protein 6.0 - 8.3 g/dL 6.5 6.4 INR 0.8 - 1.2 1.3 (H) Prothrombin Time 11.6 - 15.2 seconds 16.0 (H) CBC Rpt ! Rpt ! WBC 4.00 - 10.80 K/uL 16.50 (H) 15.73 (H) RBC 3.85 - 5.15 M/uL 3.92 3.73 HGB 12.0 - 15.3 g/dL 12.0 11.4 (L) HCT 36.0 - 45.2 % 38.0 36.3 MCV 81.5 - 97.5 fL 96.9 97.3 MCH 27.0 - 34.0 pg 30.6 30.6 MCHC 32.0 - 36.0 g/dL 31.6 31.4 RDW 11.5 - 15.5 % 13.3 13.4 PLT 140 - 400 K/uL 106 (L) 96 (L) MPV 6.6 - 11.1 fL 10.9 11.1 Albumin 3.8 - 5.0 g/dL 4.0 3.6 (L) AST 10 - 35 U/L 1,387 (H) 1,315 (H) ALT 10 - 35 U/L 1,908 (H) 1,894 (H) Alkaline Phosphatase 35 - 130 U/L 254 (H) 198 (H) Bilirubin, Total <=1.2 mg/dL 0.5 0.4 Bilirubin, Direct 0.0 - 0.3 mg/dL 0.2 Acetaminophen Level 10.0 - 30.0 ug/mL <5.0 (L) IMAGIN07/18/[address] [facility] CT Chest IMPRESSION: 1. No acute process in the chest. 2. Findings concerning for acute cholecystitis. Common bile duct dilation. Mild intrahepatic biliary dilation. Consider MRCP. 3. Rectal fecal impaction. 4. 2 cm lytic lesion in the L2 vertebral body. IMPRESSION and PLAN: Acute cholecystitis Biliary Dilation Elevated troponin Bacteremia Chronic diastolic CHF HTN Elevated Transaminases DM II Severe dementia TTP -heart rate is trending on the higher side -blood pressure reasonably well-controlled -evidence of acute bacteremia along with the acute cholecystitis on additional workup on lab work and imaging -scheduled for MRCP/ERCP today -proBNP noted to be significantly elevated however she does not appear volume overloaded on exam and in the setting of sepsis would not diurese at this juncture -no evidence of volume overload on CT Chest reviewed from [facility] completed yesterday -elevated transaminase levels noted, has been started on acetylcysteine infusion for management -continue antibiotic management per attending service -she is optimized from a cardiac perspective for MRCP/ERCP as planned no additional inpatient cardiac workup is necessary -would cautiously monitor fluid status postprocedure -troponin and mildly elevated but flat; likely secondary to acute underlying infection/demand ischemia, no acute ECG changes noted Patient care discussed and coordinated with Dr. Ladd. Please refer to Dr. Ladd's notes for further recommendations. [facility] Department of Cardiology I spent a total of 45 minutes coordinating, documenting, and providing care for this patient excluding time spent in the performance of separately billed services or time spent by another provider/QHP. This chart was completed in part utilizing [employer] Speech Voice Recognition Software. Grammatical errors, random word insertions, pronoun errors, and incomplete sentences are an occasional consequence of this system due to software limitations, ambient noise, and hardware issues. Any formal questions or concerns about the content, text, or information contained within the body of this dictation should be directly addressed to the provider for clarification. Cosigned by Samantha Ladd DO at 07/19/2024 8:45 PM EDT Associated attestation - Samantha Ladd DO - 07/19/2024 8:45 PM EDT I have reviewed the advanced practitioner's documentation on the date of service referenced in note, and I agree with, and take responsibility for the plan of care. Pt seen in cardiology consultation due to elevated troponins in the setting of acute cholecystitis with dilated biliary duct Pt had to be transferred from [facility] to [facility] due to the outside hospital not able to perform MRCP at this juncture. On admission labs to [facility] troponin was drawn which was elevated along with BNP. The elevated topronin is not uncommon given her acute GI infectious process with her underlying comorbidites including chronic heart failure with preserved EF- NYHA Class III, HTN/HLD/CKD and anemia. She is not having a NSTEMI and I would not treat with any systemic heparin She is at an acceptable moderate cardiovascular risk for her MRCP no further cardiac testing necessary I would not give any IV diuretics but would try to keep patient's fluid status balanced as best as possible and monitor closely for when she does get a lot of IV abx she might accumulate some fluid and need a dose of IV lasix Hold cardiac medications at this juncture; and slowly restart once taking PO; darío start with toprol, Lipitor and ASA Hold entresto until Cr improves; this might have to be restarted as an outpatient She will need cardiolgy f/u upon discharge (she sees us in [place]) No further cardiac in patient recommendations or testing at this juncture Please re-consult as necessary Samantha Ladd DO Department of Cardiology [facility] [place] [address] I spent a total of 45 minutes coordinating, documenting, and providing care for this patient excluding time spent in the performance of separately billed services or time spent by another provider/QHP. * Luzmaria Salinas DO - 07/19/2024 11:48 AM EDTAssociated Order(s): GENERAL SURGERY CONSULT IP CONSULT - General Surgery [facility] [address] Name: Val Beverly Location: [facility] [id number] Date: 07/19/2024 Time: 11:49 AM REQUESTING SERVICE: hospitalist REASON FOR CONSULT: Val Beverly [facility] is seen at the request of Dr. Barrios in consultation for acute cholecystitis. HISTORY OF PRESENT ILLNESS: Val Beverly is an 88 y/o female admitted overnight in transfer from [facility]. Patient has severe dementia and history is obtained via chart. She presented with decreased responsiveness and was found to have elevated AST/ALT, and a significantly distended gallbladder concerning for acute cholecystitis. Patient denies abdominal pain, N/V but is unable to provide any history. HOSPITAL PROBLEM LIST: Principal Problem: Acute cholecystitis (POA: Yes) Active Problems: Type 2 diabetes mellitus with hemoglobin A1c goal of less than 8.0% (HCC) (POA: Yes) HTN, goal below 140/90 (POA: Yes) Chronic bilateral low back pain without sciatica (POA: Yes) Type 2 diabetes mellitus with stage 3a chronic kidney disease (HCC) (POA: Yes) Chronic diastolic (congestive) heart failure (HCC) (POA: Yes) Severe dementia associated with alcoholism, without behavioral disturbance, psychotic disturbance, mood disturbance, or anxiety (HCC) (POA: Yes) Acute hepatitis (POA: Yes) Altered mental status (POA: Yes) Leukocytosis (POA: Yes) Thrombocytopenia (HCC) (POA: Yes) Elevated LFTs (POA: Unknown) Bacteremia (POA: Unknown) POA = Present On Admission PAST MEDICAL HISTORY: Past Medical History: Diagnosis Date Anemia of other chronic disease 07/24/2008 Benign essential hypertension with target blood pressure below 140/90 Chronic renal insufficiency 11/01/200423/05.1 GFR 52.3 Closed fracture of metatarsal bone(s) 11/10/2006 Diverticulosis of colon (without mention of hemorrhage) 08/26/2013 sigmoid & descending colon DM type 2, goal A1c below 7 Goiter, nontoxic, multinodular 01/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 Obesity, Class II, BMI 35.0-39.9, with comorbidity (see actual BMI) 10/08/2009 Per Obesity Protocol, #19 Other osteoporosis 10/26/2009 Other vitamin B12 deficiency anemia 03/26/2001 Senile osteoporosis 03/20/2017 Vertebral fracture, pathological 12/20/2010 Vitamin D deficiency 12/25/2009 PAST SURGICAL HISTORY: Past Surgical History: Procedure Laterality Date COLONOSCOPY W/ LESION REMOVAL, SNARE 11/28/08 done one 40 mm polyp in mid sigmoid colon, incomplete resection, one 8 mm polyp in distal sigmoid colon,diverticulosis entire colonprocedure reached ascending colon, but did not extend to cecum due to significant looping, path pending COLONOSCOPY W/ SUBMUCOUS INJ 11/28/08 done COLONOSCOPY, DIAGNOSTIC (RECTUM) 05/03/10 multiple diverticula- repeat in 3 years COLONOSCOPY, DIAGNOSTIC (RECTUM) 08/26/2013 hyperplastic polyp, diverticulosis, repeat 3 yrs/COLONOSCOPY FLEXIBLE PROXIMAL DIAGNOSTIC performedby Saadia Acevedo DO at ENDOSCOPY [facility] COLONOSCOPY, DIAGNOSTIC (RECTUM) 10/03/2016 colo-colonic anastomosis healthy, sigmoid and descending diverticulosis, no repeat exam recommended, performed by Saadia Acevedo, at ENDOSCOPY [facility] LIGATE/CUT OVIDUCT(S) PARTIAL COLECTOMY W/ANASTOMOSIS 12/18/08 Sigmoid colectomy with primary anastomosis, completion proctoscopy right salpingo-oophorectomy 12/18/08 XR WRIST 3 OR MORE VIEWS Left 05/12/2016 comminuted fracture of distal radius with minimal displacement of fx fragments, chondrocalcinosis FAMILY HISTORY: Family History Problem Relation Name Age of Onset Diabetes Mother Heart Disorder Mother 77 [place] Diabetes Father Heart Disorder Father 60 [place] Diabetes Grandmother (Maternal) Diabetes Brother Heart Disorder Brother 44 [place] Eye Problems None Denies family hx of eye conditions Diabetes Sister Other (CKD/ESRD) None SOCIAL HISTORY: Social History Tobacco Use Smoking status: Never Smokeless tobacco: Never Vaping Use Vaping status: Never Used Substance Use Topics Alcohol use: No Drug use: No ALLERGIES: Patient has no known allergies. ROS: Unable to respond: Confusion PHYSICAL EXAMINATION: Most Recent Vital Signs: BP: 93 mmHg/61 mmHg (07/19/24 1053) Pulse: 102 (07/19/24 1053) Resp: 16 (07/19/24 1053) Temp: 36 C (07/19/24 1053) Temp Summary: Temp Min: 36 °C (96.8 °F) Max: 36.4 °C (97.5 °F) SpO2: 94 % (07/19/24 1053) O2 flow rate: Supplemental O2 Delivery: Room Air, None (07/19/24 1053) Vital Signs Over Last 24 Hours: Systolic BP: Most Recent Systolic BP Av.7 mmHg Min: 93 mmHg Max: 154 mmHg Temperature: Most Recent Temperature Av.2 C Min: 36 C Max: 36.39 C Pulse: Pulse Av.3 Min: 80 Max: 102 Respirations: Resp Av.7 Min: 12 Max: 16 SpO2: SpO2 Av.3 % Min: 94 % Max: 95 % Constitutional: no acute distress HEENT: normal: normocephalic, atraumatic; no masses, tenderness, or adenopathy Eyes: sclera and conjunctiva normal Neck: supple, normal range of motion CV: normal rate, normal rhythm Chest: normal respiratory effort Abdomen: soft, no tenderness, nondistended, no rebound or guarding, (+) reducible umbilical hernia Extremities: no clubbing, cyanosis, or edema, otherwise grossly normal, warm, and dry Skin: warm, dry, intact: Neuro: alert, (+) not oriented, confused LABS: Labs reviewed as indicated below: CHEMISTRY: BUN, Creatinine, GFR Estimated, Sodium, Potassium, Chloride, Carbon Dioxide, Glucose, Calcium (see below for most recent value): Lab Results Component Value Date/Time BUN 32 (H) 07/19/2024 03:54 AM BUN 10 10/09/2023 05:17 AM BUN 25 (H) 11/18/2019 03:56 PM BUN 16 02/02/1996 10:30 AM CREAT 0.8 07/19/2024 03:54 AM CREAT 0.78 10/09/2023 05:17 AM CREAT 1.3 (H) 11/18/2019 03:56 PM CREAT 0.7 02/02/1996 10:30 AM GFRESTIMATED 39.1 (L) 11/18/2019 03:56 PM NA 139 07/19/2024 03:54 AM NA 140 10/09/2023 05:17 AM NA 143 11/18/2019 03:56 PM NA 141 02/02/1996 10:30 AM POTASSIUM 4.0 07/19/2024 03:54 AM POTASSIUM 3.8 10/09/2023 05:17 AM POTASSIUM 4.7 11/18/2019 03:56 PM POTASSIUM 4.6 02/02/1996 10:30 AM CL 103 07/19/2024 03:54 AM CL 106 10/09/2023 05:17 AM CL 101 11/18/2019 03:56 PM CL 107 02/02/1996 10:30 AM CO2 18 (L) 07/19/2024 03:54 AM CO2 20 (L) 10/09/2023 05:17 AM CO2 23 11/18/2019 03:56 PM CO2 24.3 02/02/1996 10:30 AM GLU 180 (H) 10/09/2023 05:17 AM CA 9.5 07/19/2024 03:54 AM CA 8.6 11/18/2019 03:56 PM COAGS: PT, INR (see below for three most recent values): Lab Results Component Value Date/Time INR 1.4 (H) 07/19/2024 05:38 AM INR 1.3 (H) 07/18/2024 11:25 PM BLOOD COUNT: WBC, Hgb, Platelets (see below for most recent value): Lab Results Component Value Date/Time WBC 15.73 (H) 07/19/2024 03:54 AM WBC 7.89 11/18/2019 03:56 PM WBC 6.2 02/02/1996 10:30 AM HGB 11.4 (L) 07/19/2024 03:54 AM HGB 8.1 (L) 12/23/2019 09:56 AM HGB 13.2 02/02/1996 10:30 AM PLT 96 (L) 07/19/2024 03:54 AM PLT 238 11/18/2019 03:56 PM PLT 209 02/02/1996 10:30 AM LIVER FUNCTION TEST: Albumin, AST, ASTCMC (resulted at [facility] lab), Alkaline Phosphatase, ALT, ALTCMC (resulted at [facility] lab), Bilirubin Total, TBilCMC (resulted at [facility] lab), Protein - (see below for most recent value of each component): Lab Results Component Value Date/Time AST 1,315 (H) 07/19/2024 03:54 AM AST 17 01/24/2016 11:37 AM ALKP 198 (H) 07/19/2024 03:54 AM ALKP 67 01/24/2016 11:37 AM ALT 1,894 (H) 07/19/2024 03:54 AM ALT 18 03/14/2019 01:53 PM TBIL 0.4 07/19/2024 03:54 AM TBIL 0.3 01/24/2016 11:37 AM PROT 6.4 07/19/2024 03:54 AM PROT 6.4 01/24/2016 11:37 AM Latest Reference Range & Units 07/19/24 03:53 07/19/24 03:54 07/19/24 07:33 Troponin T, High Sensitivity <=14 ng/L 102 (HH) 103 (HH) CK 26 - 192 U/L 94 BNP, NT-Pro <300 pg/mL 13,969 (H) (HH): Data is critically high (H): Data is abnormally high IMAGING: Outside CT images not available. MRCP images viewed and show distended gallbladder without signs of surrounding inflammation or gallstones. IMPRESSION: 88 y/o female with distended gallbladder and transaminitis. No gallstones or sludge seen on imaging. Acutely elevated troponin and BNP Dementia CHF (EF 25% in 03/2024) DM2 PLAN: Doubt cholecystitis given no abdominal pain or tenderness, no evidence of gallstones. Likely hepatic etiology of transaminitis. Regardless given patients acute as well as baseline comorbidities she is not a candidate for cholecystectomy. Discussed with primary physician Please call with any questions REFERRING PHYSICIAN: 1. Isabel Burris MD PRIMARY CARE PHYSICIAN: Melanie Ramirez MD * Evangelina Perez, PT - 07/19/2024 10:30 AM EDTAssociated Order(s): ADULT PHYSICAL THERAPY CONSULT IP GENERAL EVALUATION - Physical Therapy [facility]-[address] [address] Name: Val Beverly Location: OR [facility]/OR Date: 07/19/2024 Time: 1030 Val Beverly is a/an 88 year old female. Patient Status: Inpatient Insurance: Payor: MEDICARE Plan: MEDICARE A AND B Product Type: *No Product type* Payor: [facility] ([facility]) Plan: [facility] Product Type: *No Product type* Patient Seen: at bedside, nursing cleared patient for therapy Patient Identified By: Name, ID Band and Date Patient presents with HPI of the following, per MD note, "88-year-old female seen in consultation in regard to elevated troponin. Acute transfer from [facility] for MRCP due to concern for biliary dilation/acute cholecystitis. Unable to obtain HPI ROS from patient due to severe underlying dementia. Appears her mental status has not at baseline prompting family to bring her into the hospital due to lethargy/AMS changes. Has a known history of recurrent UTIs, history of cardiomyopathy with most recently ejection fraction recovered to normal, HTN, HLD, CKD, and anemia." Diagnosis: acute cholecystitis, weakness (07/19/24 1030) Status of treatment: OOB evaluation completed (07/19/24 103) Orders: PT evaluation and treatment (07/19/24 103) Weight Bearing Status: Weight bearing as tolerated (07/19/24 103) Precautions: Safety;Falls (07/19/24 1030) Total Treatment Time--free text: 38 (07/19/24 103) Past Medical History: Past Medical History: Diagnosis Date Anemia of other chronic disease 07/24/2008 Benign essential hypertension with target blood pressure below 140/90 Chronic renal insufficiency 11/01/2004 271.1 GFR 52.3 Closed fracture of metatarsal bone(s) 11/10/2006 Diverticulosis of colon (without mention of hemorrhage) 08/26/2013 sigmoid & descending colon DM type 2, goal A1c below 7 Goiter, nontoxic, multinodular 01/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 Obesity, Class II, BMI 35.0-39.9, with comorbidity (see actual BMI) 10/08/2009 Per Obesity Protocol, #19 Other osteoporosis 10/26/2009 Other vitamin B12 deficiency anemia 03/26/2001 Senile osteoporosis 03/20/2017 Vertebral fracture, pathological 12/20/2010 Vitamin D deficiency 12/25/2009 Past Surgical History: Past Surgical History: Procedure Laterality Date COLONOSCOPY W/ LESION REMOVAL, SNARE 11/28/08 done one 40 mm polyp in mid sigmoid colon, incomplete resection, one 8 mm polyp in distal sigmoid colon,diverticulosis entire colonprocedure reached ascending colon, but did not extend to cecum due to significant looping, path pending COLONOSCOPY W/ SUBMUCOUS INJ 11/28/08 done COLONOSCOPY, DIAGNOSTIC (RECTUM) 05/03/10 multiple diverticula- repeat in 3 years COLONOSCOPY, DIAGNOSTIC (RECTUM) 08/26/2013 hyperplastic polyp, diverticulosis, repeat 3 yrs/COLONOSCOPY FLEXIBLE PROXIMAL DIAGNOSTIC performedby Saadia Acevedo DO at ENDOSCOPY [facility] COLONOSCOPY, DIAGNOSTIC (RECTUM) 10/03/2016 colo-colonic anastomosis healthy, sigmoid and descending diverticulosis, no repeat exam recommended, performed by Saadia Acevedo DO at ENDOSCOPY [facility] LIGATE/CUT OVIDUCT(S) PARTIAL COLECTOMY W/ANASTOMOSIS 12/18/08 Sigmoid colectomy with primary anastomosis, completion proctoscopy right salpingo-oophorectomy 12/18/08 XR WRIST 3 OR MORE VIEWS Left 05/12/2016 comminuted fracture of distal radius with minimal displacement of fx fragments, chondrocalcinosis Subjective: N/A Social History/Disposition Lives with: Unable to obtain from patient/family (07/19/241029) Assistance available: Unable to obtain from patient / family (07/19/241029) Dwelling type: Unable to obtain from patient / family (07/19/241029) Entry steps: Unable to obtain from patient / family (07/19/241029) Inside steps: Unable to obtain from patient / family (07/19/241029) Bedroom location: Unable to obtain from patient / family (07/19/241029) Bath location: Unable to obtain from patient / family (07/19/241029) Prior Level of Function Reported by: Unable to obtain from patient / family (07/19/241029) Ambulation: Unable to obtain from patient / family (07/19/241029) Devices at home: Unable to obtain from patient/family (07/19/241029) Observations Consciousness: Alert (confused) (07/19/241029) Orientation: (unable) (07/19/241029) Psychosocial: Patient cannot converse in a social setting. (07/19/241029) Sitting Posture: Rounded shoulders;Forward head (07/19/241029) Standing Posture: Forward head;Rounded shoulders (07/19/241029) Pain: No complaints of pain Range of Motion Range of Motion: WFL, except (soft tissue limitation) (07/19/241029) Strength Assessment Strength Assessment: Deficits noted (07/19/241029) WNL, except: (unable to follow commands for MMT, grossly assessed 4-/5) (07/19/241029) Transfers Sit-Stand: Contact Guard (07/19/241029) Stand-Sit: Contact Guard (07/19/241029) W/C-Bed/Mat: Contact Guard (07/19/241029) Ambulation: Distance ambulated (feet): 75 Assistive Device: Rolling walker Assist: Contact Guard Balance Sit (Static): Good (07/19/241029) Sit (Dynamic): Good (07/19/241029) Stand (Static): Fair (07/19/241029) Stand (Dynamic): Fair (07/19/241029) Patient and or Family Goal(s): to get well and to return home Patient Education Review of Precautions: Safety;Fall (call estrada) (07/19/241029) Safety Awareness: Patient does not demonstrates carryover of insight during functional tasks;Patient does not verbalize insight of current deficits (07/19/241029) Preferred learning method: Combination (07/19/241029) Barriers to learning: Medical Status;Cognition (07/19/241029) Method of Education: Verbalized to patient;Demonstrated to patient (07/19/241029) Topic of Education: Safety with mobility, Goals/plan of care, Use of assistive device, Fall prevention, and d/c recommendations Method of Education: Verbal discussion and explanation provided to patient regarding topics mentioned above: had reduced level of understanding due to confusion/cognitive impairment Treatment Provided: Therapeutic Activities 15 minutes: bed mobility training transfer training toilet transfer training Gait Training 8 minutes: gait training with rolling walker Evaluation Moderate Complexity 15 minutes - [id number]: Patient was cooperative, pleasant, alert, and confused during treatment session. Moderate complexity evaluation performed and 1-2 personal factors or comorbidities were identified that will impact plan of care, including obesity, multiple orthopedic injuries, and weakness. Patient presents with limitations in strength, bed mobility, transfers, gait, elevations, balance, endurance, and safety, which will impact plan of care. These limitations will be addressed by the goals set for this patient. Alarm Status Patient positioned in: Chair (07/19/241029) With: Pressure pad alarm intact and functioning and call estrada in reach (07/19/241029) Treatment Status: Treatment at bedside (07/19/241029) Goals: Demonstrate Bed Mobility with: Supine to Sit: independent (pt does 100%) Sit to supine: independent (pt does 100%) Demonstrate Transfers with: Sit to stand: modified independent (with device or slow) Bed to chair: modified independent (with device or slow) Demonstrate ambulation 100 feet supervision with RW Increase Safety: with all mobility tasks to decrease fall risk Time Frame: 1-8 visits Assessment: patient currently requires CGA for all mobility with use of RW. 50- 75% verbal educationrequired for safety/technique as well as cueing to maintain focus on task. Significant confusion noted during session with patient demonstrating difficulty answering questions/following commands appropriately. Patient did better with yes/no questions and simple commands. Denied having any onset of symptoms with mobility. PT AM PAC is 17, Would consider home with post- acute care services which mayinclude outpatient therapy or home health. The level of care will be determined in collaboration with the patient, family/caregiver, and care team members. . Will cont to provide skilled PT services while at [facility]. Deficits requiring P.T. treatment needs: Safety;Mobility;Balance;Lower extremity strength () Equipment Needs: Equipment needs: Rolling walker (07/19/24 103) Treatment Plan: Bed mobility training, Transfer training, Gait training, ROM exercises: , Strengthening exercises: , Balance activities, and Educate on safety with all mobility tasks to decrease fallrisk Anticipated Frequency (on eval): 3 to 5 times per week (07/19/24 1030) AM PAC Score with Stairs: 17 * Monae Jalloh PA-C - 07/19/2024 8:32 AM EDTAssociated Order(s): GASTROENTEROLOGY CONSULT IP CONSULT - Gastroenterology [facility]-[address] [place] [address] Name: Val Beverly Location: [facility] [id number] Date: 07/19/2024 Time: 8:32 AM REQUESTING SERVICE: Medicine REASON FOR CONSULT: acute cholecystitis HPI: Val Beverly is a 88 year old female with PMH severe dementia, CVA, Systolic congestive heartfailure, EF previously 25 to 30%. EF 50-54% in March 2024, T2DM, CKD, obesity, anemia, hypothyroidism, recurrent UTIs, brought to [facility] yesterday by her family for acute change in mental status, lethargy. Labs showed severe transaminitis - AST 1961, ALT 1701, ALP 211, normal bilirubin. Leukocytosis with a WBC of 18.8 K, BUN 39, creatinine 1.29, normal liipase, platelets 126, APAP < 2. BCx were positive for E coli and Enterobacterales. - CTAP suggestive signs of acute cholecystitis with common bile duct to and intrahepatic dilation, (CBD 1.2 cm), anterior abdominal hernia containing fat and bowel, no obstruction, rectal fecal impaction, and 2 cm lytic lesion in the L2 vertebral body. Case was discussed with Dr. Jackson on-call, an MRCP was recommended; this was ordered but MRI machine was not functioning. Surgery was consulted and they recommended transfer to another facility for possible ERCP, so patient was transferred here. Upon arrival here, she was slightly hypotensive, lactate WNL, WBC 15 K, AST mildly improved to 1300, ALT slightly worsened 1800, alk-phos 198, normal bilirubin and renal function. INR 1.4. Troponin 103, BNP pending. Acute hep panel pending. There was concern for possible Tylenol use (though APAP level was less than 2 at OSH), and was started on Mucomyst protocol. She was also started on IVF and IV antibiotics. MRCP is pending today. Overnight she was afebrile, stable vital signs. Patient is confused, oriented only to self, but denies any complaints. Denies any abdominal pain, nausea vomiting. Unable to obtain any further history as patient has severe dementia and ROS is very limited. Majority of history gathered from her chart and speaking to her care team. CT chest 07/18/2024: The thoracic aorta appears normal in caliber. The heart is mildly enlarged. No pericardial or pleural effusion. No pneumothorax. No pathologically enlarged mediastinal or hilar lymph nodes. No pulmonary consolidation. Mild subsegmental atelectasis dependently. No acute osseous abnormalityevident. CTAP 07/18/2024: Inflammation surrounding the gallbladder. Gallbladder distention. Mild intrahepatic biliary ductal dilation. The common bile duct is dilated up to 1.2 cm. No obstructing stone seen on this exam. The liver, pancreas and adrenal glands appear unremarkable. No hydronephrosis. Simple appearing bilateral renal cysts measuring up to 9.7 cm on the right and 3.4 cm on the left. Moderate size hiatal hernia. Anterior abdominal hernia containing fat and bowel loops. No evidence of bowel obstruction/colitis/appendicitis. Rectal fecal impaction. No free air. No drainable fluid collection. Atheromatous plaquing of the abdominal aorta without dissection or aneurysm. The urinary bladder appears unremarkable. No acute osseous abnormality evident. Degenerative changes in the spine. 2 cm lytic lesion in the L2 vertebral body. Chronic appearing deformity of the L1 vertebral body. IMPRESSION: 1. No acute process in the chest. 2. Findings concerning for acute cholecystitis. Common bile duct dilation. Mild intrahepatic biliary dilation. Consider MRCP. 3. Rectal fecal impaction. 4. 2 cm lytic lesion in the L2 vertebral body. HISTORY: Past Medical History: Past Medical History: Diagnosis Date Anemia of other chronic disease 07/24/2008 Benign essential hypertension with target blood pressure below 140/90 Chronic renal insufficiency 11/01/200423/05.1 GFR 52.3 Closed fracture of metatarsal bone(s) 11/10/2006 Diverticulosis of colon (without mention of hemorrhage) 08/26/2013 sigmoid & descending colon DM type 2, goal A1c below 7 Goiter, nontoxic, multinodular 01/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 Obesity, Class II, BMI 35.0-39.9, with comorbidity (see actual BMI) 10/08/2009 Per Obesity Protocol, #19 Other osteoporosis 10/26/2009 Other vitamin B12 deficiency anemia 03/26/2001 Senile osteoporosis 03/20/2017 Vertebral fracture, pathological 12/20/2010 Vitamin D deficiency 12/25/2009 Past Surgical History: Past Surgical History: Procedure Laterality Date COLONOSCOPY W/ LESION REMOVAL, SNARE 11/28/08 done one 40 mm polyp in mid sigmoid colon, incomplete resection, one 8 mm polyp in distal sigmoid colon,diverticulosis entire colonprocedure reached ascending colon, but did not extend to cecum due to significant looping, path pending COLONOSCOPY W/ SUBMUCOUS INJ 11/28/08 done COLONOSCOPY, DIAGNOSTIC (RECTUM) 05/03/10 multiple diverticula- repeat in 3 years COLONOSCOPY, DIAGNOSTIC (RECTUM) 08/26/2013 hyperplastic polyp, diverticulosis, repeat 3 yrs/COLONOSCOPY FLEXIBLE PROXIMAL DIAGNOSTIC performedby Saadia Acevedo, DO at ENDOSCOPY [facility] COLONOSCOPY, DIAGNOSTIC (RECTUM) 10/03/2016 colo-colonic anastomosis healthy, sigmoid and descending diverticulosis, no repeat exam recommended, performed by Saadia Acevedo, DO at ENDOSCOPY [facility] LIGATE/CUT OVIDUCT(S) PARTIAL COLECTOMY W/ANASTOMOSIS 12/18/08 Sigmoid colectomy with primary anastomosis, completion proctoscopy right salpingo-oophorectomy 12/18/08 XR WRIST 3 OR MORE VIEWS Left 05/12/2016 comminuted fracture of distal radius with minimal displacement of fx fragments, chondrocalcinosis Social History: Social History Tobacco Use Smoking status: Never Smokeless tobacco: Never Vaping Use Vaping status: Never Used Substance Use Topics Alcohol use: No Drug use: No Family History: Family History Problem Relation Name Age of Onset Diabetes Mother Heart Disorder Mother 77 [place] Diabetes Father Heart Disorder Father 60 [place] Diabetes Grandmother (Maternal) Diabetes Brother Heart Disorder Brother 44 [place] Eye Problems None Denies family hx of eye conditions Diabetes Sister Other (CKD/ESRD) None Allergies: Patient has no known allergies. ROS: Limited as above d/t cognitive status PHYSICAL EXAMINATION: Most Recent Vital Signs: BP: 154 mmHg/83 mmHg (07/19/24718) Pulse: 95 (07/19/24718) Resp: 12 (07/19/24718) Temp: 36.39 C (07/19/24718) Temp Summary: Temp Min: 36.1 °C (97 °F) Max: 36.4 °C (97.5 °F) SpO2: 94 % (07/19/24718) O2 flow rate: Supplemental O2 Delivery: Room Air, None (07/19/24718) Vital Signs Last 24 Hours: Systolic BP: Most Recent Systolic BP Av mmHg Min: 154 mmHg Max: 154 mmHg Temperature: Most Recent Temperature Av.3 C Min: 36.11 C Max: 36.39 C Pulse: Pulse Av.5 Min: 80 Max: 95 Respirations: Resp Av Min: 12 Max: 16 SpO2: SpO2 Av.5 % Min: 94 % Max: 95 % Constitutional: no acute distress, (+) chronically ill HEENT: normal: normocephalic, atraumatic; no masses, tenderness, or adenopathy Eyes: no scleral icterus, redness, or injection Neck: normal range of motion CV: regular rate and rhythm Chest: normal respiratory effort Abdomen: soft, bowel sounds normal, no masses, tenderness. Large ventral hernia Extremities: 2+ BLE Skin: warm and dry, no rashes Neuro: alert, not oriented Psych: normal mood and affect LABS: Labs reviewed. Recent Results (from the past 24 hours) CBC Collection Time: 07/18/24 11:25 PM Result Value Ref Range WBC 16.50 (H) 4.00 - 10.80 K/uL RBC 3.92 3.85 - 5.15 M/uL HGB 12.0 12.0 - 15.3 g/dL HCT 38.0 36.0 - 45.2 % MCV 96.9 81.5 - 97.5 fL MCH 30.6 27.0 - 34.0 pg MCHC 31.6 32.0 - 36.0 g/dL RDW 13.3 11.5 - 15.5 % PLT 106 (L) 140 - 400 K/uL MPV 10.9 6.6 - 11.1 fL nRBCs 0 <=0 /100 WBCs COMPREHENSIVE METABOLIC PANEL Collection Time: 07/18/24 11:25 PM Result Value Ref Range BUN 34 (H) 6 - 20 mg/dL CREATININE 1.1 (H) 0.5 - 1.0 mg/dL EGFR 48 (L) >=60 mL/min SODIUM 141 135 - 146 mmol/L POTASSIUM 4.6 3.5 - 5.1 mmol/L CHLORIDE 104 98 - 107 mmol/L CO2 24 22 - 32 mmol/L ANION GAP 13 7 - 15 mmol/L GLUCOSE 168 (H) 70 - 120 mg/dL Albumin 4.0 3.8 - 5.0 g/dL AST 1,387 (H) 10 - 35 U/L Alkaline Phosphatase 254 (H) 35 - 130 U/L Bilirubin, Total 0.5 <=1.2 mg/dL CALCIUM 9.9 8.4 - 10.2 mg/dL Protein 6.5 6.0 - 8.3 g/dL ALT 1,908 (H) 10 - 35 U/L ACETAMINOPHEN LEVEL Collection Time: 07/18/24 11:25 PM Result Value Ref Range Acetaminophen Level <5.0 (L) 10.0 - 30.0 ug/mL TROPONIN T, HIGH SENSITIVITY Collection Time: 07/18/24 11:25 PM Result Value Ref Range Troponin T, High Sensitivity 100 (H) <=14 ng/L TYPE AND SCREEN Collection Time: 07/18/24 11:25 PM Result Value Ref Range ABO A Rh Positive Red Blood Cell Antibody Screen Negative Specimen Expiration Date 07/21/2024 23:59 PT INR Collection Time: 07/18/24 11:25 PM Result Value Ref Range Prothrombin Time 16.0 (H) 11.6 - 15.2 seconds INR 1.3 (H) 0.8 - 1.2 MAGNESIUM Collection Time: 07/18/24 11:25 PM Result Value Ref Range Magnesium 1.8 1.5 - 2.6 mg/dL PHOSPHORUS Collection Time: 07/18/24 11:25 PM Result Value Ref Range Phosphorus 3.5 2.5 - 4.8 mg/dL BILIRUBIN, DIRECT Collection Time: 07/18/24 11:25 PM Result Value Ref Range Bilirubin, Direct 0.2 0.0 - 0.3 mg/dL ABO/RH Collection Time: 07/18/24 11:25 PM Result Value Ref Range ABO A Rh Positive GLUCOSE METER, POINT OF CARE Collection Time: 07/19/24 12:25 AM Result Value Ref Range Glucose - POCT 143 (H) 70 - 120 mg/dL TROPONIN T, HIGH SENSITIVITY Collection Time: 07/19/24 3:53 AM Result Value Ref Range Troponin T, High Sensitivity 102 (HH) <=14 ng/L LACTATE Collection Time: 07/19/24 3:53 AM Result Value Ref Range Lactate 1.8 0.4 - 2.0 mmol/L COMPREHENSIVE METABOLIC PANEL Collection Time: 07/19/24 3:54 AM Result Value Ref Range BUN 32 (H) 6 - 20 mg/dL CREATININE 0.8 0.5 - 1.0 mg/dL EGFR 72 >=60 mL/min SODIUM 139 135 - 146 mmol/L POTASSIUM 4.0 3.5 - 5.1 mmol/L CHLORIDE 103 98 - 107 mmol/L CO2 18 (L) 22 - 32 mmol/L ANION GAP 18 (H) 7 - 15 mmol/L GLUCOSE 189 (H) 70 - 120 mg/dL Albumin 3.6 (L) 3.8 - 5.0 g/dL AST 1,315 (H) 10 - 35 U/L Alkaline Phosphatase 198 (H) 35 - 130 U/L Bilirubin, Total 0.4 <=1.2 mg/dL CALCIUM 9.5 8.4 - 10.2 mg/dL Protein 6.4 6.0 - 8.3 g/dL ALT 1,894 (H) 10 - 35 U/L CBC Collection Time: 07/19/24 3:54 AM Result Value Ref Range WBC 15.73 (H) 4.00 - 10.80 K/uL RBC 3.73 3.85 - 5.15 M/uL HGB 11.4 (L) 12.0 - 15.3 g/dL HCT 36.3 36.0 - 45.2 % MCV 97.3 81.5 - 97.5 fL MCH 30.6 27.0 - 34.0 pg MCHC 31.4 32.0 - 36.0 g/dL RDW 13.4 11.5 - 15.5 % PLT 96 (L) 140 - 400 K/uL MPV 11.1 6.6 - 11.1 fL nRBCs 0 <=0 /100 WBCs MAGNESIUM Collection Time: 07/19/24 3:54 AM Result Value Ref Range Magnesium 2.0 1.5 - 2.6 mg/dL PHOSPHORUS Collection Time: 07/19/24 3:54 AM Result Value Ref Range Phosphorus 2.9 2.5 - 4.8 mg/dL PT INR Collection Time: 07/19/24 5:38 AM Result Value Ref Range Prothrombin Time 17.1 (H) 11.6 - 15.2 seconds INR 1.4 (H) 0.8 - 1.2 GLUCOSE METER, POINT OF CARE Collection Time: 07/19/24 5:48 AM Result Value Ref Range Glucose - POCT 165 (H) 70 - 120 mg/dL IMPRESSION: Val Beverly is a(n) 88 year old female with severe dementia, who presents as a transfer from OSH with severely elevated LFTs but normal bilirubin, leukocytosis, + bacteremia. CT suggestive of acute cholecystitis, biliary dilation. MRCP pending to evaluate her bile ducts for obstruction. On exam, abd soft, nontender, VSS, afebrile. RECOMMENDATIONS/PLAN: - Keep NPO - MRCP pending; may possibly need ERCP - Trend LFTs - Hold AC - Supportive care with IVF - Ok to continue NAC - Continue ABX - Await surery consult for acute cholecystitis Thank you for the opportunity to be involved in this patient's care. Please see attending addendum for further discussions/recommendations. I have discussed the case with my attending, Dr Espino. Cosigned by Marry Espino DO at 07/19/2024 1:39 PM EDT Associated attestation - Marry Espino DO - 07/19/2024 1:39 PM EDT I have reviewed the advanced practitioner's documentation on the date of service referenced in note, and I agree with, and take responsibility for the plan of care. Abdomen soft, does not wince with palpation. AAOx1. 88 y/o F with PMH fo severe dementia, HFrEF (EF 25%), DM2, CKD, history of CVA transferred from [facility] yesterday where she initially presented with altered mentation found to have abnormal LFTs. AST 1961, ALT 1701, ALP 211, normal bilirubin. Leukocytosis with a WBC of 18.8 K. Blood cultures are + forE. Coli and Enterobacter. CT abdomen concerning for acute cholecystitis with biliary dilation. MRCPwith biliary dilation ? CBD stone vs. Artifact, thickening of the right renal pole recommending ultrasound to rule out a mass, and a 2.6 cm lesion in the lumbar vertebral body recommending CT lumbar spine for further evaluation. Seen by surgery and deemed not a good surgical candidate for cholecystectomy. She has been afebrile but does have a leukocytosis. Will plan today for EUS +/- ERCP with Dr. Jackson. If CBD stone seen on EUS will plan for ERCP. If no stone seen may place an axios as well for cholecystitis. Continue IV abx for bacteremia. Will defer to primary team further work up of the renal and lumbar spine lesions. Trend daily LFTs. Would continue to check blood cultures to ensure bacteremia is clearing. I suspect that her significant elevation in LFTs is due to ischemic hepatitis/shock liver in setting of bacteremia. Acute hepatitis panel is negative. Marry Espino DO Gastroenterology and Hepatology documented in this encounter Nursing Notes * Love Anne RN - 07/22/2024 9:19 PM EDT NURSING DISCHARGE PROGRESS NOTE 2019: Discharge paperwork and education provided to patient, daughter, and granddaughter. Understanding verbalized and all questions answered. Outpatient PT referral and axios stent card provided to family. 2037: Patient escorted to family vehicle by this RN via wheelchair. * Saadia Nettles RN - 07/19/2024 4:22 PM EDT IN-HOUSE TRANSFER RECEIVING UNIT - NURSING [address] [address] Name: Val Beverly Location: [facility] [id number]-[id number]/D Date: 07/19/2024 Time: 4:22 PM Patient received to room 60 at 1521 Vital Signs: BP: 139 mmHg/85 mmHg (07/19/24 1620) Pulse: 101 (07/19/24 1620) Resp: 16 (07/19/24 162) Temp: 36.61 C (07/19/24 1620) Temp Summary: Temp Min: 36 °C (96.8 °F) Max: 37.2 °C (99 °F) SpO2: 93 % (07/19/241619) O2 flow rate: Supplemental O2 Delivery: Room Air, None (07/19/241619) Pertinent transfer information upon arrival: Patient was given General anesthesia, EGD performed and axios stent was placed, stomach was found to have gastritis and bx are taken and sent to lab. VS were stable in PACU, daughter is at the bedside and aware of the plan of care. Patient to remain NPO today and advance to CL tomorrow. Belongings received with patient: SCD, ring on the left 4th finger. Verbal SBAR report received from: Patricia Mendosa. Dual Licensed Skin Assessment completed by Saadia Nettles RN and Elen Montejo RN. The patient is/has a N/A Skin Breakdown (includes non blanchable erythema): No * Munira Mendosa RN - 07/19/2024 3:31 PM EDT Post Anesthesia Care Unit Discharge Note [facility] [address] [facility] [place] [address] Dept. Val Beverly Vital Signs Stable Discharged from PACU as per discharge criteria (see discharge criteria sheet). Time: 151 Reported to: Saadia MACK Taken to Inpatient Room 6016, accompanied by Alina Casas Transported via: Bed Belongings with Patient: Not Applicable Prescriptions on Chart: N/A Patient meets criteria to be transferred or discharged * Serina Perez RN - 07/19/2024 2:31 PM EDT EGD/EUS with AXIOS stent placement completed in [facility] OR. Patient tolerated well. Airway patent. 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 Abd soft. Resting with HOB elevated. To PACU via inpatient bed. Report given to PACU nurse. Bedside pre clean of endoscope performed at completion of procedure by Tor Davis RN Specimen verified with provider at end of procedure. * Brittany Petty RN - 07/19/2024 4:[address] Ochoa aware of call from [place] at [facility] lab for + blood cultures gram - baccilli, ecoli. * Brittany Petty RN - 07/19/2024 12:59 AM EDT Dual Licensed Skin Assessment completed by Patricia Petty RN and Viktoriya Aldana. The patient is/has a N/A Skin Breakdown (includes non blanchable erythema): No * Brittany Petty RN - 07/19/2024 12:54 AM EDT IN-HOUSE TRANSFER RECEIVING UNIT - NURSING [address] [facility] [place] [address] Name: aVl Beverly Location: [facility] [id number]-[id number]/D Date: 07/19/2024 Time: 12:54 AM Patient received to room 6016 at 2221 Vital Signs: BP: 154 mmHg/73 mmHg (07/18/242234) Pulse: 80 (07/18/242234) Resp: 16 (07/18/242234) Temp: 36.11 C (07/18/242234) Temp Summary: Temp Min: 36.1 °C (97 °F) Max: 36.1 °C (97 °F) SpO2: 95 % (07/18/242234) O2 flow rate: Supplemental O2 Delivery: Pertinent transfer information upon arrival Pt transferred from stretcher to bed 4 assist. Pt is oriented to self. HR is regular, trace generalized edema noted. Skin is pale with scattered bruising noted. Abdomen is tender in all quadrants, umbilical hernia noted. Strengths are +4 BLE. IV site flushes with no complications. Pt and family oriented to room and call estrada system. Belongings received with patient: See flowsheets Verbal SBAR report received from: [facility] Stark RN documented in this encounter Miscellaneous Notes * Communication - Saadia Aragon RN - 07/22/2024 6:59 PM EDT You have a follow up appointment with Dr. Melanie Ramirez August 01 @ !0:40 am, please arrive [address] Melanie Ramirez [address] [place] [address] [place] [address] You will have to call Gastroenterology [phone] for a follow up appointment. Gastroenterology [phone], [address] [place] * Pt Handout (on AVS) - Saadia Aragon RN - 07/22/2024 6:52 PM EDT [id number] Loperamide Brand Name(s): Imodium®, Imodium® AD, Imotil®, K-Pek II®, Jayant-Paverin®, Kaopectate 1-D®, Maalox® Anti-Diarrheal, Pepto® Diarrhea Control, Imodium® Multi-Symptom Relief (as a combination product containing Loperamide, Simethicone); also available generically IMPORTANT WARNING: Loperamide may cause serious or life-threatening changes in your heart rhythm, especially in peoplewho have taken more than the recommended amount. Tell your doctor if have or have ever had a prolonged QT interval (a rare heart problem that may cause irregular heartbeat, fainting, or sudden ), a slow or irregular heartbeat, or a low level of potassium in your blood. Also tell your doctor ifyou are taking or plan to take any of the following medications: amiodarone (Nexterone, Pacerone), chlorpromazine, haloperidol (Haldol), methadone (Dolophine, Methadose), moxifloxacin (Avelox), pentamidine (Nebupent, Pentam), procainamide, quinidine (in Nuedexta), sotalol (Betapace, Betapace AF), thioridazine, and ziprasidone (Geodon). Your doctor will probably tell you not to take loperamide if you are taking any of these medications or if you have any of these conditions. If you experience any of the following symptoms while taking loperamide, call your doctor immediately or instruct a friend or caregiver to call local emergency services at 911: fast, irregular, or pounding heartbeat; dizziness; lightheadedness; unresponsiveness; or fainting. Taking more than the recommended amount of loperamide can cause heart problems that may be serious or cause . Do not take a larger dose, take it more often, or take it for a longer period of time than prescribed by your doctor or as stated on the package. Loperamide should not be given to a child younger than 2 years of age because of the risk of serious breathing and heart problems. WHY is this medicine prescribed? Nonprescription (rkak-gxj-mpmukny) loperamide is used to control acute diarrhea (loose stools that come on suddenly and usually lasts less than 2 weeks), including travelers' diarrhea. Prescription loperamide is also used to control acute diarrhea and also ongoing diarrhea associated with inflammatory bowel disease (IBD; condition in which the lining of all or part of the intestine is swollen, irritated, or has sores). Prescription loperamide is also used to reduce the amount of fluid in peoplewith ileostomies (surgery to create an opening for waste to leave the body through the abdomen). Loperamide is in a class of medications called antidiarrheal agents. It works by decreasing the flow of fluids and electrolytes into the bowel and by slowing down the movement of the bowel to decrease the number of bowel movements. HOW should this medicine be used? Loperamide comes as a tablet, capsule, and as a suspension or solution (liquid) to take by mouth. Nonprescription (vvqj-cza-pnczvbu) loperamide usually is taken immediately after each loose bowel movement but not more than the 24-hour maximum amount described on the label. Prescription loperamide is sometimes taken on a schedule (one or more times a day). Follow the directions on the package or on your prescription label carefully, and ask your doctor or pharmacist to explain any part you do not understand. Take loperamide exactly as directed. If you are giving loperamide to your child, read the package label carefully to make sure that it is the right product for the age of the child. Loperamide should not be given to a child younger than2 years of age. Check the package label to find out how much medication the child needs. If you know how much your child weighs, give the dose that matches that weight on the chart. If you don't knowyour child's weight, give the dose that matches your child's age. Ask your child's doctor if you don't know how much medication to give your child. If you are taking loperamide liquid, do not use a household spoon to measure your dose. Use the measuring cup that came with the medication or use a spoon made especially for measuring liquid medication. If you are taking loperamide for acute diarrhea and your symptoms get worse or if your diarrhea lasts longer than 48 hours, stop taking this medication and call your doctor. Are there OTHER USES for this medicine? This medication may be prescribed for other uses; ask your doctor or pharmacist for more information. What SPECIAL PRECAUTIONS should I follow? Before taking loperamide, · tell your doctor and pharmacist if you are allergic to loperamide, any other medications, or anyof the ingredients in loperamide products. Check the package label for a list of the ingredients. · tell your doctor and pharmacist what other prescription and nonprescription medications, vitamins, nutritional supplements, and herbal products you are taking or plan to take while taking loperamide. Your doctor may need to change the doses of your medications or monitor you carefully for side effects. · tell your doctor if you have or have ever had ulcerative colitis (condition in which sores develop in the intestines causing pain and diarrhea). or colitis (swelling of the intestine caused by certain bacteria). Also, tell your doctor if you have a fever, blood or mucus in the stool, black stools, or stomach pain without diarrhea. Your doctor will probably tell you not to take loperamide or give it your child if you have one or more of these conditions. · tell your doctor if you have acquired immunodeficiency syndrome (AIDS) or if you have or have ever had liver disease. · tell your doctor and pharmacist if you are , plan to become , or are . If you become while taking loperamide, call your doctor. · you should know that this drug may make you drowsy and dizzy. Do not drive a car or operate machinery until you know how this drug affects you. What SPECIAL DIETARY instructions should I follow? Drink plenty of water or other clear fluids to replace fluids lost while having diarrhea. What should I do IF I FORGET to take a dose? If you are taking scheduled doses of loperamide, take the missed dose as soon as you remember it. However, if it is almost time for the next dose, skip the missed dose and continue your regular dosing schedule. Do not take a double dose to make up for a missed one. What SIDE EFFECTS can this medicine cause? If you or someone taking loperamide experience any of the following symptoms, call your/their doctor immediately or get emergency medical treatment: · rash · red, peeling or blistering skin · hives · itching · wheezing · difficulty breathing · fever · stomach pain or swelling · bloody stools If you experience a serious side effect, you or your doctor may send a report to the Food and Drug Administration's (FDA) MedWatch Adverse Event Reporting program online (https://www.fda.gov/Safety/MedWatch) or by phone ( ). What should I know about STORAGE and DISPOSAL of this medication? Keep this medication in the container it came in, tightly closed, and out of reach of children. Store it at room temperature and away from excess heat and moisture (not in the bathroom). It is important to keep all medication out of sight and reach of children as many containers (such as weekly pill minders and those for eye drops, creams, patches, and inhalers) are not child-resistant and young children can open them easily. To protect young children from poisoning, always lock safety caps and immediately place the medication in a safe location - one that is up and away and out of their sight and reach. https://www.upandaway.org Unneeded medications should be disposed of in special ways to ensure that pets, children, and otherpeople cannot consume them. However, you should not flush this medication down the toilet. Instead,the best way to dispose of your medication is through a medicine take-back program. Talk to your pharmacist or contact your local garbage/recycling department to learn about take-back programs in your community. See the FDA's Safe Disposal of Medicines website (https://goo.gl/c4Rm4p) for more information if you do not have access to a take-back program. What should I do in case of OVERDOSE? In case of overdose, call the poison control helpline at . Information is also available online at https://www.poisonhelp.org/help. If the victim has collapsed, had a seizure, has trouble breathing, or can't be awakened, immediately call emergency services at 541. Symptoms of overdose may include the following: · nausea · inability to urinate · fainting · fast, pounding, or irregular heartbeat · unresponsiveness · confusion · narrowing of the pupils · slow and shallow breathing · shortness of breath What OTHER INFORMATION should I know? Ask your pharmacist any questions you have about taking this medicine. It is important for you to keep a written list of all of the prescription and nonprescription (jcsc-tpp-sbipjjh) medicines you are taking, as well as any products such as vitamins, minerals, or otherdietary supplements. You should bring this list with you each time you visit a doctor or if you areadmitted to a hospital. It is also important information to carry with you in case of emergencies. This report on medications is for your information only, and is not considered individual patient advice. Because of the changing nature of drug information, please consult your physician or pharmacist about specific clinical use. The [employer] represents that the information provided hereunder was formulated with a reasonable standard of care, and in conformity with professional standards in the field. The [employer] makes no representations or warranties, express or implied, including, but not limited to, any implied warranty of merchantability and/or fitness for a particular purpose, with respect to such information and specifically disclaims all such warranties. Users are advised that decisions regarding drug therapy are complex medical decisions requiring the independent, informed decision of an appropriate health career technical education teacher, and the information is provided for informational purposes only. The entire monograph for a drug should be reviewed for a thorough understanding of the drug's actions, uses and side effects. The [employer] does not endorse or recommend the use of any drug.The information is not a substitute for medical care. FS® Patient Medication Information?. © Copyright, 2023. The [employer]®, [address], [address], [place], [place]. All Rights Reserved. Duplication for commercial use must be authorized by [facility]. Selected Revisions: August 09, 2017. FS® Patient Medication Information?. © Copyright, 2024 * Pt Handout (on AVS) - Saadia Aragon RN - 07/22/2024 6:52 PM EDT [id number] Omeprazole Brand Name(s): Prilosec®, Prilosec® OTC, Zegerid® (as a combination product containing Omeprazole, Sodium Bicarbonate), Zegerid® OTC (as a combination product containing Omeprazole, Sodium Bicarbonate), Talicia (as a combination product containing Amoxicillin, Omeprazole, Rifabutin); also available generically WHY is this medicine prescribed? Prescription omeprazole is used alone or with other medications to treat the symptoms of gastroesophageal reflux disease (GERD), a condition in which backward flow of acid from the stomach causes heartburn and possible injury of the esophagus (the tube between the throat and stomach) in adults and children 1 year of age and older. Prescription omeprazole is used to treat damage from GERD in adults and children 1 month of age and older. Prescription omeprazole is used to allow the esophagus to heal and prevent further damage to the esophagus in adults and children 1 year of age and older with GERD. Prescription omeprazole is also used to treat conditions in which the stomach produces too much acid such as Jared-Torres syndrome in adults. Prescription omeprazole is also used to treat ulcers (sores in the lining of the stomach or intestine) and it is also used with other medications to treat and prevent the return of ulcers caused by a certain type of bacteria (H. pylori) in adults.Nonprescription (ntjb-fhf-qnrhifa) omeprazole is used to treat frequent heartburn (heartburn that occurs at least 2 or more days a week) in adults. Omeprazole is in a class of medications called proton-pump inhibitors. It works by decreasing the amount of acid made in the stomach. HOW should this medicine be used? Prescription omeprazole comes as a delayed-release (releases the medication in the intestine to prevent break-down of the medication by stomach acids) capsule, and packets of delayed-release (releases the medication in the intestine to prevent break-down of the medication by stomach acids) granulesfor suspension (to be mixed with liquid) to take by mouth or give through a feeding tube. Nonprescription (wova-dwf-ocwpdlr) omeprazole comes as a delayed-release tablet to take by mouth. Prescription omeprazole is usually taken once a day before a meal but may be taken twice a day when used with other medications to eliminate H. pylori, or up to three times a day, before meals when used to treatconditions in which the stomach produces too much acid. The nonprescription delayed-release tabletsare usually taken once a day in the morning at least 1 hour before eating for 14 days in a row. If needed, additional 14-day treatments may be repeated, not more often than once every 4 months. To help you remember to take omeprazole, take it at around the same time(s) every day. Follow the directions on your prescription label or the package label carefully, and ask your doctor or pharmacist to explain any part you do not understand. Take omeprazole exactly as directed. Do not take more or less of it or take it more often or for a longer period of time than prescribed by your doctor or stated on the package. If you are taking the delayed-release tablets, swallow them whole with a full glass of water. Do not split, chew, or crush them or crush and mix them into food. Swallow the delayed-release capsules whole. If you have difficulty swallowing the delayed-release capsules, place one tablespoon of soft, cool applesauce in an empty bowl. Open the delayed-release capsule and carefully empty all the granules inside the capsule onto the applesauce. Mix the granules with the applesauce and swallow the mixture immediately with a glass of cool water. Do not chew or crush the granules. Do not store the applesauce/granule mixture for future use. If you are taking the granules for oral suspension, you will need to mix it with water before use. If you are using the 2.5-mg packet, place 1 teaspoonful (5 mL) of water in a container. If you are using the 10-mg packet, place 1 tablespoonful (15 mL) of water in a container. Add the contents of the powder packet and stir. Wait 2 to 3 minutes to allow the mixture to thicken, and stir the mixture again. Drink the entire mixture within 30 minutes. If any of the mixture is stuck to the container, pour more water into the container, stir and drink all the mixture immediately. The granules for oral suspension can be given through a feeding tube. If you have a feeding tube, ask your doctor how you should take the medication. Follow the directions carefully. Do not take nonprescription omeprazole for immediate relief of heartburn symptoms. It may take 1 to4 days for you to feel the full benefit of the medication. Call your doctor if your symptoms get worse or do not improve after 14 days or if your symptoms return sooner than 4 months after you finishyour treatment. Do not take nonprescription omeprazole for longer than 14 days or treat yourself with omeprazole more often than once every 4 months without talking to your doctor. Continue to take prescription omeprazole even if you feel well. Do not stop taking prescription omeprazole without talking to your doctor. If your condition does not improve or gets worse, call your doctor. Ask your pharmacist or doctor for a copy of the traffic attendant's information for the patient. Are there OTHER USES for this medicine? This medication may be prescribed for other uses; ask your doctor or pharmacist for more information. What SPECIAL PRECAUTIONS should I follow? Before taking omeprazole, · tell your doctor and pharmacist if you are allergic to omeprazole, dexlansoprazole (Dexilant), esomeprazole (Nexium), lansoprazole (Prevacid), pantoprazole (Protonix), rabeprazole (Aciphex), any other medications, or any of the ingredients in the omeprazole product you will be taking. Ask your ph armacist or check the package label for a list of the ingredients. · Some medications should not be taken with omeprazole. Other medications may cause dosing changesor extra monitoring when taken with omeprazole. Make sure you have discussed any medications you are currently taking or plan to take before starting omeprazole with your doctor and pharmacist. Before starting, stopping, or changing any medications while taking omeprazole, please get the advice of your doctor or pharmacist. · The following nonprescription or herbal products may interact with omeprazole: iron supplements,[place]'s wort. Be sure to let your doctor and pharmacist know that you are taking these medications before you start taking omeprazole. Do not start any of these medications while taking omeprazolewithout discussing with your healthcare provider. · if you plan to take nonprescription omeprazole, tell your doctor if your heartburn has lasted 3 months or longer, if you have taken nonprescription omeprazole for a longer period of time than stated on the package, or if you have experienced any of the following symptoms: lightheadedness, sweating, or dizziness along with your heartburn; chest pain or shoulder pain; shortness of breath or wheezing; pain that spreads to your arms, neck, or shoulders; unexplained weight loss; nausea; vomiting,especially if the vomit is bloody; stomach pain; difficulty swallowing food or pain when you swallow food; or black or bloody stools. You may have a more serious condition that cannot be treated withnonprescription medication. · tell your doctor if you are of descent and if you have or have ever had a low level of magnesium, calcium, or potassium in your blood; hypoparathyroidism (condition in which the body does not produce enough parathyroid hormone [PTH; a natural substance needed to control the amount of calcium in the blood]); low levels of vitamin B12 in your body; osteoporosis (a condition in which the bones become thin and weak and break easily); an autoimmune disease (condition in which the body attacks its own organs, causing swelling and loss of function) such as systemic lupus erythematosus; or liver disease. What SPECIAL DIETARY instructions should I follow? Unless your doctor tells you otherwise, continue your normal diet. What should I do IF I FORGET to take a dose? Take the missed dose as soon as you remember it. However, if it is almost time for the next dose, skip the missed dose and continue your regular dosing schedule. Do not take a double dose to make up for a missed one. What SIDE EFFECTS can this medicine cause? Some side effects can be serious. If you experience any of these symptoms, call your doctor immediately, or get emergency medical help: · blisters, peeling, or bleeding skin; sores on the lips, nose, mouth, or genitals; swollen glands; shortness of breath; fever; or flu-like symptoms · rash; hives; itching; swelling of the eyes, face, lips, mouth, throat, or tongue; difficulty breathing or swallowing; or hoarseness · irregular, fast, or pounding heartbeat; muscle spasms; uncontrollable shaking of a part of the body; excessive tiredness; lightheadedness; dizziness; or seizures · severe diarrhea with watery stools, stomach pain, or fever that does not go away · new or worsening joint pain; rash on cheeks or arms that is sensitive to sunlight · increased or decreased urination, blood in urine, fatigue, nausea, loss of appetite, fever, rash, or joint pain People who take proton pump inhibitors such as omeprazole may be more likely to fracture their wrists, hips, or spine than people who do not take one of these medications. People who take proton pumpinhibitors may also develop fundic gland polyps (a type of growth on the stomach lining). These risks are highest in people who take high doses of one of these medications or take them for one year or longer. Talk to your doctor about the risk of taking omeprazole. Omeprazole may cause other side effects. Call your doctor if you have any unusual problems while taking this medication. If you experience a serious side effect, you or your doctor may send a report to the Food and Drug Administration's (FDA) MedWatch Adverse Event Reporting program online (https://www.fda.gov/Safety/MedWatch) or by phone ( ). What should I know about STORAGE and DISPOSAL of this medication? Keep this medication in the container it came in, tightly closed, and out of reach of children. Store it at room temperature and away from light, excess heat, and moisture (not in the bathroom). It is important to keep all medication out of sight and reach of children as many containers (such as weekly pill minders and those for eye drops, creams, patches, and inhalers) are not child-resistant and young children can open them easily. To protect young children from poisoning, always lock safety caps and immediately place the medication in a safe location - one that is up and away and out of their sight and reach. https://www.[employer].org Unneeded medications should be disposed of in special ways to ensure that pets, children, and otherpeople cannot consume them. However, you should not flush this medication down the toilet. Instead,the best way to dispose of your medication is through a medicine take-back program. Talk to your pharmacist or contact your local garbage/recycling department to learn about take-back programs in your community. See the FDA's Safe Disposal of Medicines website (https://goo.gl/c4Rm4p) for more information if you do not have access to a take-back program. What should I do in case of OVERDOSE? In case of overdose, call the poison control helpline at . Information is also available online at https://www.poisonhelp.org/help. If the victim has collapsed, had a seizure, has trouble breathing, or can't be awakened, immediately call emergency services at 911. Symptoms of overdose may include the following: · confusion · drowsiness · blurred vision · fast or pounding heartbeat · nausea · vomiting · sweating · flushing (feeling of warmth) · headache · dry mouth What OTHER INFORMATION should I know? Keep all appointments with your doctor and the laboratory. Your doctor may order certain laboratorytests before and during your treatment. Before having any laboratory test, tell your doctor and the laboratory personnel that you are taking omeprazole. Do not let anyone else take your medication. If you are taking prescription omeprazole, ask your pharmacist any questions you have about refilling your prescription. It is important for you to keep a written list of all of the prescription and nonprescription (iiqj-kqh-buaxsmq) medicines you are taking, as well as any products such as vitamins, minerals, or otherdietary supplements. You should bring this list with you each time you visit a doctor or if you areadmitted to a hospital. It is also important information to carry with you in case of emergencies. This report on medications is for your information only, and is not considered individual patient advice. Because of the changing nature of drug information, please consult your physician or pharmacist about specific clinical use. The [employer] represents that the information provided hereunder was formulated with a reasonable standard of care, and in conformity with professional standards in the field. The [employer] makes no representations or warranties, express or implied, including, but not limited to, any implied warranty of merchantability and/or fitness for a particular purpose, with respect to such information and specifically disclaims all such warranties. Users are advised that decisions regarding drug therapy are complex medical decisions requiring the independent, informed decision of an appropriate health career technical education teacher, and the information is provided for informational purposes only. The entire monograph for a drug should be reviewed for a thorough understanding of the drug's actions, uses and side effects. The [employer] does not endorse or recommend the use of any drug.The information is not a substitute for medical care. FS® Patient Medication Information?. © 2023. The [employer]®, [address], [address], [place], [place]. All Rights Reserved. Duplication for commercial use must be authorized by [facility]. Selected Revisions: March 11, 2023. AHFS® Patient Medication Information?. © 2024 * Pt Handout (on AVS) - Saadia Aragon RN - 07/22/2024 6:52 PM EDT Images from the original note were not included. 55365 Preventing a Surgical Site Infection A risk of any surgery is an infection at the surgical site. The surgical site is a cut the surgeon makes in the skin to do the surgery. Surgical site infections can range in type. It may be a minor skin infection. Or it may be severe and include tissue under the skin or other organs. In some cases,a severe infection can cause . The information below tells you: · About surgical site infections. · What hospitals do to prevent them. · How they?re treated if they do occur. · What you can do to prevent an infection. Hand washing reduces the risk of infection. What causes a surgical site infection? Germs are everywhere. They?re on your skin, in the air, and on things you touch. Many germs are good. Some are harmful. Surgical site infections occur when harmful germs enter your body through the incision in your skin. Some infections are caused by germs that are in the air or on objects. But most are caused by germs found on and in your own body. Who is at risk for a surgical site infection? Anyone can have a surgical site infection. Your risk is higher if you: · Are an older adult. · Have a weak immune system. · Have other health conditions such as diabetes. · Take certain medicines, such as steroids. · Are a smoker. · Have certain types of surgery, such as abdominal surgery. · Have poor nutrition. · Are very overweight. · Have a surgery that lasts longer than 2 hours. What are the symptoms of a surgical site infection? An infection often shows up as skin redness, pain, and swelling around the incision that gets worse. Later, a cloudy or greenish-yellow fluid may come from the incision. The fluid may smell bad. The incision may pull apart or open up. You are likely to have a fever and may feel very ill. Symptoms can appear at any time. They may happen from hours to weeks after surgery. Implants such as an artificial knee or hip can become infected at any time after the surgery. How is a surgical site infection treated? · A surgical site infection is treated with antibiotics. The type of medicine you get will depend on what may be causing the infection. Most serious wound infections need wound care. In some cases, surgery may be needed on the infected wound. · An infected skin wound may be reopened and cleaned. A deep wound may need to be packed with gauze. The gauze is changed often until the wound starts to heal from the inside out. Your health care provider will decide the best way to treat your infection. · If an infection occurs where an implant is placed, the implant may be removed. · If you have an infection deeper in your body, you may need surgery to treat it. What hospitals do to prevent surgical site infections Many hospitals take these steps to help prevent surgical site infections: · Handwashing. Before the surgery, your surgeon and all surgery staff scrub their hands and arms with an antiseptic soap. · Clean skin. The site where your incision is made is carefully cleaned with an antiseptic solution. · Sterile clothing and drapes. The surgical team wears medical uniforms. These are known as scrub suits. They wear long-sleeved surgical gowns, masks, caps, shoe covers, and sterile gloves. Your body is fully covered with a large sterile sheet (sterile drape). There is an opening in the sheet where the incision is made. · Clean air. Operating rooms have special air filters. They use positive pressure airflow to prevent unfiltered air from entering the room. · Careful use of antibiotics. Antibiotics are given no more than 60 minutes before the incision ismade. They are generally stopped within 24 hours after surgery. This depends on the type of surgery. This helps kill germs but prevents problems that can occur when antibiotics are taken longer. · Controlled blood sugar levels. Your blood sugar level may rise. This can be because of the stress of the surgery. Your blood sugar level is watched closely to make sure it stays within a normal range. High blood sugar delays wound healing. This increases the risk of infection. · Controlled body temperature. A ncfix-phzb-aschaa temperature during or after surgery prevents oxygen from reaching the wound. This makes it harder for your body to fight infection. Hospitals may warm I.V. fluids, and provide warm-air blankets. Your temperature is watched throughout the surgery. · Safe hair removal. Any hair that must be removed is clipped right before the incision, not shaved with a razor. This prevents tiny nicks and cuts where germs can enter. · Wound care. After surgery, a closed wound is covered with a sterile dressing for 1 to 2 days. Open wounds are packed with sterile gauze and covered with a sterile dressing. What you can do to prevent a surgical site infection · Ask questions. Learn what your hospital is doing to prevent infection. · If instructed, shower or bathe with plain soap the night before and the day of your surgery. Follow all instructions you're given. You may be asked to use a special cleanser that you don?t rinse off. · If you smoke, stop as long as possible before and after the surgery. Ask your provider about ways to quit. · Take antibiotics only when your provider tells you to. Using antibiotics when they?re not neededcan create germs that are harder to kill. Finish the entire prescription of your antibiotics even if you feel better. · Ask health care workers to clean their hands with plain soap and water or with an alcohol-based hand bottom brusher before and after caring for you. Don?t be afraid to remind them. · After surgery, eat healthy foods. Care for your incision as directed by your health care team. When to contact your doctor Contact your provider or seek medical care right away if: · The pain at the surgical site gets worse. · A red streak, worse redness, or puffiness appears near the incision. · Yellowish, cloudy, or bad-smelling fluid leaks from the incision. · Your stitches dissolve before the wound heals. · You have a fever of 100.4° F ( 38°C ) or higher, or as advised by your provider. · You have a tired feeling that doesn?t go away. Last Reviewed Date: 2024 00:00:00 © [employer]. All rights reserved. This information is not intended as a substitute for professional medical care. Always follow your healthcare professional's instructions. * Pt Handout (on AVS) - Saadia Aragon RN - 07/22/2024 6:52 PM EDT Images from the original note were not included. 62201 ERCP (Endoscopic Retrograde Cholangiopancreatography) ERCP stands for endoscopic retrograde cholangiopancreatography. This procedure is used to view the biliary and pancreatic ducts. It's used to check diseases that affect the biliary and pancreatic ducts. It can also help find and treat any blockages. How to say it [id number] How do I get ready for ERCP? · Talk with your healthcare provider about any health problems or allergies you have. · Ask your healthcare provider about the risks of ERCP. These include: o Pancreatitis o Infection o Bleeding o Tears in the bowel · You may be asked to take antibiotics ahead of time. · Don't take blood-thinning medicines before ERCP, as advised by your healthcare provider. · Don't eat or drink for 8 to 12 hours before ERCP. · Have someone ready to take you home. · Be sure your healthcare provider knows about all medicines you take. You may be told to stop taking some or all of them before the test. This includes: o All prescription medicines o Ngjf-noe-qaeyyrw medicines that don?t need a prescription o Any illegal drugs you may use o Herbs, vitamins, kelp, seaweed, cough syrups, and other supplements What happens during the procedure? A balloon at the tip of a catheter opens above the stone. The stone is pulled out of the duct and leaves your body through stool. · You will be given medicine through an IV (intravenous line) to help you relax. · Your throat is numbed. · A thin tube (endoscope) is placed into your throat. It's moved down your throat through the upper digestive tract to the common bile duct opening. The endoscope lets the healthcare provider see the common bile and pancreatic ducts on a video screen. · A cut may be made where the common bile duct opens to the first part of the small intestine (duodenum). This makes it easier to remove stones. · As blockages are found and taken out, X-rays are taken. · Contrast dye is injected through a catheter. This makes the duct show up better on the X-rays. · An imaging technique called fluoroscopy is done. It uses X-rays to get real- time moving images of internal organs. It's used to watch and guide progress of the ERCP. · In some cases, a plastic tube (stent) is placed to hold the ducts open. This stent may be replaced or taken out in 6 to 8 weeks. Or it may be left to fall out on its own. It will then pass in the stool. After the procedure Your healthcare provider may talk with you about the test results right away. Or you may need to schedule a return visit. Depending on your health problem and the test results, you may go home the same day. Or you may have to spend the night in the hospital. If you are sent home, follow these guidelines: · Unless told otherwise by your healthcare provider, you can go back to a normal routine the day after the ERCP. · If a cut was made in the duct, don't take blood-thinning medicines such as aspirin for 5 to 7 days, or as advised by your healthcare provider. · Call your healthcare provider right away if you have a fever or belly pain. These may be signs of an infection or a tear in your bowel. Last Reviewed Date: 2022 00:00:00 © 4039-5865 [employer]. All rights reserved. This information is not intended as a substitute for professional medical care. Always follow your healthcare professional's instructions. * Pt Handout (on AVS) - Saadia Aragon RN - 07/22/2024 6:52 PM EDT [id number] Discharge Instructions for ERCP (Endoscopic Retrograde Cholangiopancreatography) You had a procedure known as an ERCP. Your healthcare provider performed the ERCP to look at your bile or pancreatic ducts, and to locate and treat blockages in the ducts. This procedure is used to diagnose diseases of the pancreas, bile ducts, and pancreatic duct, liver, and gallbladder. Here?s what you need to do after your ERCP. Home care · Don?t take aspirin or any other blood-thinning medicines (anticoagulants) until your healthcare provider says it?s OK. · Your healthcare provider may prescribe an antibiotic, depending on what was done during the ERCP. · You may have a sore throat for 1 to 2 days after the procedure. Use lozenges or gargle with saltwater for your sore throat. If you're not better in a few days, call your healthcare provider. · Rest, drink fluids, and eat light meals. If you feel bloated or have too much gas, use a heatingpad on your belly to help reduce the discomfort. This should help you feel better. But if it doesn't, call your healthcare provider. · Don?t drink alcohol for 2 days after the procedure. · Don't drive for 24 hours after the procedure. · Follow your healthcare provider's advice about when to return to your normal routine. Follow-up care Make a follow-up appointment as directed by our staff. When to call your healthcare provider Call your healthcare provider right away if any of the following occur: · Black or tarry stools · Fever of 100.4°F (38°C) or higher, or as directed by your healthcare provider · Chills · Trouble swallowing or throat pain that gets worse · Upset stomach (nausea) and vomiting Call 911 if you have chest pain or severe belly pain Last Reviewed Date: 2022 00:00:00 © [employer]. All rights reserved. This information is not intended as a substitute for professional medical care. Always follow your healthcare professional's instructions. * Pt Handout (on AVS) - Saadia Aragon RN - 07/22/2024 6:52 PM EDT [id number] Amoxicillin and Clavulanic Acid Brand Name(s): Augmentin® (as a combination product containing Amoxicillin, Clavulanate), Augmentin® XR (as a combination product containing Amoxicillin, Clavulanate); also available generically WHY is this medicine prescribed? The combination of amoxicillin and clavulanic acid is used to treat certain infections caused by bacteria, including infections of the ears, lungs, sinus, skin, and urinary tract. Amoxicillin is in aclass of medications called penicillin-like antibiotics. It works by stopping the growth of bacteria. Clavulanic acid is in a class of medications called beta-lactamase inhibitors. It works by preventing bacteria from destroying amoxicillin. Antibiotics will not work for colds, flu, or other viral infections. Using antibiotics when they are not needed increases your risk of getting an infection later that resists antibiotic treatment. HOW should this medicine be used? The combination of amoxicillin and clavulanic acid comes as a tablet, a chewable tablet, and a suspension (liquid) to take by mouth. It is usually taken with a meal or snack every 8 hours (three times a day) or every 12 hours (twice a day). To help you remember to take amoxicillin and clavulanate, take it around the same times every day. Follow the directions on your prescription label carefully,and ask your doctor or pharmacist to explain any part you do not understand. Take amoxicillin and clavulanic acid exactly as directed. Do not take more or less of it or take it more often than prescribed by your doctor. Shake the liquid well before each use to mix the medication evenly. The chewable tablets should be chewed thoroughly before they are swallowed. You should begin to feel better during the first few days of treatment with amoxicillin and clavulanic acid. If your symptoms do not improve or get worse, call your doctor. If you are taking the suspension, do not use a household spoon to measure your dose. Use a properlymarked measuring device such as a medicine spoon or oral syringe. Ask your doctor or pharmacist if you need help getting or using a measuring device. Take amoxicillin and clavulanic acid until you finish the prescription, even if you feel better. Ifyou stop taking amoxicillin and clavulanic too soon, or skip doses, your infection may not be completely treated and the bacteria may become resistant to antibiotics. Are there OTHER USES for this medicine? This medication may be prescribed for other uses; ask your doctor or pharmacist for more information. What SPECIAL PRECAUTIONS should I follow? Before taking amoxicillin and clavulanic acid, · tell your doctor and pharmacist if you are allergic to amoxicillin, clavulanic acid, penicillin,cephalosporins, any other medications, or any of the ingredients in amoxicillin and clavulanic acidtablet, chewable tablet, and oral suspension. Ask your pharmacist for a list of the ingredients. · tell your doctor and pharmacist what prescription and nonprescription medications, vitamins, nutritional supplements, and herbal products you are taking. Your doctor may need to change the doses of your medications or monitor you carefully for side effects. · You should know that amoxicillin and clavulanic acid may decrease the effectiveness of oral contraceptives ( control pills). You will need to use another method of contraception to prevent while taking amoxicillin and clavulanic acid. Talk to your doctor about other ways to prevent while you are taking this medication. · tell your doctor if you have ever had any liver problems after you have previously taken amoxicillin and clavulanic acid. Your doctor may tell you not to take amoxicillin and clavulanic acid. · tell your doctor if you have mononucleosis (a virus; also called 'mono') and if you have or haveever had kidney or liver disease, allergies, asthma, hay fever, or hives. · tell your doctor if you are , plan to become , or are . If you become while taking amoxicillin and clavulanic acid, call your doctor. · if you have phenylketonuria (PKU, an inherited condition in which a special diet must be followed to prevent damage to your brain that can cause severe intellectual disability), you should know that amoxicillin and clavulanic acid chewable tablets and oral suspension are sweetened with aspartamethat forms phenylalanine. What SPECIAL DIETARY instructions should I follow? Unless your doctor tells you otherwise, continue your normal diet. What should I do IF I FORGET to take a dose? Take the missed dose as soon as you remember it. However, if it is almost time for the next dose, skip the missed dose and continue your regular dosing schedule. Do not take a double dose to make up for a missed one. What SIDE EFFECTS can this medicine cause? Some side effects can be serious. If you experience any of the following symptoms, call your doctorimmediately: · watery or bloody stools, stomach cramps, or fever during treatment or for up to two or more months after stopping treatment · severe vomiting that may occur 1 to 4 hours after you take amoxicillin and clavulanic acid · rash · itching · hives · difficulty breathing or swallowing · swelling of the face, throat, tongue, lips, and eyes · wheezing · peeling, blistering, or shedding skin · a return of fever, sore throat, chills, or other signs of infection · yellowing of the skin or eyes, pain or discomfort in right upper stomach area, fatigue, loss of appetite, bleeding or bruising more easily than normal, or dark urine Amoxicillin and clavulanic acid may cause other side effects. Call your doctor if you have any unusual problems while taking this medication. If you experience a serious side effect, you or your doctor may send a report to the Food and Drug Administration's (FDA) MedWatch Adverse Event Reporting program online (https://www.fda.gov/Safety/MedWatch) or by phone ( ). What should I know about STORAGE and DISPOSAL of this medication? Keep this medication in the container it came in, tightly closed, and out of reach of children. Store the tablets at room temperature and away from excess heat and moisture (not in the bathroom). Keep liquid medication in the refrigerator, tightly closed, and dispose of any unused medication after 10 days. It is important to keep all medication out of sight and reach of children as many containers (such as weekly pill minders and those for eye drops, creams, patches, and inhalers) are not child-resistant and young children can open them easily. To protect young children from poisoning, always lock safety caps and immediately place the medication in a safe location - one that is up and away and out of their sight and reach. https://www.upandaway.org Unneeded medications should be disposed of in special ways to ensure that pets, children, and otherpeople cannot consume them. However, you should not flush this medication down the toilet. Instead,the best way to dispose of your medication is through a medicine take-back program. Talk to your pharmacist or contact your local garbage/recycling department to learn about take-back programs in your community. See the FDA's Safe Disposal of Medicines website (https://goo.gl/c4Rm4p) for more information if you do not have access to a take-back program. What should I do in case of OVERDOSE? In case of overdose, call the poison control helpline at . Information is also available online at https://www.poisonhelp.org/help. If the victim has collapsed, had a seizure, has trouble breathing, or can't be awakened, immediately call emergency services at 911. Symptoms of overdose may include the following: · cloudy or bloody urine · decreased urination What OTHER INFORMATION should I know? Keep all appointments with your doctor and the laboratory. Your doctor may order certain lab tests to check your body's response to amoxicillin and clavulanic acid. If you are diabetic, use Clinistix or TesTape (not Clinitest) to test your urine for sugar while taking this medication. Do not let anyone else take your medication. Your prescription is probably not refillable. If you still have symptoms of infection after you finish the amoxicillin and clavulanic acid, call your doctor. It is important for you to keep a written list of all of the prescription and nonprescription ([id number]) medicines you are taking, as well as any products such as vitamins, minerals, or otherdietary supplements. You should bring this list with you each time you visit a doctor or if you areadmitted to a hospital. It is also important information to carry with you in case of emergencies. This report on medications is for your information only, and is not considered individual patient advice. Because of the changing nature of drug information, please consult your physician or pharmacist about specific clinical use. The [employer] represents that the information provided hereunder was formulated with a reasonable standard of care, and in conformity with professional standards in the field. The [employer] makes no representations or warranties, express or implied, including, but not limited to, any implied warranty of merchantability and/or fitness for a particular purpose, with respect to such information and specifically disclaims all such warranties. Users are advised that decisions regarding drug therapy are complex medical decisions requiring the independent, informed decision of an appropriate health career technical education teacher, and the information is provided for informational purposes only. The entire monograph for a drug should be reviewed for a thorough understanding of the drug's actions, uses and side effects. The [employer] does not endorse or recommend the use of any drug.The information is not a substitute for medical care. FS® Patient Medication Information?. © Copyright, 2023. The [employer]®, [address], [address], [place], [place]. All Rights Reserved. Duplication for commercial use must be authorized by [facility]. Selected Revisions: November 14, 2023. AHFS® Patient Medication Information?. © 2024 * Ancillary Progress Note - Hyun Valdes Provider Relations Consultant - 07/22/2024 5:11 PM EDT CM received a TT from re: contacting pt's daughter Kristina for discharge and HH. CM called and spoke to Kristina re: HH services. Kristina voicing that she felt that the last time theyhad HH, the HH agency was difficult to work with. They also didn't feel that they were beneficial. CM offered OP PT. CM reviewed PT/OT notes d/t Kristina asking why these services were needed. CM reviewed that pt was medically ready for discharge and CM wanted to discuss discharge transportation. Pt's daughter voiced that no one was able to provide transport this evening. CM reviewed that they could set transport up for am, but CM couldn't guarantee that the insurance would cover the overnight stay d/t pt being medically ready. Pt's daughter voiced her displeasure and voiced that she would discuss with other family members. Kristina also voiced that she would let staff know if they wanted HH orOP PT when they came. CM provided Kristina with unit phone number, so she would be able to contact them with any questions and to let them know when they would be providing transport for pt. Staff would then have the paperwork ready for them when they got to the floor. Pt's daughter also expressed displeasure about pain medication regiment while at [facility]. CM reviewed that she would pass information onto the doctor. CM updated floor staff and on above information. * Ancillary Progress Note - Brayan Centeno PTA - 07/22/2024 10:43 AM EDT PROGRESS NOTE - Physical Therapy [facility]-[address] [address] Name: Val Beverly Location: [facility] [id number] Date: 07/22/2024 Time: 1042 Vla Beverly is a/an 88 year old female. Patient Status: Inpatient Insurance: Payor: MEDICARE Plan: MEDICARE A AND B Product Type: *No Product type* Payor: BRITTANI FALCON ([facility]) Plan: [facility] ScalingData Product Type: *No Product type* Patient Seen: at bedside, nursing cleared patient for therapy Patient Identified By: Name, ID Band and Date Diagnosis: acute cholecystitis, weakness (07/19/24 103) Status of treatment: Treatment completed (07/22/241042) Orders: PT evaluation and treatment (07/19/241029) Weight Bearing Status: Weight bearing as tolerated (07/22/241042) Precautions: Safety;Falls;Alarms;Isolation (07/22/241042) Total Treatment Time--free text: 25 mins (07/22/241042) Subjective: "Im supposed to go home. But nobody called yet" Pain: No complaints of pain P.T. Bed Mobility Sidelying-Sit: Moderate Assistance (07/21/24 0940) Supine-Sit: Moderate Assistance (07/21/24 0940) Transfers Sit-Stand: Moderate Assistance (07/21/24 0940) Stand-Sit: Minimal Assistance (07/21/24 0940) W/C-Bed/Mat: Moderate Assistance (07/21/24 0940) Ambulation: No GT Balance Sit (Static): Good (07/19/24 1030) Sit (Dynamic): Good (07/19/24 1030) Stand (Static): Fair (07/19/24 1030) Stand (Dynamic): Fair (07/19/24 1030) Patient and or Family Goal(s): to get well and to return home Topic of Education: Safety with mobility and Fall prevention Method of Education: Demonstrated the above task to pt: verbalized understanding and or agreement of this information and demonstrated the exercise and or task Treatment Provided: Therapeutic Exercises: 25 minutes Alarm Status Patient positioned in: Chair (07/22/241042) With: Pressure pad alarm intact and functioning and call estrada in reach (07/22/241042) Patient Education Review of Precautions: Safety;Fall (07/22/24 104) Review of Exercises: Pt Demonstrated Exercise;Verbal Exercises Provided (07/22/241042) Safety Awareness: Patient does not verbalize insight of current deficits;Patient does not demonstrates carryover of insight during functional tasks;Patient can communicate basic needs;Needs cueing supervision (07/22/241042) Preferred learning method: Combination (07/19/241029) Barriers to learning: Medical Status;Cognition (07/19/241029) Method of Education: Verbalized to patient;Demonstrated to patient (07/19/241029) Assessment: Pt tolerated tx fair with no reported pain or SOB post tx session. Pt did report feeling fatigued post tx session. Pt performed seated exercises in the chair to increase strength and ROM to improve functional mobility. Pt required cuing and assist to initiate several of the exercises. Pt left sitting up in the chair with feet elevated to comfort. No needs post tx session. Pt instructed to not get up without assistance. Deficits requiring P.T. treatment needs: Safety;Mobility;Balance;Lower extremity strength () Equipment needs: Rolling walker (07/19/241029) Plan: Continue with current treatment plan established on evaluation. AM PAC Score with Stairs: 12 * Diagnostic Clarification - Vianney Salazar MD - 07/21/2024 2:18 PM EDT The patient has been diagnosed with metabolic encephalopathy. The patient has been diagnosed with sepsis. * Ancillary Progress Note - Fawn Cordova RN - 07/21/2024 12:09 PM EDT CARE MANAGEMENT - ADULT TRANSITION NOTE [facility]-[address] [address] Name: Val Beverly Location: [facility] [id number] Date: 07/21/2024 Time: 12:09 PM Risk Stratification Risk Stratification Psycho Social / Medical Concerns Identified: Adjustment to illness/injury (07/20/24 134) Accessed Neighborly to connect patients to social care resources: No (07/20/241346) OBRA or OPTIONS needed for placement: No (07/20/241346) Readmission Risk Score: 12.85 (07/21/24 1201) AM-PAC Score With Stairs : 14 (07/21/24 0940) Caregiver Information Emergency Contacts None on File Other Contacts Name Relation Home Work Mobile ODBULIA MARADIAGA Adult Child [phone] STANLEY BEVERLY Adult Child [phone] Kristina Beverly Adult Child [phone] Bernardo Beverly Adult Child [phone] Transition of Care Checklist Narrative: Discussed during IDT. No anticipated DC at this time. CM will continue to follow for DC needs. Anticipated Transportation at Discharge: family Patient/Family Expectations: home with son and daughter in law Transition Planning Additional Considerations: Care Management will continue to monitor and assist with discharge planning needs * Ancillary Progress Note - Linh Harley OT - 07/21/2024 10:20 AM EDT OT checked on pt at 1020. Pt in chair sleeping. Would open eyes in response to verbal/tactile stimuli then immediately return to sleeping. Unable to follow directions or maintain arousal for OT eval at this time. RN aware. Consult will be attempted at a later time or date dependent on schedule, pt tolerance, and pt medical status. * Ancillary Progress Note - Brayan Centeno PTA - 07/21/2024 9:40 AM EDT PROGRESS NOTE - Physical Therapy [facility]-[address] [address] Name: Val Beverly Location: [facility] [id number] Date: 07/21/2024 Time: 939 Val Beverly is a/an 88 year old female. Patient Status: Inpatient Insurance: Payor: MEDICARE Plan: MEDICARE A AND B Product Type: *No Product type* Payor: [facility] Plan: [facility] Jianjian [place] Product Type: *No Product type* Patient Seen: at bedside, nursing cleared patient for therapy Patient Identified By: Name, ID Band and Date Diagnosis: acute cholecystitis, weakness (07/19/24 1030) Status of treatment: Treatment completed (07/21/24939) Orders: PT evaluation and treatment (07/19/241029) Weight Bearing Status: Weight bearing as tolerated (07/21/24939) Precautions: Safety;Falls;Alarms;Isolation (07/21/24939) Total Treatment Time--free text: 23 mins (07/21/24939) Subjective: "ok" Pain: No complaints of pain P.T. Bed Mobility Sidelying-Sit: Moderate Assistance (07/21/24939) Supine-Sit: Moderate Assistance (07/21/24939) Transfers Sit-Stand: Moderate Assistance (07/21/24939) Stand-Sit: Minimal Assistance (07/21/24939) W/C-Bed/Mat: Moderate Assistance (07/21/24939) Ambulation: Distance ambulated (feet): 25 Assistive Device: Rolling walker Assist: Minimal Assistance Balance Sit (Static): Good (07/19/24 1030) Sit (Dynamic): Good (07/19/24 1030) Stand (Static): Fair (07/19/24 1030) Stand (Dynamic): Fair (07/19/24 1030) Patient and or Family Goal(s): unable to obtain Topic of Education: Safety with mobility, Use of assistive device, and Fall prevention Method of Education: Demonstrated the above task to pt: had reduced level of understanding due to confusion Treatment Provided: Therapeutic Activities 10 minutes: bed mobility training transfer training Gait Training 13 minutes: gait training with rolling walker Alarm Status Patient positioned in: Chair (07/21/24939) With: Pressure pad alarm intact and functioning and call estrada in reach (07/21/24939) Patient Education Review of Precautions: Safety;Fall (07/21/24939) Safety Awareness: Patient does not verbalize insight of current deficits;Patient does not demonstrates carryover of insight during functional tasks;Patient cannot communicate basic needs (07/21/24 0940) Preferred learning method: Combination (07/19/241029) Barriers to learning: Medical Status;Cognition (07/19/241029) Method of Education: Verbalized to patient;Demonstrated to patient (07/19/241029) Assessment: Pt tolerated tx fair however required more assist with bed mobility and STS today than during previous session. Pt fatigues easily and is unsteady and unsafe to transfer or ambulate without assistance. Pt again was incontinent of BM during session in bed and was cleaned by this worker before ambulating to the chair. Pt was left sitting up in the chair with feet elevated and bedside table in front of pt. No needs post tx session. Pt instructed to not get up without assistance. AMPAC decreased from 15 to 14 today Deficits requiring P.T. treatment needs: Safety;Mobility;Balance;Lower extremity strength () Equipment needs: Rolling walker (07/19/241029) Plan: Continue with current treatment plan established on evaluation. AM PAC Score with Stairs: 14 * Ancillary Progress Note - Brayan Centeno PTA - 07/20/2024 2:00 PM EDT PROGRESS NOTE - Physical Therapy [facility]-[address] [address] Name: Val Beverly Location: [facility] [id number]/D Date: 07/20/2024 Time: 1399 Val Beverly is a/an 88 year old female. Patient Status: Inpatient Insurance: Payor: MEDICARE Plan: MEDICARE A AND B Product Type: *No Product type* Payor: Jianjian [facility] Plan: [facility] ScalingData Product Type: *No Product type* Patient Seen: at bedside, nursing cleared patient for therapy Patient Identified By: Name, ID Band and Date Diagnosis: acute cholecystitis, weakness (07/19/24 103) Status of treatment: Treatment completed (07/20/24 1400) Orders: PT evaluation and treatment (07/19/241029) Weight Bearing Status: Weight bearing as tolerated (07/20/24 1400) Precautions: Safety;Falls;Alarms (07/20/24 1400) Total Treatment Time--free text: 39 mins (07/20/24 1400) Subjective: "Im tired" Pain: No complaints of pain P.T. Bed Mobility Sidelying-Sit: Moderate Assistance (07/20/24 1400) Supine-Sit: Moderate Assistance (07/20/24 1400) Transfers Sit-Stand: Minimal Assistance (07/20/24 1400) Stand-Sit: Minimal Assistance (07/20/24 1400) W/C-Bed/Mat: Moderate Assistance (07/20/24 1400) Ambulation: Distance ambulated (feet): 25 ft x 2 Assistive Device: Rolling walker Assist: Contact Guard Balance Sit (Static): Good (07/19/24 1030) Sit (Dynamic): Good (07/19/24 1030) Stand (Static): Fair (07/19/24 1030) Stand (Dynamic): Fair (07/19/24 1030) Patient and or Family Goal(s): to get well and to return home Topic of Education: Safety with mobility, Use of assistive device, and Fall prevention Method of Education: Demonstrated the above task to pt: had reduced level of understanding due to confusion Treatment Provided: Therapeutic Activities 24 minutes: bed mobility training transfer training toilet transfer training Gait Training 15 minutes: gait training with rolling walker Alarm Status Patient positioned in: Chair (07/20/24 1400) With: Pressure pad alarm intact and functioning and call estrada in reach (07/20/24 1400) Patient Education Review of Precautions: Safety;Fall (07/20/24 1400) Safety Awareness: Patient does not verbalize insight of current deficits;Patient does not demonstrates carryover of insight during functional tasks;Patient cannot communicate basic needs;Needs cueingsupervision (07/20/24 1400) Preferred learning method: Combination (07/19/24 1030) Barriers to learning: Medical Status;Cognition (07/19/24 103) Method of Education: Verbalized to patient;Demonstrated to patient (07/19/24 1030) Assessment: Pt tolerated tx fair with no reported c/o. Pt was found to be incontinent of BM in bed and while ambulating to the [facility]. Pt was cleaned by this worker and SERVICE PROMOTER SALESPERSON prior to returning to the chair. Pt is unsteady and unsafe to transfer and ambulate without assistance. Pt is impulsive and displays decreased safety awareness. Pt was left sitting up in the chair with feet elevated to comfort. No needs post tx session. Pt instructed to not get up without assistance. Deficits requiring P.T. treatment needs: Safety;Mobility;Balance;Lower extremity strength () Equipment needs: Rolling walker (07/19/24 1030) Plan: Continue with current treatment plan established on evaluation. AM PAC Score with Stairs: 15 * Ancillary Progress Note - Linh Harley OT - 07/20/2024 10:45 AM EDT OT attempted to see pt for OT consult on 2 occasions today. 1045: pt had just returned to the floor and RN was setting pt up for breakfast at this time. 1300: Pt sleeping but easily awoken. Pt requesting no OOB activity and would like to sleep at this time. Consult will be attempted at a later time or date dependent on schedule, pt tolerance, and pt medical status. * Care Plan - Brittany Petty RN - 07/20/2024 5:13 AM EDT Clinical Goal(s): Pt will remain free of falls through the night (07/19/242006) Possible barriers to meeting goal(s)/advancing plan of care: current diagnosis Stability of the patient: Moderately stable - low risk of patient condition declining or worsening Summary regarding today's goal(s): Met: Pt remained free of falls through the night Recommendations: continue with current fall precautions in place * Progress Notes - Post-Op Global - Lorri Jackson DO - 07/19/2024 2:38 PM EDT The patient underwent upper endoscopy and endoscopic ultrasound this afternoon. She was found to have evidence of severe gastritis which was biopsied. The patient was found to have dilation of the common bile duct to 11 mm without an obvious filling defect. The gallbladder was massively distended 2/6 mm with layering sludge within it. Given the history of acalculous cholecystitis we proceeded with placement of a Axios stent through the duodenal bulb into the gallbladder resulting in excellent drainage of the gallbladder. Recommendation NPO tonight Continue broad-spectrum antibiotics for 14 days Avoid use of nonsteroidals and anticoagulants for 1 week We will plan for stent revision in 3 months * Care Plan - Brittany Petty RN - 07/19/2024 5:10 AM EDT Clinical Goal(s): Pt pain will remain 5/10 or less through the night (07/18/242234) Possible barriers to meeting goal(s)/advancing plan of care: current diagnosis Stability of the patient: Moderately stable - low risk of patient condition declining or worsening Summary regarding today's goal(s): Met: Pt pain remained 5/10 or less with PRN pain medication Recommendations: MRCP as planned * Medical Necessity - Peter Mcfarland, Utilization Review Staff - 07/19/2024 1:45 AM EDT AdmissionCare Guideline: Abdominal Pain (Undiagnosed), Inpatient Based on the indications selected for the patient, the bed status of Inpatient was determined to [facility] The following indications were selected as present at the time of evaluation of the patient: No Indications Were Selected AdmissionCare documentation entered by: Peter Mcfarland [facility] [email or web address], 28th edition, Copyright © 2023 [facility] [email or web address], [facility] All Rights Reserved. [id number] Solely for purpose of utilization review and payment; not a diagnostic tool * Pt Handout (on AVS) - Trina Cramer RN - 07/19/2024 12:27 AM EDT Images from the original note were not included. [id number] Cholecystitis (Presumed) Your belly (abdominal) pain may be due to inflammation and a possible infection in the gallbladder.This is called cholecystitis. The gallbladder is a small sac under the liver. It stores and releases bile. Bile is a fluid made in the liver that helps you digest fat. When you eat fatty, greasy, or spicy foods, the gallbladder squeezes to release bile. Gallstones may form in this sac. This is called cholelithiasis. Most people don't have symptoms. Such gallstones are called silent gallstone. Since they don't interfere with the work of your gallbladder, liver, or pancreas, they don't need treatment. But if a stone moves and blocks the bile duct, it can cause pain and an infection. The infection is called cholecystitis. Bile sludge without a stone can also cause cholecystitis. To help be sure of the diagnosis, you may need to have an ultrasound, CT scan, or other special test. Things that increase the risk of developing gallstones include: · Being a woman. · Being obese. · Being older. · Losing or gaining weight quickly, such as from weight-loss surgery. · Having a high-calorie diet. · Being . · Using hormone therapy. · Having diabetes. · Having a condition that causes the breakdown of blood cells. An example is sickle cell disease. The most common symptoms are: · Pain, cramping, or aching in the belly. · Upset stomach (nausea). · Vomiting. · Fever, including a mild fever or chills. Other symptoms include: · Je-colored stools. · Tea-colored urine. · Yellowing of skin and whites of the eyes (jaundice). Many illnesses can cause these symptoms. Gallbladder pain is called biliary colic. It often starts in the upper right side of your belly. The pain can also be in the top middle part of the belly. It can spread to your right shoulder, back, and arm. It often starts suddenly, gets stronger quickly, and then slowly decreases and goes away over a couple of hours. Often, the symptoms occur in the evening or at night. Older adults and people with diabetes may have trouble showing exactly where the pain is. The pain may occur after meals, especially after eating fatty foods. Home care · Short periods of gallbladder pain that go away are called biliary colic. You may rest in bed at home and follow a clear liquid diet until your symptoms go away. Call your health care provider for a follow-up appointment. · Your provider may prescribe antibiotics and other medicine. Take them exactly as directed. · If you were not given a different pain medicine, you can take acetaminophen or ibuprofen for pain. Talk with your provider before taking them if you: o Have chronic liver or kidney disease. o Ever had a stomach ulcer or GI (gastrointestinal) bleeding. o Are taking blood-thinner medicines. · Don't have any fat in your diet over the next 2 days. Follow a low-fat and low-spice diet after that. Fat in your diet makes the gallbladder contract and may cause more pain. If you are overweight, a low-fat diet will help you lose weight. · Talk with your health care provider before: o Changing your diet plan. Very low-calorie diets can lead to rapid weight loss and raise your riskof gallstones. Talk with a per diem registered nurse to create a personal eating plan. o Starting to take any dietary or herbal supplement. They may damage your liver and interfere with your ongoing medicines. They may also cause serious side effects. Call 911 Call 911 if: · You have ongoing symptoms that don't get better. · You have a fever with your symptoms. This may be due to acute cholecystitis. You should not treat this condition at home. Go to the emergency room. Often surgery to remove the gallbladder (cholecystectomy) is needed. Follow-up care An infection in the gallbladder is a serious problem and must be watched carefully. · Keep all appointments to have further testing and to see a general surgeon. · See your health care provider for another exam in the next 1 to 2 days, or as directed. Once cholecystitis has occurred, removing the gallbladder may be needed to keep it from happening again. You can talk with your provider about this at your follow-up visit. If you are hospitalized for cholecystitis, your gallbladder may be taken out during that same hospital stay. Gallstones that aren't causing infection or symptoms often don't need surgery. When to get medical advice Contact your health care provider if you have: · Repeated vomiting. · Belly swelling. · Pain lasting more than 6 hours. · A fever of 100.4°F (38ºC) or higher, or as advised by your provider. · Shaking chills. · Weakness, dizziness, or fainting. · Dark yellow pee (urine) or poop (stool) that's light li or je-colored. · Yellow skin or eyes (jaundice). · Chest, arm, back, neck, or jaw pain. Last Reviewed Date: 2024 00:00:00 © [employer]. All rights reserved. This information is not intended as a substitute for professional medical care. Always follow your healthcare professional's instructions. documented in this encounter Plan of Treatment Upcoming Encounters Date Type Department Care Team (Latest Contact Info) Description 08/01/2024 10:40 AM EDT Office Visit Family Medicine [address] [place] [phone] Melanie Ramirez MD [address] [place] [address] [place] [phone] 08/25/2024 12:30 PM EDT Office Visit Neu[facility] [address] [facility] [address] Julia Hutton PA-C [address] [facility] [place] [phone] 10/25/2024 12:45 PM EDT Hospital Encounter OR [facility], Operating Room, [facility] - 4th Floor [address] [place] [phone] Lorri Jackson, DO [address] [place] [address] 10/25/2024 12:45 PM EDT - 10/25/2024 1:33 PM EDT Surgery OR [facility], Operating Room, [facility] - 4th Floor [address] [place] [phone] Lorri Jackson, DO [address] [place] [phone] ENDOSCOPIC RETROGRADE CHOLANGIOPANCREATOGRAPHY (ERCP) DIAGNOSTIC 11/03/2024 3:30 PM EDT Office Visit Cardiology [address] [place] [address] Ousamne Waddell PA-C [address] [place] [phone] Pending Results Name Type Priority Associated Diagnoses Date /Time SURGICAL PATHOLOGY Pathology Routine 2024 2:27 PM EDT Scheduled Orders Name Type Priority Associated Diagnoses Orde r Schedule EKG EKG STAT Chest pain Perform Now for 1 Occurrences starting 07/18/2024 until 07/18/2024 ERCP Gastro Upper Routine One Time for 1 Occurrences starting 07/19/2024 until 07/19/2024 EGD, FLEXIBLE,W/ENDOSCOPI C US Procedures Routine Once for 1 Occur rences starting 07/19/2024 until 07/19/2024 SURGICAL PATHOLOGY Pathology Routine One Ti me for 1 Occurrences starting 07/19/2024 until 07/19/2024, 1 completed EKG EKG Routine Tachycardia One Time for 1 Occurrences starting 07/20/2024 until 07/20/2024 Scheduled Procedures Name Priority Associated Diagnoses Date/Ti me ENDOSCOPIC RETROGRADE CHOLANGIOPANCREATOGRAPHY (ERCP) DIAGNOSTIC Acute cholecystitis 10/25/2024 12:45 PM EDT Scheduled Referrals Name Type Priority Associated Diagnoses Orde r Schedule PHYSICAL THERAPY REFERRAL OP Referral Within 3 days (urgent) Ambulatory dysfunction Ordered: 07/22/2024 Health Maintenance Due Date Last Done Comments *BISPHONATE OR OTHER ACCEPTABLE MEDICATION NEEDED FOR OSTEOPOROSIS (REFER TO SMARTSET #1146) 05/22/2021 Adult Wellness Visit 09/26/2022 09/26/2021, 09/15/19 21 Depression Screening 09/26/2022 09/26/2021 Diabetic Foot Exam 09/26/2022 09/26/2021, 0 09/14/2020, 11/18/2019, Additional history exists DXA Scan 12/06/2022 12/06/2020, 02/25, 02/25/2016, Additional history exists COVID-19 Vaccine ( season) 2023 Diabetic Eye Exam 04/15/2024 04/15/2023, , 07/13/2020, Additional history exists Albumin/Creatinine Ratio 06/08/2024 024, 12/05/2022, 01/16/2022, Additional history exists HbA1c 01/19/2025 07/19/2024, 11/26, 10/05/2023, Additional history exists CKD HGB USE SMARTSET 41285 07/22/202507/22, 07/21/2024, 07/20/2024, Additional history exists CKD PHOS USE SMARTSET 58400 07/22/202506/26, 07/22/2024, 07/21/2024, Additional history exists DTap/Tdap Vaccines (2 - Td or Tdap) 06/08/2033 06/08/2023, 08/31/2007 Pneumococcal Vaccine: 50+ Years Completed 03/06/2015, 02/21/2003 Zoster Vaccines Completed 12/05/2021, 08/29/2021 VITAMIN D LEVEL ONCE IN A LIFETIME-USE SMARTSET# [id number] Completed 01/16/2022, 06/21/2020, 11/18/2019, Additional history exists [...] this encounter Medical Devices Implanted Type Area Hydroelectric Plant Maintainer Device Identifier Shelf Expiration Date Model / Serial / Lot Stent Axios [id number] - [id number] Implanted:Qty: 1 on 07/19/2024 by Lorri Jackson DO at OR [facility] [employer] : ENDOSCOPY [id number] 02/25/2026 [id number] / / [id number] documented as of this encounter Procedures Procedure Name Priority Date/Time Associated Diagnosis Comments GLUCOSE METER, POINT OF CARE SUBHASH 07/22/2024 4:33 PM EDT PHOSPHORUS STAT 07/22/2024 3:26 PM EDT GLUCOSE METER, POINT OF CARE SUBHASH 07/22/2024 10:48 AM EDT GLUCOSE METER, POINT OF CARE SUBHASH 07/22/2024 7:21 AM EDT COMPREHENSIVE METABOLIC PANEL Routine 07/22/2024 5:38 AM EDT PHOSPHORUS Routine 07/22/2024 5:38 AM EDT CBC Routine 07/22/2024 5:38 AM EDT MAGNESIUM Routine 07/22/2024 5:38 AM EDT GLUCOSE METER, POINT OF CARE SUBHASH 07/21/2024 9:35 PM EDT GLUCOSE METER, POINT OF CARE SUBHASH 07/21/2024 4:29 PM EDT POTASSIUM Routine 07/21/2024 2:56 PM EDT CLOSTRIDIUM DIFFICILE, PCR Routine 07/21/2024 12:40 PM EDT GLUCOSE METER, POINT OF CARE SUBHASH 07/21/2024 11:32 AM EDT GLUCOSE METER, POINT OF CARE SUBHASH 07/21/2024 7:47 AM EDT COMPREHENSIVE METABOLIC PANEL Routine 07/21/2024 5:47 AM EDT PHOSPHORUS Add-on 07/21/2024 5:47 AM EDT CBC Routine 07/21/2024 5:47 AM EDT GLUCOSE METER, POINT OF CARE SUBHASH 07/20/2024 9:29 PM EDT GLUCOSE METER, POINT OF CARE SUBHASH 07/20/2024 4:28 PM EDT GLUCOSE METER, POINT OF CARE SUBHASH 07/20/2024 11:16 AM EDT US RENAL Routine 07/20/2024 10:45 AM EDT Cyst of kidney, acquired Abnormal findings on diagnostic imaging of other abdominal regions, including retroperitoneum CT L SPINE WO CONTRAST Routine 07/20/2024 10:43 AM EDT GLUCOSE METER, POINT OF CARE SUBHASH 07/20/2024 5:48 AM EDT COMPREHENSIVE METABOLIC PANEL Routine 07/20/2024 5:31 AM EDT CBC Routine 07/20/2024 5:31 AM EDT MAGNESIUM Add-on 07/20/2024 5:31 AM EDT GLUCOSE METER, POINT OF CARE SUBHASH 07/19/2024 11:25 PM EDT GLUCOSE METER, POINT OF CARE SUBHASH 07/19/2024 5:57 PM EDT HEMOGLOBIN AND HEMATOCRIT PANEL STAT 07/19/2024 5:01 PM EDT US ENDOSCOPIC Routine 07/19/2024 2:29 PM EDT FLUORO ERCP Routine 07/19/2024 2:28 PM EDT UPPER GI ENDOSCOPY 07/19/2024 1: 55 PM EDT EGD, w/Endoscopic US 07/19/2024 1:00 PM EDT Elevated LFTs GLUCOSE METER, POINT OF CARE SUBHASH 07/19/2024 12:03 PM EDT TROPONIN T, HIGH SENSITIVITY Routine 07/19/2024 11:25 AM EDT UPPER ENDOSCOPIC U/S 07/19/2024 10:33 AM EDT MRI ABDOMEN WO CONTRAST STAT 07/19/2024 8:52 AM EDT Other specified diseases of biliary tract Subluxation complex (vertebral) of lumbar region Cholecystitis, unspecified Abnormal findings on diagnostic imaging of other specified body structures Other specified symptoms and signs involving the digestive system and abdomen TROPONIN T, HIGH SENSITIVITY Routine 07/19/2024 7:33 AM EDT CK Routine 07/19/2024 7:33 AM EDT GLUCOSE METER, POINT OF CARE SUBHASH 07/19/2024 5:48 AM EDT PT INR Routine 07/19/2024 5:38 AM EDT BNP (NT-PROBNP) Add-on 07/19/2024 3:54 AM EDT COMPREHENSIVE METABOLIC PANEL Routine 07/19/2024 3:54 AM EDT PHOSPHORUS Routine 07/19/2024 3:54 AM EDT CBC Routine 07/19/2024 3:54 AM EDT MAGNESIUM Routine 07/19/2024 3:54 AM EDT TROPONIN T, HIGH SENSITIVITY Routine 07/19/2024 3:53 AM EDT HEMOGLOBIN A1C Routine 07/19/2024 3:53 AM EDT ACUTE HEPATITIS PANEL Routine 07/19/2024 3:53 AM EDT LACTATE Routine 07/19/2024 3:53 AM EDT GLUCOSE METER, POINT OF CARE SUBHASH 07/19/2024 12:25 AM EDT TROPONIN T, HIGH SENSITIVITY Routine 07/18/2024 11:25 PM EDT LIPID PANEL WITH DIRECT LDL IF TG IS HIGH STAT 07/18/2024 11:25 PM EDT BILIRUBIN, DIRECT STAT 07/18/2024 11: 25 PM EDT COMPREHENSIVE METABOLIC PANEL STAT 07/18/2024 11:25 PM EDT ABO/RH STAT 07/18/2024 11:25 PM EDT TYPE AND SCREEN Routine 07/18/2024 11:25 PM EDT PT INR STAT 07/18/2024 11:25 PM EDT PHOSPHORUS STAT 07/18/2024 11:25 PM EDT CBC STAT 07/18/2024 11:25 PM EDT MAGNESIUM STAT 07/18/2024 11:25 PM EDT ACETAMINOPHEN LEVEL STAT 07/18/2024 1 1:25 PM EDT documented in this encounter Results * (ABNORMAL) GLUCOSE METER, POINT OF CARE (07/22/2024 4:33 PM EDT) Glucose - POCT 185(H) 70 - 120 mg/dL 07/22/2024 4:35 PM EDT [facility] Blood Whole blood specimen / Unknown 07/22/2024 4:33 PM EDT 07/22/2024 4:35 PM EDT us Vianney Salazar MD LAB POINT OF CARE TEST DOCKED DEVICE UNSOLICITED RESULTS Final Result Performing Organization Address City/[facility]/ZIP Co de Phone Number [facility] [address] [place] [address] * PHOSPHORUS (07/22/2024 3:26 PM EDT) Phosphorus 2.5 2.5 - 4.8 mg/dL 07/22/2024 3:44 PM EDT LABORATORY [facility] Blood Venous blood specimen / Unknown Venipuncture / Unknown 07/22/2024 3:26 PM EDT 07/22/2024 3:29 PM EDT us Vianney Salazar MD LAB BLOOD ORDERABLES Final Result Performing Organization Address City/[facility]/ZIP Co de Phone Number LABORATORY [address] [phone] * (ABNORMAL) GLUCOSE METER, POINT OF CARE (07/22/2024 10:48 AM EDT) Glucose - POCT 218(H) 70 - 120 mg/dL 07/22/2024 11:23 AM EDT [facility] Blood Whole blood specimen / Unknown 07/22/2024 10:48 AM EDT 07/22/2024 11:22 AM EDT us Vianney Salazar MD LAB POINT OF CARE TEST DOCKED DEVICE UNSOLICITED RESULTS Final Result Performing Organization Address City/[facility]/ZIP Co de Phone Number [facility] [address] [place] [address] * (ABNORMAL) GLUCOSE METER, POINT OF CARE (07/22/2024 7:21 AM EDT) Glucose - POCT 165(H) 70 - 120 mg/dL 07/22/2024 7:34 AM EDT [facility] Blood Whole blood specimen / Unknown 07/22/2024 7:21 AM EDT 07/22/2024 7:34 AM EDT us Vianney Salazar MD LAB POINT OF CARE TEST DOCKED DEVICE UNSOLICITED RESULTS Final Result Performing Organization Address [facility] Co de Phone Number [facility] [address] [place] [phone] * (ABNORMAL) PHOSPHORUS (07/22/2024 5:38 AM EDT) Phosphorus 1.3(L) 2.5 - 4.8 mg/dL 07/22/2024 6:11 AM EDT LABORATORY GL Blood Venous blood specimen / Unknown Venipuncture / Unknown 07/22/2024 5:38 AM EDT 07/22/2024 5:50 AM EDT us Vianney Salazar MD LAB BLOOD ORDERABLES Final Result Performing Organization Address [facility] de Phone Number LABORATORY [address] [address] * MAGNESIUM (07/22/2024 5:38 AM EDT) Magnesium 1.5 1.5 - 2.6 mg/dL 07/22/2024 6:11 AM EDT LABORATORY GL Blood Venous blood specimen / Unknown Venipuncture / Unknown 07/22/2024 5:38 AM EDT 07/22/2024 5:50 AM EDT us Vianney Salazar MD LAB BLOOD ORDERABLES Final Result Performing Organization Address City/[facility] de Phone Number LABORATORY [address] [address] * (ABNORMAL) COMPREHENSIVE METABOLIC PANEL (07/22/2024 5:38 AM EDT) BUN 11 6 - 20 mg/dL 07/22/2024 6:11 AM EDT LABORATORY [facility] CREATININE 1.0 0.5 - 1.0 mg/dL 07/22/2024 6:11 AM EDT LABORATORY GL EGFR 58(L) >=60 mL/min 07/22/2024 6:11 AM EDT LABORATORY [facility] Comment:eGFR is calculated b ased on the CKD-EPI 2020 equation. SODIUM 145 135 - 146 mmol/L 07/22/2024 6:11 AM EDT LABORATORY [facility] POTASSIUM 3.5 3.5 - 5.1 mmol/L 07/22/2024 6:11 AM EDT LABORATORY [facility] CHLORIDE 113(H) 98 - 107 mmol/L 07/22/2024 6:11 AM EDT LABORATORY [facility] CO2 23 22 - 32 mmol/L 07/22/2024 6:11 AM EDT LABORATORY [facility] ANION GAP 9 7 - 15 mmol/L 07/22/2024 6:11 AM EDT LABORATORY [facility] GLUCOSE 146(H) 70 - 120 mg/dL 07/22/2024 6:11 AM EDT LABORATORY [facility] Albumin 3.3(L) 3.8 - 5.0 g/dL 07/22/2024 6:11 AM EDT LABORATORY GL[facility] AST 41(H) 10 - 35 U/L 07/22/2024 6:11 AM EDT LABORATORY GL[facility] Alkaline Phosphatase 121 35 - 130 U/L 07/22/2024 6:11 AM EDT LABORATORY GL[facility] Bilirubin, Total 0.4 <=1.2 mg/dL 07/22/2024 6:11 AM EDT LABORATORY [facility] CALCIUM 9.5 8.4 - 10.2 mg/dL 07/22/2024 6:11 AM EDT LABORATORY [facility] Protein 5.5(L) 6.0 - 8.3 g/dL 07/22/2024 6:11 AM EDT LABORATORY [facility] ALT 370(H) 10 - 35 U/L 07/22/2024 6:11 AM EDT LABORATORY [facility] Blood Venous blood specimen / Unknown Venipuncture / Unknown 07/22/2024 5:38 AM EDT 07/22/2024 5:50 AM EDT us Vianney Salazar MD LAB BLOOD ORDERABLES Final Result LABORATORY [address] [address] * (ABNORMAL) CBC (07/22/2024 5:38 AM EDT) Pathologist [facility] WBC 4.89 4.00 - 10.80 K/uL 07/22/2024 6:10 AM EDT LABORATORY [facility] RBC 3.48 3.85 - 5.15 M/uL 07/22/2024 6:10 AM EDT LABORATORY [facility] HGB 10.6(L) 12.0 - 15.3 g/dL 07/22/2024 6:10 AM EDT LABORATORY [facility] HCT 32.9(L) 36.0 - 45.2 % 07/22/2024 6:10 AM EDT LABORATORY [facility] MCV 94.5 81.5 - 97.5 fL 07/22/2024 6:10 AM EDT LABORATORY [facility] MCH 30.5 27.0 - 34.0 pg 07/22/2024 6:10 AM EDT LABORATORY [facility] MCHC 32.2 32.0 - 36.0 g/dL 07/22/2024 6:10 AM EDT LABORATORY [facility] RDW 13.2 11.5 - 15.5 % 07/22/2024 6:10 AM EDT LABORATORY [facility] PLT 112(L) 140 - 400 K/uL 07/22/2024 6:10 AM EDT LABORATORY [facility] Comment: Results rechecked. MPV 11.6 6.6 - 11.1 fL 07/22/2024 6:10 AM EDT LABORATORY [facility] nRBCs 0 <=0 /100 WBCs 07/22/2024 6:10 AM EDT LABORATORY [facility] Blood Venous blood specimen / Unknown Venipuncture / Unknown 07/22/2024 5:38 AM EDT 07/22/2024 5:51 AM EDT us Vianney Salazar MD LAB BLOOD ORDERABLES Final Result LABORATORY [address] [address] * (ABNORMAL) GLUCOSE METER, POINT OF CARE (07/21/2024 9:35 PM EDT) Pathologist [facility] Glucose - POCT 148(H) 70 - 120 mg/dL 07/21/2024 9:40 PM EDT [facility] Blood Whole blood specimen / Unknown 07/21/2024 9:35 PM EDT 07/21/2024 9:40 PM EDT us Vianney Salazar MD LAB POINT OF CARE TEST DOCKED DEVICE UNSOLICITED RESULTS Final Result Performing Organization Address [facility]/ZIP Co de Phone Number [facility] [address] [place] [address] * (ABNORMAL) GLUCOSE METER, POINT OF CARE (07/21/2024 4:29 PM EDT) Glucose - POCT 213(H) 70 - 120 mg/dL 07/21/2024 4:34 PM EDT [facility] Blood Whole blood specimen / Unknown 07/21/2024 4:29 PM EDT 07/21/2024 4:34 PM EDT us Vianney Salazar MD LAB POINT OF CARE TEST DOCKED DEVICE UNSOLICITED RESULTS Final Result Performing Organization Address [facility] de Phone Number [facility] [address] [place] [phone] * POTASSIUM (07/21/2024 2:56 PM EDT) POTASSIUM 3.7 3.5 - 5.1 mmol/L 07/21/2024 3:37 PM EDT LABORATORY [facility] Blood Venous blood specimen / Unknown Venipuncture / Unknown 07/21/2024 2:56 PM EDT 07/21/2024 3:24 PM EDT us Vianney Salazar MD LAB BLOOD ORDERABLES Final Result Performing Organization Address City/[facility]/ZIP Co de Phone Number LABORATORY [address] [address] * CLOSTRIDIUM DIFFICILE, PCR (07/21/2024 12:40 PM EDT) Stool Consistency Liquid 07/21/2024 1:59 PM EDT LABORATORY [facility] Clostridium difficile Result Negative. No C. difficile toxin B gene DNA detected by PCR (Amplified Probe). Negative 07/21/2024 1:59 PM EDT LABORATORY [facility] Stool Stool specimen / Unknown Non-blood Collection / Unknown 07/21/2024 12:40 PM EDT 07/21/2024 12:49 PM EDT us Vianney Salazar MD LAB MICRO - GENERAL ORDERABLES Final Result Performing Organization Address City/[facility]/ZIP Co de Phone Number LABORATORY [address] [phone] * (ABNORMAL) GLUCOSE METER, POINT OF CARE (07/21/2024 11:32 AM EDT) Glucose - POCT 197(H) 70 - 120 mg/dL 07/21/2024 11:46 AM EDT [facility] Blood Whole blood specimen / Unknown 07/21/2024 11:32 AM EDT 07/21/2024 11:45 AM EDT us Vianney Salazar MD LAB POINT OF CARE TEST DOCKED DEVICE UNSOLICITED RESULTS Final Result Performing Organization Address City/[facility] Co de Phone Number [facility] [address] [place] [phone] * (ABNORMAL) GLUCOSE METER, POINT OF CARE (07/21/2024 7:47 AM EDT) Glucose - POCT 151(H) 70 - 120 mg/dL 07/21/2024 7:59 AM EDT [facility] Blood Whole blood specimen / Unknown 07/21/2024 7:47 AM EDT 07/21/2024 7:59 AM EDT us Vianney Salazar MD LAB POINT OF CARE TEST DOCKED DEVICE UNSOLICITED RESULTS Final Result Performing Organization Address City/[facility]/ZIP Co de Phone Number [facility] [address] [place] [address] * (ABNORMAL) PHOSPHORUS (07/21/2024 5:47 AM EDT) [facility] Phosphorus 1.4(L) 2.5 - 4.8 mg/dL 07/21/2024 8:39 AM EDT LABORATORY [facility] Blood Venous blood specimen / Unknown Venipuncture / Unknown 07/21/2024 5:47 AM EDT 07/21/2024 5:54 AM EDT us Vianney Salazar MD LAB BLOOD ORDERABLES Final Result Performing Organization Address [facility] Co de Phone Number LABORATORY [facility] [address] [place] [address] * (ABNORMAL) CBC (07/21/2024 5:47 AM EDT) [facility] WBC 6.69 4.00 - 10.80 K/uL 07/21/2024 6:02 AM EDT LABORATORY [facility] RBC 3.63 3.85 - 5.15 M/uL 07/21/2024 6:02 AM EDT LABORATORY [facility] HGB 11.0(L) 12.0 - 15.3 g/dL 07/21/2024 6:02 AM EDT LABORATORY [facility] HCT 35.1(L) 36.0 - 45.2 % 07/21/2024 6:02 AM EDT LABORATORY [facility] MCV 96.7 81.5 - 97.5 fL 07/21/2024 6:02 AM EDT LABORATORY [facility] MCH 30.3 27.0 - 34.0 pg 07/21/2024 6:02 AM EDT LABORATORY [facility] MCHC 31.3 32.0 - 36.0 g/dL 07/21/2024 6:02 AM EDT LABORATORY [facility] RDW 13.2 11.5 - 15.5 % 07/21/2024 6:02 AM EDT LABORATORY [facility] PLT 104(L) 140 - 400 K/uL 07/21/2024 6:02 AM EDT LABORATORY [facility] MPV 11.1 6.6 - 11.1 fL 07/21/2024 6:02 AM EDT LABORATORY GL nRBCs 0 <=0 /100 WBCs 07/21/2024 6:02 AM EDT LABORATORY GL Blood Venous blood specimen / Unknown Venipuncture / Unknown 07/21/2024 5:47 AM EDT 07/21/2024 5:54 AM EDT us [employer] LAB BLOOD ORDERABLES Delmy stephanie Result LABORATORY GL [address] [place] [address] * (ABNORMAL) COMPREHENSIVE METABOLIC PANEL (07/21/2024 5:47 AM EDT) BUN 15 6 - 20 mg/dL 07/21/2024 6:14 AM EDT LABORATORY [facility] CREATININE 1.0 0.5 - 1.0 mg/dL 07/21/2024 6:14 AM EDT LABORATORY GL EGFR 52(L) >=60 mL/min 07/21/2024 6:14 AM EDT LABORATORY [facility] Comment:eGFR is calculated b ased on the CKD-EPI 2020 equation. SODIUM 146 135 - 146 mmol/L 07/21/2024 6:14 AM EDT LABORATORY [facility] POTASSIUM 2.8(L) 3.5 - 5.1 mmol/L 07/21/2024 6:14 AM EDT LABORATORY [facility] CHLORIDE 112(H) 98 - 107 mmol/L 07/21/2024 6:14 AM EDT LABORATORY [facility] CO2 22 22 - 32 mmol/L 07/21/2024 6:14 AM EDT LABORATORY [facility] ANION GAP 12 7 - 15 mmol/L 07/21/2024 6:14 AM EDT [facility] GLUCOSE 151(H) 70 - 120 mg/dL 07/21/2024 6:14 AM EDT [facility]OR[facility] Albumin 3.4(L) 3.8 - 5.0 g/dL 07/21/2024 6:14 AM EDT [facility] AST 100(H) 10 - 35 U/L 07/21/2024 6:14 AM EDT [facility] Alkaline Phosphatase 148(H) 35 - 130 U/L 07/21/2024 6:14 AM EDT [facility] Bilirubin, Total 0.4 <=1.2 mg/dL 07/21/2024 6:14 AM EDT [facility] CALCIUM 9.1 8.4 - 10.2 mg/dL 07/21/2024 6:14 AM EDT [facility] Protein 5.8(L) 6.0 - 8.3 g/dL 07/21/2024 6:14 AM EDT [facility]OR[facility] ALT 582(H) 10 - 35 U/L 07/21/2024 6:14 AM EDT [facility]OR[facility] Blood Venous blood specimen / Unknown Venipuncture / Unknown 07/21/2024 5:47 AM EDT 07/21/2024 5:54 AM EDT us [employer] LAB BLOOD ORDERABLES Delmy l Result Performing Organization Address City/[facility]/ZIP Co de Phone Number LABORATORY [address] [phone] * (ABNORMAL) GLUCOSE METER, POINT OF CARE (07/20/2024 9:29 PM EDT) Glucose - POCT 134(H) 70 - 120 mg/dL 07/20/2024 9:44 PM EDT [facility] Blood Whole blood specimen / Unknown 07/20/2024 9:29 PM EDT 07/20/2024 9:44 PM EDT us Vianney Salazar MD LAB POINT OF CARE TEST DOCKED DEVICE UNSOLICITED RESULTS Final Result Performing Organization Address [facility] Co de Phone Number [facility] [address] [place] [phone] * (ABNORMAL) GLUCOSE METER, POINT OF CARE (07/20/2024 4:28 PM EDT) Glucose - POCT 167(H) 70 - 120 mg/dL 07/20/2024 4:39 PM EDT [facility] Blood Whole blood specimen / Unknown 07/20/2024 4:28 PM EDT 07/20/2024 4:39 PM EDT us Vianney Salazar MD LAB POINT OF CARE TEST DOCKED DEVICE UNSOLICITED RESULTS Final Result Performing Organization Address [facility] Co de Phone Number [facility] [address] [place] [address] * (ABNORMAL) GLUCOSE METER, POINT OF CARE (07/20/2024 11:16 AM EDT) [facility] Glucose - POCT 173(H) 70 - 120 mg/dL 07/20/2024 11:27 AM EDT [facility] Blood Whole blood specimen / Unknown 07/20/2024 11:16 AM EDT 07/20/2024 11:27 AM EDT us Vianney Salazar MD LAB POINT OF CARE TEST DOCKED DEVICE UNSOLICITED RESULTS Final Result Performing Organization Address [facility] de Phone Number [facility] [address] [place] [address] * US RENAL (07/20/2024 10:45 AM EDT) Anatomical Region Laterality Modality Abdomen, Body Ultrasound 07/20/2024 9:48 AM EDT Impressions 07/20/2024 11:28 AM EDT IMPRESSION: 1. Bilateral renal cysts as described above. No suspicious renal masses. 2. 3.7 cm x 4.5 cm x 4.1 cm septated cystic structure in the left adnexa, incompletely characterized. This can be further assessed with nonemergent pelvic MRI (without and with contrast). THIS DOCUMENT HAS BEEN ELECTRONICALLY SIGNED BY ZEN HARMON MD Narrative 07/20/2024 11:28 AM EDT PROCEDURE INFORMATION: Exam: US Retroperitoneal, Complete, Kidneys and Bladder Exam date and time: 07/20/2024 9:48 AM Age: 88 years old Clinical indication: Abnormal findings; Abnormal radiologic finding of the abdomen; Radiologic exam and body structure: Mri; Additional info: For better assessment of mri findings TECHNIQUE: Imaging protocol: Real-time ultrasound of the retroperitoneum with image documentation. Complete exam focused on the bilateral kidneys and urinary bladder. COMPARISON: MRI ABDOMEN WO CONTRAST 07/19/2024 8:30 AM FINDINGS: Right kidney: Normal in size, measuring 10.5 cm sagittal x 5.1 cm AP x 4.4 cm TRV. Cortical echogenicity is normal. There is no hydronephrosis. No shadowing calculi are identified. There is a 7.9 cm x 7.6 cm x 7.4 cm exophytic cortical cyst in the upper pole which appears essentially simple. There is a 1.7 cm simple cortical cyst in the lateral mid right kidney and a 0.8 cm simple cyst in the medial lower pole, best seen on the cine images. No solid mass is identified. There is nonspecific trace perinephric fluid. Left kidney: Normal in size, measuring 9.8 cm sagittal x 5.1 cm AP x 4.9 cm TRV. Cortical echogenicity is normal. There is no hydronephrosis. No shadowing calculi are identified. There are multiple simple-appearing cortical cysts in the left kidney, the largest measuring up to 3.2 cm in the upper pole. No solid mass is identified. Urinary bladder: Bladder wall thickness is normal. No intraluminal abnormality is identified. Ureteral jets were not visualized. Left ovary/adnexa: Incidentally noted is a 3.7 cm x 4.5 cm x 4.1 cm septated cystic structure the in the left adnexa. Procedure Note Zen Harmon MD - 07/20/2024 PROCEDURE INFORMATION: Exam: US Retroperitoneal, Complete, Kidneys and Bladder Exam date and time: 07/20/2024 9:48 AM Age: 88 years old Clinical indication: Abnormal findings; Abnormal radiologic finding of the abdomen; Radiologic exam and body structure: Mri; Additional info: Forbetter assessment of mri findings TECHNIQUE: Imaging protocol: Real-time ultrasound of the retroperitoneum with image documentation. Complete exam focused on the bilateral kidneys and urinary bladder. COMPARISON: MRI ABDOMEN WO CONTRAST 07/19/2024 8:30 AM FINDINGS: Right kidney: Normal in size, measuring 10.5 cm sagittal x 5.1 cm AP x 4.4cm TRV. Cortical echogenicity is normal. There is no hydronephrosis. Noshadowing calculi are identified. There is a 7.9 cm x 7.6 cm x 7.4 cm exophyticcortical cyst in the upper pole which appears essentially simple. There is a 1.7 cm simple cortical cyst in the lateral mid right kidney and a 0.8 cm simplecyst in the medial lower pole, best seen on the cine images. No solid mass is identified. There is nonspecific trace perinephric fluid. Left kidney: Normal in size, measuring 9.8 cm sagittal x 5.1 cm AP x 4.9cm TRV. Cortical echogenicity is normal. There is no hydronephrosis. Noshadowing calculi are identified. There are multiple simple-appearing cortical cystsin the left kidney, the largest measuring up to 3.2 cm in the upper pole. Nosolid mass is identified. Urinary bladder: Bladder wall thickness is normal. No intraluminalabnormality is identified. Ureteral jets were not visualized. Left ovary/adnexa: Incidentally noted is a 3.7 cm x 4.5 cm x 4.1 cmseptated cystic structure the in the left adnexa. IMPRESSION IMPRESSION: 1. Bilateral renal cysts as described above. No suspicious renal masses. 2. 3.7 cm x 4.5 cm x 4.1 cm septated cystic structure in the leftadnexa, incompletely characterized. This can be further assessed with nonemergent pelvic MRI (without and with contrast). THIS DOCUMENT HAS BEEN ELECTRONICALLY SIGNED BY ZEN HARMON MD Vianney Salazar MD RAD ULTRASOUND Delmy l Result * CT L SPINE WO CONTRAST (07/20/2024 10:43 AM EDT) Anatomical Region Laterality Modality Lspine, Spine, Vertebra Computed Tomography 07/20/2024 10:3 2 AM EDT Impressions 07/20/2024 11:15 AM EDT IMPRESSION: 1. 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 2. Advanced multilevel lumbar spondylosis and degenerative disc disease, most severe at L2-L3 and L3-L4, with a superimposed moderate levoscoliosis. If clinically warranted, consider further evaluation with MRI. COMMENTS: Consistent with the [employer]'s Incidental Findings Committee white paper ([employer] 2018): Any incidental renal lesion less than 1 cm or classified as too small to characterize, or any incidental cystic renal lesion characterized as simple-appearing, is likely benign. No follow-up imaging is recommended for these lesions per consensus recommendations based on imaging criteria. THIS DOCUMENT HAS BEEN ELECTRONICALLY SIGNED BY ZEN HARMON MD Narrative 07/20/2024 11:15 AM EDT PROCEDURE INFORMATION: Exam: CT Lumbar Spine Without Contrast Exam date and time: 07/20/2024 10:32 AM Age: 88 years old Clinical indication: Low back pain; Additional info: For better assessment of mri findings TECHNIQUE: Imaging protocol: Computed tomography of the lumbar spine without contrast. Radiation optimization: All CT scans at this facility use at least one of these dose optimization techniques: automated exposure control; mA and/or kV adjustment per patient size (includes targeted exams where dose is matched to clinical indication); or iterative reconstruction. COMPARISON: MRI ABDOMEN WO CONTRAST 07/19/2024 8:30 AM FINDINGS: Bones/joints: There is marked diffuse osseous demineralization. There is a chronic-appearing biconcave compression deformity at L1 with moderate loss of vertebral body height. In the L2 vertebral body is an approximately 2.4 cm lucent lesion with faint sclerosis and subtle internal stippled calcifications. This correlates to the focus of abnormal marrow signal identified in the lumbar spine on the recent abdominal MRI. Its CT and MR appearance are most compatible with an atypical hemangioma. There is a less well-circumscribed, approximately 2.5 cm typical hemangioma in the left L4 vertebral body. There is moderate levoscoliosis of the lumbar spine, apex at L2. Lumbar lordosis is maintained. No spondylolisthesis is noted. Multilevel findings: There is multilevel moderate to severe facet hypertrophy throughout the lumbar spine which contributes to multilevel osseous encroachment on the neural foramina, most severe at L2-L3. There are multilevel endplate osteophytes with multilevel loss of intervertebral disc height, most severe on the right at L2-L3. Disc osteophyte complexes and facet and ligamentous hypertrophy at L2-L3 and L3-L4 contribute to severe acquired central canal narrowing. Soft tissues: No acute abnormality in the paraspinal soft tissues. Other findings: Severe atherosclerotic vascular calcifications. Partially imaged cortical cyst and 6 mm nonobstructing calculus in the right kidney. Partially imaged cortical cysts in the left kidney. Sigmoid diverticulosis. Procedure Note Zen Harmon MD - 07/20/2024 PROCEDURE INFORMATION: Exam: CT Lumbar Spine Without Contrast Exam date and time: 07/20/2024 10:32 AM Age: 88 years old Clinical indication: Low back pain; Additional info: For better assessmentof mri findings TECHNIQUE: Imaging protocol: Computed tomography of the lumbar spine withoutcontrast. Radiation optimization: All CT scans at this facility use at least one ofthese dose optimization techniques: automated exposure control; mA and/or kV adjustment per patient size (includes targeted exams where dose is matchedto clinical indication); or iterative reconstruction. COMPARISON: MRI ABDOMEN WO CONTRAST 07/19/2024 8:30 AM FINDINGS: Bones/joints: There is marked diffuse osseous demineralization. There is a chronic-appearing biconcave compression deformity at L1 with moderate lossof vertebral body height. In the L2 vertebral body is an approximately 2.4 cm lucent lesion with faint sclerosis and subtle internal stippledcalcifications. This correlates to the focus of abnormal marrow signal identified in thelumbar spine on the recent abdominal MRI. Its CT and MR appearance are mostcompatible with an atypical hemangioma. There is a less well-circumscribed,approximately 2.5 cm typical hemangioma in the left L4 vertebral body. There is moderate levoscoliosis of the lumbar spine, apex at L2. Lumbar lordosis ismaintained. No spondylolisthesis is noted. Multilevel findings: There is multilevel moderate to severe facethypertrophy throughout the lumbar spine which contributes to multilevel osseous encroachment on the neural foramina, most severe at L2-L3. There aremultilevel endplate osteophytes with multilevel loss of intervertebral disc height,most severe on the right at L2-L3. Disc osteophyte complexes and facet and ligamentous hypertrophy at L2-L3 and L3-L4 contribute to severe acquired central canal narrowing. Soft tissues: No acute abnormality in the paraspinal soft tissues. Other findings: Severe atherosclerotic vascular calcifications. Partially imaged cortical cyst and 6 mm nonobstructing calculus in the right kidney. Partially imaged cortical cysts in the left kidney. Sigmoiddiverticulosis. IMPRESSION IMPRESSION: 1. 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 2. Advanced multilevel lumbar spondylosis and degenerative disc disease,most severe at L2-L3 and L3-L4, with a superimposed moderate levoscoliosis. If clinically warranted, consider further evaluation with MRI. COMMENTS: Consistent with the [employer]'s Incidental Findings Committee white paper ([employer] 2018): Any incidental renal lesionless than 1 cm or classified as too small to characterize, or any incidentalcystic renal lesion characterized as simple-appearing, is likely benign. Nofollow-up imaging is recommended for these lesions per consensus recommendationsbased on imaging criteria. THIS DOCUMENT HAS BEEN ELECTRONICALLY SIGNED BY ZEN HARMON MD us Vianney Salazar MD RAD CT Delmy l Result * (ABNORMAL) GLUCOSE METER, POINT OF CARE (07/20/2024 5:48 AM EDT) Glucose - POCT 161(H) 70 - 120 mg/dL 07/20/2024 5:50 AM EDT [facility] Blood Whole blood specimen / Unknown 07/20/2024 5:48 AM EDT 07/20/2024 5:50 AM EDT Oliverio Barrios MD LAB POINT OF CARE T EST DOCKED DEVICE UNSOLICITED RESULTS Final Result Performing Organization Address [facility] Co de Phone Number [facility] [address] [place] [phone] * MAGNESIUM (07/20/2024 5:31 AM EDT) Magnesium 2.0 1.5 - 2.6 mg/dL 07/20/2024 10:12 AM EDT LABORATORY [facility] Blood Venous blood specimen / Unknown Venipuncture / Unknown 07/20/2024 5:31 AM EDT 07/20/2024 5:40 AM EDT us Vianney Salazar MD LAB BLOOD ORDERABLES Final Result Performing Organization Address City/[facility] Co de Phone Number LABORATORY GL [address] [place] [address] * (ABNORMAL) CBC (07/20/2024 5:31 AM EDT) [facility] WBC 11.12(H) 4.00 - 10.80 K/uL 07/20/2024 6:00 AM EDT LABORATORY [facility] RBC 3.74 3.85 - 5.15 M/uL 07/20/2024 6:00 AM EDT LABORATORY [facility] HGB 11.6(L) 12.0 - 15.3 g/dL 07/20/2024 6:00 AM EDT LABORATORY [facility] HCT 36.6 36.0 - 45.2 % 07/20/2024 6:00 AM EDT LABORATORY [facility] MCV 97.9 81.5 - 97.5 fL 07/20/2024 6:00 AM EDT LABORATORY [facility] MCH 31.0 27.0 - 34.0 pg 07/20/2024 6:00 AM EDT LABORATORY [facility] MCHC 31.7 32.0 - 36.0 g/dL 07/20/2024 6:00 AM EDT LABORATORY [facility] RDW 13.6 11.5 - 15.5 % 07/20/2024 6:00 AM EDT LABORATORY [facility] PLT 99(L) 140 - 400 K/uL 07/20/2024 6:00 AM EDT LABORATORY [facility] Comment: Results rechecked. MPV 11.6 6.6 - 11.1 fL 07/20/2024 6:00 AM EDT LABORATORY [facility] nRBCs 0 <=0 /100 WBCs 07/20/2024 6:00 AM EDT LABORATORY [facility] Blood Venous blood specimen / Unknown Venipuncture / Unknown 07/20/2024 5:31 AM EDT 07/20/2024 5:40 AM EDT us [employer] LAB BLOOD ORDERABLES Delmy brown Result LABORATORY [facility] [address] [place] [address] * (ABNORMAL) COMPREHENSIVE METABOLIC PANEL (07/20/2024 5:31 AM EDT) [facility] BUN 24(H) 6 - 20 mg/dL 07/20/2024 6:26 AM EDT LABORATORY GL CREATININE 1.2(H) 0.5 - 1.0 mg/dL 07/20/2024 6:26 AM EDT LABORATORY GL EGFR 46(L) >=60 mL/min 07/20/2024 6:26 AM EDT LABORATORY GL Comment:eGFR is calculated b ased on the CKD-EPI 2020 equation. SODIUM 144 135 - 146 mmol/L 07/20/2024 6:26 AM EDT LABORATORY GL POTASSIUM 3.0(L) 3.5 - 5.1 mmol/L 07/20/2024 6:26 AM EDT LABORATORY GL CHLORIDE 107 98 - 107 mmol/L 07/20/2024 6:26 AM EDT LABORATORY GL CO2 20(L) 22 - 32 mmol/L 07/20/2024 6:26 AM EDT LABORATORY GL ANION GAP 17(H) 7 - 15 mmol/L 07/20/2024 6:26 AM EDT LABORATORY GL GLUCOSE 166(H) 70 - 120 mg/dL 07/20/2024 6:26 AM EDT LABORATORY GL Albumin 3.3(L) 3.8 - 5.0 g/dL 07/20/2024 6:26 AM EDT LABORATORY GL AST 298(H) 10 - 35 U/L 07/20/2024 6:26 AM EDT LABORATORY GL Alkaline Phosphatase 190(H) 35 - 130 U/L 07/20/2024 6:26 AM EDT LABORATORY GL Bilirubin, Total 0.4 <=1.2 mg/dL 07/20/2024 6:26 AM EDT LABORATORY GL CALCIUM 9.1 8.4 - 10.2 mg/dL 07/20/2024 6:26 AM EDT LABORATORY GLH Protein 6.1 6.0 - 8.3 g/dL 07/20/2024 6:26 AM EDT LABORATORY GL ALT 983(H) 10 - 35 U/L 07/20/2024 6:26 AM EDT LABORATORY GL Blood Venous blood specimen / Unknown Venipuncture / Unknown 07/20/2024 5:31 AM EDT 07/20/2024 5:40 AM EDT [employer] LAB BLOOD ORDERABLES Delmy l Result LABORATORY [address] [phone] * (ABNORMAL) GLUCOSE METER, POINT OF CARE (07/19/2024 11:25 PM EDT) Glucose - POCT 157(H) 70 - 120 mg/dL 07/19/2024 11:32 PM EDT [facility] Blood Whole blood specimen / Unknown 07/19/2024 11:25 PM EDT 07/19/2024 11:32 PM EDT Oliverio Barrios MD LAB POINT OF CARE T EST DOCKED DEVICE UNSOLICITED RESULTS Final Result Performing Organization Address [facility] Co de Phone Number [facility] [address] [place] [phone] * (ABNORMAL) GLUCOSE METER, POINT OF CARE (07/19/2024 5:57 PM EDT) [facility] Glucose - POCT 190(H) 70 - 120 mg/dL 07/19/2024 6:04 PM EDT [facility] Blood Whole blood specimen / Unknown 07/19/2024 5:57 PM EDT 07/19/2024 6:04 PM EDT Oliverio Barrios MD LAB POINT OF CARE T EST DOCKED DEVICE UNSOLICITED RESULTS Final Result Performing Organization Address [facility] Co de Phone Number [facility] [address] [place] [phone] * (ABNORMAL) HEMOGLOBIN AND HEMATOCRIT PANEL (07/19/2024 5:01 PM EDT) HGB 11.6(L) 12.0 - 15.3 g/dL 07/19/2024 5:21 PM EDT LABORATORY [facility] HCT 36.8 36.0 - 45.2 % 07/19/2024 5:21 PM EDT LABORATORY [facility] Blood Venous blood specimen / Unknown Venipuncture / Unknown 07/19/2024 5:01 PM EDT 07/19/2024 5:18 PM EDT Oliverio Barrios MD LAB BLOOD ORDERABLES Final Result Performing Organization Address City/State/[facility] [place] [address] * US ENDOSCOPIC (07/19/2024 2:29 PM EDT) Narrative Scheduling, Silent - 07/19/2024 2:29 PM EDT This is an imaging study not interpreted or resulted by a [facility] radiologist. us Lorri Jackson DO RAD ULTRASOUND Final Result * FLUORO ERCP (07/19/2024 2:28 PM EDT) Narrative Scheduling, Silent - 07/19/2024 2:28 PM EDT This procedure will not be read by a Radiologist. Please see operative note. us Lorri Jackson DO RAD FLUOROSCOPY Final Result * UPPER GI ENDOSCOPY (07/19/2024 1:55 PM EDT) 07/19/2024 1:55 PM EDT Narrative Procedure Note Oliverio Barrios MD - 07/19/2024 1:55 PM EDT [facility] Patient Name: Val Beverly Procedure Date: 07/19/2024 1:55 PM Date of : 1935 Admit Type: Outpatient Note Status:Finalized Date of : 1935 Admit Type: Outpatient Age: 88 Room: OR 5 Gender: Female Note Status: Finalized Procedure: Upper GI endoscopy Indications: Epigastric abdominal pain Providers: Lorri Jackson DO (Doctor) Referring MD: Oliverio Barrios Medicines: General Anesthesia Complications: No immediate complications. Estimated blood loss:Minimal. Procedure: Pre-Anesthesia Assessment: - Prior to the procedure, a History and Physicalwas performed, and patient medications, allergies and sensitivities werereviewed. The patient's tolerance of previous anesthesia was reviewed. - The risks and benefits of the procedure and thesedation options and risks were discussed with the patient. All questions wereanswered and informed consent was obtained. - Patient identification and proposed procedurewere verified prior to the procedure by the physician, the nurse and the reinsurance claim analyst.The procedure was verified in the procedure room. - Pre-procedure physical examination revealed nocontraindications to sedation. 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 - After reviewing the risks and benefits, thepatient was deemed in satisfactory condition to undergo the procedure. - The anesthesia plan was to use generalanesthesia. - Immediately prior to administration ofmedications, the patient was re-assessed for adequacy to receive sedatives. - The heart rate, respiratory rate, oxygensaturations, blood pressure, adequacy of pulmonary ventilation, and response to care weremonitored throughout the procedure. - The physical status of the patient wasre-assessed after the procedure. After obtaining informed consent, the endoscope waspassed under direct vision. All instruments were visually inspected immediatelybefore and after removal from the patient to ensure they are fully intact. Throughoutthe procedure, the patient's blood pressure, pulse, and oxygen saturations weremonitored continuously. The [id number]-[id number] Endoscope ([id number]) was introduced throughthe mouth, and advanced to the third part of duodenum. The upper GI endoscopy wasaccomplished without difficulty. The patient tolerated the procedure well. Findings & Specimens: The examined esophagus was normal. The Z-line was regular and was found 35 cm from the incisors. Diffuse moderate inflammation characterized by congestion (edema),erythema and granularity was found in the entire examined stomach. Biopsies were taken with a coldforceps for histology. The pathology specimen was placed into Bottle A. Estimated blood loss wasminimal. Diffuse mild inflammation characterized by erythema, granularity andaphthous ulcerations was found in the entire duodenum. Impression: - Normal esophagus. - Z-line regular, 35 cm from the incisors. - Gastritis. Biopsied. - Duodenitis. Recommendation: - Perform an upper endoscopic ultrasound (UEUS)today. Lorri Jackson DO 07/19/2024 2:41:17 PM This report has been signed electronically. Estimated Blood Loss: Estimated blood loss was minimal. Oliverio Barrios MD GASTRO UPPER Final Resul t * (ABNORMAL) GLUCOSE METER, POINT OF CARE (07/19/2024 12:03 PM EDT) Glucose - POCT 142(H) 70 - 120 mg/dL 07/19/2024 12:21 PM EDT [facility] Blood Whole blood specimen / Unknown 07/19/2024 12:03 PM EDT 07/19/2024 12:21 PM EDT Oliverio Barrios MD LAB POINT OF CARE T EST DOCKED DEVICE UNSOLICITED RESULTS Final Result Performing Organization Address City/[facility]/ZIP Co de Phone Number [facility] [address] [place] [address] * (ABNORMAL) TROPONIN T, HIGH SENSITIVITY (07/19/2024 11:25 AM EDT) [facility] Troponin T, High Sensitivity 112(HH) <=14 ng/L 07/19/2024 12:12 PM EDT LABORATORY [facility] Blood Venous blood specimen / Unknown Venipuncture / Unknown 07/19/2024 11:25 AM EDT 07/19/2024 11:32 AM EDT [employer] LAB BLOOD ORDERABLES Delmy l Result LABORATORY [address] [address] * UPPER ENDOSCOPIC U/S (07/19/2024 10:33 AM EDT) 07/19/2024 10:3 3 AM EDT Narrative Procedure Note Oliverio Barrios MD - 07/19/2024 10:33 AM EDT [facility] Patient Name: Val Beverly Procedure Date: 07/19/2024 10:33 AM Date of : 1935 Admit Type: Outpatient Note Status:Draft Date of : 1935 Admit Type: Outpatient Age: 88 Room: OR 5 Gender: Female 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 Estimated blood loss:Minimal. Procedure: Pre-Anesthesia Assessment: - Prior to the procedure, a History and Physicalwas performed, and patient medications, allergies and sensitivities werereviewed. The patient's tolerance of previous anesthesia was reviewed. - The risks and benefits of the procedure and thesedation options and risks were discussed with the patient. All questions wereanswered and informed consent was obtained. - Patient identification and proposed procedurewere verified prior to the procedure by the physician, the nurse and the reinsurance claim analyst.The procedure was verified in the procedure room. - Pre-procedure physical examination revealed nocontraindications to sedation. 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 - After reviewing the risks and benefits, thepatient was deemed in satisfactory condition to undergo the procedure. - The anesthesia plan was to use generalanesthesia. - Immediately prior to administration ofmedications, the patient was re-assessed for adequacy to receive sedatives. - The heart rate, respiratory rate, oxygensaturations, blood pressure, adequacy of pulmonary ventilation, and response to care weremonitored throughout the procedure. - The physical status of the patient wasre-assessed after the procedure. After obtaining informed consent, the endoscope waspassed under direct vision. All instruments were visually inspected immediatelybefore and after removal from the patient to ensure they are fully intact. Throughoutthe procedure, the patient's blood pressure, pulse, and oxygen saturations weremonitored continuously. The Endosonoscope was introduced through the mouth, andadvanced to the second part of duodenum. The upper EUS was accomplished withoutdifficulty. The patient tolerated the procedure well. Findings & Specimens: ENDOSONOGRAPHIC FINDING: : A large periampullary diverticulum was seen. There was dilation in the common bile duct which measured up to 11mm. Moderate hyperechoic material consistent with sludge was visualizedendosonographically in the gallbladder. The gallbaldder was disteded measuring 48 mm by 75 mm inthe greatest dimension. The decision was made to create a Choledoudenostomy using the AXIOS stentsystem. Once an appropriate position in the duodenal bulb was identified, the common wall betweenthe stomach and the gallbladder was interrogated utilizing color Doppler imaging to identifyinterposed vessels. The duodenal wall and the gallbladder were punctured under endosonographic guidance withthe 19 gauge needle. Bile was aspirated. Then gallbladder was injected with 18 ml of full strengthionic contrast under fluoroscopy confirming the GB location, patency of the cystic duct andanticipated placement of the stent. The AXIOS stent and electrocautery device was introduced through theworking channel and advanced into the duodenum. Current was applied to the cautery tip and then the AXIOSdevice was advanced into the gallbladder. A 10 x 10 mm AXIOS stent was placed with the flanges inclose approximation to the rosales of the gallbladder and the duodenal bulb ([employer] Axios,[id number], lot [id number]). The stent was successfully placed and notable for drainage of bilious fluid andsludge. No lymphadenopathy seen. Pancreatic parenchymal abnormalities were noted in the entirepancreas. These consisted of atrophy. There was no sign of significant endosonographic abnormality in theleft adrenal gland. No adrenal gland enlargement was identified. A hypoechoic lesion suggestive of a cyst was identified in the upperpole of the right kidney. The lesion measured 90 mm by 70 mm in maximal cross-sectional diameter.There was a single compartment without septae. The outer wall of the lesion was not seen. There wasno associated mass. There was no internal debris within the fluid-filled cavity. Impression: - There was dilation in the common bile duct whichmeasured up to 11 mm. - Hyperechoic material consistent with sludge wasvisualized endosonographically in the gallbladder. Axios stent was placed fortreament of acalculous cholecystitis. - Pancreatic parenchymal abnormalities consistingof atrophy were noted in the entire pancreas. - Endosonographic images of the left adrenal glandwere unremarkable. - A cystic lesion measuring 90 mm by 70 mm wasidentified in the right kidney. Recommendation: - [facility] - NPO today. - Use broad spectrum antibiotics for 2 weeks. - Repeat the upper endoscopic ultrasound in 3months for retreatment. Lorri Jackson DO 07/19/2024 2:51:18 PM This report has been signed electronically. Estimated Blood Loss: Estimated blood loss was minimal. us Oliverio Barrios MD GASTRO UPPER Edited Resu lt - Final * MRI ABDOMEN WO CONTRAST (07/19/2024 8:52 AM EDT) Anatomical Region Laterality Modality Abdomen Magnetic Resonan ce 07/19/2024 9:44 AM EDT Impressions 07/19/2024 9:42 AM EDT IMPRESSION 1. Moderately motion degraded limited examination of the abdomen. Mild intrahepatic and moderate extrahepatic biliary ductal dilatation. Common bile duct measures up to 1.2 cm. A filling defect seen within the CBD on T2FS without definite correlate on coronal or MRCP sequences favors artifact and less likely stone. 2. A 1.0 x 0.9 cm T2 hypointense/T1 hyperintense lesion within the midpole may represent a hemorrhagic/proteinaceous cyst though incompletely characterized due to lack of intravenous contrast. Recommend dedicated renal ultrasound for further evaluation of findings. 3. Focal wall thickening along the posterior right renal lower pole may be artifactual. Recommend renal ultrasound to exclude focal mass. 4. A 2.6 x 2.5 cm hyperintense lesion within a lower lumbar vertebral body, indeterminate. Consider CT of the lumbar spine for further characterization. This exam was submitted to the radiology air control/anti air warfare officer worklist and the ordering provider will be notified that the final report is available in EPIC. Narrative 07/19/2024 9:42 AM EDT EXAM MRI ABDOMEN WO CONTRAST-07/19/2024 8:52 am HISTORY hepatitis and cholecystitis COMPARISON None TECHNIQUE Limited multiplanar, multisequential MR imaging of the abdomen was performed without the administration of intravenous contrast. Study was terminated early due to patient's inability to tolerate the exam. FINDINGS Moderate motion degradation. Liver: Normal morphology. Biliary ducts: Mild intrahepatic and moderate extrahepatic biliary ductal dilatation. Common bile duct measures up to 1.2 cm. A filling defect seen within the CBD on T2FS (series 6, image 29) without definite correlate on coronal or MRCP sequences favors artifact and less likely stone. Gallbladder: Distended. No cholelithiasis. Pancreas: Pancreatic parenchymal atrophy. Spleen: Normal in size. Adrenal glands: Within normal limits. Kidneys: Large right renal upper pole T2 hyperintense lesion measuring 7.2 x 10.0 x 6.7 cm, likely a cyst. A 1.0 x 0.9 cm T2 hypointense/T1 hyperintense lesion within the midpole may represent a hemorrhagic/proteinaceous cyst though incompletely characterized due to lack of intravenous contrast (series 5, image 32). Focal wall thickening along the posterior right renal lower pole may be artifactual (series 5, image 35). Left renal T2 hyperintense lesions, likely cysts. Bilateral perinephric fat stranding, nonspecific. Lymph nodes: Within normal limits. Peritoneum: No ascites. Vessels: Within normal limits. Abdominal wall: Ventral abdominal hernia containing nonobstructed loops of bowel and fat. Lower chest: Moderate hiatal hernia. Bones: Degenerative changes. A 2.6 x 2.5 cm hyperintense lesion within a lumbar vertebral body, indeterminate. Procedure Note Sis Conner MD - 07/19/2024 EXAM MRI ABDOMEN WO CONTRAST-07/19/2024 8:52 am HISTORY hepatitis and cholecystitis COMPARISON None TECHNIQUE Limited multiplanar, multisequential MR imaging of the abdomen wasperformed without the administration of intravenous contrast. Study wasterminated early due to patient's inability to tolerate the exam. FINDINGS Moderate motion degradation. Liver: Normal morphology. Biliary ducts: Mild intrahepatic and moderate extrahepatic biliary ductaldilatation. Common bile duct measures up to 1.2 cm. A filling defectseen within the CBD on T2FS (series 6, image 29) without definitecorrelate on coronal or MRCP sequences favors artifact and less likelystone. Gallbladder: Distended. No cholelithiasis. Pancreas: Pancreatic parenchymal atrophy. Spleen: Normal in size. Adrenal glands: Within normal limits. Kidneys: Large right renal upper pole T2 hyperintense lesion measuring 7.2x 10.0 x 6.7 cm, likely a cyst. A 1.0 x 0.9 cm T2 hypointense/Z1cimcrgjewlkl lesion within the midpole may represent ahemorrhagic/proteinaceous cyst though incompletely characterized due tolack of intravenous contrast (series 5, image 32). Focal wall thickeningalong the posterior right renal lower pole may be artifactual (series 5,image 35). Left renal T2 hyperintense lesions, likely cysts. Bilateralperinephric fat stranding, nonspecific. Lymph nodes: Within normal limits. Peritoneum: No ascites. Vessels: Within normal limits. Abdominal wall: Ventral abdominal hernia containing nonobstructed loops ofbowel and fat. Lower chest: Moderate hiatal hernia. Bones: Degenerative changes. A 2.6 x 2.5 cm hyperintense lesion within alumbar vertebral body, indeterminate. IMPRESSION IMPRESSION 1. Moderately motion degraded limited examination of the abdomen. Mildintrahepatic and moderate extrahepatic biliary ductal dilatation. Commonbile duct measures up to 1.2 cm. A filling defect seen within the CBD onT2FS without definite correlate on coronal or MRCP sequences favorsartifact and less likely stone. 2. A 1.0 x 0.9 cm T2 hypointense/T1 hyperintense lesion within the midpolemay represent a hemorrhagic/proteinaceous cyst though incompletelycharacterized due to lack of intravenous contrast. Recommend dedicatedrenal ultrasound for further evaluation of findings. 3. Focal wall thickening along the posterior right renal lower pole may beartifactual. Recommend renal ultrasound to exclude focal mass. 4. A 2.6 x 2.5 cm hyperintense lesion within a lower lumbar vertebralbody, indeterminate. Consider CT of the lumbar spine for furthercharacterization. This exam was submitted to the radiology air control/anti air warfare officer worklist and theordering provider will be notified that the final report is available inEPIC. Fredrick Ochoa MD RAD MRI-MRA Final Resu lt * CK (07/19/2024 7:33 AM EDT) CK 94 26 - 192 U/L 07/19/2024 9:19 AM EDT LABORATORY [facility] Blood Venous blood specimen / Unknown Venipuncture / Unknown 07/19/2024 7:33 AM EDT 07/19/2024 7:42 AM EDT Lorri Jackson DO LAB BLOOD ORDERABLES Final Re sult LABORATORY [address] [phone] * (ABNORMAL) TROPONIN T, HIGH SENSITIVITY (07/19/2024 7:33 AM EDT) [facility] Troponin T, High Sensitivity 103(HH) <=14 ng/L 07/19/2024 9:34 AM EDT LABORATORY [facility] Blood Venous blood specimen / Unknown Venipuncture / Unknown 07/19/2024 7:33 AM EDT 07/19/2024 7:42 AM EDT us [employer] LAB BLOOD ORDERABLES Delmy l Result Performing Organization Address [facility] Co de Phone Number LABORATORY [address] [phone] * (ABNORMAL) GLUCOSE METER, POINT OF CARE (07/19/2024 5:48 AM EDT) [facility] Glucose - POCT 165(H) 70 - 120 mg/dL 07/19/2024 5:51 AM EDT [facility] Blood Whole blood specimen / Unknown 07/19/2024 5:48 AM EDT 07/19/2024 5:51 AM EDT us Fredrick Ochoa MD LAB POINT OF CARE TEST DOCKED DEVICE UNSOLICITED RESULTS Final Result Performing Organization Address [facility] Co de Phone Number [facility] LABORATORY [address] [place] [phone] * (ABNORMAL) PT INR (07/19/2024 5:38 AM EDT) [facility] Prothrombin Time 17.1(H) 11.6 - 15.2 seconds 07/19/2024 6:32 AM EDT LABORATORY [facility] INR 1.4(H) 0.8 - 1.2 07/19/2024 6:32 AM EDT LABORATORY [facility] Blood Venous blood specimen / Unknown Venipuncture / Unknown 07/19/2024 5:38 AM EDT 07/19/2024 6:04 AM EDT Narrative LABORATORY [facility] - 07/19/2024 6:32 AM EDT Warfarin Therapy INR: 2.0-3.0 conventional anticoagulation INR: 2.5-3.5 high intensity anticoagulation [employer] VALDEZNP LAB BLOOD ORDERABLES Delmy l Result Performing Organization Address [facility] Co de Phone Number LABORATORY [address] [address] * (ABNORMAL) BNP, NT-PRO (07/19/2024 3:54 AM EDT) BNP, NT-Pro 13,969(H) <300 pg/mL 07/19/2024 10:04 AM EDT LABORATORY [facility] Blood Venous blood specimen / Unknown Venipuncture / Unknown 07/19/2024 3:54 AM EDT 07/19/2024 4:00 AM EDT Narrative LABORATORY [facility] - 07/19/2024 10:04 AM EDT Exclude Heart Failure: <300 pg/mL Diagnose Heart Failure: Age <50 yr: >450 pg/mL 50-75 yr: >900 pg/mL >75 yr: >1800 pg/mL GFR is 30-59 mL/min: >1200 pg/mL or Age-adjusted values GFR <30 mL/min: do not use, not reliable Prognostic threshold: 1000 pg/mL Lorri Jackson DO LAB BLOOD ORDERABLES Final Re sult Performing Organization Address City/[facility] Co de Phone Number LABORATORY [address] [address] * PHOSPHORUS (07/19/2024 3:54 AM EDT) Phosphorus 2.9 2.5 - 4.8 mg/dL 07/19/2024 5:10 AM EDT LABORATORY [facility] Blood Venous blood specimen / Unknown Venipuncture / Unknown 07/19/2024 3:54 AM EDT 07/19/2024 4:00 AM EDT [employer] LAB BLOOD ORDERABLES Delmy l Result LABORATORY [address] [address] * MAGNESIUM (07/19/2024 3:54 AM EDT) [facility] Magnesium 2.0 1.5 - 2.6 mg/dL 07/19/2024 5:10 AM EDT LABORATORY [facility] Blood Venous blood specimen / Unknown Venipuncture / Unknown 07/19/2024 3:54 AM EDT 07/19/2024 4:00 AM EDT [employer] LAB BLOOD ORDERABLES Delmy l Result Performing Organization Address City/[facility] Co de Phone Number LABORATORY [address] [phone] * (ABNORMAL) CBC (07/19/2024 3:54 AM EDT) [facility] WBC 15.73(H) 4.00 - 10.80 K/uL 07/19/2024 4:21 AM EDT LABORATORY [facility] RBC 3.73 3.85 - 5.15 M/uL 07/19/2024 4:21 AM EDT LABORATORY [facility] HGB 11.4(L) 12.0 - 15.3 g/dL 07/19/2024 4:21 AM EDT LABORATORY [facility] HCT 36.3 36.0 - 45.2 % 07/19/2024 4:21 AM EDT LABORATORY [facility] MCV 97.3 81.5 - 97.5 fL 07/19/2024 4:21 AM EDT LABORATORY [facility] MCH 30.6 27.0 - 34.0 pg 07/19/2024 4:21 AM EDT LABORATORY [facility] MCHC 31.4 32.0 - 36.0 g/dL 07/19/2024 4:21 AM EDT LABORATORY [facility] RDW 13.4 11.5 - 15.5 % 07/19/2024 4:21 AM EDT LABORATORY [facility] PLT 96(L) 140 - 400 K/uL 07/19/2024 4:21 AM EDT LABORATORY GL Comment: Results rechecked. MPV 11.1 6.6 - 11.1 fL 07/19/2024 4:21 AM EDT LABORATORY GL nRBCs 0 <=0 /100 WBCs 07/19/2024 4:21 AM EDT LABORATORY GL Blood Venous blood specimen / Unknown Venipuncture / Unknown 07/19/2024 3:54 AM EDT 07/19/2024 4:00 AM EDT us [employer] P[employer] LAB BLOOD ORDERABLES Delmy l Result LABORATORY [address] [address] * (ABNORMAL) COMPREHENSIVE METABOLIC PANEL (07/19/2024 3:54 AM EDT) BUN 32(H) 6 - 20 mg/dL 07/19/2024 5:36 AM EDT LABORATORY GL CREATININE 0.8 0.5 - 1.0 mg/dL 07/19/2024 5:36 AM EDT LABORATORY GL EGFR 72 >=60 mL/min 07/19/2024 5:36 AM EDT LABORATORY GL Comment:eGFR is calculated b ased on the CKD-EPI 2020 equation. SODIUM 139 135 - 146 mmol/L 07/19/2024 5:36 AM EDT LABORATORY [facility] POTASSIUM 4.0 3.5 - 5.1 mmol/L 07/19/2024 5:36 AM EDT LABORATORY [facility] CHLORIDE 103 98 - 107 mmol/L 07/19/2024 5:36 AM EDT LABORATORY [facility] CO2 18(L) 22 - 32 mmol/L 07/19/2024 5:36 AM EDT LABORATORY [facility] ANION GAP 18(H) 7 - 15 mmol/L 07/19/2024 5:36 AM EDT LABORATORY [facility] GLUCOSE 189(H) 70 - 120 mg/dL 07/19/2024 5:36 AM EDT LABORATORY [facility] Albumin 3.6(L) 3.8 - 5.0 g/dL 07/19/2024 5:36 AM EDT LABORATORY GL AST 1,315(H) 10 - 35 U/L 07/19/2024 5:36 AM EDT LABORATORY [facility] Alkaline Phosphatase 198(H) 35 - 130 U/L 07/19/2024 5:36 AM EDT LAB[facility]ATORY [facility] Bilirubin, Total 0.4 <=1.2 mg/dL 07/19/2024 5:36 AM EDT LABORATORY [facility] CALCIUM 9.5 8.4 - 10.2 mg/dL 07/19/2024 5:36 AM EDT LAB[facility]ATORY [facility] Protein 6.4 6.0 - 8.3 g/dL 07/19/2024 5:36 AM EDT LAB[facility]ATORY [facility] ALT 1,894(H) 10 - 35 U/L 07/19/2024 5:36 AM EDT LAB[facility]ORY [facility] Blood Venous blood specimen / Unknown Venipuncture / Unknown 07/19/2024 3:54 AM EDT 07/19/2024 4:00 AM EDT [employer] LAB BLOOD ORDERABLES Delmy l Result LABORATORY [address] [phone] * ACUTE HEPATITIS PANEL (07/19/2024 3:53 AM EDT) [facility] Hepatitis A Antibody IgM Negative Negative 07/19/2024 1:32 PM EDT LABORATORY [facility] Hepatitis B Core Antibody IgM Negative Negative 07/19/2024 1:32 PM EDT LABORATORY [facility] Hepatitis B Surface Antigen Negative Negative 07/19/2024 1:32 PM EDT LABORATORY [facility] Hepatitis C Antibody Negative Negative 07/19/2024 1:32 PM EDT LABORATORY [facility] Blood Venous blood specimen / Unknown Venipuncture / Unknown 07/19/2024 3:53 AM EDT 07/19/2024 4:00 AM EDT [employer] LAB BLOOD ORDERABLES Delmy l Result LABORATORY [facility] [address] [place] [address] * LACTATE (07/19/2024 3:53 AM EDT) [facility] Lactate 1.8 0.4 - 2.0 mmol/L 07/19/2024 4:14 AM EDT LABORATORY [facility] Blood Venous blood specimen / Unknown Venipuncture / Unknown 07/19/2024 3:53 AM EDT 07/19/2024 4:00 AM EDT [employer] LAB BLOOD ORDERABLES Delmy l Result LABORATORY [address] [address] * (ABNORMAL) HEMOGLOBIN A1C (07/19/2024 3:53 AM EDT) [facility] Hemoglobin A1C 7.0(H) 4.0 - 5.6 % 07/19/2024 1:24 PM EDT LABORATORY [facility] Comment:The use of HbA1c to monitor glycemic status is based on normal hemoglobin and HbA composition. This test should not be used in patients with abnormal hemoglobin that affects the half life of the red blood cell or the in vivo glycation rates. Estimated Average Glucose 154(H) <126 mg/dL 07/19/2024 1:24 PM EDT LABORATORY [facility] Blood Venous blood specimen / Unknown Venipuncture / Unknown 07/19/2024 3:53 AM EDT 07/19/2024 4:00 AM EDT [employer] LAB BLOOD ORDERABLES Delmy l Result LABORATORY [facility] [address] [place] [address] * (ABNORMAL) TROPONIN T, HIGH SENSITIVITY (07/19/2024 3:53 AM EDT) [facility] Troponin T, High Sensitivity 102(HH) <=14 ng/L 07/19/2024 5:10 AM EDT LABORATORY [facility] Blood Venous blood specimen / Unknown Venipuncture / Unknown 07/19/2024 3:53 AM EDT 07/19/2024 4:00 AM EDT [employer] LAB BLOOD ORDERABLES Delmy l Result LABORATORY [address] [address] * (ABNORMAL) GLUCOSE METER, POINT OF CARE (07/19/2024 12:25 AM EDT) Pathologist [facility] Glucose - POCT 143(H) 70 - 120 mg/dL 07/19/2024 12:31 AM EDT [facility] LAB[facility] Blood Whole blood specimen / Unknown 07/19/2024 12:25 AM EDT 07/19/2024 12:31 AM EDT Fredrick Ochoa MD LAB POINT OF CARE TEST DOCKED DEVICE UNSOLICITED RESULTS Final Result Performing Organization Address [facility] Co de Phone Number [facility] LABORATORY [address] [place] [phone] * ABO/RH (07/18/2024 11:25 PM EDT) Pathologist [facility] ABO A 07/19/2024 1:30 AM EDT LABORATORY [facility] BLOOD B[facility] Rh Positive 07/19/2024 1:30 AM EDT LABORATORY [facility]OD [facility] Blood Venous blood specimen / Unknown Venipuncture / Unknown 07/18/2024 11:25 PM EDT 07/18/2024 11:31 PM EDT [employer] LAB BLOOD BANK TEST ORDER HARMONY Final Result Performing Organization Address City/[facility]/ZIP Co de Phone Number LABORATORY [facility] BLOOD BANK [address] [place] [phone] * BILIRUBIN, DIRECT (07/18/2024 11:25 PM EDT) Pathologist [facility] Bilirubin, Direct 0.2 0.0 - 0.3 mg/dL 07/19/2024 12:16 AM EDT LABORATORY [facility] Blood Venous blood specimen / Unknown Venipuncture / Unknown 07/18/2024 11:25 PM EDT 07/18/2024 11:31 PM EDT [employer] Anne ELYSE LAB BLOOD ORDERABLES Delmy l Result Performing Organization Address City/[facility]/ZIP Co de Phone Number LABORATORY [address] [address] * PHOSPHORUS (07/18/2024 11:25 PM EDT) Phosphorus 3.5 2.5 - 4.8 mg/dL 07/19/2024 12:17 AM EDT LABORATORY [facility] Blood Venous blood specimen / Unknown Venipuncture / Unknown 07/18/2024 11:25 PM EDT 07/18/2024 11:31 PM EDT [employer] LAB BLOOD ORDERABLES Delmy l Result Performing Organization Address [facility] Co de Phone Number LABORATORY [address] [address] * MAGNESIUM (07/18/2024 11:25 PM EDT) Magnesium 1.8 1.5 - 2.6 mg/dL 07/19/2024 12:16 AM EDT LABORATORY [facility] Blood Venous blood specimen / Unknown Venipuncture / Unknown 07/18/2024 11:25 PM EDT 07/18/2024 11:31 PM EDT [employer] LAB BLOOD ORDERABLES Delmy l Result Performing Organization Address [facility] Co de Phone Number LABORATORY [address] [address] * (ABNORMAL) PT INR (07/18/2024 11:25 PM EDT) Prothrombin Time 16.0(H) 11.6 - 15.2 seconds 07/18/2024 11:53 PM EDT LABORATORY [facility] INR 1.3(H) 0.8 - 1.2 07/18/2024 11:53 PM EDT LABORATORY [facility] Blood Venous blood specimen / Unknown Venipuncture / Unknown 07/18/2024 11:25 PM EDT 07/18/2024 11:30 PM EDT Narrative LABORATORY [facility] - 07/18/2024 11:53 PM EDT Warfarin Therapy INR: 2.0-3.0 conventional anticoagulation INR: 2.5-3.5 high intensity anticoagulation [employer] LAB BLOOD ORDERABLES Delmy l Result Performing Organization Address City/[facility]/ZIP Co de Phone Number LABORATORY [address] [address] * TYPE AND SCREEN (07/18/2024 11:25 PM EDT) Pathologist [facility] ABO A 07/19/2024 1:30 AM EDT LABORATORY [facility]OD [facility] Rh Positive 07/19/2024 1:30 AM EDT LABORATORY [facility] Red Blood Cell Antibody Screen Negative 07/19/2024 1:30 AM EDT LABORATORY [facility]LOOD [facility] Specimen Expiration Date 07/21/2024 23:59 07/19/2024 1:30 AM EDT LABORATORY [facility] B[facility]OD [facility] Blood Venous blood specimen / Unknown Venipuncture / Unknown 07/18/2024 11:25 PM EDT 07/18/2024 11:31 PM EDT [employer] LAB BLOOD BANK TEST ORDER HARMONY Final Result Performing Organization Address [facility] de Phone Number LABORATORY [facility] BLOOD [facility]ANK [address] [place] [phone] * (ABNORMAL) LIPID PANEL WITH DIRECT LDL IF TG IS HIGH (07/18/2024 11:25 PM EDT) Triglycerides 95 <=174 mg/dL 07/19/2024 1:47 PM EDT LABORATORY [facility] Comment: Triglyceride Reference Ranges (mg/dL): <150 Acceptable 150-174 Borderline high 175-499 High >=500 Very high Cholesterol 145 <200 mg/dL 07/19/2024 1:47 PM EDT LABORATORY [facility] Comment: Total Cholesterol Reference Ranges (mg/dL): <200 Desirable 200-239 Borderline high >=240 High HDL Cholesterol 38(L) >49 mg/dL 1:47 PM EDT LABORATORY [facility] Comment: HDL Cholesterol Reference Ranges (mg/dL): >=60 High (Desirable) <50 Low (Undesirable) For Females <40 Low (Undesirable) For Males Non-HDL Cholesterol 107 <=159 mg/dL 07/19/2024 1:47 PM EDT LABORATORY [facility] Comment: Non-HDL Cholesterol Reference Range (mg/dL): <100 Target level for high risk ASCVD patient <130 Optimal for general population 130-159 Near optimal for general population 160-189 Borderline High 190-219 High >=220 Very High LDL Cholesterol 88 <=129 mg/dL 07/19/2024 1:47 PM EDT LABORATORY [facility] Comment: LDL Cholesterol Reference Ranges (mg/dL): <70 Target level for high risk ASCVD patient <100 Optimal for general population 100-129 Near optimal for general population 130-159 Borderline high 160-189 High >=190 Very high Patient has high LDL cholesterol. Consider screening for Familial Hypercholesterolemia. Blood Venous blood specimen / Unknown Venipuncture / Unknown 07/18/2024 11:25 PM EDT 07/18/2024 11:30 PM EDT [facility] BLOOD ORDERABLES Delmy l Result LABORATORY [address] [address] * (ABNORMAL) TROPONIN T, HIGH SENSITIVITY (07/18/2024 11:25 PM EDT) [facility] Troponin T, High Sensitivity 100(H) <=14 ng/L 07/19/2024 12:02 AM EDT LABORATORY [facility] Blood Venous blood specimen / Unknown Venipuncture / Unknown 07/18/2024 11:25 PM EDT 07/18/2024 11:30 PM EDT [employer] [facility] LAB BLOOD ORDERABLES Delmy l Result Performing Organization Address City/[facility]/ZIP Co de Phone Number LABORATORY GL [address] [place] [address] * (ABNORMAL) ACETAMINOPHEN LEVEL (07/18/2024 11:25 PM EDT) Acetaminophen Level <5.0(L) 10.0 - 30.0 ug/mL 07/18/2024 11:57 PM EDT LABORATORY GL Blood Venous blood specimen / Unknown Venipuncture / Unknown 07/18/2024 11:25 PM EDT 07/18/2024 11:31 PM EDT [employer] [facility] BLOOD ORDERABLES Delmy l Result Performing Organization Address [facility] Co de Phone Number LABORATORY [facility] [address], [place] [id number] * (ABNORMAL) COMPREHENSIVE METABOLIC PANEL (07/18/2024 11:25 PM EDT) BUN 34(H) 6 - 20 mg/dL 07/19/2024 1:48 AM EDT LABORATORY [facility] CREATININE 1.1(H) 0.5 - 1.0 mg/dL 07/19/2024 1:48 AM EDT LABORATORY [facility] EGFR 48(L) >=60 mL/min 07/19/2024 1:48 AM EDT LABORATORY [facility] Comment:eGFR is calculated b ased on the CKD-EPI 2020 equation. SODIUM 141 135 - 146 mmol/L 07/19/2024 1:48 AM EDT LABORATORY [facility] POTASSIUM 4.6 3.5 - 5.1 mmol/L 07/19/2024 1:48 AM EDT LABORATORY [facility] CHLORIDE 104 98 - 107 mmol/L 07/19/2024 1:48 AM EDT LABORATORY [facility] CO2 24 22 - 32 mmol/L 07/19/2024 1:48 AM EDT LABORATORY [facility] ANION GAP 13 7 - 15 mmol/L 07/19/2024 1:48 AM EDT LABORATORY [facility] GLUCOSE 168(H) 70 - 120 mg/dL 07/19/2024 1:48 AM EDT LABORATORY [facility] Albumin 4.0 3.8 - 5.0 g/dL 07/19/2024 1:48 AM EDT LABORATORY [facility] AST 1,387(H) 10 - 35 U/L 07/19/2024 1:48 AM EDT LABORATORY [facility] Alkaline Phosphatase 254(H) 35 - 130 U/L 07/19/2024 1:48 AM EDT LABORATORY [facility] Comment:Results rechecked Bilirubin, Total 0.5 <=1.2 mg/dL 07/19/2024 1:48 AM EDT LABORATORY [facility] CALCIUM 9.9 8.4 - 10.2 mg/dL 07/19/2024 1:48 AM EDT LABORATORY [facility] Protein 6.5 6.0 - 8.3 g/dL 07/19/2024 1:48 AM EDT LABORATORY [facility] ALT 1,908(H) 10 - 35 U/L 07/19/2024 1:48 AM EDT LABORATORY [facility] Blood Venous blood specimen / Unknown Venipuncture / Unknown 07/18/2024 11:25 PM EDT 07/18/2024 11:31 PM EDT us [facility] BLOOD ORDERABLES Delmy brown Result LABORATORY [address] [address] * (ABNORMAL) CBC (07/18/2024 11:25 PM EDT) WBC 16.50(H) 4.00 - 10.80 K/uL 07/18/2024 11:37 PM EDT LABORATORY GL RBC 3.92 3.85 - 5.15 M/uL 07/18/2024 11:37 PM EDT LABORATORY [facility] HGB 12.0 12.0 - 15.3 g/dL 07/18/2024 11:37 PM EDT LABORATORY [facility] HCT 38.0 36.0 - 45.2 % 07/18/2024 11:37 PM EDT LABORATORY [facility] MCV 96.9 81.5 - 97.5 fL 07/18/2024 11:37 PM EDT LABORATORY [facility] MCH 30.6 27.0 - 34.0 pg 07/18/2024 11:37 PM EDT LABORATORY GL MCHC 31.6 32.0 - 36.0 g/dL 07/18/2024 11:37 PM EDT LABORATORY GL RDW 13.3 11.5 - 15.5 % 07/18/2024 11:37 PM EDT LABORATORY GL PLT 106(L) 140 - 400 K/uL 07/18/2024 11:37 PM EDT LABORATORY GL Comment: Results rechecked. MPV 10.9 6.6 - 11.1 fL 07/18/2024 11:37 PM EDT LABORATORY GL nRBCs 0 <=0 /100 WBCs 07/18/2024 11:37 PM EDT LABORATORY GL Blood Venous blood specimen / Unknown Venipuncture / Unknown 07/18/2024 11:25 PM EDT 07/18/2024 11:30 PM EDT [facility] LAB BLOOD ORDERABLES Delmy brown Result Performing Organization Address City/State/[facility] Co de Phone Number LABORATORY [facility] [address] [place] [address] documented in this encounter Visit Diagnoses Diagnosis Acute cholecystitis- Primary Acute cholecystitis Chest pain Chest pain, unspecified Tachycardia Tachycardia, unspecified Cardiac arrhythmia, unspecified Other specified diseases of biliary tract Subluxation complex (vertebral) of lumbar region Cholecystitis, unspecified Abnormal findings on diagnostic imaging of other specified body structures Other specified symptoms and signs involving the digestive system and abdomen Cyst of kidney, acquired Acquired cyst of kidney Abnormal findings on diagnostic imaging of other abdominal regions, including retroperitoneum Ambulatory dysfunction Severe dementia associated with alcoholism, without behavioral disturbance, psychotic disturbance, mood disturbance, or anxiety (HCC) Chronic bilateral low back pain without sciatica Chronic diastolic (congestive) heart failure (HCC) Type 2 diabetes mellitus with hemoglobin A1c goal of less than 8.0% (HCC) HTN, goal below 140/90 Unspecified essential hypertension Acute hepatitis Acute and subacute necrosis of liver Altered mental status Leukocytosis Leukocytosis, unspecified Thrombocytopenia (HCC) Thrombocytopenia, unspecified Elevated LFTs Other abnormal blood chemistry Bacteremia Acute cholecystitis documented in this encounter Administered Medications Inactive Administered Medications - up to 3 most recent administrations Medication Order MAR Action Action Date Dose Rate Site acetylcysteine (ACETADOTE) 12,500 mg in D5W 200 mL infusion 12,500 mg, Intravenous, ONCE, 1 dose, On Thu07/19/24 at 0000 Restarted 07/19/2024 2:19 AM EDT 12,500 mg/hr 200 mL/hr Rate Verify 07/19/2024 12:52 AM EDT 12,500 mg/hr 200 mL/hr New Bag 07/19/2024 12:47 AM EDT 12,500 mg 200 mL/hr acetylcysteine (ACETADOTE) 4,200 mg in D5W 500 mL infusion 4,200 mg, Intravenous, Administer over 4 Hours, at 132.75 mL/hr Rate Verify 07/19/2024 5:07 AM EDT 1,050 mg/hr 132.8 mL/hr Restarted 07/19/2024 4:45 AM EDT 1,050 mg/hr 132.8 mL/hr Restarted 07/19/2024 4:34 AM EDT 1,050 mg/hr 132.8 mL/hr acetylcysteine (ACETADOTE) 8,400 mg in D5W 1,000 mL infusion 8,400 mg, Intravenous, ONCE, 1 dose, On Thu07/19/24 at 0830, Administer over 16 Hours Restarted 07/20/2024 8:33 AM EDT 525 mg/hr 66.38 mL/hr Restarted 07/20/2024 7:40 AM EDT 525 mg/hr 66.38 mL/hr Restarted 07/20/2024 7:34 AM EDT 525 mg/hr 66.38 mL/hr ampicillin in NSS ivpb 2 g 2 g, Intravenous, Q6H, 38 doses, First dose on Thu07/22/24 at 1215, Last dose on Thu07/31/24 at 1800, MIX BEFORE ADMINISTERING! New Bag 07/22/2024 6:01 PM EDT 2 g 210 mL/hr New Bag 07/22/2024 1:54 PM EDT 2 g 210 mL/hr aspirin chew tab 81 mg 81 mg, Oral, Daily(AM), First dose on Thu07/21/24 at 0900, Until Discontinued Given 07/22/2024 8:46 AM EDT 81 mg Given 07/21/2024 8:04 AM EDT 81 mg dextrose 50% inj 25 mL 25 mL, IV Push, PRN Hypoglycemia, Other, For blood glucose 54 - 69 mg/dL or 70 - 100 mg/dL with symptoms AND patient is unresponsive, NPO, OR unable to swallow, Starting on Thu07/18/24 at 2310, Until 07/23/24 at 0125, Administer IV. Recheck blood glucose after 15 minutes. Notify provider. dextrose 50% inj 50 mL 50 mL, IV Push, PRN Hypoglycemia, Other, For blood glucose below 54 mg/dL AND patient unresponsive, NPO, OR unable to swallow, Starting on Thu07/18/24 at 2310, Until 07/23/24 at 0125, Administer IV. Recheck blood glucose in 15 minutes. Notify provider. glucagon (Glucagen) inj 1 mg 1 mg, Intramuscular, PRN Hypoglycemia, Other, If patient is unresponsive, or NPO and has no IV access, Starting on Thu07/18/24 at 2310, Until 07/23/24 at 0125, NPO and no IV access with either 1) blood glucose less than 100 mg/dL and symptomatic OR 2) blood glucose less than 70 mg/dL and asymptomatic Glucose (Glutose 15) 40 % gel 15 g of glucose 15 g of glucose, Oral, PRN Hypoglycemia (low sugar), Other, For blood glucose 54 - 69 mg/dL or 70 - 100 mg/dL with symptoms AND patient alert WITH difficulty chewing/swallowing, Starting on Thu07/18/24 at 2312, Until 07/23/24 at 0125, Administer gel. Recheck blood glucose after 15 minutes. Notify provider. 37.5 gram tube = 15 grams glucose = 1 each Glucose (Glutose 15) 40 % gel 30 g of glucose 30 g of glucose, Oral, PRN Hypoglycemia (low sugar), Other, For blood glucose below 54 mg/dL AND patient alert WITH difficulty chewing/swallowing, Starting on Thu07/18/24 at 2312, Until 07/23/24 at 0125, Administer gel. Recheck blood glucose after 15 minutes. Notify provider. 37.5 gram tube = 15 grams glucose = 1 each glucose chew tab 16 g 16 g, Oral, PRN Hypoglycemia, Other, For blood glucose 54 - 69 mg/dL or 70 - 100 mg/dL with symptoms and patient alert without difficulty chewing/swallowing., Starting on Thu07/18/24 at 2310, Until 07/23/24 at 0125 hEParin inj 5,000 Units 5,000 Units, Subcutaneous, Q8H, First dose on Thu07/20/24 at 1415, Until Discontinued Given 07/22/2024 1:38 PM EDT 5,000 Units Abdomen Left Lower Given 07/22/2024 6:11 AM EDT 5,000 Units A bdomen Right Lower Given 07/21/2024 10:58 PM EDT 5,000 Units Abdomen Left Lower HYDROmorphone (Dilaudid) inj 0.2 mg 0.2 mg, IV Push, Q4H PRN Pain, Moderate, Starting on Thu07/18/24 at 2327, Until Thu07/21/24 at 1533 Given 07/20/2024 10:17 PM EDT 0.2 mg HYDROmorphone (Dilaudid) inj 0.5 mg 0.5 mg, IV Push, Q4H PRN Pain, Severe, Starting on Thu07/18/24 at 2327, Until Thu07/21/24 at 1533 Given 07/19/2024 1:24 AM EDT 0.5 mg insulin aspart (NovoLOG) inj Subcutaneous, Q6H, First dose on Thu07/19/24 at 0000, Until Discontinued, LOW DOSE (Elderly insulin sensitive patient): Sliding Scale Correctional insulin may be given if the patient is NPO. Dose based on standard build from Insulin Calculator. Do not modify insulin doses in administration instructions!, Glucose less than 70 instructions: Obtain STAT lab blood glucose and call covering provider., Glucose 80-150 (units): 0, Glucose 151-200 (units): 1, Glucose 201-250 (units): 2, Glucose 251-300 (units): 3, Glucose greater than 300 (units): 4, Glucose greater than 300 instructions: Give suggested insulin dose and call covering provider. Given 07/20/2024 6:21 AM EDT 1 Units Arm Left Upper Given 07/19/2024 11:36 PM EDT 1 Units A rm Right Upper Given 07/19/2024 6:41 PM EDT 1 Units Ar m Left Upper insulin aspart (NovoLOG) inj Subcutaneous, ACHS, First dose (after last modification) on Thu07/20/24 at 1145, Until Discontinued, LOW DOSE (Elderly insulin sensitive patient): Sliding Scale Correctional insulin may be given if the patient is NPO. Dose based on standard build from Insulin Calculator. Do not modify insulin doses in administration instructions!, Glucose less than 70 instructions: Obtain STAT lab blood glucose and call covering provider., Glucose 80-150 (units): 0, Glucose 151-200 (units): 1, Glucose 201-250 (units): 2, Glucose 251-300 (units): 3, Glucose greater than 300 (units): 4, Glucose greater than 300 instructions: Give suggested insulin dose and call covering provider. Given 07/22/2024 5:21 PM EDT 1 Units Arm Left Upper Given 07/22/2024 1:41 PM EDT 2 Units Ar m Right Upper Given 07/22/2024 8:45 AM EDT 1 Units Ab domen Right Upper Isolyte-S pH 7.4 infusion Intravenous, at 75 mL/hr, Plasma-LYTE 148, isolyte-S, and isolyte-S pH 7.4 are considered equivalent - including for MAR barcode scanning., CONTINUOUS, Starting on Thu07/18/24 at 2345, Until Thu07/19/24 at 1134 Rate Verify 07/19/2024 12:52 AM EDT 75 m L/hr Rate Verify 07/18/2024 11:42 PM EDT 75 mL/hr New Bag 07/18/2024 11:41 PM EDT 75 mL/hr loperamide (Imodium) cap 2 mg 2 mg, Oral, Q6H PRN Diarrhea, Starting on Maria Guadalupe 07/21/24 at 1409, Until 07/23/24 at 0125, Maximum of 16 mg per day recommended Given 07/21/2024 3:01 PM EDT 2 mg Magnesium L-Lactate SR (Mag-Tab SR) tab 84 mg 84 mg, Oral, Daily(AM), First dose on Thu07/22/24 at 0900, Until Discontinued, DO NOT CRUSH! Each tablet contains 84 mg elemental magnesium Given 07/22/2024 8:45 AM EDT 84 mg metoprolol succinate XL (toPROL XL) tab 12.5 mg 12.5 mg, Oral, Daily(AM), First dose on Thu07/20/24 at 0900, Until Discontinued, Hold for HR less than 60 or SBP below 100 and notify service if dose is held This med should NOT be Crushed or Chewed. Given 07/22/2024 8:46 AM EDT 12.5 mg Given 07/21/2024 8:04 AM EDT 12.5 mg Given 07/20/2024 9:33 AM EDT 12.5 mg NSS infusion Intravenous, at 50 mL/hr, CONTINUOUS, Starting on Thu07/19/24 at 1215, Until Thu07/20/24 at 1214 Rate Verify 07/20/2024 11:00 AM EDT 50 mL/hr Rate Verify 07/20/2024 7:47 AM EDT 50 mL/hr Rate Verify 07/20/2024 3:10 AM EDT 50 mL/hr omeprazole (PriLOSEC) cap 20 mg 20 mg, Oral, BID (.AM/PM), First dose on Thu07/22/24 at 0915, Until Discontinued, This med should NOT be Crushed or Chewed Given 07/22/2024 8:46 AM EDT 20 mg ondansetron (Zofran) inj 4 mg 4 mg, IV Push, Q6H PRN Nausea, Starting on 07/18/24 at 2307, Until 07/23/24 at 0125 Given 07/19/2024 5:29 AM EDT 4 mg oxyCODONE (Oxy IR) tab 5 mg 5 mg, Oral, Q6H PRN Pain, Severe, Pain, Moderate, Starting on Maria Guadalupe 07/21/24 at 1533, Until 07/23/24 at 0125 Given 07/22/2024 8:19 PM EDT 5 mg Given 07/22/2024 6:47 AM EDT 5 mg Given 07/21/2024 4:42 PM EDT 5 mg Pantoprazole (Protonix) inj 40 mg 40 mg, IV Push, Q12H, First dose on Thu07/19/24 at 2100, Until Discontinued, IV push instructions: Flush I.V. Line before and after administration. In-line filter not required. 2-minute infusion: The volume of reconstituted solution (4mg/ml) to be injected may be administered intravenously over at least 2 minutes. ( Dilute each vial with 10 ml of 0.9% saline PF) Given 07/21/2024 10:58 PM EDT 40 mg Given 07/21/2024 8:04 AM EDT 40 mg Given 07/20/2024 10:18 PM EDT 40 mg Piperacillin-Tazobactam (Zosyn) 4.5 g in 100 mL NSS ivpb (FOUR hour infusion) IV Piggyback, 4.5 g, Q8HNOW, 15 doses, First dose (after last modification) on Thu07/18/24 at 2345, Last dose on Thu07/23/24 at 1545, Administer over 4 Hours, at 26.25 mL/hr Rate Change 07/19/2024 1:42 AM EDT 4.779 g/hr 111.5 mL/hr Rate Verify 07/19/2024 12:52 AM EDT 1.125 g/hr 26.25 mL/hr New Bag 07/18/2024 11:48 PM EDT 4.5 g 26.25 mL/hr Piperacillin-Tazobactam (Zosyn) 4.5 g in 100 mL NSS ivpb (FOUR hour infusion) IV Piggyback, 4.5 g, Q8HNOW, 14 doses, First dose (after last modification) on Thu07/20/24 at 0230, Last dose on Thu07/24/24 at 1200, Administer over 4 Hours, at 26.25 mL/hr New Bag 07/22/2024 4:39 AM EDT 4.5 g 26.25 mL/hr New Bag 07/21/2024 8:53 PM EDT 4.5 g 26.25 mL/hr Rate Verify 07/21/2024 2:12 PM EDT 1.125 g/hr 26.25 mL/hr Piperacillin-Tazobactam (Zosyn) 4.5 g in 100 mL NSS ivpb (HALF hour infusion) IV Piggyback, 4.5 g, Q6HNOW, 3 doses, First dose on Thu07/19/24 at 0800, Last dose on Thu07/19/24 at 2000, Administer over 30 Minutes New Bag 07/19/2024 8:12 PM EDT 4.5 g 210 mL/hr New Bag 07/19/2024 3:46 PM EDT 4.5 g 210 mL/hr Restarted 07/19/2024 9:52 AM EDT 9 g/hr 210 mL/hr polyvinyl alcohol-povidone PF (Refresh) ophthalmic solution 1 Drop 1 Drop, Both eyes, Q4H PRN Irritation, Starting on Maria Guadalupe 07/21/24 at 1031, Until 07/23/24 at 0125 potassium chloride 10 mEq in 100 mL ivpb LOCKED DOSE 10 mEq, Peripheral IV, Q1H, 3 doses, First dose on Thu07/21/24 at 0700, Last dose on Thu07/21/24 at 0900, Administer over 60 Minutes, Standard infusion duration is 60 minutes. New Bag 07/21/2024 8:57 AM EDT 10 mEq 100 mL/hr New Bag 07/21/2024 7:47 AM EDT 10 mEq 100 mL/hr Restarted 07/21/2024 7:46 AM EDT 10 mEq/hr 100 mL/hr potassium chloride ER tab 40 mEq 40 mEq, Oral, ONCE, On Thu07/20/24 at 1000, For 1 dose, This med should NOT be Crushed or Chewed Given 07/20/2024 10:52 AM EDT 40 mEq potassium chloride ER tab 40 mEq 40 mEq, Oral, Q4H, First dose on Thu07/21/24 at 0800, Last dose on Thu07/21/24 at 1200, For 2 doses, This med should NOT be Crushed or Chewed Given 07/21/2024 12:08 PM EDT 40 mEq Given 07/21/2024 8:04 AM EDT 40 mEq potassium phosphate 30 mmol in NSS 250 mL (K phos) ivpb 30 mmol, Peripheral IV, ONCE, 1 dose, On Thu07/22/24 at 0830 New Bag 07/22/2024 9:59 AM EDT 30 mmol 53 mL/hr sodium chloride 0.9 % flush peripheral arnulfo 3 mL 3 mL, IV Push, Q8H, First dose on 07/18/24 at 2345, Until Discontinued, Do not flush if lock, PICC, or central line not in place; IV infusing or unable to flush. Given 07/20/2024 2:00 PM EDT 3 mL Given 07/19/2024 2:00 PM EDT 3 mL Given 07/18/2024 11:45 PM EDT 3 mL sodium PHOSphate 15 mmol in NSS 250 mL (NaPhos) ivpb 15 mmol, Peripheral IV, ONCE, 1 dose, On Thu07/21/24 at 1645 Rate Verify 07/21/2024 6:07 PM EDT 6 mmol/hr 104 mL/hr New Bag 07/21/2024 4:50 PM EDT 15 mmol 104 mL/hr documented in this encounter Active and Recently Administered Medications Times are shown in EDT. Scheduled Medication Order 07/20/2024 07/21/2024 07/22/2024 acetylcysteine (ACETADOTE) 8,400 mg in D5W 1,000 mL infusion (COMPLETED) 8,400 mg, Intravenous, ONCE, 1 dose, On Thu07/19/24 at 0830, Administer over 16 Hours 0242 (Stopped - Provider: Brittany Petty RN)0424 (Restarted - Provider: Aura Arana RN)0731 (Paused - Provider: Aura Arana, MARTINA)0734 (Restarted - Provider: Aura Arana, MARTINA)0737 (Paused - Provider: Aura Arana RN)0740 (Restarted - Provider: Aura Arana, MARTINA)0743 (Stopped - Provider: Aura Arana, MARTINA)0833 (Restarted - Provider: Aura Arana, MARTINA) ampicillin in NSS ivpb 2 g 2 g, Intravenous, Q6H, 38 doses, First dose on Thu07/22/24 at 1215, Last dose on Thu07/31/24 at 1800, MIX BEFORE ADMINISTERING! 1354 (New Bag - Provider: SN Bindu)1801 (New Bag - Provider: Saadia Nettles, MARTINA) aspirin chew tab 81 mg 81 mg, Oral, Daily(AM), First dose on Thu07/21/24 at 0900, Until Discontinued 0804 (Given - Provider: Aura Arana RN) 0846 (Given - Provider: Saadia Nettles, MARTINA) hEParin inj 5,000 Units 5,000 Units, Subcutaneous, Q8H, First dose on Thu07/20/24 at 1415, Until Discontinued 1344 (Given - Provider: Aura Arana, MARTINA)2216 (Given - Provider: Love Anne RN) 0545 (Given - Provider: Love Anne RN)1411 (Given - Provider: Aura Arana, MARTINA)2258 (Given - Provider: Love Anne RN) 0611 (Given - Provider: Love Anne RN)1338 (Given - Provider: SN Bindu) insulin aspart (NovoLOG) inj (CANCELED) Subcutaneous, Q6H, First dose on Thu07/19/24 at 0000, Until Discontinued, LOW DOSE (Elderly insulin sensitive patient): Sliding Scale Correctional insulin may be given if the patient is NPO. Dose based on standard build from Insulin Calculator. Do not modify insulin doses in administration instructions!, Glucose less than 70 instructions: Obtain STAT lab blood glucose and call covering provider., Glucose 80-150 (units): 0, Glucose 151-200 (units): 1, Glucose 201-250 (units): 2, Glucose 251-300 (units): 3, Glucose greater than 300 (units): 4, Glucose greater than 300 instructions: Give suggested insulin dose and call covering provider. 0621 (Given - Provider: Brittany Petty RN) insulin aspart (NovoLOG) inj Subcutaneous, ACHS, First dose (after last modification) on Thu07/20/24 at 1145, Until Discontinued, LOW DOSE (Elderly insulin sensitive patient): Sliding Scale Correctional insulin may be given if the patient is NPO. Dose based on standard build from Insulin Calculator. Do not modify insulin doses in administration instructions!, Glucose less than 70 instructions: Obtain STAT lab blood glucose and call covering provider., Glucose 80-150 (units): 0, Glucose 151-200 (units): 1, Glucose 201-250 (units): 2, Glucose 251-300 (units): 3, Glucose greater than 300 (units): 4, Glucose greater than 300 instructions: Give suggested insulin dose and call covering provider. 1125 (Given - Provider: Nickolas Hicks RN)1653 (Given - Provider: Aura Arana RN)2200 (Not Given - Provider: Love Anne RN - Reason: Parameter(s) Not Met) 0804 (Given - Provider: Aura Arana RN)1208 (Given - Provider: Aura Arana RN)1642 (Given - Provider: Aura Arana RN)2200 (Not Given - Provider: Love Anne, MARTINA - Reason: Parameter(s) Not Met) 0845 (Given - Provider: Saadia Nettles RN)1341 (Given - Provider: SN Bindu)1721 (Given - Provider: Saadia Aragon RN) Magnesium L-Lactate SR (Mag-Tab SR) tab 84 mg 84 mg, Oral, Daily(AM), First dose on Thu07/22/24 at 0900, Until Discontinued, DO NOT CRUSH! Each tablet contains 84 mg elemental magnesium 0845 (Given - Provider: Saadia Nettles RN) metoprolol succinate XL (toPROL XL) tab 12.5 mg 12.5 mg, Oral, Daily(AM), First dose on Thu07/20/24 at 0900, Until Discontinued, Hold for HR less than 60 or SBP below 100 and notify service if dose is held This med should NOT be Crushed or Chewed. 0933 (Given - Provider: Aura Arana RN) 0804 (Given - Provider: Aura Arana RN) 0846 (Given - Provider: Saadia Nettles RN) omeprazole (PriLOSEC) cap 20 mg 20 mg, Oral, BID (.AM/PM), First dose on Thu07/22/24 at 0915, Until Discontinued, This med should NOT be Crushed or Chewed 0846 (Given - Provider: Saadia Nettles RN) Pantoprazole (Protonix) inj 40 mg (CANCELED) 40 mg, IV Push, Q12H, First dose on Thu07/19/24 at 2100, Until Discontinued, IV push instructions: Flush I.V. Line before and after administration. In-line filter not required. 2-minute infusion: The volume of reconstituted solution (4mg/ml) to be injected may be administered intravenously over at least 2 minutes. ( Dilute each vial with 10 ml of 0.9% saline PF) 0933 (Given - Provider: Aura Arana RN)2218 (Given - Provider: Love Anne RN) 0804 (Given - Provider: Aura Arana RN)2258 (Given - Provider: Love Anne RN) Piperacillin-Tazobactam (Zosyn) 4.5 g in 100 mL NSS ivpb (FOUR hour infusion) (CANCELED) IV Piggyback, 4.5 g, Q8HNOW, 14 doses, First dose (after last modification) on Thu07/20/24 at 0230, Last dose on Thu07/24/24 at 1200, Administer over 4 Hours, at 26.25 mL/hr 0243 (New Bag - Provider: Brittany Petty RN)0310 (Rate Verify - Provider: Brittany Petty RN)0348 (Stopped - Provider: Aura Arana RN)1056 (New Bag - Provider: Aura Arana RN)1213 (Rate Verify - Provider: Aura Arana RN)1456 (Stopped - Provider: Aura Arana RN)1851 (New Bag - Provider: Aura Aarna RN)2259 (Stopped - Provider: Love Anne RN) 0150 (New Bag - Provider: Love Anne RN)0551 (Stopped - Provider: Love Anne RN)1027 (New Bag - Provider: Aura Arana, MARTINA)1412 (Rate Verify - Provider: Aura Arana RN)1427 (Stopped - Provider: Aura Arana, MARTINA)2053 (New Bag - Provider: Love Anne RN - Comment: pt had NaPhos infusing prior) 0106 (Stopped - Provider: Love Anne RN)0439 (New Bag - Provider: Love Anne RN)1140 (Stopped - Provider: Saadia Nettles RN) potassium chloride 10 mEq in 100 mL ivpb LOCKED DOSE (COMPLETED) 10 mEq, Peripheral IV, Q1H, 3 doses, First dose on Thu07/21/24 at 0700, Last dose on Thu07/21/24 at 0900, Administer over 60 Minutes, Standard infusion duration is 60 minutes. 0643 (New Bag - Provider: Love Anne RN)0743 (Paused - Provider: Aura Arana RN)0746 (Restarted - Provider: Aura Arana RN)0747 (New Bag - Provider: Aura Arana RN)0848 (Stopped - Provider: Aura Arana, MARTINA)0857 (New Bag - Provider: Nickolas Hicks, RN)0958 (Stopped - Provider: Aura Arana RN) potassium chloride ER tab 40 mEq (COMPLETED) 40 mEq, Oral, ONCE, On Thu07/20/24 at 1000, For 1 dose, This med should NOT be Crushed or Chewed 1052 (Given - Provider: Aura Arana RN) potassium chloride ER tab 40 mEq (COMPLETED) 40 mEq, Oral, Q4H, First dose on Thu07/21/24 at 0800, Last dose on Thu07/21/24 at 1200, For 2 doses, This med should NOT be Crushed or Chewed 0804 (Given - Provider: Aura Arana RN)1208 (Given - Provider: Aura Arana RN) potassium phosphate 30 mmol in NSS 250 mL (K phos) ivpb (COMPLETED) 30 mmol, Peripheral IV, ONCE, 1 dose, On Thu07/22/24 at 0830 0959 (New Bag - Provider: Rebeca Blevins RN - Comment: primary nurse confirmed with provider) sodium chloride 0.9 % flush peripheral arnulfo 3 mL (CANCELED) 3 mL, IV Push, Q8H, First dose on Thu07/18/24 at 2345, Until Discontinued, Do not flush if lock, PICC, or central line not in place; IV infusing or unable to flush. 0622 (Not Given - Provider: Brittany Petty RN - Reason: Parameter(s) Not Met)1400 (Given - Provider: Nickolas Hicks, MARTINA) sodium PHOSphate 15 mmol in NSS 250 mL (NaPhos) ivpb (COMPLETED) 15 mmol, Peripheral IV, ONCE, 1 dose, On Thu07/21/24 at 1645 1650 (New Bag - Provider: Aura Arana, MARTINA)1807 (Rate Verify - Provider: Aura Arana, MARTINA)1920 (Stopped - Provider: Love Anne RN) Continuous Medication Order 07/20/2024 07/21/2024 07/22/2024 NSS infusion () Intravenous, at 50 mL/hr, CONTINUOUS, Starting on Thu07/19/24 at 1215, Until Thu07/20/24 at 1214 0310 (Rate Verify - Provider: Brittany Petty RN)[phone] (Rate Verify - Provider: Aura Arana, MARTINA)1100 (Rate Verify - Provider: Aura Arana, MARTINA) PRN Medication Order 07/20/2024 07/21/2024 07/22/2024 dextrose 50% inj 25 mL 25 mL, IV Push, PRN Hypoglycemia, Other, For blood glucose 54 - 69 mg/dL or 70 - 100 mg/dL with symptoms AND patient is unresponsive, NPO, OR unable to swallow, Starting on Thu07/18/24 at 2310, Until 07/23/24 at 0125, Administer IV. Recheck blood glucose after 15 minutes. Notify provider. dextrose 50% inj 50 mL 50 mL, IV Push, PRN Hypoglycemia, Other, For blood glucose below 54 mg/dL AND patient unresponsive, NPO, OR unable to swallow, Starting on Thu07/18/24 at 2310, Until 07/23/24 at 0125, Administer IV. Recheck blood glucose in 15 minutes. Notify provider. glucagon (Glucagen) inj 1 mg 1 mg, Intramuscular, PRN Hypoglycemia, Other, If patient is unresponsive, or NPO and has no IV access, Starting on Thu07/18/24 at 2310, Until 07/23/24 at 0125, NPO and no IV access with either 1) blood glucose less than 100 mg/dL and symptomatic OR 2) blood glucose less than 70 mg/dL and asymptomatic Glucose (Glutose 15) 40 % gel 15 g of glucose 15 g of glucose, Oral, PRN Hypoglycemia (low sugar), Other, For blood glucose 54 - 69 mg/dL or 70 - 100 mg/dL with symptoms AND patient alert WITH difficulty chewing/swallowing, Starting on Thu07/18/24 at 2312, Until 07/23/24 at 0125, Administer gel. Recheck blood glucose after 15 minutes. Notify provider. 37.5 gram tube = 15 grams glucose = 1 each Glucose (Glutose 15) 40 % gel 30 g of glucose 30 g of glucose, Oral, PRN Hypoglycemia (low sugar), Other, For blood glucose below 54 mg/dL AND patient alert WITH difficulty chewing/swallowing, Starting on Thu07/18/24 at 2312, Until 07/23/24 at 0125, Administer gel. Recheck blood glucose after 15 minutes. Notify provider. 37.5 gram tube = 15 grams glucose = 1 each glucose chew tab 16 g 16 g, Oral, PRN Hypoglycemia, Other, For blood glucose 54 - 69 mg/dL or 70 - 100 mg/dL with symptoms and patient alert without difficulty chewing/swallowing., Starting on Thu07/18/24 at 2310, Until 07/23/24 at 0125 HYDROmorphone (Dilaudid) inj 0.2 mg (CANCELED)(Linked Group 1) 0.2 mg, IV Push, Q4H PRN Pain, Moderate, Starting on Thu07/18/24 at 2327, Until Maria Guadalupe 07/21/24 at 1533 2217 (Given - Provider: Love Anne RN - Comment: ashkand w/ Linda Anaya RN) loperamide (Imodium) cap 2 mg 2 mg, Oral, Q6H PRN Diarrhea, Starting on Maria Guadalupe 07/21/24 at 1409, Until 07/23/24 at 0125, Maximum of 16 mg per day recommended 1501 (Given - Provider: Aura Arana, MARTINA) ondansetron (Zofran) inj 4 mg 4 mg, IV Push, Q6H PRN Nausea, Starting on Thu07/18/24 at 2307, Until 07/23/24 at 0125 oxyCODONE (Oxy IR) tab 5 mg 5 mg, Oral, Q6H PRN Pain, Severe, Pain, Moderate, Starting on Maria Guadalupe 07/21/24 at 1533, Until 07/23/24 at 0125 1642 (Given - Provider: Aura Arana RN) 0647 (Given - Provider: Love Anne, MARTINA)2019 (Given - Provider: Love Anne, RN) polyvinyl alcohol-povidone PF (Refresh) ophthalmic solution 1 Drop 1 Drop, Both eyes, Q4H PRN Irritation, Starting on Maria Guadalupe 07/21/24 at 1031, Until 07/23/24 at 0125 Linked Groups Order Group 1: HYDROmorphone (Dilaudid) inj 0.2 mg (CANCELED)Jump to med 0.2 mg, IV Push, Q4H PRN Pain, Moderate, Starting on 07/18/24 at 2327, Until Maria Guadalupe 07/21/24 at 1533 Or HYDROmorphone (Dilaudid) inj 0.5 mg (CANCELED) 0.5 mg, IV Push, Q4H PRN Pain, Severe, Starting on 07/18/24 at 2327, Until Maria Guadalupe 07/21/24 at 1533 documented in this encounter Additional Health Concerns Infection Onset Date Last Indicated Resolved Time C. difficile Rule-Out 07/21/2024 07/21/20242024 1:59 PM EDT documented as of this encounter Advance Directives Documents on File Type Date Recorded Patient Third Mate Expl anation Advance Directives and Living Will 08/13/2023 signed on 12/12/2008 ADVANCE DIRECTIVE / LIVING WILL AND DURABLE POWER OF DIRECTOR INFORMATICS WITH HEALTH CARE PROVISIONS * Full Code (Latest Code Status on File) Date Activated Date Inactivated Comments 07/18/2024 11:12 PM 07/23/2024 1:30 AM This order reflects the patients wishes and were consensually agreed upon. Question Answer Comments Discussion of Advance Directives occurred with: Patient Care Teams Salesperson Men'S And Boys' Clothing Relationship Specialty Start Date End Date Melanie Ramirez MD [address] [place] [address] [place] [address] PCP - General Family Medicine 05/08/22 documented as of this encounter
--- OUTSIDE RECORDS SUMMARY | 2024-08-18 02:56 | External Medical Summary | Summary of Care ---
Author Name Unknown Organization [facility] Address [address] [place] [address] Phone [phone] Care Team Providers Care Potato Chip Sacking Machine Operator Name Role Phone Melanie Ramirez MD Primary Care Provide r Reason for Visit * Reason Onset Date Comments Outpatient Testing 07/21/2024 Encounter Details Date Type Department Care Team (Late st Contact Info) Description 07/21/2024 Telephone Gastroenterology, [address] [phone] Monae Jalloh PA-C [address] [place] [address] Outpatient Testing Allergies No known active allergiesdocumented as of this encounter (statuses as of 07/22/2024) Medications VITAMIN B-12 CR TBCR 1000 MCG ORIndications:Oth er vitamin B12 deficiency anemia one pill each day 100 5 07/03/19 02 Suspended ASPIRIN 81 MG PO TABS one tab by mouth daily 0 0 03/02/20 07 Suspended VITAMIN D 1000 UNIT PO CAPS one tab by mouth daily Suspended MEDICAL INSTRUCTIONS Patient may have epidural injections. Aware it can affect blood sugar readings. Patient has well controlled diabetes. 1 Each 1 02/14/20 16 Suspended Hydrocodone-Aceta minophen 10-325 MG per tablet Take 1 Tablet by mouth every 8 hours as needed. 0 03/23/20 18 Suspended NARCAN 4 MG/0.1ML LIQD Inhale 1 [place] by mouth as needed. 0 03/23/20 18 Suspended Blood Glucose Monitor System w/Device KitIndications:Ty pe 2 diabetes mellitus with stage 3a chronic kidney disease, without long-term current use of insulin (HCC) Check glucose as needed 1 Kit 03/19/20 22 Suspended HumaLOG KwikPen 100 UNIT/ML Subcutaneous Solution Pen-injector Medium Subcutaneous WITH MEALS AND AT BEDTIME ,InstrMedium DOSE Scale <70 FOLLOWING Hypoglycemic Protocol; 70-140=0 units, 141-180= TWO units, 181-220= FOUR units, 221-260= SIX units, 261-300= EIGHT units, 301-340= 10 units, >340 = 12 units AND call 10/23/19 24 Suspended metFORMIN HCl ER 500 MG Oral Tablet Extended Release 24 Hour (Glucophage XR)Indications:Ty pe 2 diabetes mellitus with stage 3a chronic kidney disease, without long-term current use of insulin (HCC) Take 1 Tablet by mouth in the morning. In the morning.. 90 Tablet 1 11/27/19 24 Suspended glipiZIDE ER 5 MG Oral Tablet Extended Release 24 Hour (Glucotrol XL) TAKE ONE TABLET BY MOUTH EVERY MORNING 30 minutes BEFORE A meal 90 Tablet 1 11/27/19 24 Suspended OneTouch Verio In Vitro Strip (Glucose Blood)Indications :Type 2 diabetes mellitus with stage 3a chronic kidney disease, without long-term current use of insulin (HCC) Use up to 4 times a day E11.9 100 Strip 11 11/27/19 24 Suspended Atorvastatin Calcium 40 MG Oral Tablet (Lipitor)Indicati ons:Dyslipidemia, goal LDL below 100 Take 1 Tablet by mouth in the morning. 90 Tablet 3 12/18/19 24 Suspended Lidocaine 5 % External Patch (Lidoderm) lidocaine 5 % topical patch Suspended Metoprolol Succinate ER 25 MG Oral Tablet Extended Release 24 Hour (Toprol XL) Take 0.5 Tablets by mouth daily. 45 Tablet 3 12/29/19 24 Suspended Cinacalcet HCl 30 MG Oral Tablet (Sensipar)Indicat ions:Hypercalcemi a,Hyperparathyroi dism, primary (HCC) TAKE 1 TABLET BY MOUTH ON THURSDAY, THURSDAY AND KATHERIN WITH DINNER 36 Tablet 3 03/01/20 24 Suspended Donepezil HCl 5 MG Oral Tablet (Aricept) Take 1 tablet by mouth with largest meal of the day 30 Tablet 5 03/21/20 24 Suspended OneTouch Delica Plus [id number] ons:Type 2 diabetes mellitus with stage 3a chronic kidney disease, without long-term current use of insulin ([facility]) Check glucose daily as needed 100 Each 1 04/14/20 24 Suspended Gabapentin 100 MG Oral Capsule (Neurontin)Indica tions:Osteoarthri tis of hip, unspecified laterality, unspecified osteoarthritis type,Chronic bilateral low back pain without sciatica Take 1 Capsule by mouth in the morning and 1 Capsule at noon and 1 Capsule before bedtime. 270 Capsule 3 04/26/20 24 Suspended Famotidine 10 MG Oral Tablet (Pepcid) Take 1 Tablet by mouth in the morning. 90 Tablet 1 05/10/19 25 Suspended Jardiance 25 MG Oral TabletIndications :Type 2 diabetes mellitus with stage 3a chronic kidney disease, with long-term current use of insulin ([facility]) TAKE ONE TABLET BY MOUTH EVERY MORNING 90 Tablet 1 05/10/19 25 Suspended Entresto 24-26 MG Oral TabletIndications :Chronic diastolic (congestive) heart failure (HCC) Take 1 Tablet by mouth in the morning and 1 Tablet before bedtime. 180 Tablet 1 05/11/19 25 Suspended Magnesium Oxide 400 MG Oral Tablet Take 1 Tablet by mouth in the morning. 90 Tablet 1 06/07/19 25 Suspended DULoxetine HCl 60 MG Oral Capsule Delayed Release Particles (Cymbalta) TAKE ONE CAPSULE BY MOUTH EVERY DAY 90 Capsule 1 06/07/19 25 Suspended Ferrex 150 150 MG Oral CapsuleIndication s:Anemia, unspecified type TAKE ONE CAPSULE BY MOUTH AT BEDTIME 90 Capsule 1 06/07/19 25 Suspended documented as of this encounter (statuses as of 07/22/2024) Active Problems Problem Noted Date Diagnosed Date [...] as of this encounter (statuses as of 07/22/2024) Resolved Problems Problem Noted Date Diagnosed Date [...] Electronic Medical Record. Has a Power of Hosiery Pairer for Medical needs. KIDNEY DZ,CHRONIC (GFR 30-59) [...] as of this encounter (statuses as of 07/22/2024) Immunizations Name Administration Dates Next Due Pneumococcal [...] 3:09 PM EDT Sexual Orientation Straight 09/14/2020 3 :09 PM EDT documented as of this encounter [...] encounter Miscellaneous Notes * Telephone Encounter - Alissa Bob OSA - 07/22/2024 2:22 PM EDT ERCP 10/25 * Telephone Encounter - Lorri Jackson DO - 07/22/2024 11:32 AM EDT We should plan for ERCP with axios exchange. We will plan to use a 1 t or 2t upper endoscope * Telephone Encounter - Alissa Bob OSA - 07/22/2024 11:[address] Jackson, do you want another eus w/ axios in 3 months? * Telephone Encounter - Monae Jalloh PA-C - 07/21/2024 3:51 PM EDT Pt admitted with sepsis, acalculous cholecystitis, and underwent Axios placement for GB drainage with Dr. Jackson. Please arrange OP EUS in 3 months for stent revision with Dr. Jackson. Monae Jalloh PA-C 07/21/2024 Department of Gastroenterology documented in this encounter Plan of Treatment Upcoming Encounters Date Type Department Care Team (Latest Contact Info) Description 08/01/2024 10:40 AM EDT Office Visit Family Medicine [address] [place] [phone] Melanie Ramirez MD [address] [place] [address] [place] [address] 08/25/2024 12:30 PM EDT Office Visit Neurology [facility] [place] [address] [facility] [place] [address] Julia Hutton PA-C [address] [place] [address] 10/25/2024 12:45 PM EDT Hospital Encounter OR [facility], Operating Room, [facility] - 4th Floor [address] [place] [address] Lorri Jackson, DO [address] [place] [address] 10/25/2024 12:45 PM EDT - 10/25/2024 1:33 PM EDT Surgery OR [facility], Operating Room, [facility] - 4th Floor [address] [place] [address] Lorri Jackson, DO [address] [place] [address] ENDOSCOPIC RETROGRADE CHOLANGIOPANCREATOGRAPHY (ERCP) DIAGNOSTIC 11/03/2024 3:30 PM EDT Office Visit Cardiology [address] [place] [address] Ousmane Waddell PA-C [address] [place] [address] Scheduled Orders Name Type Priority Associated Diagnoses Orde r Schedule US ENDOSCOPIC Medical Imaging Routine Acute cholecystitis Expected: 10/21/2024, Expires: 08/21/2025 Scheduled Procedures Name Priority Associated Diagnoses Date/Ti ut ENDOSCOPIC RETROGRADE CHOLANGIOPANCREATOGRAPHY (ERCP) DIAGNOSTIC Acute cholecystitis 10/25/2024 12:45 PM EDT Health Maintenance Due Date Last Done Comments *BISPHONATE OR OTHER ACCEPTABLE MEDICATION NEEDED FOR OSTEOPOROSIS (REFER TO SMARTSET #1146) 05/22/2021 Adult Wellness Visit 09/26/2022 09/26/2021, 09/15/19 Depression Screening 09/26/2022 09/26/2021 Diabetic Foot Exam 09/26/2022 09/26/2021, 0 09/14/2020, 11/18/2019, Additional history exists DXA Scan 12/06/2022 12/06/2020, 02/25, 02/25/2016, Additional history exists COVID-19 Vaccine ( season) 2023 Diabetic Eye Exam 04/15/2024 04/15/2023, , 07/13/2020, Additional history exists Albumin/Creatinine Ratio 06/08/2024 024, 12/05/2022, 01/16/2022, Additional history exists HbA1c 01/19/2025 07/19/2024, 11/26, 10/05/2023, Additional history exists CKD HGB USE SMARTSET 55400 07/22/202507/22, 07/21/2024, 07/20/2024, Additional history exists CKD PHOS USE SMARTSET 67301 07/22/202506/26, 07/21/2024, 07/19/2024, Additional history exists DTap/Tdap Vaccines (2 - Td or Tdap) 06/08/2033 06/08/2023, 08/31/2007 Pneumococcal Vaccine: 50+ Years Completed 03/06/2015, 02/21/2003 Zoster Vaccines Completed 12/05/2021, 08/29/2021 VITAMIN D LEVEL ONCE IN A LIFETIME-USE SMARTSET# [id number] Completed 01/16/2022, 06/21/2020, 11/18/2019, Additional history exists [...] this encounter Medical Devices Implanted Type Area Manager Sourcing Device Identifier Shelf Expiration Date Model / Serial / Lot Stent Axios [id number] - [id number] Implanted:Qty: 1 on 07/19/2024 by Lorri Jackson DO at OR [facility] [employer] [employer] : ENDOSCOPY [id number] 02/25/2026 [id number] / / [id number] documented as of this encounter Visit Diagnoses Diagnosis Acute cholecystitis- Primary Acute cholecystitis documented in this encounter Additional Health Concerns Infection Onset Date Last Indicated Resolved Time C. difficile Rule-Out 07/21/2024 07/21/20242024 1:59 PM EDT documented as of this encounter Advance Directives Documents on File Type Date Recorded Patient Diamond Sizer And Grader Expl anation Advance Directives and Living Will 08/13/2023 signed on 12/12/2008 ADVANCE DIRECTIVE / LIVING WILL AND DURABLE POWER OF HEADING PINNER WITH HEALTH CARE PROVISIONS * Full Code (Latest Code Status on File) Date Activated Date Inactivated Comments 07/18/2024 11:12 PM This order re flects the patients wishes and were consensually agreed upon. Question Answer Comments Discussion of Advance Directives occurred with: Patient Care Teams Potato Chip Sacking Machine Operator Relationship Specialty Start Date End Date Melanie Ramirez MD [address] [place] [address] [place] [address] PCP - General Family Medicine 05/08/22 documented as of this encounter
--- OUTSIDE RECORDS SUMMARY | 2024-08-18 02:56 | External Medical Summary | Summary of Care ---
Author Name Unknown Organization [facility] Address [address] [place] [address] Phone [phone] Care Team Providers Care Tail Board Man Name Role Phone Melanie Ramirez MD Primary Care Provide r Reason for Visit * Reason Onset Date Comments Outpatient Testing 07/21/2024 Encounter Details Date Type Department Care Team (Late st Contact Info) Description 07/21/2024 Telephone Gastroenterology, [address] [phone] Monae Jalloh PA-C [address] [place] [address] Outpatient Testing Allergies No known active [...] Suspended NARCAN 4 MG/0.1ML LIQD Inhale 1 [place] by mouth as needed. 0 03/23/20 18 [...] 5 03/21/20 24 Suspended OneTouch Delica Plus [id number] ons:Type 2 diabetes mellitus with stage 3a chronic kidney disease, without long-term current use of insulin ([facility]) Check glucose daily as needed [...] long-term current use of insulin ([facility]) TAKE ONE TABLET BY MOUTH [...] Electronic Medical Record. Has a Power of Intervention Manager for Medical needs. KIDNEY DZ,CHRONIC (GFR [...] encounter Miscellaneous Notes * Telephone Encounter - Lorri Jackson DO [...] Upcoming Encounters Date Type Department Care Team (Late st Contact Info) Description 08/01/2024 10:40 AM EDT Office Visit Family Medicine [address] [place] [phone] Melanie Ramirez MD [address] [place] [address] [place] [address] 08/25/2024 12:30 PM EDT Office Visit Neurology [facility] [place] [address] [facility] [place] [address] Julia Hutton PA-C [address] [place] [address] 11/03/2024 3:30 PM EDT Office Visit Cardiology [address] [place] [address] Ousmane Waddell PA-C [address] [place] [address] Scheduled Orders Name Type Priority Associated Diagnoses Orde r Schedule US ENDOSCOPIC Medical Imaging Routine Acute cholecystitis Expected: 10/21/2024, Expires: 08/21/2025 Health Maintenance Due Date Last Done Comments [...] , 07/13/2020, Additional history exists Albumin/Creatinine Ratio 06/08/20242 024, 12/05/2022, 01/16/2022, Additional history exists HbA1c 01/19/2025 07/19/2024, 11/26, 10/05/2023, Additional history exists CKD HGB USE SMARTSET 68099 07/22/202507/22, 07/21/2024, 07/20/2024, Additional history exists CKD PHOS USE SMARTSET 71558 07/22/202506/26, 07/21/2024, 07/19/2024, Additional history exists DTap/Tdap Vaccines (2 - Td or Tdap) 06/08/2033 06/08/2023, 08/31/2007 Pneumococcal Vaccine: 50+ Years Completed 03/06/2015, 02/21/2003 Zoster Vaccines Completed 12/05/2021, 08/29/2021 VITAMIN D LEVEL ONCE IN A LIFETIME-USE SMARTSET# 56584 Completed 01/16/2022, 06/21/2020, 11/18/2019, Additional history exists [...] this encounter Medical Devices Implanted Type Area Histologist Device Identifier Shelf Expiration Date Model / Serial / Lot Stent Axios [id number] - [id number] Implanted:Qty: 1 on 07/19/2024 by Lorri Jackson DO at OR [facility] [employer] : ENDOSCOPY [id number] 02/25/2026 [id number] / / [id number] documented as of this encounter Visit Diagnoses Diagnosis Acute cholecystitis- Primary documented in this encounter Additional Health Concerns Infection Onset Date Last Indicated Resolved Time C. difficile Rule-Out 07/21/2024 07/21/20242024 1:59 PM EDT documented as of this encounter Advance Directives Documents on File Type Date Recorded Patient Brakeshoe Repairer Expl anation Advance Directives and Living Will 08/13/2023 signed on 12/12/2008 ADVANCE DIRECTIVE / LIVING WILL AND DURABLE POWER OF ANIMAL CARE SPECIALIST WITH HEALTH CARE PROVISIONS * Full Code (Latest Code Status on File) Date Activated Date Inactivated Comments 07/18/2024 11:12 PM This order re flects the patients wishes and were consensually agreed upon. Question Answer Comments Discussion of Advance Directives occurred with: Patient Care Teams Tail Board Man Relationship Specialty Start Date End Date Melanie Ramirez MD [address] [place] [address] [place] [address] PCP - General Family Medicine 05/08/22 documented as of this encounter
--- OUTSIDE RECORDS SUMMARY | 2024-08-18 02:56 | External Medical Summary | Summary of Care ---
Author Name Unknown Organization [facility] Address [address] [place] [address] Phone [phone] Care Team Providers Care Yeast Stacker Name Role Phone Melanie Ramirez MD Primary Care Provide r Reason for Visit * Reason Onset Date Comments Outpatient Testing 07/21/2024 Encounter Details Date Type Department Care Team (Late st Contact Info) Description 07/21/2024 Telephone Gastroenterology, [address] [phone] Monae Jalloh PA-C [address] [place] [address] Outpatient Testing Allergies No known active [...] Suspended NARCAN 4 MG/0.1ML LIQD Inhale 1 [place] by mouth as needed. 0 03/23/20 18 [...] 5 03/21/20 24 Suspended OneTouch Delica Plus [id number] ons:Type 2 diabetes mellitus with stage 3a chronic kidney disease, without long-term current use of insulin ([facility]) Check glucose daily as needed 100 [...] disease, with long-term current use of insulin ([facility]) TAKE ONE TABLET BY MOUTH EVERY [...] Electronic Medical Record. Has a Power of Rate Reviewer for Medical needs. KIDNEY DZ,CHRONIC (GFR 30-59) [...] 10:40 AM EDT Office Visit Family Medicine [address] [place] [phone] Melanie Ramirez MD [address] [place] [address] [place] [address] 08/25/2024 12:30 PM EDT Office Visit Neurology [facility] [place] [address] [facility] [place] [address] Julia Hutton PA-C [address] [place] [address] 10/25/2024 12:45 PM EDT Hospital Encounter OR [facility], Operating Room, [facility] - 4th Floor [address] [place] [address] Lorri Jackson, DO [address] [place] [address] 10/25/2024 12:45 PM EDT - 10/25/2024 1:33 PM EDT Surgery OR [facility], Operating Room, [facility] - 4th Floor [address] [place] [address] Lorri Jackson, DO [address] [place] [address] ENDOSCOPIC RETROGRADE CHOLANGIOPANCREATOGRAPHY (ERCP) DIAGNOSTIC 11/03/2024 3:30 PM EDT Office Visit Cardiology [address] [place] [address] Ousmane Waddell PA-C [address] [place] [address] Scheduled Orders Name Type Priority Associated Diagnoses [...] Additional history exists CKD HGB USE SMARTSET 38683 07/22/202507/22, 07/21/2024, 07/20/2024, Additional history exists CKD PHOS USE SMARTSET 51349 07/22/202506/26, 07/22/2024, 07/21/2024, Additional history exists DTap/Tdap Vaccines (2 - Td or Tdap) 06/08/2033 06/08/2023, 08/31/2007 Pneumococcal Vaccine: 50+ Years Completed 03/06/2015, 02/21/2003 Zoster Vaccines Completed 12/05/2021, 08/29/2021 VITAMIN D LEVEL ONCE IN A LIFETIME-USE SMARTSET# [id number] Completed 01/16/2022, 06/21/2020, 11/18/2019, Additional history exists [...] this encounter Medical Devices Implanted Type Area Supervisor Rough End Device Identifier Shelf Expiration Date Model / Serial / Lot Stent Axios [id number] - [id number] Implanted:Qty: 1 on 07/19/2024 by Lorri Jackson DO at OR [facility] [employer] : ENDOSCOPY [id number] 02/25/2026 [id number] / / [id number] documented as of this encounter Visit Diagnoses Diagnosis Acute cholecystitis- Primary Acute cholecystitis documented in this encounter Additional Health Concerns Infection Onset Date Last Indicated Resolved Time C. difficile Rule-Out 07/21/2024 07/21/20242024 1:59 PM EDT documented as of this encounter Advance Directives Documents on File Type Date Recorded Patient Developer Programmer Analyst Expl anation Advance Directives and Living Will 08/13/2023 signed on 12/12/2008 ADVANCE DIRECTIVE / LIVING WILL AND DURABLE POWER OF GIMP TACKER WITH HEALTH CARE PROVISIONS * Full Code (Latest Code Status on File) Date Activated Date Inactivated Comments 07/18/2024 11:12 PM This order re flects the patients wishes and were consensually agreed upon. Question Answer Comments Discussion of Advance Directives occurred with: Patient Care Teams Yeast Stacker Relationship Specialty Start Date End Date Melanie Ramirez MD [address] [place] [address] [place] [address] PCP - General Family Medicine 05/08/22 documented as of this encounter
--- OUTSIDE RECORDS SUMMARY | 2024-08-18 02:57 | External Medical Summary ---
Author Name Unknown Address Unknown Organization K1F:[facility] [address] [place] [address] Laboratory Report Ordering Provider Test Date Status FANG WELLS 07/22/2024 15:26:00 Final Observation Date Value Abnormality Reference (Units ) Status Phosphate 07/22/2024 15:26:00 2.5 2.5-4.8 (m g/dL) Final Performing Location [facility] [address] [place] [address]
--- OUTSIDE RECORDS SUMMARY | 2024-08-18 02:57 | External Medical Summary ---
Author Name Unknown Address Unknown Organization : Laboratory Report Ordering Provider Test Date Status FANG WELLS 07/21/2024 11:32:46 Final Observation Date Value Abnormality Reference (Units ) Status Glucose Point of Care 07/21/2024 11:32:46 197 Above high normal 70-120 (mg/dL) Final Performing Location
--- OUTSIDE RECORDS SUMMARY | 2024-08-18 02:57 | External Medical Summary ---
Author Name Unknown Address Unknown Organization K1F:LABORATORY [facility] [place] - [address] [place] [address] Laboratory Report Ordering Provider Test Date Status FANG WELLS 07/21/2024 05:47:00 Final Observation Date Value Abnormality Reference (Units ) Status Phosphate 07/21/2024 05:47:00 1.4 Below low normal 2.5 -4.8 (mg/dL) Final Performing Location LABORATORY [facility] - [address] [address]
--- OUTSIDE RECORDS SUMMARY | 2024-08-18 02:57 | External Medical Summary ---
Author Name Unknown Address Unknown Organization K1F:LABORATORY [facility] - [address] [place] [address] Laboratory Report Ordering Provider Test Date Status FANG WELLS 07/22/2024 05:38:00 Final Observation Date Value Abnormality Reference (Units ) Status BUN 07/22/2024 05:38:00 11 6-20 (mg/dL) Final Creatinine 07/22/2024 05:38:00 1.0 0.5-1.0 (mg/dL) Final Glomerular filtration rate/1.73 sq M.predicted [Volume Rate/Area] in Serum, Plasma or Blood by Creatinine-based formula (CKD-EPI) 07/22/2024 05:38:00 58 Below low normal >=60 (mL/min) Final eGFR is calculated based on the CKD-EPI 2020 equation. Sodium 07/22/2024 05:38:00 145 135-146 (m mol/L) Final Potassium 07/22/2024 05:38:00 3.5 3.5-5.1 (m mol/L) Final Cl 07/22/2024 05:38:00 113 Above high normal 98 -107 (mmol/L) Final CO2 07/22/2024 05:38:00 23 22-32 (mmo l/L) Final Anion gap 07/22/2024 05:38:00 9 7-15 (mmol /L) Final Glucose 07/22/2024 05:38:00 146 Above high normal 70 -120 (mg/dL) Final Albumin 07/22/2024 05:38:00 3.3 Below low normal 3.8 -5.0 (g/dL) Final AST (Aspartate aminotransferase) 07/22/2024 05:38:00 41 Above high normal 10-35 (U/L) Final Alk Phos 07/22/2024 05:38:00 121 35-130 (U/ L) Final Bilirubin, Total 07/22/2024 05:38:00 0.4 <=1 .2 (mg/dL) Final Calcium 07/22/2024 05:38:00 9.5 8.4-10.2 ( mg/dL) Final Protein 07/22/2024 05:38:00 5.5 Below low normal 6.0 -8.3 (g/dL) Final ALT (Alanine aminotransferase) 07/22/2024 05:38:00 370 Above high normal 10-35 (U/L) Final Performing Location LABORATORY [facility] - [facility] [place] [address]
--- OUTSIDE RECORDS SUMMARY | 2024-08-18 02:57 | External Medical Summary ---
Author Name Unknown Address Unknown Organization K1F:LABORATORY [facility] - [address] [place] [address] Laboratory Report Ordering Provider Test Date Status KAVITA RICKS 07/21/2024 05:47:00 Final Observation Date Value Abnormality Reference (Units ) Status BUN 07/21/2024 05:47:00 15 6-20 (mg/dL) Final Creatinine 07/21/2024 05:47:00 1.0 0.5-1.0 (mg/dL) Final Glomerular filtration rate/1.73 sq M.predicted [Volume Rate/Area] in Serum, Plasma or Blood by Creatinine-based formula (CKD-EPI) 07/21/2024 05:47:00 52 Below low normal >=60 (mL/min) Final eGFR is calculated based on the CKD-EPI 2020 equation. Sodium 07/21/2024 05:47:00 146 135-146 (m mol/L) Final Potassium 07/21/2024 05:47:00 2.8 Below low normal 3.5 -5.1 (mmol/L) Final Cl 07/21/2024 05:47:00 112 Above high normal 98 -107 (mmol/L) Final CO2 07/21/2024 05:47:00 22 22-32 (mmo l/L) Final Anion gap 07/21/2024 05:47:00 12 7-15 (mmol /L) Final Glucose 07/21/2024 05:47:00 151 Above high normal 70 -120 (mg/dL) Final Albumin 07/21/2024 05:47:00 3.4 Below low normal 3.8 -5.0 (g/dL) Final AST (Aspartate aminotransferase) 07/21/2024 05:47:00 100 Above high normal 10-35 (U/L) Final Alk Phos 07/21/2024 05:47:00 148 Above high normal 35 -130 (U/L) Final Bilirubin, Total 07/21/2024 05:47:00 0.4 <=1 .2 (mg/dL) Final Calcium 07/21/2024 05:47:00 9.1 8.4-10.2 ( mg/dL) Final Protein 07/21/2024 05:47:00 5.8 Below low normal 6.0 -8.3 (g/dL) Final ALT (Alanine aminotransferase) 07/21/2024 05:47:00 582 Above high normal 10-35 (U/L) Final Performing Location LABORATORY [facility] - [facility] [address] [place] [address]
--- OUTSIDE RECORDS SUMMARY | 2024-08-18 02:57 | External Medical Summary ---
Author Name Unknown Address Unknown Organization : Laboratory Report Ordering Provider Test Date Status FANG WELLS 07/21/2024 07:47:23 Final Observation Date Value Abnormality Reference (Units ) Status Glucose Point of Care 07/21/2024 07:47:23 151 Above high normal 70-120 (mg/dL) Final Performing Location
--- OUTSIDE RECORDS SUMMARY | 2024-08-18 02:57 | External Medical Summary ---
Author Name Unknown Address Unknown Organization K1F:LABORATORY [facility] - [address] [place] [address] Laboratory Report Ordering Provider Test Date Status FANG WELLS 07/21/2024 14:56:00 Final Observation Date Value Abnormality Reference (Units ) Status Potassium 07/21/2024 14:56:00 3.7 3.5-5.1 (m mol/L) Final Performing Location LABORATORY [facility] - [address] [place] [address]
--- OUTSIDE RECORDS SUMMARY | 2024-08-18 02:57 | External Medical Summary ---
Author Name Unknown Address Unknown Organization K1F:LABORATORY [facility] - [address] [place] [address] Laboratory Report Ordering Provider Test Date Status FANG WELLS 07/20/2024 05:31:00 Final Observation Date Value Abnormality Reference (Units ) Status Magnesium 07/20/2024 05:31:00 2.0 1.5-2.6 (m g/dL) Final Performing Location LABORATORY [facility] - [address] [address]
--- OUTSIDE RECORDS SUMMARY | 2024-08-18 02:57 | External Medical Summary ---
Author Name Unknown Address Unknown Organization K1F:LABORATORY [facility] - [address] [address] Laboratory Report Ordering Provider Test Date Status KAVITA RICKS 07/21/2024 05:47:00 Final Observation Date Value Abnormality Reference (Units ) Status WBC, Total 07/21/2024 05:47:00 6.69 4.00-10.80 (K/uL) Final RBC 07/21/2024 05:47:00 3.63 3.85-5.15 (M/uL) Final Hemoglobin 07/21/2024 05:47:00 11.0 Below low normal 12.0-15.3 (g/dL) Final HCT 07/21/2024 05:47:00 35.1 Below low normal 36.0-45.2 (%) Final MCV 07/21/2024 05:47:00 96.7 81.5-97.5 (fL) Final MCH 07/21/2024 05:47:00 30.3 27.0-34.0 (pg) Final MCHC 07/21/2024 05:47:00 31.3 32.0-36.0 (g/dL) Final RDW 07/21/2024 05:47:00 13.2 11.5-15.5 (%) Final Platelets 07/21/2024 05:47:00 104 Below low normal 140-400 (K/uL) Final MPV 07/21/2024 05:47:00 11.1 6.6-11.1 (fL) Final Nucleated erythrocytes/100 leukocytes [Ratio] in Blood by Automated count 07/21/2024 05:47:00 0 <=0 (/100 WBCs) Final Performing Location LABORATORY [facility] - [address] [address]
--- OUTSIDE RECORDS SUMMARY | 2024-08-18 02:57 | External Medical Summary ---
Author Name Unknown Address Unknown Organization K1F:LABORATORY [facility] - [address] [place] [address] Laboratory Report Ordering Provider Test Date Status KAVITA RICKS 07/20/2024 05:31:00 Final Observation Date Value Abnormality Reference (Units ) Status BUN 07/20/2024 05:31:00 24 Above high normal 6-20 (mg/dL) Final Creatinine 07/20/2024 05:31:00 1.2 Above high normal 0.5-1.0 (mg/dL) Final Glomerular filtration rate/1.73 sq M.predicted [Volume Rate/Area] in Serum, Plasma or Blood by Creatinine-based formula (CKD-EPI) 07/20/2024 05:31:00 46 Below low normal >=60 (mL/min) Final eGFR is calculated based on the CKD-EPI 2020 equation. Sodium 07/20/2024 05:31:00 144 135-146 (m mol/L) Final Potassium 07/20/2024 05:31:00 3.0 Below low normal 3.5 -5.1 (mmol/L) Final Cl 07/20/2024 05:31:00 107 98-107 (mm ol/L) Final CO2 07/20/2024 05:31:00 20 Below low normal 22- 32 (mmol/L) Final Anion gap 07/20/2024 05:31:00 17 Above high normal 7- 15 (mmol/L) Final Glucose 07/20/2024 05:31:00 166 Above high normal 70 -120 (mg/dL) Final Albumin 07/20/2024 05:31:00 3.3 Below low normal 3.8 -5.0 (g/dL) Final AST (Aspartate aminotransferase) 07/20/2024 05:31:00 298 Above high normal 10-35 (U/L) Final Alk Phos 07/20/2024 05:31:00 190 Above high normal 35 -130 (U/L) Final Bilirubin, Total 07/20/2024 05:31:00 0.4 <=1 .2 (mg/dL) Final Calcium 07/20/2024 05:31:00 9.1 8.4-10.2 ( mg/dL) Final Protein 07/20/2024 05:31:00 6.1 6.0-8.3 (g /dL) Final ALT (Alanine aminotransferase) 07/20/2024 05:31:00 983 Above high normal 10-35 (U/L) Final Performing Location LABORATORY [facility] - [facility] [address] [place] [address]
--- OUTSIDE RECORDS SUMMARY | 2024-08-18 02:57 | External Medical Summary ---
Author Name Unknown Address Unknown Organization : Laboratory Report Ordering Provider Test Date Status MIRIAM PARHAM 07/20/2024 05:48:19 Final Observation Date Value Abnormality Reference (Units ) Status Glucose Point of Care 07/20/2024 05:48:19 161 Above high normal 70-120 (mg/dL) Final Performing Location
--- OUTSIDE RECORDS SUMMARY | 2024-08-18 02:57 | External Medical Summary ---
Author Name Unknown Address Unknown Organization : Laboratory Report Ordering Provider Test Date Status FANG WELLS 07/21/2024 16:29:40 Final Observation Date Value Abnormality Reference (Units ) Status Glucose Point of Care 07/21/2024 16:29:40 213 Above high normal 70-120 (mg/dL) Final Performing Location
--- OUTSIDE RECORDS SUMMARY | 2024-08-18 02:57 | External Medical Summary ---
Author Name Unknown Address Unknown Organization : Laboratory Report Ordering Provider Test Date Status FANG WELLS 07/20/2024 11:16:04 Final Observation Date Value Abnormality Reference (Units ) Status Glucose Point of Care 07/20/2024 11:16:04 173 Above high normal 70-120 (mg/dL) Final Performing Location
--- OUTSIDE RECORDS SUMMARY | 2024-08-18 02:57 | External Medical Summary ---
Author Name Unknown Address Unknown Organization K1F:LABORATORY [facility] - [address] [address] Laboratory Report Ordering Provider Test Date Status FANG WELLS 07/21/2024 12:40:22 Final Observation Date Value Abnormality Reference (Units) Status Source 07/21/2024 12:40:22 Liquid Final Clostridioides difficile toxin and [id number] strain DNA panel - Stool by ADRI with probe detection 07/21/2024 12:40:22 Negative. No C. difficile toxin B gene DNA detected by PCR (Amplified Probe). Negative Final Performing Location LABORATORY [facility] - [address] [address]
--- OUTSIDE RECORDS SUMMARY | 2024-08-18 02:57 | External Medical Summary ---
Author Name Unknown Address Unknown Organization : Laboratory Report Ordering Provider Test Date Status FANG WELLS 07/21/2024 21:35:55 Final Observation Date Value Abnormality Reference (Units ) Status Glucose Point of Care 07/21/2024 21:35:55 148 Above high normal 70-120 (mg/dL) Final Performing Location
--- OUTSIDE RECORDS SUMMARY | 2024-08-18 02:57 | External Medical Summary ---
Author Name Unknown Address Unknown Organization K1F:LABORATORY [facility] - [address] [address] Laboratory Report Ordering Provider Test Date Status SAROJ PARHAMUMA 07/19/2024 17:01:00 Final Observation Date Value Abnormality Reference (Units ) Status Hemoglobin 07/19/2024 17:01:00 11.6 Below low normal 12 .0-15.3 (g/dL) Final HCT 07/19/2024 17:01:00 36.8 36.0-45.2 (%) Final Performing Location LABORATORY [facility] - [address] [address]
--- OUTSIDE RECORDS SUMMARY | 2024-08-18 02:57 | External Medical Summary ---
Author Name Unknown Address Unknown Organization : Laboratory Report Ordering Provider Test Date Status FANG WELLS 07/20/2024 16:28:05 Final Observation Date Value Abnormality Reference (Units ) Status Glucose Point of Care 07/20/2024 16:28:05 167 Above high normal 70-120 (mg/dL) Final Performing Location
--- OUTSIDE RECORDS SUMMARY | 2024-08-18 02:57 | External Medical Summary ---
Author Name Unknown Address Unknown Organization : Laboratory Report Ordering Provider Test Date Status FANG WELLS 07/22/2024 16:33:48 Final Observation Date Value Abnormality Reference (Units ) Status Glucose Point of Care 07/22/2024 16:33:48 185 Above high normal 70-120 (mg/dL) Final Performing Location
--- OUTSIDE RECORDS SUMMARY | 2024-08-18 02:57 | External Medical Summary ---
Author Name Unknown Address Unknown Organization K1F:LABORATORY [facility] - [address] [address] Laboratory Report Ordering Provider Test Date Status FANG WELLS 07/22/2024 05:38:00 Final Observation Date Value Abnormality Reference (Units ) Status Phosphate 07/22/2024 05:38:00 1.3 Below low normal 2.5 -4.8 (mg/dL) Final Performing Location LABORATORY [facility] - [address] [place] [address]
--- OUTSIDE RECORDS SUMMARY | 2024-08-18 02:57 | External Medical Summary ---
Author Name Unknown Address Unknown Organization K1F:LABORATORY [facility] - [address] [address] Laboratory Report Ordering Provider Test Date Status FANG WELLS 07/22/2024 05:38:00 Final Observation Date Value Abnormality Reference (Units ) Status WBC, Total 07/22/2024 05:38:00 4.89 4.00-10.8 0 (K/uL) Final RBC 07/22/2024 05:38:00 3.48 3.85-5.15 (M/uL) Final Hemoglobin 07/22/2024 05:38:00 10.6 Below low normal 12 .0-15.3 (g/dL) Final HCT 07/22/2024 05:38:00 32.9 Below low normal 36. 0-45.2 (%) Final MCV 07/22/2024 05:38:00 94.5 81.5-97.5 (fL) Final MCH 07/22/2024 05:38:00 30.5 27.0-34.0 (pg) Final MCHC 07/22/2024 05:38:00 32.2 32.0-36.0 (g/dL) Final RDW 07/22/2024 05:38:00 13.2 11.5-15.5 (%) Final Platelets 07/22/2024 05:38:00 112 Below low normal 140 -400 (K/uL) Final Results rechecked. MPV 07/22/2024 05:38:00 11.6 6.6-11.1 ( fL) Final Nucleated erythrocytes/100 leukocytes [Ratio] in Blood by Automated count 07/22/2024 05:38:00 0 <=0 (/100 WBCs) Fi nal Performing Location LABORATORY [facility] - [address] [address]
--- OUTSIDE RECORDS SUMMARY | 2024-08-18 02:57 | External Medical Summary ---
Author Name Unknown Address Unknown Organization : Laboratory Report Ordering Provider Test Date Status FANG WELLS 07/22/2024 10:48:17 Final Observation Date Value Abnormality Reference (Units ) Status Glucose Point of Care 07/22/2024 10:48:17 218 Above high normal 70-120 (mg/dL) Final Performing Location
--- OUTSIDE RECORDS SUMMARY | 2024-08-18 02:57 | External Medical Summary | Summary of Care ---
Demographics Address [address] [facility] [place] [address] Mobile Phone Mobile Phone Preferred Language Wolof Marital Status Unknown Mandaen Affiliation Unknown Race White Ethnic Group Not or Lati no Author Name Unknown Organization [facility] Address [address] [place] [address] Phone [phone] Care Team Providers Care Business Strategy Manager Name Role Phone Melanie Ramirez MD Primary Care Provide r Reason for Visit * Reason Onset Date Comments Outpatient Testing 07/21/2024 Encounter Details Date Type Department Care Team (Late st Contact Info) Description 07/21/2024 Telephone Gastroenterology, [address] [phone] Monae Jalloh PA-C [address] [place] [id number] Outpatient Testing Allergies No known active allergiesdocumented as of this encounter (statuses as of 07/21/2024) Medications VITAMIN B-12 CR TBCR 1000 MCG [...] Suspended NARCAN 4 MG/0.1ML LIQD Inhale 1 [place] by mouth as needed. 0 03/23/20 18 [...] 5 03/21/20 24 Suspended OneTouch Delica Plus [id number] ons:Type 2 diabetes mellitus with stage 3a chronic kidney disease, without long-term current use of insulin ([facility]) Check glucose daily as needed [...] disease, with long-term current use of insulin ([facility]) TAKE ONE TABLET BY MOUTH [...] as of this encounter (statuses as of 07/21/2024) Active Problems Problem Noted Date Diagnosed Date [...] as of this encounter (statuses as of 07/21/2024) Resolved Problems Problem Noted Date Diagnosed Date [...] Electronic Medical Record. Has a Power of Ticket Dispatcher for Medical needs. KIDNEY DZ,CHRONIC (GFR 30-59) [...] as of this encounter (statuses as of 07/21/2024) Immunizations Name Administration Dates Next Due Pneumococcal [...] of Assessment Author No 07/19/2024 1:01 AM MAYANKT Brittany Petty RN * Do you have [...] encounter Miscellaneous Notes * Telephone Encounter - Monae Jalloh PA-C [...] 10:40 AM EDT Office Visit Family Medicine [address] [place] [phone] Melanie Ramirez MD [address] [place] [address] [place] [address] 08/25/2024 12:30 PM EDT Office Visit Neurology [facility] [place] [address] [facility] [place] [address] Julia Hutton PA-C [address] [address] [address] 11/03/2024 3:30 PM EDT Office Visit Cardiology [address] [place] [address] Ousmane Waddell PA-C [address] [place] [address] Scheduled Orders Name Type Priority Associated Diagnoses [...] Additional history exists CKD HGB USE SMARTSET 56300 07/21/202507/21, 07/20/2024, 07/19/2024, Additional history exists CKD PHOS USE SMARTSET 26490 07/21/202506/26, 07/19/2024, 07/18/2024, Additional history exists DTap/Tdap Vaccines (2 - Td or Tdap) 06/08/2033 06/08/2023, 08/31/2007 Pneumococcal Vaccine: 50+ Years Completed 03/06/2015, 02/21/2003 Zoster Vaccines Completed 12/05/2021, 08/29/2021 VITAMIN D LEVEL ONCE IN A LIFETIME-USE SMARTSET# [id number] Completed 01/16/2022, 06/21/2020, 11/18/2019, Additional history exists [...] this encounter Medical Devices Implanted Type Area [address] Deputy Clerk Device Identifier Shelf Expiration Date Model / Serial / Lot Stent [employer]os [id number] - [id number] Implanted:Qty: 1 on 07/19/2024 by Lorri Jackson DO at OR [facility] : ENDOSCOPY [id number] 02/25/2026 [id number] / / [id number] documented as of this encounter Visit Diagnoses Diagnosis Acute cholecystitis- Primary documented in this encounter Additional Health Concerns Infection Onset Date Last Indicated Resolved Time C. 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 Question Answer Comments Discussion of Advance Directives occurred with: Patient Care Teams Business Strategy Manager Relationship Specialty Start Date End Date Melanie Ramirez MD [address] [place] [address] [place] [phone] PCP - General Family Medicine 05/08/22 documented as of this encounter
--- OUTSIDE RECORDS SUMMARY | 2024-08-18 02:57 | External Medical Summary ---
Author Name Unknown Address Unknown Organization : Laboratory Report Ordering Provider Test Date Status FANG WELLS 07/22/2024 07:21:55 Final Observation Date Value Abnormality Reference (Units ) Status Glucose Point of Care 07/22/2024 07:21:55 165 Above high normal 70-120 (mg/dL) Final Performing Location
--- OUTSIDE RECORDS SUMMARY | 2024-08-18 02:57 | External Medical Summary ---
Author Name Unknown Address Unknown Organization K1F:LABORATORY [facility] - [address] [place] [address] Laboratory Report Ordering Provider Test Date Status KAVITA RICKS 07/20/2024 05:31:00 Final Observation Date Value Abnormality Reference (Units ) Status WBC, Total 07/20/2024 05:31:00 11.12 Above high normal 4 .00-10.80 (K/uL) Final RBC 07/20/2024 05:31:00 3.74 3.85-5.15 (M/uL) Final Hemoglobin 07/20/2024 05:31:00 11.6 Below low normal 12 .0-15.3 (g/dL) Final HCT 07/20/2024 05:31:00 36.6 36.0-45.2 (%) Final MCV 07/20/2024 05:31:00 97.9 81.5-97.5 (fL) Final MCH 07/20/2024 05:31:00 31.0 27.0-34.0 (pg) Final MCHC 07/20/2024 05:31:00 31.7 32.0-36.0 (g/dL) Final RDW 07/20/2024 05:31:00 13.6 11.5-15.5 (%) Final Platelets 07/20/2024 05:31:00 99 Below low normal 140 -400 (K/uL) Final Results rechecked. MPV 07/20/2024 05:31:00 11.6 6.6-11.1 ( fL) Final Nucleated erythrocytes/100 leukocytes [Ratio] in Blood by Automated count 07/20/2024 05:31:00 0 <=0 (/100 WBCs) Fi nal Performing Location LABORATORY [facility] - [address] [place] [address]
--- OUTSIDE RECORDS SUMMARY | 2024-08-18 02:57 | External Medical Summary ---
Author Name Unknown Address Unknown Organization : Laboratory Report Ordering Provider Test Date Status MIRIAM PARHAM 07/19/2024 23:25:11 Final Observation Date Value Abnormality Reference (Units ) Status Glucose Point of Care 07/19/2024 23:25:11 157 Above high normal 70-120 (mg/dL) Final Performing Location
--- OUTSIDE RECORDS SUMMARY | 2024-08-18 02:57 | External Medical Summary ---
Author Name Unknown Address Unknown Organization K1F:LABORATORY [facility] - [address] [place] [address] Laboratory Report Ordering Provider Test Date Status FANG WELLS 07/22/2024 05:38:00 Final Observation Date Value Abnormality Reference (Units ) Status Magnesium 07/22/2024 05:38:00 1.5 1.5-2.6 (m g/dL) Final Performing Location LABORATORY [facility] - [address] [place] [address]
--- OUTSIDE RECORDS SUMMARY | 2024-08-18 02:57 | External Medical Summary ---
Author Name Unknown Address Unknown Organization : Laboratory Report Ordering Provider Test Date Status MIRIAM PARHAM 07/19/2024 17:57:07 Final Observation Date Value Abnormality Reference (Units ) Status Glucose Point of Care 07/19/2024 17:57:07 190 Above high normal 70-120 (mg/dL) Final Performing Location
--- OUTSIDE RECORDS SUMMARY | 2024-08-18 02:57 | External Medical Summary | Summary of Care ---
Author Name Unknown Organization [facility] Address [address] [place] [address] Phone [phone] Care Team Providers Care Autos Disassembler Name Role Phone Melanie Ramirez MD Primary Care Provide r Reason for Visit * Reason Onset Date Comments Test Results 07/19/2024 Unexpected or In determinate Result Encounter Details Date Type Department Care Team (Late st Contact Info) Description 07/19/2024 Telephone Laboratory, [place] [address] [place] [address] Oliverio Barrios MD [address] [place] [address] [place] [address] Test Results (Unexpected or Indeterminate ... Allergies No known active allergiesdocumented as of this encounter (statuses as of 07/19/2024) Medications VITAMIN B-12 CR TBCR 1000 MCG [...] Suspended NARCAN 4 MG/0.1ML LIQD Inhale 1 [place] by mouth as needed. 0 03/23/20 18 [...] 5 03/21/20 24 Suspended OneTouch Delica Plus [id number] ons:Type 2 diabetes mellitus with stage 3a chronic kidney disease, without long-term current use of insulin ([facility]) Check glucose daily as needed [...] disease, with long-term current use of insulin ([facility]) TAKE ONE TABLET BY MOUTH [...] as of this encounter (statuses as of 07/19/2024) Active Problems Problem Noted Date Diagnosed Date [...] as of this encounter (statuses as of 07/19/2024) Resolved Problems Problem Noted Date Diagnosed Date [...] Electronic Medical Record. Has a Power of Automatic Edger for Medical needs. KIDNEY DZ,CHRONIC (GFR 30-59) [...] as of this encounter (statuses as of 07/19/2024) Immunizations Name Administration Dates Next Due Pneumococcal [...] 07/19/2024 1:01 AM EDBrittany Jose RN * Because of a physical, mental, [...] encounter Miscellaneous Notes * Telephone Encounter - Tabitha Barajas OSA - 07/19/2024 9:55 AM EDT Hello- The radiologist discovered an unexpected or indeterminate finding on September Shelli ([id number]) and asks that you review the following report. Study Type:MRI ABDOMEN WO CONTRAST Date of Study: 07/19/2024 IMPRESSION 1. Moderately motion degraded limited examination [...] of the lumbar spine for further characterization. Please respond to this encounter to acknowledge receipt of this message and take responsibility to ensure this report is reviewed. Thank you, CHRISTOPHER Chatterjee Client Service [facility] documented in this encounter Plan of Treatment Upcoming Encounters Date Type Department Care Team (Late st Contact Info) Description 08/01/2024 10:40 AM EDT Office Visit Family Medicine [address] [place] [phone] Melanie Ramirez MD [address] [place] [address] [place] [address] 08/25/2024 12:30 PM EDT Office [facility] [address] [facility] [place] [address] Julia Hutton PA-C [address] [place] [address] 11/03/2024 3:30 PM EDT Office Visit Cardiology [address] [place] [address] Ousmane Waddell PA-C [address] [place] [address] Scheduled Procedures Name Priority Associated Diagnoses Date/Ti me ESOPHAGOGASTRODUODENOSCOPY ( EGD), FLEXIBLE, TRANSORAL, ENDOSCOPIC ULTRASOUND Elevated LFTs 07/19/2024 1:45 PM EDT ENDOSCOPIC RETROGRADE CHOLANGIOPANCREATOGRAPHY (ERCP) DIAGNOSTIC Elevated LFTs 07/19/2024 1:45 PM EDT Health Maintenance Due Date Last [...] 024, 12/05/2022, 01/16/2022, Additional history exists HbA1c 06/24/2024 12/24/2023, 09/25, 08/01/2023, Additional history exists CKD HGB USE SMARTSET 02953 07/19/202507/19, 07/18/2024, 04/26/2024, Additional history exists CKD PHOS USE SMARTSET 67759 07/19/202506/26, 07/18/2024, 01/16/2022, Additional history exists DTap/Tdap Vaccines (2 - Td or Tdap) 06/08/2033 06/08/2023, 08/31/2007 Pneumococcal Vaccine: 50+ Years Completed 03/06/2015, 02/21/2003 Zoster Vaccines Completed 12/05/2021, 08/29/2021 VITAMIN D LEVEL ONCE IN A LIFETIME-USE SMARTSET# [id number] Completed 01/16/2022, 06/21/2020, 11/18/2019, Additional history exists [...] documented as of this encounter Medical Devices Not on filedocumented as of this encounter Advance Directives Documents on File Type Date Recorded Patient Freelance Data Entry Expl anation Advance Directives and Living Will 08/13/2023 signed on 12/12/2008 ADVANCE DIRECTIVE / LIVING WILL AND DURABLE POWER OF SOCIAL WORK ADMINISTRATOR WITH HEALTH CARE PROVISIONS * Full Code (Latest Code Status on File) Date Activated Date Inactivated Comments 07/18/2024 11:12 PM This order re flects the patients wishes and were consensually agreed upon. Question Answer Comments Discussion of Advance Directives occurred with: Patient Care Teams Autos Disassembler Relationship Specialty Start Date End Date Melanie Ramirez MD [address] [place] [address] [place] [address] PCP - General Family Medicine 05/08/22 documented as of this encounter
--- OUTSIDE RECORDS SUMMARY | 2024-08-18 02:57 | External Medical Summary ---
Author Name Unknown Address Unknown Organization : Laboratory Report Ordering Provider Test Date Status FANG WELLS 07/20/2024 21:29:03 Final Observation Date Value Abnormality Reference (Units ) Status Glucose Point of Care 07/20/2024 21:29:03 134 Above high normal 70-120 (mg/dL) Final Performing Location
--- OUTSIDE RECORDS SUMMARY | 2024-08-18 02:58 | External Medical Summary ---
Author Name Unknown Address Unknown Organization K1F:LABORATORY [facility] - [address] [place] [address] Laboratory Report Ordering Provider Test Date Status KAVITA RICKS 07/18/2024 23:25:00 Final Observation Date Value Abnormality Reference (Units ) Status BUN 07/18/2024 23:25:00 34 Above high normal 6-20 (mg/dL) Final Creatinine 07/18/2024 23:25:00 1.1 Above high normal 0.5-1.0 (mg/dL) Final Glomerular filtration rate/1.73 sq M.predicted [Volume Rate/Area] in Serum, Plasma or Blood by Creatinine-based formula (CKD-EPI) 07/18/2024 23:25:00 48 Below low normal >=60 (mL/min) Final eGFR is calculated based on the CKD-EPI 2020 equation. Sodium 07/18/2024 23:25:00 141 135-146 (m mol/L) Final Potassium 07/18/2024 23:25:00 4.6 3.5-5.1 (m mol/L) Final Cl 07/18/2024 23:25:00 104 98-107 (mm ol/L) Final CO2 07/18/2024 23:25:00 24 22-32 (mmo l/L) Final Anion gap 07/18/2024 23:25:00 13 7-15 (mmol /L) Final Glucose 07/18/2024 23:25:00 168 Above high normal 70 -120 (mg/dL) Final Albumin 07/18/2024 23:25:00 4.0 3.8-5.0 (g /dL) Final AST (Aspartate aminotransferase) 07/18/2024 23:25:00 1387 Above high normal 10-35 (U/L) Final Alk Phos 07/18/2024 23:25:00 254 Above high normal 35 -130 (U/L) Final Results rechecked Bilirubin, Total 07/18/2024 23:25:00 0.5 <=1 .2 (mg/dL) Final Calcium 07/18/2024 23:25:00 9.9 8.4-10.2 ( mg/dL) Final Protein 07/18/2024 23:25:00 6.5 6.0-8.3 (g /dL) Final ALT (Alanine aminotransferase) 07/18/2024 23:25:00 1908 Above high normal 10-35 (U/L) Final Performing Location LABORATORY [facility] - [facility] [address] [place] [address]
--- OUTSIDE RECORDS SUMMARY | 2024-08-18 02:58 | External Medical Summary ---
Author Name Unknown Address Unknown Organization K1F:LABORATORY [facility] - [address] [place] [address] Laboratory Report Ordering Provider Test Date Status KAVITA RICKS 07/19/2024 07:33:00 Final Observation Date Value Abnormality Reference (Units ) Status Troponin T 07/19/2024 07:33:00 103 Above upper panic limits <=14 (ng/L) Final Performing Location LABORATORY [facility] - [address] [place] [address]
--- OUTSIDE RECORDS SUMMARY | 2024-08-18 02:58 | External Medical Summary ---
Author Name Unknown Address Unknown Organization K1F:LABORATORY [facility] - [address] [place] [address] Laboratory Report Ordering Provider Test Date Status KAVITA RICKS 07/19/2024 05:38:00 Final Warfarin Therapy
INR: 2 .0-3.0 conventional anticoagulation
INR: 2.5- 3.5 high intensity anticoagulation Observation Date Value Abnormality Reference (Units ) Status PT 07/19/2024 05:38:00 17.1 Above high normal 11 .6-15.2 (seconds) Final INR 07/19/2024 05:38:00 1.4 Above high normal 0. 8-1.2 Final Performing Location LABORATORY [facility] - [address] [place] [address]
--- OUTSIDE RECORDS SUMMARY | 2024-08-18 02:58 | External Medical Summary ---
Author Name Unknown Address Unknown Organization K01:LABORATORY [facility] - [address] [place] [address] Laboratory Report Ordering Provider Test Date Status MILLICENTKAVITA 07/19/2024 03:53:00 Final Observation Date Value Abnormality Reference (Units ) Status Hep A IgM 07/19/2024 03:53:00 Negative Negative Final Hep B Core IgM 07/19/2024 03:53:00 Negative Negat sonia Final Hep B surface Ag 07/19/2024 03:53:00 Negative Neg ative Final Hep C Ab 07/19/2024 03:53:00 Negative Negative Final Performing Location LABORATORY [facility] - [address] [place] [address]
--- OUTSIDE RECORDS SUMMARY | 2024-08-18 02:58 | External Medical Summary ---
Author Name Unknown Address Unknown Organization K1F:LABORATORY [facility] - [address] [place] [address] Laboratory Report Ordering Provider Test Date Status MILLICENTWALLS 07/18/2024 23:25:00 Final Observation Date Value Abnormality Reference (Units ) Status ABO 07/18/2024 23:25:00 A Final RH 07/18/2024 23:25:00 Positive Final RED BLOOD CELL ANTIBODY SCREEN 07/18/2024 23:25:00 Negative Final SPECIMEN EXPIRATION DATE 07/18/2024 23:25:00 07/21/2024 23:59 Final Performing Location LABORATORY [facility] - [address] [place] [address]
--- OUTSIDE RECORDS SUMMARY | 2024-08-18 02:58 | External Medical Summary ---
Author Name Unknown Address Unknown Organization K1F:LABORATORY [facility] - [address] [place] [address] Laboratory Report Ordering Provider Test Date Status SAÚL CHANDLER 07/19/2024 03:54:00 Final Exclude Heart Failure: <300 pg/mL
Diagnose Heart Failure:
Age <50 yr: >450 pg/mL
50-75 yr: >900 pg/mL
>75 yr: >1800 pg/mL
GFR is 30-59 mL/min: >1200 pg/mL or Age- adjusted values
GFR <30 mL/min: do not use, not reliable

Prognostic threshold: 1000 pg/mL Observation Date Value Abnormality Reference (Units ) Status BNP, Pro-hormone 07/19/2024 03:54:00 [address] Above high no rmal <300 (pg/mL) Final Performing Location LABORATORY [facility] - [address] [place] [address]
--- OUTSIDE RECORDS SUMMARY | 2024-08-18 02:58 | External Medical Summary ---
Author Name Unknown Address Unknown Organization K1F:LAB[facility]ATORY [facility] - [address] [place] [address] Laboratory Report Ordering Provider Test Date Status KAVITA RICKS 07/19/2024 03:54:00 Final Observation Date Value Abnormality Reference (Units ) Status Magnesium 07/19/2024 03:54:00 2.0 1.5-2.6 (m g/dL) Final Performing Location LABORATORY [facility] - [address] [place] [address]
--- OUTSIDE RECORDS SUMMARY | 2024-08-18 02:58 | External Medical Summary ---
Author Name Unknown Address Unknown Organization : Laboratory Report Ordering Provider Test Date Status NARA PINA 07/19/2024 05:48:25 Final Observation Date Value Abnormality Reference (Units ) Status Glucose Point of Care 07/19/2024 05:48:25 165 Above high normal 70-120 (mg/dL) Final Performing Location
--- OUTSIDE RECORDS SUMMARY | 2024-08-18 02:58 | External Medical Summary ---
Author Name Unknown Address Unknown Organization K1F:LABORATORY [facility] - [address] [place] [address] Laboratory Report Ordering Provider Test Date Status KAVITA RICKS 07/18/2024 23:25:00 Final Observation Date Value Abnormality Reference (Units ) Status Bilirubin, Direct 07/18/2024 23:25:00 0.2 0. 0-0.3 (mg/dL) Final Performing Location LABORATORY [facility] - [address] [place] [address]
--- OUTSIDE RECORDS SUMMARY | 2024-08-18 02:58 | External Medical Summary ---
Author Name Unknown Address Unknown Organization : Laboratory Report Ordering Provider Test Date Status NARA PINA 07/19/2024 00:25:17 Final Observation Date Value Abnormality Reference (Units ) Status Glucose Point of Care 07/19/2024 00:25:17 143 Above high normal 70-120 (mg/dL) Final Performing Location
--- OUTSIDE RECORDS SUMMARY | 2024-08-18 02:58 | External Medical Summary ---
Author Name Unknown Address Unknown Organization K1F:LAB[facility]ATORY [facility] - [address] [place] [address] Laboratory Report Ordering Provider Test Date Status KAVITA RICKS 07/19/2024 03:53:00 Final Observation Date Value Abnormality Reference (Units ) Status Lactic Acid 07/19/2024 03:53:00 1.8 0.4-2.0 (mmol/L) Final Performing Location LABORATORY [facility] - [address] [place] [address]
--- OUTSIDE RECORDS SUMMARY | 2024-08-18 02:58 | External Medical Summary ---
Author Name Unknown Address Unknown Organization K01:LABORATORY [facility] - [address] [facility] [place] [address] Laboratory Report Ordering Provider Test Date Status KAVITA RICKS 07/19/2024 03:53:00 Final Observation Date Value Abnormality Reference (Units ) Status HbA1C 07/19/2024 03:53:00 7.0 Above high normal 4. 0-5.6 (%) Final The use of HbA1c to monitor glycemic status is based on normal hemoglobin and HbA composition. This test should not be used in patients with abnormal hemoglobin that affects the half life of the red blood cell or the in vivo glycation rates. Glucose, estimated average 07/19/2024 03:53:00 154 Above high normal <126 (mg/dL) Carlos jones Performing Location LABORATORY [facility] - [address] [place] [address]
--- OUTSIDE RECORDS SUMMARY | 2024-08-18 02:58 | External Medical Summary ---
Author Name Unknown Address Unknown Organization K1F:LABORATORY [facility] - [address] [place] [address] Laboratory Report Ordering Provider Test Date Status KAVITA RICKS 07/19/2024 03:54:00 Final Observation Date Value Abnormality Reference (Units ) Status BUN 07/19/2024 03:54:00 32 Above high normal 6-20 (mg/dL) Final Creatinine 07/19/2024 03:54:00 0.8 0.5-1.0 (mg/dL) Final Glomerular filtration rate/1.73 sq M.predicted [Volume Rate/Area] in Serum, Plasma or Blood by Creatinine-based formula (CKD-EPI) 07/19/2024 03:54:00 72 >=60 (mL/min) Final eGFR is calculated based on the CKD-EPI 2020 equation. Sodium 07/19/2024 03:54:00 139 135-146 (m mol/L) Final Potassium 07/19/2024 03:54:00 4.0 3.5-5.1 (m mol/L) Final Cl 07/19/2024 03:54:00 103 98-107 (mm ol/L) Final CO2 07/19/2024 03:54:00 18 Below low normal 22- 32 (mmol/L) Final Anion gap 07/19/2024 03:54:00 18 Above high normal 7- 15 (mmol/L) Final Glucose 07/19/2024 03:54:00 189 Above high normal 70 -120 (mg/dL) Final Albumin 07/19/2024 03:54:00 3.6 Below low normal 3.8 -5.0 (g/dL) Final AST (Aspartate aminotransferase) 07/19/2024 03:54:00 1315 Above high normal 10-35 (U/L) Final Alk Phos 07/19/2024 03:54:00 198 Above high normal 35 -130 (U/L) Final Bilirubin, Total 07/19/2024 03:54:00 0.4 <=1 .2 (mg/dL) Final Calcium 07/19/2024 03:54:00 9.5 8.4-10.2 ( mg/dL) Final Protein 07/19/2024 03:54:00 6.4 6.0-8.3 (g /dL) Final ALT (Alanine aminotransferase) 07/19/2024 03:54:00 1894 Above high normal 10-35 (U/L) Final Performing Location LABORATORY [facility] - [facility] [address] [place] [address]
--- OUTSIDE RECORDS SUMMARY | 2024-08-18 02:58 | External Medical Summary ---
Author Name Unknown Address Unknown Organization K1F:LABORATORY [facility] - [address] [place] [address] Laboratory Report Ordering Provider Test Date Status KAVITA RICKS 07/19/2024 11:25:00 Final Observation Date Value Abnormality Reference (Units ) Status Troponin T 07/19/2024 11:25:00 112 Above upper panic limits <=14 (ng/L) Final Performing Location LABORATORY [facility] - [address] [place] [address]
--- OUTSIDE RECORDS SUMMARY | 2024-08-18 02:58 | External Medical Summary ---
Author Name Unknown Address Unknown Organization K1F:LABORATORY [facility] - [address] [place] [address] Laboratory Report Ordering Provider Test Date Status KAVITA RICKS 07/19/2024 03:54:00 Final Observation Date Value Abnormality Reference (Units ) Status WBC, Total 07/19/2024 03:54:00 15.73 Above high normal 4 .00-10.80 (K/uL) Final RBC 07/19/2024 03:54:00 3.73 3.85-5.15 (M/uL) Final Hemoglobin 07/19/2024 03:54:00 11.4 Below low normal 12 .0-15.3 (g/dL) Final HCT 07/19/2024 03:54:00 36.3 36.0-45.2 (%) Final MCV 07/19/2024 03:54:00 97.3 81.5-97.5 (fL) Final MCH 07/19/2024 03:54:00 30.6 27.0-34.0 (pg) Final MCHC 07/19/2024 03:54:00 31.4 32.0-36.0 (g/dL) Final RDW 07/19/2024 03:54:00 13.4 11.5-15.5 (%) Final Platelets 07/19/2024 03:54:00 96 Below low normal 140 -400 (K/uL) Final Results rechecked. MPV 07/19/2024 03:54:00 11.1 6.6-11.1 ( fL) Final Nucleated erythrocytes/100 leukocytes [Ratio] in Blood by Automated count 07/19/2024 03:54:00 0 <=0 (/100 WBCs) Fi nal Performing Location LABORATORY [facility] - [address] [place] [address]
--- OUTSIDE RECORDS SUMMARY | 2024-08-18 02:58 | External Medical Summary ---
Author Name Unknown Address Unknown Organization K01:LABORATORY [facility] - [address] [address] Laboratory Report Ordering Provider Test Date Status KAVITA RICKS 07/18/2024 23:25:00 Final Observation Date Value Abnormality Reference (Units ) Status Triglyceride 07/18/2024 23:25:00 95 <=174 ( mg/dL) Final Triglyceride Reference Range s (mg/dL):
<150 Acceptable
150-174 Borderline high
175-499 High
>=500 Very high Cholesterol 07/18/2024 23:25:00 145 <200 (mg /dL) Final Total Cholesterol Reference Ranges (mg/dL):
<200 Desirable
200-239 Borderline high
>=240 High HDL 07/18/2024 23:25:00 38 Below low normal >49 (mg/dL) Final HDL Cholesterol Reference Ra nges (mg/dL):
>=60 High (Desirable)
<50 Low (Undesirable) For Females
<40 Low (Undesirable) For Males NON-HDL CHOLESTEROL 07/18/2024 23:25:00 107 <=159 (mg/dL) Final Non-HDL Cholesterol Referenc e Range (mg/dL):
<100 Target level for high risk ASCVD patient
<130 Optimal for general population
130-159 Near optimal for general population
160-189 Borderline High
190-219 High
>=220 Very High LDL, (calculated) 07/18/2024 23:25:00 88 <= 129 (mg/dL) Final LDL Cholesterol Reference Ra nges (mg/dL):
<70 Target level for high risk ASCVD patient
<100 Optimal for general population
100-129 Near optimal for general population
130-159 Borderline high
160-189 High
>=190 Very high
Patient has high LDL cholesterol. Consider screening for Familial Hypercholesterolemia. Performing Location LABORATORY [facility] - [address] [facility] [address]
--- OUTSIDE RECORDS SUMMARY | 2024-08-18 02:58 | External Medical Summary ---
Author Name Unknown Address Unknown Organization K1F:LABORATORY [facility] - [address] [place] [address] Laboratory Report Ordering Provider Test Date Status KAVITA RICKS 07/18/2024 23:25:00 Final Observation Date Value Abnormality Reference (Units ) Status Acetaminophen 07/18/2024 23:25:00 <5.0 Below low normal 10.0-30.0 (ug/mL) Final Performing Location LABORATORY [facility] - [address] [place] [address]
--- OUTSIDE RECORDS SUMMARY | 2024-08-18 02:58 | External Medical Summary ---
Author Name Unknown Address Unknown Organization K1F:LABORATORY [facility] - [address] [place] [address] Laboratory Report Ordering Provider Test Date Status SAÚL CHANDLER 07/19/2024 07:33:00 Final Observation Date Value Abnormality Reference (Units ) Status CK 07/19/2024 07:33:00 94 26-192 (U/ L) Final Performing Location LABORATORY [facility] - [address] [place] [address]
--- OUTSIDE RECORDS SUMMARY | 2024-08-18 02:58 | External Medical Summary ---
Author Name Unknown Address Unknown Organization : Laboratory Report Ordering Provider Test Date Status MIRIAM PARHAM 07/19/2024 12:03:24 Final Observation Date Value Abnormality Reference (Units ) Status Glucose Point of Care 07/19/2024 12:03:24 142 Above high normal 70-120 (mg/dL) Final Performing Location
--- OUTSIDE RECORDS SUMMARY | 2024-08-18 02:58 | External Medical Summary ---
Author Name Unknown Address Unknown Organization K1F:LABORATORY [facility] - [address] [place] [address] Laboratory Report Ordering Provider Test Date Status KAVITA RICKS 07/19/2024 03:54:00 Final Observation Date Value Abnormality Reference (Units ) Status Phosphate 07/19/2024 03:54:00 2.9 2.5-4.8 (m g/dL) Final Performing Location LABORATORY [facility] - [address] [place] [address]
--- OUTSIDE RECORDS SUMMARY | 2024-08-18 02:58 | External Medical Summary ---
Author Name Unknown Address Unknown Organization K1F:LABORATORY [facility] - [address] [place] [address] Laboratory Report Ordering Provider Test Date Status KAVITA RICKS 07/19/2024 03:53:00 Final Observation Date Value Abnormality Reference (Units ) Status Troponin T 07/19/2024 03:53:00 102 Above upper panic limits <=14 (ng/L) Final Performing Location LABORATORY [facility] - [address] [place] [address]
--- OUTSIDE RECORDS SUMMARY | 2024-08-18 02:59 | External Medical Summary ---
Author Name Unknown Address Unknown Organization K1F:LABORATORY [facility] - [address] [place] [address] Laboratory Report Ordering Provider Test Date Status KAVITA RICKS 07/18/2024 23:25:00 Final Observation Date Value Abnormality Reference (Units ) Status Phosphate 07/18/2024 23:25:00 3.5 2.5-4.8 (m g/dL) Final Performing Location LABORATORY [facility] - [address] [place] [address]
--- OUTSIDE RECORDS SUMMARY | 2024-08-18 02:59 | External Medical Summary ---
Author Name Unknown Address Unknown Organization K1F:LABORATORY [facility] - [address] [place] [address] Laboratory Report Ordering Provider Test Date Status MILLICENTKAVITA 07/18/2024 23:25:00 Final Observation Date Value Abnormality Reference (Units ) Status ABO 07/18/2024 23:25:00 A Final RH 07/18/2024 23:25:00 Positive Final Performing Location LABORATORY [facility] - [address] [place] [address]
--- OUTSIDE RECORDS SUMMARY | 2024-08-18 02:59 | External Medical Summary ---
Author Name Unknown Address Unknown Organization K1F:LABORATORY [facility] - [address] [place] [address] Laboratory Report Ordering Provider Test Date Status KAVITA RICKS 07/18/2024 23:25:00 Final Warfarin Therapy
INR: 2 .0-3.0 conventional anticoagulation
INR: 2.5- 3.5 high intensity anticoagulation Observation Date Value Abnormality Reference (Units ) Status PT 07/18/2024 23:25:00 16.0 Above high normal 11 .6-15.2 (seconds) Final INR 07/18/2024 23:25:00 1.3 Above high normal 0. 8-1.2 Final Performing Location LABORATORY [facility] - [address] [place] [address]
--- OUTSIDE RECORDS SUMMARY | 2024-08-18 02:59 | External Medical Summary ---
Author Name Unknown Address Unknown Organization K1F:LABORATORY [facility] - [address] [place] [address] Laboratory Report Ordering Provider Test Date Status KAVITA RICKS 07/18/2024 23:25:00 Final Observation Date Value Abnormality Reference (Units ) Status Magnesium 07/18/2024 23:25:00 1.8 1.5-2.6 (m g/dL) Final Performing Location LABORATORY [facility] - [address] [place] [address]
--- OUTSIDE RECORDS SUMMARY | 2024-08-18 02:59 | External Medical Summary ---
Author Name Unknown Address Unknown Organization K1F:LABORATORY [facility] - [address] [place] [address] Laboratory Report Ordering Provider Test Date Status KAVITA RICKS 07/18/2024 23:25:00 Final Observation Date Value Abnormality Reference (Units ) Status Troponin T 07/18/2024 23:25:00 100 Above high normal < =14 (ng/L) Final Performing Location LABORATORY [facility] - [address] [place] [address]
--- OUTSIDE RECORDS SUMMARY | 2024-08-18 02:59 | External Medical Summary ---
Author Name Unknown Address Unknown Organization K1F:[facility] - [address] [place] [address] Laboratory Report Ordering Provider Test Date Status KAVITA RICKS 07/18/2024 23:25:00 Final Observation Date Value Abnormality Reference (Units ) Status WBC, Total 07/18/2024 23:25:00 16.50 Above high normal 4 .00-10.80 (K/uL) Final RBC 07/18/2024 23:25:00 3.92 3.85-5.15 (M/uL) Final Hemoglobin 07/18/2024 23:25:00 12.0 12.0-15.3 (g/dL) Final HCT 07/18/2024 23:25:00 38.0 36.0-45.2 (%) Final MCV 07/18/2024 23:25:00 96.9 81.5-97.5 (fL) Final MCH 07/18/2024 23:25:00 30.6 27.0-34.0 (pg) Final MCHC 07/18/2024 23:25:00 31.6 32.0-36.0 (g/dL) Final RDW 07/18/2024 23:25:00 13.3 11.5-15.5 (%) Final Platelets 07/18/2024 23:25:00 106 Below low normal 140 -400 (K/uL) Final Results rechecked. MPV 07/18/2024 23:25:00 10.9 6.6-11.1 ( fL) Final Nucleated erythrocytes/100 leukocytes [Ratio] in Blood by Automated count 07/18/2024 23:25:00 0 <=0 (/100 WBCs) Fi nal Performing Location [facility] - [address] [place] [id number]
[2024-08-18] MEDS ORDERED: GLUCOSE 40% GEL 15 GM TUBE PO PRN (03:50)
[2024-08-18] MEDS ORDERED: GLUCAGON FOR INJ 1 MG VIAL SQ PRN (03:50)
[2024-08-18] MEDS ORDERED: DEXTROSE 50% 50 ML SYRINGE IV PRN (03:50)
[2024-08-18] MEDS ORDERED: ONDANSETRON INJ 2 MG/ML 2 ML VIAL IV PRN (03:50)
[2024-08-18] MEDS ORDERED: NITROGLYCERIN SL 0.4 MG/TAB TAB SL PRN (03:50)
[2024-08-18] MEDS ORDERED: CARBOHYDRATES FOR HYPOGLYCEMIA PO PRN (03:50)
[2024-08-18] MEDS ORDERED: GLUCOSE 10 TAB/TUBE PO PRN (03:50)
--- OUTSIDE RECORDS SUMMARY | 2024-08-18 04:06 | External Medical Summary | Summary of Care ---
Author Name Unknown Organization [facility] Address [address] [place] [address] Phone [phone] Care Team Providers Care Grapple Yarder Operator Name Role Phone Helena Rodriguez MD Primary Care Provide r Reason for Referral * Evaluate & Treat - Unlimited Visits (Within 30 days (routine)) - Authorized Specialty Diagnoses / Procedures Referred By Brendon pedraza Referred To Contact General Surgery Diagnoses Umbilical hernia without obstruction and without gangrene Helena Rodriguez MD [address] [place] [address] [place] [address] Phone: tel: fax: Referral ID Status Reason Start Date Expiration Date Visits Requested Visits Authorized [id number] Authorized Specialty Services Required 08/17/[phone] [...] Contact Info) Description 08/16/2024 [facility] [address] [place] [address] [place] [phone] Helena Rodriguez MD [address] [place] [address] [place] [id number] Referral Allergies No known [...] Active NARCAN 4 MG/0.1ML LIQD Inhale 1 Mcdaniels by mouth as needed. 0 03/23/20 18 [...] 5 03/21/20 24 Active OneTouch Delica Plus [id number] ns:Type 2 diabetes mellitus with stage 3a chronic kidney disease, without long-term current use of insulin ([facility]) Check glucose daily as needed 100 [...] long-term current use of insulin ([facility]) TAKE ONE TABLET BY MOUTH EVERY [...] Electronic Medical Record. Has a Power of Advertising Material Distributor for Medical needs. KIDNEY DZ,CHRONIC (GFR 30-59) [...] soft chews. Obdulia can be reached at [phone] Provider route your message to your [facility] NURSE POOL. * Telephone Encounter - [...] needed, can transfer to dedicated nurse line. [phone] also tried secondary number but the number [...] referral need to be placed into the [employer] system? Name of preferred specialist: na Type of specialist: general surgery Location of specialist: [facility] Phone #: na Specialist's Fax #: na Reason for visit: hernia Date of visit: tbd documented in this encounter Plan of Treatment Upcoming Encounters Date Type Department Care Team (Latest Contact Info) Description 08/25/2024 12:30 PM EDT Office Visit Neurology [facility] [address] [facility] [place] [address] Julia Hutton PA-C [address] [facility] [place] [address] 10/25/2024 11:53 AM EDT Hospital Encounter OR [facility], Operating Room, [facility] - 4th Floor [address] [place] [phone] Lorri Jackson, DO [address] [place] [address] 10/25/2024 11:53 AM EDT - 10/25/2024 12:41 PM EDT Surgery OR [facility], Operating Room, [facility] - 4th Floor [address] [place] [phone] Lorri Jackson, DO [address] [place] [address] ENDOSCOPIC RETROGRADE CHOLANGIOPANCREATOGRAPHY (ERCP) DIAGNOSTIC 01/26/2025 1:30 PM EDT Office Visit Cardiology [address] [place] [address] Ousmane Waddell PA-C [address] [place] [address] 02/21/2025 11:00 AM EDT Office Visit Family Medicine [address] [place] [phone] Jessica Thakur MD [address] [place] [address] [place] [phone] Scheduled Procedures Name Priority Associated Diagnoses Date/Ti [...] Additional history exists CKD HGB USE SMARTSET 01569 07/22/202507/22, 07/21/2024, 07/20/2024, Additional history exists CKD PHOS USE SMARTSET 43170 07/22/202506/26, 07/22/2024, 07/21/2024, Additional history exists DTap/Tdap Vaccines (2 - Td or Tdap) 06/08/2033 06/08/2023, 08/31/2007 Pneumococcal Vaccine: 50+ Years Completed 03/06/2015, 02/21/2003 Zoster Vaccines Completed 12/05/2021, 08/29/2021 VITAMIN D LEVEL ONCE IN A LIFETIME-USE SMARTSET# [id number] Completed 01/16/2022, 06/21/2020, 11/18/2019, Additional history exists [...] this encounter Medical Devices Implanted Type Area Loss Prevention Leader Device Identifier Shelf Expiration Date Model / Serial / Lot Stent Axios [id number] - [id number] Implanted:Qty: 1 on 07/19/2024 by Lorri Jackson DO at OR [facility] [employer] : ENDOSCOPY [id number] 02/25/2026 [id number] / / [id number] documented as of this encounter Visit Diagnoses Diagnosis Umbilical hernia without obstruction and without gangrene- Primary Acute cholecystitis documented in this encounter Advance Directives Documents on File Type Date Recorded Patient Income Tax Adjuster Expl anation Advance Directives and Living Will 07/25/2024 signed on 12/12/2008 ADVANCE DIRECTIVE / LIVING WILL Advance Directives and Living Will 08/13/2023 signed on 12/12/2008 ADVANCE DIRECTIVE / LIVING WILL AND DURABLE POWER OF LEAD SOFTWARE TEST ENGINEER WITH HEALTH CARE PROVISIONS * Full Code (Latest Code Status on File) Date Activated Date Inactivated Comments 07/18/2024 11:12 PM 07/23/2024 1:30 AM This order reflects the patients wishes and were consensually agreed upon. Question Answer Comments Discussion of Advance Directives occurred with: Patient Care Teams Grapple Yarder Operator Relationship Specialty Start Date End Date Helena Rodriguez MD [address] [place] [address] [place] [address] PCP - General Family Medicine 05/08/22 documented as of this encounter
[2024-08-18] MEDS: SODIUM CHLORIDE 0.9% 1,000 ML IV SCH (04:09)
[2024-08-18] MEDS: PIPERACILLIN/TAZOBACTAM 4.5 GM/100 ML BAG IV SCH (04:48)
[2024-08-18] MEDS: INSULIN ASPART PER UNIT CHARGE SC SCH (06:05)
[2024-08-18 08:09] LABS: BUN Creatinine Ratio 27.9 (10-20); Calcium 8.5 mg/dl (8.6-10.3); Creatinine Clr Calc Pharmacy 36.5 ml/min; Hematocrit (blood only) 31.3 % (37.0-47.0); Hemoglobin 9.9 g/dl (12.0-16.0); Magnesium 1.8 mg/dl (1.7-2.4); Mean Corpuscular Hgb Conc 31.6 g/dL (32.0-36.0); Mean Corpuscular Volume 94.8 fL (80.0-100.0); Mean Platelet Volume 11.5 fL (9.4-12.4); Platelet Count 135 K/uL (130-400); Potassium 5.8 mmol/L (3.5-5.1); RDW Coefficient of Variation 13.8 % (11.5-14.5); RDW Standard Deviation 47.7 fL (36.4-46.3); White Blood Count 31.62 K/ul (4.8-10.8)
[2024-08-18 08:20] LABS: Basophils # (auto) 0.06 K/uL (0.00-0.20); Basophils % (auto) 0.2 %; Immature Granulocytes # (auto) 0.37 K/uL (0.01-0.20); Immature Granulocytes % (auto) 1.2 %; Lymphocytes # (auto) 0.88 K/uL (1.20-3.40); Lymphocytes % (auto) 2.8 %; Monocytes # (auto) 2.65 K/uL (0.11-0.59); Monocytes % (auto) 8.4 %; Neutrophils # (auto) 27.66 K/uL (1.40-6.50); Neutrophils % (auto) 87.4 %
[2024-08-18] MEDS: SODIUM ZIRCONIUM CYCLOSILICATE 10 GM PACKET PO ONE (08:49)
--- NOTE | 2024-08-18 08:50 | Surgery Progress Note ---
<Statement entered by Suzette Cruz DO - 08/18/24 10:23> I have discussed this patient with the surgical team, seen and examined her. I have also discussed her with the consulting GI team. This patient potentially requires further GI intervention for ERCP vs IR intervention for percutaneous cholecystostomy drainage if the Axios stent is not functioning properly or if GI would need to exchange the stent. F/U with GI recommendations for these considerations No surgical intervention for this patient. Surgery will sign off at this time. Please message, call with questions. Date of Service August 18, 2024 Assessment & Plan (1) Abdominal pain: Plan: -Patient evaluated this morning at bedside, she is noted to be more lethargic but was arousable and answered yes/no questions appropriately during exam. -She does have some mild abdominal pain noted in the RUQ with palpation however otherwise has no signs of peritonitis -Abdominal binder was removed and ventral hernia was appreciated - hernia is soft and easily reducible and no signs of incarceration on exam -WBC increased to 31 this morning and troponin also elevated to 544. -Will add repeat LFTs as well for this morning due to concerns of possible cholecystics vs cholangitis. Her case was discussed last evening with GI team at [facility] due to recent Axios stent placement. They felt it is unlikely the patient has cholangitis/cholecystitis and that CT findings were expected after the procedure she had. -Appreciate GI input and recommendations -Continue medical management per primary team, surgery will continue to follow and provide additional recommendations after discussion with attending surgeon, Dr. Day Admission and Anticipated Discharge Date Admission Date: August 18, 2024 Subjective -Patient seen and evaluated this morning at bedside, she is lethargic however is arousable -Abdominal binder placed last evening, this was removed and ventral hernia appreciated. Hernia is soft and reducible without any overlying skin changes present. States that she has some abdominal pain with palpation mostly in the RUQ. -WBC this morning significantly elevated from 5.6 to 31.6 - she is on broad spectrum abx at this time -Troponin also continuing to elevate up to 544 this morning. Patient denies CP during evaluation Physical Exam Constitutional: + lethargic Respiratory: no respiratory distress and no labored breathing On 2L via oxygen mask Cardiovascular: Rate/Rhythm: regular rate Gastrointestinal (Abdomen): Abdomen soft, nondistended, mild TTP in the RUQ without rebound tenderness, guarding, or signs of peritonitis. +ventral hernia just superior to the umb ilicus and midline that was nontender to palpation and easily reducible. There is no overlying skin changes. Results & Data Vital Signs (Past 12 Hours) Vital Signs Temp Pulse Pulse Resp BP BP Pulse Ox 08/18/24 07:39 36.7 C 88 19 112/74 98 08/18/24 04:13 79 08/18/24 03:40 36.9 C 85 18 112/78 90 08/18/24 03:22 36.9 C 08/18/24 03:02 91 H 19 98/50 L 95 08/18/24 02:35 101 H 20 106/69 96 08/18/24 02:03 104 H 15 94/67 L 97 08/18/24 01:30 100 H 21 105/69 93 08/18/24 01:00 105 H 20 114/73 93 08/18/24 00:30 106 H 20 106/61 94 08/18/24 00:24 107 H 22 102/68 94 08/18/24 00:16 87 L 08/17/24 23:33 108 H 20 90/62 L 94 08/17/24 23:12 113 H 23 97/64 L 94 08/17/24 23:00 111 H 18 105/68 93 08/17/24 22:59 110 H 08/17/24 21:00 36.9 C 08/17/24 21:00 108 H 19 124/77 94 O2 Del Method O2 Flow Rate 08/18/24 07:39 Oxymask 2 08/18/24 04:13 08/18/24 03:40 Nasal Cannula 3 08/18/24 03:22 08/18/24 03:02 Nasal Cannula 3 08/18/24 02:35 Nasal Cannula 3 08/18/24 02:03 Nasal Cannula 3 08/18/24 01:30 Room Air 08/18/24 01:00 Nasal Cannula 3 08/18/24 00:30 Nasal Cannula 3 08/18/24 00:24 Nasal Cannula 3 08/18/24 00:16 Nasal Cannula 2 08/17/24 23:33 Nasal Cannula 3 08/17/24 23:12 Nasal Cannula 2 08/17/24 23:00 Nasal Cannula 2 08/17/24 22:59 08/17/24 21:00 04/23/25 21:00 Nasal Cannula 2 PG Care Time/CCT Total # of Minutes Spent Total Time Spent with Patient: Total time spent is greater than 50% in coordination of care (as documented) at patient's floor/unit and/or counseling patient: C[place] [address] SUB INP/OBS CARE 05/21MIN Patient Type Established History Problem Focused Exam Problem Focused Medical Decision Making Straight Forward Diagnoses Abdominal pain R10.9
[2024-08-18 08:55] LABS: A calco-baum cmplx NotReported Not Detected (NotDetected); Bact fragilis Not Reported Not Detected (NotDetected); Blood Culture Id Panel See PCR Comment (NotDetected); C auris Not Reported Not Detected (NotDetected); CTX-M Resistant Gene Not Detected (NotDetected); Calbicans Not Reported Not Detected (NotDetected); Candida glabrata Not Reported Not Detected (NotDetected); Candida krusei Not Reported Not Detected (NotDetected); Cneoformans/gatti Not Reported Not Detected (NotDetected); Cparapsilosis Not Reported Not Detected (NotDetected); Ctropicalis Not Reported Not Detected (NotDetected); E cloacae compx Not Reported Not Detected (NotDetected); Efaecalis Not Reported Not Detected (NotDetected); Efaecium Not Reported Not Detected (NotDetected); Enterobacterales Not Reported DETECTED (NotDetected); Escherichia coli Not Reported Not Detected (NotDetected); H influenzae Not Reported Not Detected (NotDetected); IMP Resistant Gene Not Detected (NotDetected); K aerogenes Not Reported Not Detected (NotDetected); KPC Resistant Gene Not Detected (NotDetected); Koxytoca Not Reported DETECTED (NotDetected); Kpneumoniae grp Not Reported Not Detected (NotDetected); Lmonocyt Not Reported Not Detected (NotDetected); N meningitidis Not Reported Not Detected (NotDetected); NDM Resistant Gene Not Detected (NotDetected); OXA 48 Like Resistant Gene Not Detected (NotDetected); P aeruginosa Not Reported Not Detected (NotDetected); Proteus spp Not Reported Not Detected (NotDetected); Salmonella spp Not Reported Not Detected (NotDetected); Staph lugdunensis Not Reported Not Detected (NotDetected); Staph spp. Not Reported Not Detected (NotDetected); Staphaureus Not Reported Not Detected (NotDetected); Staphepi Not Reported Not Detected (NotDetected); Stenmaltophilia Not Reported Not Detected (NotDetected); Strep agal(GrpB) Not Reported Not Detected (NotDetected); Strep pneum Not Reported Not Detected (NotDetected); Strep pyog (GrpA) Not Reported Not Detected (NotDetected); Strep spp Not Reported Not Detected (NotDetected); VIM Resistant Gene Not Detected (NotDetected); mcr-1 Colistin Resistant Gene Not Detected (NotDetected)
[2024-08-18] MEDS ORDERED: GABAPENTIN 100 MG CAP PO SCH (09:00)
[2024-08-18] MEDS ORDERED: VALSARTAN/SACUBITRIL 26/24MG TAB PO SCH (09:00)
[2024-08-18] MEDS ORDERED: CYANOCOBALAMIN (B-12) 500 MCG TABLET PO SCH (09:00)
[2024-08-18] MEDS ORDERED: MAGNESIUM OXIDE 400 MG TAB PO SCH (09:00)
[2024-08-18] MEDS ORDERED: CHOLECALCIFEROL 25 MCG (1000 UNITS) TAB PO SCH (09:00)
[2024-08-18] MEDS ORDERED: DOCUSATE SODIUM 100 MG CAP PO SCH (09:00)
[2024-08-18 09:10] LABS: Enterobacterales DETECTED (NotDetected)
[2024-08-18 09:10] LABS: Estimated Average Glucose 171 mg/dl; Hemoglobin A1C 7.6 % (4.5-5.6)
[2024-08-18] MEDS: INSULIN HUMAN REGULAR PER UNIT 10 UNITS in SYRINGE 9.9 ML IV ONE (09:15)
[2024-08-18] MEDS: DEXTROSE 50% 50 ML SYRINGE IV STA (09:15)
[2024-08-18] MEDS: ALBUTEROL 0.5% NEB SOLN 2.5 MG/0.5 ML VIAL NEB STA (09:17)
[2024-08-18] MEDS: DONEPEZIL HCL 5 MG TAB PO SCH (09:27)
[2024-08-18] MEDS: ATORVASTATIN 40 MG TAB PO SCH (09:27)
[2024-08-18] MEDS: CALCIUM GLUCONATE 1,000 MG/60 ML BAG IV STA (09:27)
[2024-08-18] MEDS: FAMOTIDINE 10 MG TABLET PO SCH (09:28)
[2024-08-18] MEDS: DULoxetine HCL 60 MG CAP PO SCH (09:28)
[2024-08-18] MEDS: METOPROLOL SUCC 25MG EXT REL TAB PO SCH (09:29)
[2024-08-18] MEDS: LIDOCAINE 5% 1 PATCH TD SCH (09:30)
--- NOTE | 2024-08-18 10:16 | Electrocardiogram Report ---
Test Reason : Blood Pressure : */* mmHG Vent. Rate : 130 BPM Atrial Rate : * BPM P-R Int : * ms QRS Dur : 150 ms QT Int : 368 ms P-R-T Axes : * -66 113 degrees QTcB Int : 541 ms Sinus tachycardia Left axis deviation Left bundle branch block Abnormal ECG Confirmed by Jovan Joseph ([id number]) on 08/18/2024 10:16:23 AM Referred By: REFERRED SELF Confirmed By: Jovan Joseph
[2024-08-18 10:21] LABS: Albumin Globulin Ratio 1.3 (0.9-2); Albumin Level 2.9 gm/dl (3.4-5.0); BUN Creatinine Ratio 26.5 (10-20); Bilirubin Direct 0.1 mg/dl (0-0.2); Bilirubin,Total 0.4 mg/dl (0.2-1.0); Calcium 8.9 mg/dl (8.6-10.3); Creatinine Clr Calc Pharmacy 35.9 ml/min; Globulin 2.3 gm/dl (2.5-4.0); Potassium 4.7 mmol/L (3.5-5.1); Total Protein 5.2 gm/dl (6.0-8.3); Troponin I High Sensitivity 623.2 pg/ml (0-14)
--- NOTE | 2024-08-18 10:47 | Electrocardiogram Report ---
Test Reason : Blood Pressure : */* mmHG Vent. Rate : 112 BPM Atrial Rate : 112 BPM P-R Int : 240 ms QRS Dur : 148 ms QT Int : 334 ms P-R-T Axes : -27 -50 130 degrees QTcB Int : 455 ms Sinus tachycardia with 1st degree A-V block Left axis deviation Left bundle branch block Abnormal ECG When compared with ECG of 17-Aug-2024 18:54, (unconfirmed) No significant change Confirmed by Jovan Joseph ([id number]) on 08/18/2024 10:46:28 AM Referred By: REFERRED SELF Confirmed By: Jovan Joseph
--- NOTE | 2024-08-18 11:05 | Gastrointestinal Consultation ---
<Statement entered by Rojas Toro MD - 08/18/24 16:04> I have reviewed the history, physical exam, lab and imaging findings as dictated by the mid-level provider, made any necessary modifications, and agree with the stated assessment and recommendations. A total of 55 minutes was spent in the chart/data review, direct observation, decision making and discussion of this case with the mid level provider, patient/family and other providers. Date of Consultation August 18, 2024 Assessment & Plan (1) Abdominal pain: -Repeat CBC -Continue IV Zosyn -MRCP -Follow LFTs -Further recommendations pending results ot testing Course/imaging noted. Cholangitis unlikely; ongoing issues more likely due to incompletely drained gallbladder and/or abscess; agree with IR evaluation, continued antibiotics. 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 She has a large ventral hernia and daughter was unsure if that was related. This was reduced in the ED. Patient with cholecystitis concerns recently and on July 19 had an axios stent placed for acalculous cholecystitis due to being deemed not a surgical candidate. The [facility] GI physician was contacted and felt that there were no concerns for cholangitis at the time. Upon presentation, her WBC was normal. She initially had a lactate of 3.1 and repeat was 1.5. Since that time, her WBC count is now 31,620. Troponin 550. Procalcitonin 9.7. Normal T bili, AST, ALT. IMPRESSION: 1. Cholegastrostomy tube in place. The gallbladder is inflamed containing stones with pericholecystic fluid and pneumobilia in the liver. The appearance is suggestive of cholecystitis. 2. Mucosal thickening in the CBD as can be seen in the setting of cholangitis. 3. Lesion in the right hepatic lobe measuring 2.4 x 2.4 cm is new from the prior. Consider MRI. 4. Severe atherosclerotic calcifications. 5. Left ovarian cyst measuring 4 cm. 6. Scoliosis and advanced degenerative changes in the lumbar spine. Lytic lesion measuring 2.2 cm within L2 is unchanged. Allergies Allergy/AdvReac Type Severity Reaction Status Date / Time No Known Allergies Allergy Unknown NONE Verified 07/18/24 17:20 Home Medications Medication Instructions Recorded Confirmed Type aspirin 81 mg tablet,delayed 81 mg PO QPM 07/18/24 08/17/24 History release atorvastatin 40 mg tablet 40 mg PO QAM 07/18/24 08/17/24 History cholecalciferol (vitamin D3) 25 25 mcg PO QAM 07/18/24 08/17/24 History mcg (1,000 unit) tablet (Vitamin D3) cinacalcet 30 mg tablet 30 mg PO 3XWK 07/18/24 08/17/24 History cyanocobalamin (vitamin B-12) 1,000 mcg PO QAM 07/18/24 08/17/24 History 1,000 mcg tablet docusate sodium 100 mg capsule 100 mg PO QAM 07/18/24 08/17/24 History (Stool Softener) donepezil 5 mg tablet 5 mg PO QAM 07/18/24 08/17/24 History duloxetine 60 mg capsule,delayed 60 mg PO QAM 07/18/24 08/17/24 History release empagliflozin 25 mg tablet 25 mg PO QAM 07/18/24 08/17/24 History (Jardiance) famotidine 10 mg tablet 10 mg PO QAM 07/18/24 08/17/24 History gabapentin 100 mg capsule 100 mg PO TID 07/18/24 08/17/24 History glipizide 5 mg tablet, extended 5 mg PO DAILYBB 07/18/24 08/17/24 History release 24 hr hydrocodone 10 mg-acetaminophen 1 tab PO .Q4-6H 07/18/24 08/17/24 History 325 mg tablet lidocaine 5 % topical patch 2 patch topical .DAILY X 12HRS 07/18/24 08/17/24 History magnesium oxide 400 mg (241.3 mg 400 mg PO QAM 07/18/24 08/17/24 History magnesium) tablet metformin 500 mg tablet,extended 500 mg PO QAM 07/18/24 08/17/24 History release 24 hr metoprolol succinate 25 mg 12.5 mg PO QAM 07/18/24 08/17/24 History tablet,extended release 24 hr naloxone 4 mg/actuation nasal 4 mg intranasal DAILY PRN Drug 07/18/24 08/17/24 History spray (Narcan) Intoxication Symptoms polysaccharide iron complex 150 mg 150 mg PO HS 07/18/24 08/17/24 History iron capsule (Ferrex) sacubitril 24 mg-valsartan 26 mg 1 tab PO AMHS 07/18/24 08/17/24 History tablet (Entresto) Patient History Social History Smoking Status: Unknown if ever smoked Preferred Language: Bengali Communication Ability: Impaired Supervisor Advice Required: No Current Living Situation: Other Current Living Situation Comment: UTO Feels Safe at Home: Yes Review of Systems Constitutional: + chills Respiratory: + dyspnea Gastrointestinal: + abdominal pain Physical Exam Constitutional: well developed Respiratory: normal respiratory effort Gastrointestinal (Abdomen): Inspection/Auscultation: abdomen normal to inspection Psychiatric: Orientation: alert and oriented x 3 Results & Data Vital Signs (Past 12 Hours) Vital Signs Temp Pulse Pulse Resp BP BP Pulse Ox 08/18/24 09:33 08/18/24 09:17 87 19 96 08/18/24 07:39 36.7 C 88 19 112/74 98 08/18/24 04:13 79 08/18/24 03:40 36.9 C 85 18 112/78 90 08/18/24 03:22 36.9 C 08/18/24 03:02 91 H 19 98/50 L 95 08/18/24 02:35 101 H 20 106/69 96 08/18/24 02:03 104 H 15 94/67 L 97 08/18/24 01:30 100 H 21 105/69 93 08/18/24 01:00 105 H 20 114/73 93 08/18/24 00:30 106 H 20 106/61 94 08/18/24 00:24 107 H 22 102/68 94 08/18/24 00:16 87 L 08/17/24 23:33 108 H 20 90/62 L 94 08/17/24 23:12 113 H 23 97/64 L 94 08/17/24 23:00 111 H 18 105/68 93 08/17/24 22:59 110 H O2 Del Method O2 Flow Rate 08/18/24 09:33 Nasal Cannula 2 08/18/24 09:17 Oxymask 2 08/18/24 07:39 Oxymask 2 08/18/24 04:13 08/18/24 03:40 Nasal Cannula 3 08/18/24 03:22 08/18/24 03:02 Nasal Cannula 3 08/18/24 02:35 Nasal Cannula 3 08/18/24 02:03 Nasal Cannula 3 08/18/24 01:30 Room Air 08/18/24 01:00 Nasal Cannula 3 08/18/24 00:30 Nasal Cannula 3 08/18/24 00:24 Nasal Cannula 3 08/18/24 00:16 Nasal Cannula 2 08/17/24 23:33 Nasal Cannula 3 08/17/24 23:12 Nasal Cannula 2 08/17/24 23:00 Nasal Cannula 2 08/17/24 22:59 PG Care Time/CCT Total # of Minutes Spent Total Time Spent with Patient: Total time spent is greater than 50% in coordination of care (as documented) at patient's floor/unit and/or counseling patient: Coding Level of Care Code 28439 INT INP/OBS CARE 3/75MIN Diagnoses Abdominal pain R10.9
[2024-08-18 11:29] LABS: Hematocrit (blood only) 31.2 % (37.0-47.0); Hemoglobin 9.8 g/dl (12.0-16.0); Mean Corpuscular Hemoglobin 29.9 pg (25.0-34.0); Mean Corpuscular Hgb Conc 31.4 g/dL (32.0-36.0); Mean Corpuscular Volume 95.1 fL (80.0-100.0); Mean Platelet Volume 11.8 fL (9.4-12.4); Platelet Count 147 K/uL (130-400); RDW Coefficient of Variation 13.9 % (11.5-14.5); RDW Standard Deviation 48.1 fL (36.4-46.3); Red Blood Count 3.28 M/uL (4.20-5.40); White Blood Count 29.27 K/ul (4.8-10.8)
[2024-08-18 11:49] LABS: Basophils # (auto) 0.05 K/uL (0.00-0.20); Basophils % (auto) 0.2 %; Dohle Bodies 1+; Eosinophils # (auto) 0.12 K/uL (0.00-0.50); Eosinophils % (auto) 0.4 %; Immature Granulocytes # (auto) 0.25 K/uL (0.01-0.20); Immature Granulocytes % (auto) 0.9 %; Lymphocytes # (auto) 1.52 K/uL (1.20-3.40); Lymphocytes % (auto) 5.2 %; Monocytes # (auto) 3.34 K/uL (0.11-0.59); Monocytes % (auto) 11.4 %; Neutrophils # (auto) 23.99 K/uL (1.40-6.50); Neutrophils % (auto) 81.9 %
--- NOTE | 2024-08-18 13:48 | Magnetic Resonance Report ---
MRCP CLINICAL HISTORY: Axios stent in place; rule out ductal abnormality TECHNIQUE: Utilizing a 3 Aubree magnet and dedicated coil, multiplanar, multiecho imaging of the upper abdomen was performed utilizing heavily T2 weighted pulsing sequences without IV contrast. COMPARISON STUDY: CT of the abdomen and pelvis July 18, 2024 and August 17, 2024. FINDINGS: This exam is significantly compromised by motion artifact. Mild biliary ductal dilatation h as improved compared to CT of July 18, 2024. Common bile duct measures approximately 8 mm in caliber . Sensitivity for detection of common bile duct calculi is diminished on this exam. A cholecystoduode nal stent is in place with associated pneumobilia is better depicted on recent CT. The gallbladder is moderately distended and there is gallbladder wall thickening. A 2.4 cm T2 hypointense focus within the right hepatic lobe on axial T2-weighted sequence image 21 of 50 corresponds to the finding on CT of August 17, 2024. This is new since CT of July 18, 2024. No additional foci of signal abnormality w ithin the liver are present. Spleen, adrenal glands and pancreas are unremarkable. T2 hypertense bila teral renal lesions favor cysts. There is no hydronephrosis. IMPRESSION: 1. Exam significantly compromised by motion artifact. 2. Cholecystoduodenal stent in place. Stent well positioned on recent CT. However, gallbladder disten tion and gallbladder wall thickening favor persistent cholecystitis. 3. Mild biliary ductal dilatation, improved since CT of July 18, 2024. Nondiagnostic evaluation for common bile duct calculi. 4. 2.4 cm T2 hyperintense focus within the right hepatic lobe corresponds to the finding on CT of Jul, new since CT of July 18, 2024. This favors a small multiloculated hepatic abscess. ACT 112: Negative or not required by law. Electronically signed by: Feroz Trujillo M.D. 08/18/2024 1:47 PM
--- NOTE | 2024-08-18 15:44 | Communication Note ---
Patient seen and examined at bedside. Patient orriented to self only, appears very uncomfortable with abdominal pain. Long family meeting, see note below. Advanced Care Plannin minutes exploring goals and values with POA and 11 other family members. Patient unable to be part of conversation. We started the meeting by introducing ourselves and our roles in the family and care team. POA and daughter/son all involved in conversation. Started meeting off by asking family their understanding of what is going on. Some of the family members did not know anything that was going on with the patient. I discussed the patient's critical condition, including severe sepsis secondary to hepatic abscess, complicated pathology in regards to cholecystitis and recent stent placement, significant leukocytosis and leukemoid reaction with blood cultures growing Klebsiella Enterobacter. Discussed that the patient's prognosis is guarded at this time given severe sepsis and bacteremia from presumed hepatic abscess. Discussed that given her concomitant medical conditions including significant heart failure there is a chance that she may in the hospital. Discussed that we are currently in the information gathering phase and I want to better understand goals and values of the patient to create informed decisions moving forward. Discussed a current clinical plan including consultation with general surgery and gastroenterology to get a better idea of the plan moving forward. Discussed CODE STATUS at length. Discussed resuscitation at length. Risk and benefits explained. Family states that she would not want to suffer at end-of-life and they do not want her to suffer either. When prompted, I stated my medical recommendation would be against resuscitation given the high likelihood of a prolonged code without any chance of meaningful recovery. Family agrees with this and would not want her to suffer at end-of-life, therefore patient is DNR/DNI at this time. We discussed next steps will include gathering more information and coming up with a treatment plan that meets the patient's goals and values. They are in agreement with this plan. Updated Assessment/Plan: #Hepatic Abscess #Recent Biliary Stent Placement -patient has severe sepsis with bacteremia -Klebsiella and enterobacterae both noted on biofire -MRCP showing likely persistent cholecystitis and hepatic abscess formation -complicated case given recent instrumentation and anatomy Plan: -continue empiric zosyn -deesacalate based on culture results -continue fluid resuscitation -appreciate general surgery and GI consults, personally discussed case with both teams -will consider IR drainage of hepatic abscess pending families goals and values, and input from consultants. -DNRDNI in line with patient wishes, if patient declines family would like to focus on comfort -guarded prognosis at this time -will need to monitor for infection seeding #UTI -growing citrobacterae, different than blood cultures -while could be possible contributer to condition, likely 2/2 in nature to above Plan: -continue zosyn -f/u sensitivities Date of Service: August 18, 2024
[2024-08-18 17:53] LABS: A calco-baum cmplx NotReported Not Detected (NotDetected); Bact fragilis Not Reported Not Detected (NotDetected); Blood Culture Id Panel See PCR Comment (NotDetected); C auris Not Reported Not Detected (NotDetected); Calbicans Not Reported Not Detected (NotDetected); Candida glabrata Not Reported Not Detected (NotDetected); Candida krusei Not Reported Not Detected (NotDetected); Cneoformans/gatti Not Reported Not Detected (NotDetected); Cparapsilosis Not Reported Not Detected (NotDetected); Ctropicalis Not Reported Not Detected (NotDetected); E cloacae compx Not Reported Not Detected (NotDetected); Efaecalis Not Reported Not Detected (NotDetected); Efaecium Not Reported Not Detected (NotDetected); Enterobacterales Not Reported Not Detected (NotDetected); Escherichia coli Not Reported Not Detected (NotDetected); H influenzae Not Reported Not Detected (NotDetected); K aerogenes Not Reported Not Detected (NotDetected); Koxytoca Not Reported Not Detected (NotDetected); Kpneumoniae grp Not Reported Not Detected (NotDetected); Lmonocyt Not Reported Not Detected (NotDetected); N meningitidis Not Reported Not Detected (NotDetected); P aeruginosa Not Reported Not Detected (NotDetected); Proteus spp Not Reported Not Detected (NotDetected); Salmonella spp Not Reported Not Detected (NotDetected); Staph lugdunensis Not Reported Not Detected (NotDetected); Staph spp. Not Reported DETECTED (NotDetected); Staphaureus Not Reported Not Detected (NotDetected); Staphepi Not Reported Not Detected (NotDetected); Stenmaltophilia Not Reported Not Detected (NotDetected); Strep agal(GrpB) Not Reported Not Detected (NotDetected); Strep pneum Not Reported Not Detected (NotDetected); Strep pyog (GrpA) Not Reported Not Detected (NotDetected); Strep spp Not Reported Not Detected (NotDetected)
[2024-08-18 18:03] LABS: Staphylococcus spp. DETECTED (NotDetected)
[2024-08-18] MEDS: HYDROmorphone INJ 0.5 MG/0.5 ML SYR IV PRN ×2 (18:12→21:17)
[2024-08-18] MEDS ORDERED: VANCOMYCIN CONSULT ACTIVE PRN (18:28)
[2024-08-18] MEDS: VANCOMYCIN HCL 1,750 MG in SODIUM CHLORIDE 0.9% 500 ML IV STA (20:03)
[2024-08-18] MEDS ORDERED: IRON POLYSACCHARIDE COMPLEX 150 MG CAPSULE PO SCH (21:00)
[2024-08-18] MEDS: ASPIRIN 81 MG ECTAB PO SCH (22:00)
[2024-08-18] MEDS: OLANZapine 10 MG/2.1 ML SDV IM ONE (22:24)
[2024-08-18] MEDS: OLANZapine 10 MG/2.1 ML SDV IM STA (22:25)
[2024-08-19] MEDS: METOPROLOL TARTRATE 1 MG/ML VIAL IV STA ×2 (03:42→05:12)
[2024-08-19] MEDS: MAGNESIUM SULFATE / D5W 1 GM/100 ML BAG IV ONE (03:49)
[2024-08-19 05:01] LABS: Albumin Globulin Ratio 1.3 (0.9-2); Albumin Level 3.2 gm/dl (3.4-5.0); Bilirubin,Total 0.4 mg/dl (0.2-1.0); Creatinine Clr Calc Pharmacy 35.9 ml/min; Globulin 2.5 gm/dl (2.5-4.0); Magnesium 1.8 mg/dl (1.7-2.4); Phosphorus 2.5 mg/dl (2.5-4.9); Total Protein 5.7 gm/dl (6.0-8.3)
[2024-08-19 05:20] LABS: Troponin I High Sensitivity 330.9 pg/ml (0-14)
[2024-08-19 05:40] LABS: Hematocrit (blood only) 31.1 % (37.0-47.0); Hemoglobin 9.7 g/dl (12.0-16.0); Mean Corpuscular Hemoglobin 29.4 pg (25.0-34.0); Mean Corpuscular Hgb Conc 31.2 g/dL (32.0-36.0); Mean Corpuscular Volume 94.2 fL (80.0-100.0); Mean Platelet Volume 11.6 fL (9.4-12.4); Platelet Count 145 K/uL (130-400); RDW Coefficient of Variation 13.9 % (11.5-14.5); RDW Standard Deviation 47.8 fL (36.4-46.3); White Blood Count 17.49 K/ul (4.8-10.8)
--- NOTE | 2024-08-19 08:43 | XRay Report ---
EXAM: XR chest 1V portable CLINICAL HISTORY: worsening hypoxia TECHNIQUE: An X-ray image of the chest is obtained in AP projection. COMPARISON: 08/17/2024 FINDINGS: Suuboptimal inspiratory effort. Pulmonary Parenchyma: Interval improvement in the areation of both lungs with regression of haziness in the lower zones. Minimal blunting of the left costophrenic angle is seen. Slightly improved. Heart and Mediastinum: Heart size and shape are normal. No mediastinal widening or masses. No hilar or mediastinal lymphadenopathy. Bony Thorax: Bony thorax appears intact without fractures or deformities. Soft Tissues: Soft tissues overlying the chest wall are unremarkable. IMPRESSION: 1. Interval improvement in the areation of both lungs with regression of haziness in the lower zones. 2. Minimal blunting of the left costophrenic angle is seen. Slightly improved. 3. Clinical correlation and follow-up are advised. Electronically signed by Nick Alvarez 08-19-2024 08:43 AM
[2024-08-19] MEDS: CINACALCET HCL 30 MG TAB PO SCH (09:10)
[2024-08-19] MEDS: LACTATED RINGER'S 1,000 ML IV SCH (09:14)
--- NOTE | 2024-08-19 09:20 | Gastroenterology Progress Note ---
<Statement entered by Rojas Toro MD - 08/19/24 15:11> I have reviewed the history, physical exam, lab and imaging findings as dictated by the mid-level provider, made any necessary modifications, and agree with the stated assessment and recommendations. A total of 55 minutes was spent in the chart/data review, direct observation, decision making and discussion of this case with the mid level provider, patient/family and other providers. Date of Service August 19, 2024 Assessment & Plan (1) Cholecystitis: (2) Liver abscess: Plan -Continue IV antibiotics per primary team and pharmacy recommendations -Continue to monitor CBC, CMP, vitals -Not sure of patient and family's global plan of care at present, but could consider IR eval for liver abscess drainage. Could also consider cholecystostomy tube for cholecystitis versus revision of cholegastrostomy stent. Admission and Anticipated Discharge Date Admission Date: August 18, 2024 Subjective Patient is an 88 yo female hospitalized with abdominal pain. She underwent an MRCP yesterday that showed no evidence of choledocholithiasis, but did show worsening cholecystitis despite axios stent in place. She was also noted to have a liver abscess. WBC count 17,490. Patient notes some abdominal pain. She is a difficult historian. Blood cultures positive. Review of Systems Gastrointestinal: + abdominal pain Physical Exam Constitutional: well developed Gastrointestinal (Abdomen): ventral hernia, no focal tenderness Psychiatric: Orientation: alert Results & Data Results & Data Vital Signs (Past 12 Hours) Vital Signs Temp Pulse Pulse Resp BP BP Pulse Ox 08/19/24 08:26 36.7 C 114 H 24 151/81 H 98 08/19/24 05:45 106 H 24 128/71 98 08/19/24 05:30 102 H 125/94 08/19/24 05:12 124 H 127/103 H 08/19/24 03:57 106 H 125/79 08/19/24 03:50 08/19/24 03:42 120 H 135/82 08/19/24 02:39 110 H 20 152/69 H 97 08/18/24 23:00 80 08/18/24 22:50 37.1 C 80 20 120/56 L 95 Pulse Ox O2 Del Method O2 Del Method O2 Flow Rate O2 Flow Rate 08/19/24 08:26 Oxymask 3 08/19/24 05:45 Oxymask 3 08/19/24 05:30 08/19/24 05:12 08/19/24 03:57 08/19/24 03:50 98 Oxymask 3 08/19/24 03:42 08/19/24 02:39 Oxymask 2 08/18/24 23:00 08/18/24 22:50 Oxymask 2 PG Care Time/CCT Total # of Minutes Spent Total Time Spent with Patient: Total time spent is greater than 50% in coordination of care (as documented) at patient's floor/unit and/or counseling patient: Coding Level of Care Code 56262 SUB INP/OBS CARE MIN Diagnoses Cholecystitis K81.9 Liver abscess K75.0
--- NOTE | 2024-08-19 10:34 | Electrocardiogram Report ---
Test Reason : Blood Pressure : */* mmHG Vent. Rate : 109 BPM Atrial Rate : * BPM P-R Int : * ms QRS Dur : 140 ms QT Int : 354 ms P-R-T Axes : * -54 134 degrees QTcB Int : 476 ms Sinus tachycardia Left axis deviation Left bundle branch block Abnormal ECG When compared with ECG of 17-Aug-2024 23:06, No significant change Confirmed by Jovan Joseph ([id number]) on 08/19/2024 10:33:48 AM Referred By: REFERRED SELF Confirmed By: Jovan Joseph
--- NOTE | 2024-08-19 10:38 | Pharmacy Report ---
Pharmacy PK ABX Note - Date of Service August 19, 2024 - Assessment and Plan Assessment 88 year old F receiving VANCOMYCIN/ZOSYN for treatment of bacteremia/cholecystitis/liver abscess. Pertinent microbiologic data includes: Blood cultures positive for Klebsiella oxytoca (2/3 bottles (separate sets)) and Staph species (this is 1/3 ? contamination). Urine culture with citrobacter freundii complex. WBC downtrending. Procal 9 on 08/17. Plan Vancomycin * Loading dose: 1750 mg IV x 1 * Maintenance dose: 1250 mg IV every 24 hours * Regimen is predicted to achieve target AUC/JENNIFER of 400-600 mg/L.hr * Random level for 08/21 am if continued Pharmacy will continue to follow and will adjust dose/frequency as necessary. Thank you. Pharmacy has transitioned to AUC monitoring for vancomycin. AUC/JENNIFER is the preferred PK/PD target and is associated with decreased risk of nephrotoxicity compared to traditional trough targets.
[2024-08-19] MEDS: VANCOMYCIN HCL 1,250 MG in SODIUM CHLORIDE 0.9% 250 ML IV SCH (13:27)
--- NOTE | 2024-08-19 15:55 | Hospitalist Progress Note ---
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 Incarcerated umbilical hernia Severe Sepsis Hepatic Abscess Complicated UTI High Grade Bacteremia -patient continues to have severe ongoing sepsis from significant bacteremia -bacteremia from Citrobacter, Klebsiella, Raultella ornithinolytica, concern Raultella ornithinolytica caused liver seeding -also has staph aureus and enterococcus on biofire Plan: -continue vanc/zosyn -given slow IV hydration -f/u on culture sensitivities -deescalate abx based on sensitivities -discussed case personally with IR, abscess too small/risky to drain at this [facility] e -GOC discussion with family 08/20/2024 at 1 pm Recent acalculous cholecystitis S/p Axios stent placement -Possible cholecystitis and cholangitis on CT scan -ER discussed with the [facility] on-call and thought to be expected given recent access stent placement -appreciate GI and surgical recommendations Type 2 Demand Ischemia Severe dementia -Continue donezepil -Monitor for delirium Chronic back pain -Continue lidocaine patch -Holding hydrocodone for now -IV Dilaudid as needed for now Diabetes Hold home p.o. medications Sliding scale History of chronic systolic and diastolic CHF Echo in 03/2024 shows EF of 50%. Previous echo 1 year ago EF 40% Continue metoprolol succinate, Entresto with holding parameters Hyperlipidemia -On statin CKD stage III -Will monitor Depression -Duloxetine I spent a total of 55 minutes in direct patient care, including [id number] time with the patient and/or family, reviewing medical records, ordering and reviewing diagnostic tests, and coordinating care with other healthcare providers. This time includes: history taking, physical examination, medical decision making, counseling, ECG interpretation, imaging interpretation, lab interpretation, orders, and education, excluding time spent in the performance of separately billed services. Admission and Anticipated Discharge Date Admission Date: August 18, 2024 Subjective Patient seen and examined at bedside. Patient is alert and oriented only to self. On discussion with POA daughter at bedside, discussed patient's critical condition, and expressed goals and values from yesterday's conversation including wanting to focus on quality of life and reduce suffering. Discussed the neck step is her to have a family meeting tomorrow to discuss focus of care. She was appreciative of the update and plan. Review of Systems Review of Systems: -unable to answer due to mental status Physical Exam Physical Exam: Gen: A&O 1 NAD HEENT: NCAT, EOMI, not icteric. External ears normal. No rhinorrhea. Moist mucous membranes. Neck: Supple, full range of motion, no observable masses, No meningeal sign. Lungs: tachypneic, mild rhonchi bilaterally CV: tachycardic, regular rhythm Abdomen: Soft, nondistended, No rebound tenderness. MSK: No joint swelling, no redness. Skin: No rashes, petechiae, lesions. Normal color per patient. Neuro: Normal Gait, Grossly intact. Results & Data Results & Data Vital Signs (Past 12 Hours) Vital Signs Temp Pulse Pulse Resp BP BP Pulse Ox 08/19/24 11:48 36.8 C 96 H 28 H 147/89 H 100 08/19/24 09:20 08/19/24 08:26 36.7 C 114 H 24 151/81 H 98 08/19/24 05:57 109 H 08/19/24 05:45 106 H 24 128/71 98 08/19/24 05:30 102 H 125/94 08/19/24 05:12 124 H 127/103 H 08/19/24 03:57 106 H 125/79 O2 Del Method O2 Flow Rate 08/19/24 11:48 Nasal Cannula 2 08/19/24 09:20 Oxymask 2 08/19/24 08:26 Oxymask 3 08/19/24 05:57 08/19/24 05:45 Oxymask 3 08/19/24 05:30 08/19/24 05:12 08/19/24 03:57 Laboratory Results -personally reviewed, WBC downtrended to 17 suggestive of leukemoid reaction yesterday, blood cultures growing a variety of bugs one from urinary tract, others from GI/other sources Diagnostic Findings Chest X-Ray 08/19/24 07:28 EXAM: XR chest 1V portable CLINICAL HISTORY: worsening hypoxia TECHNIQUE: An X-ray image of the chest is obtained in AP projection. COMPARISON: 08/17/2024 FINDINGS: Suuboptimal inspiratory effort. Pulmonary Parenchyma: Interval improvement in the areation of both lungs with regression of haziness in the lower zones. Minimal blunting of the left costophrenic angle is seen. Slightly improved. Heart and Mediastinum: Heart size and shape are normal. No mediastinal widening or masses. No hilar or mediastinal lymphadenopathy. Bony Thorax: Bony thorax appears intact without fractures or deformities. Soft Tissues: Soft tissues overlying the chest wall are unremarkable. IMPRESSION: 1. Interval improvement in the areation of both lungs with regression of haziness in the lower zones. 2. Minimal blunting of the left costophrenic angle is seen. Slightly improved. 3. Clinical correlation and follow-up are advised. Electronically signed by Nick Alvarez 08-19-2024 08:43 AM -personally reviewed, improved overall chest xray Medications Administered Atorvastatin Calcium (Atorvastatin 40 Mg Tab) [facility] [place]: 09/17/24 08:59 Last Admin: 08/19/24 09:11 Dose: 40 mg Documented By: Admin: 08/18/24 09:27 Dose: Not Given Documented By: SIERRA Cinacalcet (Cinacalcet Hcl 30 Mg Tab) 30 mg PO MoWeFr@0900 [facility] Stop: 09/18/24 08:59 Last Admin: 08/19/24 09:10 Dose: 30 mg Documented By: ELIDA Donepezil HCl (Donepezil Hcl 5 Mg Tab) 5 mg [facility] [place]: 09/17/24 08:59 Last Admin: 08/19/24 09:11 Dose: 5 mg Documented By: Admin: 08/18/24 09:27 Dose: Not Given Documented By: SIERRA Duloxetine HCl (Duloxetine Hcl 60 Mg Cap) 60 mg PO [facility] [place] Stop: 09/17/24 08:59 Last Admin: 08/19/24 09:10 Dose: 60 mg Documented By: Admin: 08/18/24 09:28 Dose: Not Given Documented By: SIERRA Famotidine (Famotidine 10 Mg Tablet) 10 mg PO [facility] [place]: 09/17/24 08:59 Last Admin: 08/19/24 09:11 Dose: 10 mg Documented By: Admin: 08/18/24 09:28 Dose: Not Given Documented By: SIERRA Hydromorphone HCl (Hydromorphone Inj 0.5 Mg/0.5 Ml Syr) 0.25 mg IV Q4H PRN PRN Reason: Moderate Pain (Scale 4, 5, 6) Stop: 09/01/24 03:49 Last Admin: 08/18/24 21:17 Dose: 0.25 mg Documented By: MAYE Hydromorphone HCl (Hydromorphone Inj 0.5 Mg/0.5 Ml Syr) 0.5 mg IV Q6H PRN PRN Reason: Severe Pain (Scale 7, 8, 9,10) Stop: 09/01/24 03:49 Last Admin: 08/18/24 18:12 Dose: 0.5 mg Documented By: SIERRA Piperacillin Sod/Tazobactam Sod (Zosyn) 4.5 gm in 100 mls @ 25 mls/hr IV Q8H CHARLES; Protocol Stop: 08/28/24 03:59 Last Admin: 08/19/24 13:22 Dose: 25 mls/hr Documented By: Infusion: 08/19/24 10:36 Dose: Infused Documented By: Admin: 08/19/24 06:36 Dose: 25 mls/hr Documented By: Infusion: 08/19/24 03:49 Dose: Infused Documented By: Admin: 08/18/24 23:39 Dose: 25 mls/hr Documented By: Infusion: 08/18/24 15:48 Dose: Infused Documented By: Admin: 08/18/24 11:29 Dose: 25 mls/hr Documented By: Infusion: 08/18/24 08:48 Dose: Infused Documented By: Admin: 08/18/24 04:48 Dose: 25 mls/hr Documented By: MOODY Lactated Ringer's (Lr) 1,000 mls @ 80 mls/hr IV .[id number] [facility] Stop: 08/19/24 19:29 Last Admin: 08/19/24 09:14 Dose: 80 mls/hr Documented By: ELIDA Vancomycin HCl 1,250 mg/ (Sodium Chloride) 275 mls @ 200 mls/hr IV Q24H [facility] Stop: 09/02/24 11:59 Last Infusion: 08/19/24 15:41 Dose: Infused Documented By: Admin: 08/19/24 13:27 Dose: 200 mls/hr Documented By: ELIDA Insulin Aspart (Insulin Aspart Per Unit Charge) 0 units SC Q6 [facility] Stop: 09/17/24 05:59 Last Admin: 08/19/24 13:22 Dose: Not Given Documented By: Admin: 08/19/24 07:34 Dose: Not Given Documented By: Admin: 08/19/24 00:59 Dose: Not Given Documented By: Admin: 08/18/24 18:07 Dose: Not Given Documented By: Admin: 08/18/24 12:03 Dose: Not Given Documented By: Admin: 08/18/24 06:05 Dose: Not Given Documented By: MOODY Lidocaine (Lidocaine 5% 1 Patch) 2 patch TD QAM [facility] Stop: 09/17/24 08:59 Last Admin: 08/19/24 09:11 Dose: 2 patch Documented By: Admin: 08/18/24 09:30 Dose: Not Given Documented By: SIERRA Miscellaneous (Remove Lidoderm Patch) 1 each N/A DAILY@2100 [facility] Stop: 09/17/24 20:59 Last Admin: 08/19/24 00:37 Dose: Not Given Documented By: [facility]
[2024-08-19] MEDS ORDERED: Nursing to Pharmacy Communication SCH (19:15)
[2024-08-19] MEDS ORDERED: VANCOMYCIN HCL 1,250 MG in SODIUM CHLORIDE 0.9% 250 ML IV SCH (20:00)
[2024-08-19] MEDS ORDERED: LEVALBUTEROL HCL 0.63 MG/3 ML NEB NEB PRN (20:03)
[2024-08-19] MEDS: INSULIN ASPART PER UNIT CHARGE SC SCH (21:22)
[2024-08-20 07:46] LABS: Hematocrit (blood only) 31.1 % (37.0-47.0); Hemoglobin 9.7 g/dl (12.0-16.0); Mean Corpuscular Hemoglobin 29.8 pg (25.0-34.0); Mean Corpuscular Hgb Conc 31.2 g/dL (32.0-36.0); Mean Corpuscular Volume 95.4 fL (80.0-100.0); Mean Platelet Volume 11.5 fL (9.4-12.4); Platelet Count 138 K/uL (130-400); RDW Coefficient of Variation 13.8 % (11.5-14.5); RDW Standard Deviation 48.7 fL (36.4-46.3); Red Blood Count 3.26 M/uL (4.20-5.40); White Blood Count 11.22 K/ul (4.8-10.8)
[2024-08-20 08:14] LABS: Albumin Globulin Ratio 1.1 (0.9-2); Albumin Level 2.9 gm/dl (3.4-5.0); BUN Creatinine Ratio 24.5 (10-20); Bilirubin,Total 0.4 mg/dl (0.2-1.0); Calcium 8.8 mg/dl (8.6-10.3); Creatinine Clr Calc Pharmacy 44.2 ml/min; Globulin 2.6 gm/dl (2.5-4.0); Potassium 4.3 mmol/L (3.5-5.1); Total Protein 5.5 gm/dl (6.0-8.3)
--- NOTE | 2024-08-20 17:24 | Hospitalist Progress Note ---
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 Incarcerated umbilical hernia Severe Sepsis Hepatic Abscess Complicated UTI High Grade Bacteremia -patient continues to have severe ongoing sepsis from significant bacteremia -bacteremia from Citrobacter, Klebsiella, Raultella ornithinolytica, concern Raultella ornithinolytica caused liver seeding -also has staph aureus and enterococcus on biofire Plan: -comfort focused care: -morphine for pain/SOB -ativan for anxiety/agitation -zofran for nausea/vomiting -bowel regiment ordered -mouth and eye care ordered -discussed with case management, hospice at home with daughter vs. nursing facility -discussed moving away from fluids and abx with family who are in agreement Recent acalculous cholecystitis S/p Axios stent placement -Possible cholecystitis and cholangitis on CT scan -ER discussed with the [facility] on-call and thought to be expected given recent access stent placement -appreciate GI and surgical recommendations Type 2 Demand Ischemia Severe dementia -Continue donezepil -Monitor for delirium Chronic back pain -Continue lidocaine patch Diabetes Hold home p.o. medications Sliding scale History of chronic systolic and diastolic CHF Echo in 03/2024 shows EF of 50%. Previous echo 1 year ago EF 40% Continue metoprolol succinate Hyperlipidemia -On statin CKD stage III -Will monitor Depression -Duloxetine I spent a total of 40 minutes in direct patient care, including [id number]-[id number] time with the patient and/or family, reviewing medical records, ordering and reviewing diagnostic tests, and coordinating care with other healthcare providers. This time includes: history taking, physical examination, medical decision making, counseling, ECG interpretation, imaging interpretation, lab interpretation, orders, and education, excluding time spent in the performance of separately billed services. I spent a total of 30 minutes providing advanced care planning to the patient and/or family, including hqbo-qq-[id number] time discussing the patient's health status, prognosis, and treatment options. This time includes specific activities such as: discussing advance directives, goals of care, prognostication, and end-of-life planning. Admission and Anticipated Discharge Date Admission Date: August 18, 2024 Subjective Patient seen and examined at bedside. Patient very comfortable this morning. Still only oriented to self. Advanced Care Plannin minutes spent discussing goals and values with daughter next of kin and 12 other family members. Meeting started by introducing myself and the family members have not met yet. Discussed the patient's improving but tenuous clinical condition. Discussed the patient growing 4, actually 3 given 1 is contaminant, bacteria in her blood. Discussed the ongoing hepatic abscess in the liver, complex biliary stent placement complex cyst cholecystitis and complex UTI. Discussed that we are unable to place a drain into the abscess per IR, surgery does not want to pursue cholecystectomy, GI unable to assist with stent currently. Discussed 2 different options moving forward, 1 option including prolonged course of IV antibiotics, rehab, with the understanding that the abscess is unlikely to resolve without intervention and patient will likely spend the rest of her life in and out of the hospital. The other option discussed is to change focus of care to comfort, and pursue comfort focused care and engage hospice services. Hospice was explained at length. Daughter and POA states that they would like to focus on her comfort at this time. He states she would not want to suffer at end-of-life and do not want to put her through further aggressive procedures and rehabilitation. Review of Systems Review of Systems: -unable to answer due to mental status Physical Exam Physical Exam: Gen: A&O 1 NAD HEENT: NCAT, EOMI, not icteric. External ears normal. No rhinorrhea. Moist mucous membranes. Neck: Supple, full range of motion, no observable masses, No meningeal sign. Lungs: tachypneic, mild rhonchi bilaterally CV: tachycardic, regular rhythm Abdomen: Soft, nondistended, No rebound tenderness. MSK: No joint swelling, no redness. Skin: No rashes, petechiae, lesions. Normal color per patient. Neuro: Normal Gait, Grossly intact. Results & Data Results & Data Vital Signs (Past 12 Hours) Vital Signs Temp Pulse Resp BP Pulse Ox O2 Del Method O2 Flow Rate 08/20/24 15:11 36.4 C L 87 19 152/78 H 96 Nasal Cannula 2 08/20/24 10:44 36.5 C 78 19 138/80 95 Nasal Cannula 2 08/20/24 08:00 Nasal Cannula 2 08/20/24 07:25 36.4 C L 66 21 132/58 L 94 Nasal Cannula 2 Laboratory Results -personally reviewed, leukocytosis downtrending, alk phos improving to 164 Medications Administered Cinacalcet (Cinacalcet Hcl 30 Mg Tab) 30 mg PO MoWeFr@0900 [facility] Stop: 09/18/24 08:59 Last Admin: 08/19/24 09:10 Dose: 30 mg Documented By: ELIDA Donepezil HCl (Donepezil Hcl 5 Mg Tab) 5 mg PO QAM [facility] Stop: 09/17/24 08:59 Last Admin: 08/20/24 10:57 Dose: 5 mg Documented By: Admin: 08/19/24 09:11 Dose: 5 mg Documented By: Admin: 08/18/24 09:27 Dose: Not Given Documented By: SIERRA Duloxetine HCl (Duloxetine Hcl 60 Mg Cap) [facility] [place]: 09/17/24 08:59 Last Admin: 08/20/24 10:57 Dose: 60 mg Documented By: Admin: 08/19/24 09:10 Dose: 60 mg Documented By: Admin: 08/18/24 09:28 Dose: Not Given Documented By: SIERRA Lidocaine (Lidocaine 5% 1 Patch) 2 patch TD QAM [facility] Stop: 09/17/24 08:59 Last Admin: 08/20/24 10:58 Dose: 2 patch Documented By: Admin: 08/19/24 09:11 Dose: 2 patch Documented By: Admin: 08/18/24 09:30 Dose: Not Given Documented By: SIERRA
[2024-08-20] MEDS: MoRPHine SULFATE 2 MG/ML CARP IV PRN (23:16)
[2024-08-21] MEDS: PNEUMOCOCCAL VACCINE (PCV20) 20-VAL CONJ-DIP CRM/PF 0.5 ML SYR IM ONE (12:55)
--- NOTE | 2024-08-21 13:05 | Electrocardiogram Report ---
Test Reason : Blood Pressure : */* mmHG Vent. Rate : 95 BPM Atrial Rate : * BPM P-R Int : * ms QRS Dur : 154 ms QT Int : 406 ms P-R-T Axes : * -39 124 degrees QTcB Int : 510 ms Sinus rhythm with premature atrial beats Left axis deviation Left bundle branch block Abnormal ECG When compared with ECG of 19-Aug-2024 02:26, HR has decreased Confirmed by Kendall Howard ([id number]) on 08/21/2024 1:05:29 PM Referred By: REFERRED SELF Confirmed By: Kendall Howard
--- NOTE | 2024-08-21 15:38 | Hospitalist Progress Note ---
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 Incarcerated umbilical hernia Severe Sepsis Hepatic Abscess Complicated UTI High Grade Bacteremia -patient continues to have severe ongoing sepsis from significant bacteremia -bacteremia from Citrobacter, Klebsiella, Raultella ornithinolytica, concern Raultella ornithinolytica caused liver seeding -also has staph aureus and enterococcus on biofire Plan: -comfort focused care: -morphine for pain/SOB -ativan for anxiety/agitation -zofran for nausea/vomiting -bowel regiment ordered -mouth and eye care ordered -discussed with case management, hospice at home with daughter vs. nursing facility, still choosing agency Recent acalculous cholecystitis S/p Axios stent placement -Possible cholecystitis and cholangitis on CT scan -ER discussed with the [facility] on-call and thought to be expected given recent access stent placement -appreciate GI and surgical recommendations Type 2 Demand Ischemia Severe dementia -Continue donezepil -Monitor for delirium Chronic back pain -Continue lidocaine patch Diabetes Hold home p.o. medications Sliding scale History of chronic systolic and diastolic CHF Echo in 03/2024 shows EF of 50%. Previous echo 1 year ago EF 40% Continue metoprolol succinate Hyperlipidemia -On statin CKD stage III -Will monitor Depression -Duloxetine I spent a total of 40 minutes in direct patient care, including gqyn-qg-vjvy time with the patient and/or family, reviewing medical records, ordering and reviewing diagnostic tests, and coordinating care with other healthcare p rokevinders. This time includes: history taking, physical examination, medical decision making, counseling, ECG interpretation, imaging interpretation, lab interpretation, orders, and education, excluding time spent in the performance of separately billed services. Admission and Anticipated Discharge Date Admission Date: August 18, 2024 Subjective Patient seen and examined at bedside. Patient states she is having some abdominal pain but otherwise comfortable this morning. Review of Systems Review of Systems: -unable to answer due to mental status Physical Exam Physical Exam: Gen: A&O 1 NAD HEENT: NCAT, EOMI, not icteric. External ears normal. No rhinorrhea. Moist mucous membranes. Neck: Supple, full range of motion, no observable masses, No meningeal sign. Lungs: tachypneic, mild rhonchi bilaterally CV: tachycardic, regular rhythm Abdomen: Soft, nondistended, No rebound tenderness. MSK: No joint swelling, no redness. Skin: No rashes, petechiae, lesions. Normal color per patient. Neuro: Normal Gait, Grossly intact. Results & Data Results & Data Vital Signs (Past 12 Hours) Vital Signs O2 Del Method O2 Flow Rate 08/21/24 08:00 Nasal Cannula 2
[2024-08-22] MEDS: LORazepam 2 MG/1 ML VIAL IV PRN (05:42)
[2024-08-22] MEDS: POLYETHYLENE (MIRALAX) 17 GM PACK PO SCH (08:45)
[2024-08-22] MEDS: MoRPHine SULFATE 10 MG/0.5 ML UDP PO PRN (10:48)
--- NOTE | 2024-08-22 15:19 | Hospitalist Progress Note ---
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 Incarcerated umbilical hernia Severe Sepsis Hepatic Abscess Complicated UTI High Grade Bacteremia -patient continues to have severe ongoing sepsis from significant bacteremia -bacteremia from Citrobacter, Klebsiella, Raultella ornithinolytica, concern Raultella ornithinolytica caused liver seeding -also has staph aureus and enterococcus on biofire Plan: -comfort focused care: -morphine for pain/SOB -ativan for anxiety/agitation -zofran for nausea/vomiting -bowel regiment ordered -mouth and eye care ordered -discussed with case management, tentative plan for discharge to [facility] Thursday Recent acalculous cholecystitis S/p Axios stent placement -Possible cholecystitis and cholangitis on CT scan -ER discussed with the [facility] on-call and thought to be expected given recent access stent placement -appreciate GI and surgical recommendations Type 2 Demand Ischemia Severe dementia -Continue donezepil -Monitor for delirium Chronic back pain -Continue lidocaine patch Diabetes Hold home p.o. medications Sliding scale History of chronic systolic and diastolic CHF -Echo in 03/2024 shows EF of 50%. Previous echo 1 year ago EF 40% -Continue metoprolol succinate Hyperlipidemia -On statin CKD stage III -Will monitor Depression -Duloxetine I spent a total of 35 minutes in direct patient care, including eior-si-alsz time with the patient and/or family, reviewing medical records, ordering and reviewing diagnostic tests, and coordinating care with other healthcare providers. This time includes: history taking, physical examination, medical decision making, counseling, ECG interpretation, imaging interpretation, lab interpretation, orders, and education, excluding time spent in the performance of separately billed services. Admission and Anticipated Discharge Date Admission Date: August 18, 2024 Subjective Patient seen and examined at bedside. Patient keeps saying "1 person" but is comfortable and pleasant. Family in the room, discussed hospice and hospice agencies, appreciate of the update. Review of Systems Review of Systems: -unable to answer due to mental status Physical Exam Physical Exam: Gen: A&O 1 NAD HEENT: NCAT, EOMI, not icteric. External ears normal. No rhinorrhea. Moist mucous membranes. Neck: Supple, full range of motion, no observable masses, No meningeal sign. Lungs: tachypneic, mild rhonchi bilaterally CV: tachycardic, regular rhythm Abdomen: Soft, nondistended, No rebound tenderness. MSK: No joint swelling, no redness. Skin: No rashes, petechiae, lesions. Normal color per patient. Neuro: Normal Gait, Grossly intact. Results & Data Results & Data Vital Signs (Past 12 Hours) Vital Signs Temp Pulse Resp BP Pulse Ox O2 Del Method O2 Flow Rate 08/22/24 09:02 Nasal Cannula 2 08/22/24 07:01 36.9 C 80 18 145/75 H 94 Nasal Cannula 2 Medications Administered Cinacalcet (Cinacalcet Hcl 30 Mg Tab) 30 mg PO MoWeFr@0900 [facility] Stop: 09/18/24 08:59 Last Admin: 08/22/24 08:48 Dose: 30 mg Documented By: LUCIANO Co-signed By: CHEYENNE Admin: 08/19/24 09:10 Dose: 30 mg Documented By: ELIDA Donepezil HCl (Donepezil Hcl 5 Mg Tab) [facility] [place] Stop: 09/17/24 08:59 Last Admin: 08/22/24 08:48 Dose: 5 mg Documented By: LUCIANO Co-signed By: CHEYENNE Admin: 08/21/24 08:43 Dose: 5 mg Documented By: Admin: 08/20/24 10:57 Dose: 5 mg Documented By: Admin: 08/19/24 09:11 Dose: 5 mg Documented By: Admin: 08/18/24 09:27 Dose: Not Given Documented By: SIERRA Duloxetine HCl (Duloxetine Hcl 60 Mg Cap) 60 mg PO [facility] Stop: 09/17/24 08:59 Last Admin: 08/22/24 08:48 Dose: 60 mg Documented By: LUCIANO Co-signed By: CHEYENNE Admin: 08/21/24 08:43 Dose: 60 mg Documented By: Admin: 08/20/24 10:57 Dose: 60 mg Documented By: Admin: 08/19/24 09:10 Dose: 60 mg Documented By: Admin: 08/18/24 09:28 Dose: Not Given Documented By: SIERRA Lidocaine (Lidocaine 5% 1 Patch) 2 patch TD QAM [facility] Stop: 09/17/24 08:59 Last Admin: 08/22/24 08:47 Dose: 2 patch Documented By: LUCIANO Co-signed By: CHEYENNE Admin: 08/21/24 08:42 Dose: 2 patch Documented By: Admin: 08/20/24 10:58 Dose: 2 patch Documented By: Admin: 08/19/24 09:11 Dose: 2 patch Documented By: Admin: 08/18/24 09:30 Dose: Not Given Documented By: SIERRA Lorazepam (Lorazepam 2 Mg/1 Ml Vial) 0.5 mg IV Q4H PRN PRN Reason: Anxiety/Agitation Stop: 09/19/24 16:43 Last Admin: 08/22/24 05:42 Dose: 0.5 mg Documented By: JG Morphine Sulfate (Morphine Sulfate 10 Mg/0.5 Ml Udp) 5 mg PO Q3H PRN PRN Reason: Pain or Respiratory Distress Stop: 09/03/24 16:43 Last Admin: 08/22/24 10:48 Dose: 5 mg Documented By: CHEYENNE Morphine Sulfate (Morphine Sulfate 2 Mg/Ml Carp) 2 mg IV Q4H PRN PRN Reason: Pain or Respiratory Distress Stop: 09/03/24 16:43 Last Admin: 08/22/24 05:43 Dose: 2 mg Documented By: Admin: 08/21/24 19:59 Dose: 2 mg Documented By: Admin: 08/21/24 14:59 Dose: 2 mg Documented By: Admin: 08/21/24 08:47 Dose: 2 mg Documented By: Admin: 08/20/24 23:16 Dose: 2 mg Documented By: HDMichael Polyethylene Glycol (Polyethylene (Miralax) 17 Gm Pack) 17 gm PO DAILY [facility] Stop: 09/21/24 08:59 Last Admin: 08/22/24 08:45 Dose: 17 gm Documented By: LUCIANO Co-signed By: CHEYENNE
[2024-08-23] MEDS: METHADONE HCL 5 MG TAB PO SCH (09:28)
--- NOTE | 2024-08-23 14:14 | Hospitalist Progress Note ---
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 Incarcerated umbilical hernia Severe Sepsis Hepatic Abscess Complicated UTI High Grade Bacteremia -patient continues to have severe ongoing sepsis from significant bacteremia -bacteremia from Citrobacter, Klebsiella, Raultella ornithinolytica, concern Raultella ornithinolytica caused liver seeding -also has staph aureus and enterococcus on biofire -see prior documentation, prognosis on scale of weeks in setting of high grade bacteremia, hepatic abscess, HFrEF, despite improvement with abx Plan: -comfort focused care: -morphine for pain/SOB -start methadone 2.5 mg every evening, one dose this morning for long acting control (total MME use yesterday 35 MME, was not sufficient with pain in between prns) -ativan for anxiety/agitation -zofran for nausea/vomiting -bowel regiment ordered -mouth and eye care ordered -discussed with case management, tentative plan for discharge to [facility] /Thursday Recent acalculous cholecystitis S/p Axios stent placement -Possible cholecystitis and cholangitis on CT scan -ER discussed with the [facility] on-call and thought to be expected given recent access stent placement -appreciate GI and surgical recommendations Type 2 Demand Ischemia Severe dementia -Continue donezepil Chronic back pain -Continue lidocaine patch Diabetes Hold home p.o. medications Sliding scale History of chronic systolic and diastolic CHF -echo with EF 25-30% -Continue metoprolol succinate Hyperlipidemia -On statin CKD stage III -Will monitor Depression -Duloxetine I spent a total of 50 minutes in direct patient care, including dxiy-cn-ogci time with the patient and/or family, reviewing medical records, ordering and reviewing diagnostic tests, and coordinating care with other healthcare providers. This time includes: history taking, physical examination, medical decision making, counseling, ECG interpretation, imaging interpretation, lab interpretation, orders, and education, excluding time spent in the performance of separately billed services. Admission and Anticipated Discharge Date Admission Date: August 18, 2024 Subjective Patient seen and examined at bedside. Uncomfortable this morning, states she is having worsening abdominal pain. Review of Systems Review of Systems: -unable to answer due to mental status Physical Exam Physical Exam: Gen: A&O 1 NAD HEENT: NCAT, EOMI, not icteric. External ears normal. No rhinorrhea. Moist mucous membranes. Neck: Supple, full range of motion, no observable masses, No meningeal sign. Lungs: tachypneic, mild rhonchi bilaterally CV: tachycardic, regular rhythm Abdomen: tender to palpation in periumbilical region, epigastric region, RUQ MSK: No joint swelling, no redness. Skin: No rashes, petechiae, lesions. Normal color per patient. Neuro: Normal Gait, Grossly intact. Results & Data Results & Data Vital Signs (Past 12 Hours) Vital Signs O2 Del Method O2 Flow Rate 08/23/24 08:01 Nasal Cannula 2
--- NOTE | 2024-08-24 15:22 | Hospitalist Progress Note ---
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 Incarcerated umbilical hernia Severe Sepsis Hepatic Abscess Complicated UTI High Grade Bacteremia -patient continues to have severe ongoing sepsis from significant bacteremia -bacteremia from Citrobacter, Klebsiella, Raultella ornithinolytica, concern Raultella ornithinolytica caused liver seeding -also has staph aureus and enterococcus on biofire -see prior documentation, prognosis on scale of weeks in setting of high grade bacteremia, hepatic abscess, HFrEF, despite improvement with abx Plan: -comfort focused care: -morphine for pain/SOB -c/w methadone 2.5mg HS. -ativan for anxiety/agitation -zofran for nausea/vomiting -bowel regiment ordered -mouth and eye care ordered -tentative plan for discharge to [facility] /Thursday Recent acalculous cholecystitis S/p Axios stent placement -Possible cholecystitis and cholangitis on CT scan -ER discussed with the [facility] on-call and thought to be expected given recent access stent placement -appreciate GI and surgical recommendations -Per prior attending, decision was made to move away from fluids and antibiotics, and plan made to focus on comfort care. Type 2 Demand Ischemia Severe dementia -Continue donezepil Chronic back pain -Continue lidocaine patch DOther chronic medical conditions: DM, HFmEF, HLD, CKD III, Depression Awaiting DC to home w/ hospice, CM assisting. Admission and Anticipated Discharge Date Admission Date: August 18, 2024 Subjective Patient seen and examined at bedside. Appears comfortable this morning, but states she is having some abdominal pain. Physical Exam Physical Exam: Gen: A&O 1 NAD HEENT: NCAT, EOMI, not icteric. External ears normal. No rhinorrhea. Moist mucous membranes. Neck: Supple, full range of motion, no observable masses, No meningeal sign. Lungs: tachypneic, mild rhonchi bilaterally CV: regular rhythm Abdomen: tender to palpation in periumbilical region, epigastric region, RUQ MSK: No joint swelling, no redness. Skin: No rashes, petechiae, lesions. Normal color per patient. Neuro: Grossly intact. Results & Data Results & Data Vital Signs (Past 12 Hours) Vital Signs O2 Del Method O2 Flow Rate 08/24/24 07:35 Nasal Cannula 2
--- NOTE | 2024-08-25 15:52 | Hospitalist Progress Note ---
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 Incarcerated umbilical hernia Severe Sepsis Hepatic Abscess Complicated UTI High Grade Bacteremia -patient continues to have severe ongoing sepsis from significant bacteremia -bacteremia from Citrobacter, Klebsiella, Raultella ornithinolytica, concern Raultella ornithinolytica caused liver seeding -also has staph aureus and enterococcus on biofire -see prior documentation, prognosis on scale of weeks in setting of high grade bacteremia, hepatic abscess, HFrEF, despite improvement with abx Plan: -comfort focused care: -morphine for pain/SOB -c/w methadone 2.5mg HS. -ativan for anxiety/agitation -zofran for nausea/vomiting -bowel regiment ordered -mouth and eye care ordered -tentative plan for discharge to [facility] home /Thursday Recent acalculous cholecystitis S/p Axios stent placement -Possible cholecystitis and cholangitis on CT scan -ER discussed with the [facility] on-call and thought to be expected given recent access stent placement -appreciate GI and surgical recommendations -Per prior attending, decision was made to move away from fluids and antibiotics, and plan made to focus on comfort care. Type 2 Demand Ischemia Severe dementia -Continue donezepil Chronic back pain -Continue lidocaine patch DOther chronic medical conditions: DM, HFmEF, HLD, CKD III, Depression Awaiting DC to home w/ hospice, CM assisting. Admission and Anticipated Discharge Date Admission Date: August 18, 2024 Subjective Patient seen and examined at bedside. Appears comfortable this morning, states she isnot having abdominal pain. Physical Exam Physical Exam: Gen: A&O 1 NAD HEENT: NCAT, EOMI, not icteric. External ears normal. No rhinorrhea. Moist mucous membranes. Neck: Supple, full range of motion, no observable masses, No meningeal sign. Lungs: tachypneic, mild rhonchi bilaterally CV: regular rhythm Abdomen: mild tender to palpation in periumbilical region, epigastric region, RUQ MSK: No joint swelling, no redness. Skin: No rashes, petechiae, lesions. Normal color per patient. Neuro: Grossly intact. Results & Data Results & Data Vital Signs (Past 12 Hours) Vital Signs O2 Del Method O2 Flow Rate 08/25/24 07:38 Nasal Cannula 2
[2024-08-25] MEDS: LORazepam 0.5 MG TAB PO PRN (20:45)
[2024-08-26 00:26] VITALS: BP 135/78; PULSE 97; RESP 16; TEMP 98.1; O2SAT 96
--- NOTE | 2024-08-26 11:36 | Discharge Summary ---
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 Patient has severe dementia. Currently oriented to name. As per daughter she does not know where she is. She ambulates with a walker. She can eat regular food. Tonight patient was complaining of severe abdominal pain. She was laying like a ball in the bed with pain and was having shaking chills. Daughter states patient has hernia for a long time but lately she is getting more pains. Because of severe pain today she was brought to the ER. In the ER when she came in her heart rate were in 130s -140s and rectal temperature 40 centigrade. And there was a large protruding ventral abdominal hernia which is hard and tender to palpation and ER physician gradually reduced it. Seems after reduction of the hernia patient had significant relief in the discomfort. Initial lactate was 3.1 and repeat is 1.7. Initial troponin 65 and repeat 116. Currently heart rate improved. Hemodynamically stable. Patient is somewhat drowsy. Cannot get much history from the patient. As per daughter no fevers. She has chronic back pain. No nausea. Stools are dark because of medications. Has some cough. On July 18, 2024 patient was transferred from [facility] ER for sepsis and acute cholecystitis and elevated LFTs to [facility] for possible MRCP and ERCP. Patient was found to have E. coli bacteremia and acute cholecystitis with biliary dilatation. Patient had ERCP which showed CBD dilatation and hyper echoic material consistent with sludge in gallbladder. Axios stent was placed for treatment of a acalculous cholecystitis. Atrophy of the entire pancreas noted. Cystic lesion in the right kidney identified. Also found to have L2 hemangioma and degenerative disease and renal ultrasound showing bilateral cyst. Patient discharged on 07/22/2024 with Augmentin for another [address] scan in the ER showing possible cholecystitis and possible cholangitis. ER physician talked to the [facility] at [place] Dr. Miriam Smyth and notified CAT scan findings. [facility] thinks the CAT scan findings are not unexpected given the patient recent Axios stent placement. And was thought normal LFTs most likely does not suggest cholangitis at this time. Her presentation thought more related to incarcerated hernia and UTI. Past medical history. As mentioned above. Past surgical history. Colonoscopy. EGD with endoscopic ultrasound. Ligation ordered. Sigmoid colectomy with primary anastomosis. Completion proctoscopy right salpingo-oophorectomy. Social history. No smoking. No alcohol use. No drug use. Family history. Father had diabetes. Heart disorder. Mother had diabetes. NC. Brother had NC. Brother has diabetes. Admission Exam Per Admitting Provider General-Not in acute distress Head- atraumatic Eyes- PERRL. ENT- oropharynx clear Neck- supple, no JVD. Lungs- clear to auscultation no wheezing or crackles Heart- regular rhythm; no murmur, no gallop. Abdomen- normal bowel sounds, Abdominal binder placed. Extremities- lower extremity edema present Neuro- Drowsy but arousable. oriented x1 PERRL, no facial palsy; no dysarthria. Principal Diagnosis Incarcerated umbilical hernia Severe Sepsis Hepatic Abscess Complicated UTI High Grade Bacteremia Recent acalculous cholecystitis S/p Axios stent placement Comfort care status Discharge Exam Gen: confused, NAD HEENT: NCAT, EOMI, not icteric. External ears normal. No rhinorrhea. Moist mucous membranes. Neck: Supple, full range of motion, no observable masses Lungs: tachypneic, mild rhonchi bilaterally CV: regular rhythm Abdomen: mild tender to palpation in periumbilical region, epigastric region, RUQ MSK: No joint swelling, no redness. Skin: No rashes, petechiae, lesions. Normal color per patient. Neuro: Grossly intact. Discharge Data Allergies Allergy/AdvReac Type Severity Reaction Status Date / Time No Known Allergies Allergy Unknown NONE Verified 07/18/24 17:20 Consultations 08/18/24 00:27 ED Decision to Admit Stat 08/18/24 08:29 Consult Gastroenterology Routine 08/19/24 08:00 Consult Cardiology Routine Ordered Studies 08/17/24 19:22 CT abd pelvis IV con only Stat CT head/brain wo con Stat 04/24/25 10:56 MR MRCP Routine Hospital Course (1) Incarcerated umbilical hernia: 88-year-old female with past medical history significant for type 2 diabetes, hyperlipidemia, hyperparathyroidism, CKD stage III, nontoxic multinodular goit er, 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 She was managed for the following: Incarcerated umbilical hernia Severe Sepsis Hepatic Abscess Complicated UTI High Grade Bacteremia -patient continues to have severe ongoing sepsis from significant bacteremia -bacteremia from Citrobacter, Klebsiella, Raultella ornithinolytica, concern Raultella ornithinolytica caused liver seeding -also has staph aureus and enterococcus on biofire -see prior documentation, prognosis on scale of weeks in setting of high grade bacteremia, hepatic abscess, HFrEF, despite improvement with abx Plan: -comfort focused care: -morphine for pain/SOB -c/w methadone 2.5mg HS. -ativan for anxiety/agitation -zofran for nausea/vomiting -bowel regiment ordered -mouth and eye care ordered -tentative plan for discharge to [facility] home /Thursday Recent acalculous cholecystitis S/p Axios stent placement -Possible cholecystitis and cholangitis on CT scan -ER discussed with the [facility] on-call and thought to be expected given recent access stent placement -appreciate GI and surgical recommendations -Per prior attending, decision was made to move away from fluids and antibiotics, and plan made to focus on comfort care. Type 2 Demand Ischemia Severe dementia -Continue donezepil Chronic back pain -Continue lidocaine patch DOther chronic medical conditions: DM, HFmEF, HLD, CKD III, Depression Awaiting DC to home w/ hospice, CM assisting. Patient is being discharged home with hospice, 2 days worth of comfort care medication has been prescribed, hospice care provider will take over her medication cares once patient discharged to home. [facility] Attestation I certify that this patient is under my care and that I, or a physicians medical assistant dermatology working with me, had a face to-face encounter that meets the [facility] [id number] encounter requirements with this patient. The encounter with the patient was in whole, or in part, for the following medical condition, which is the primary reason for home health care (list medical condition): I certify that, based on my findings, the following services are medically necessary home health services: My clinical findings support the need for the above services because: Further, I certify that my clinical findings support that this patient is homebound (i.e. absences from home require considerable and taxing effort and are for medical reasons or yazdanism services or infrequently or of short duration when for other reasons) because: Certification for Home Health Services: Based on the above findings, I certify that this patient is confined to the home and needs intermittent chcf care, physical therapy and/or speech therapy or continues to need occupational therapy. The patient is under my care, and I have initiated the establishment of the plan of care. This patient will be followed by a physician who will periodically review the plan of care. Total Time Total Time Spent Total Time Spent (In Minutes): 35 Discharge Plan Discharge Items Patient Disposition: Hospice - Home Reason For Visit: INCREASED UMBLICAL HERNIA,ACUTE UTI,ELEVATED TROP Discharge Diagnosis: Incarcerated umbilical hernia Severe Sepsis Hepatic Abscess Complicated UTI High Grade Bacteremia Recent acalculous cholecystitis S/p Axios stent placement Comfort care status Activity: Per Instructions section Activity Comment: Per hospice providers Non-emergency contact: Primary Care Provider Call non-emergency contact if: you have any medication questions and your symptoms worsen Follow-up/Referrals: Melanie Ramirez MD [Primary Care Provider] - Diet: Regular and Carb Consistent or DM2 Addtl Attending Provider Instructions: You will be discharged to home w/ hospice, you will be discharged with comfort care medications for few days. Hospice providers will take over you medications and care as you get discharged to home w/ hospice. Pending Studies at Discharge: No Stand-Alone Forms: My [facility] Medications and DC Order Prescriptions: New lorazepam 0.5 mg Tablet 0.5 mg sublingual Q4HWA PRN (Reason: anxiety/agitation) Qty: 12 0RF methadone 5 mg Tablet 2.5 mg PO HS Qty: 2 0RF morphine concentrate 100 mg/5 mL (20 mg/mL) Solution 5 mg PO Q3H PRN (Reason: dyspnea/pain) Qty: 30 0RF ondansetron 4 mg tablet,disintegrating 4 mg PO Q4H PRN (Reason: nausea and vomiting) Qty: 10 0RF Continued duloxetine 60 mg capsule,delayed release(DR/EC) 60 mg PO QAM hydrocodone-acetaminophen 10-325 mg tablet 1 tab PO .Q4-6H Rx Instructions: 07/18/24 PER FAMILY : THIS MED MUST BE GIVEN AT BREAKFAST, LUNCH, 5PM WITH EVENING MEAL, AND 11PM. OTHERWISE PT'S CONFUSION WORSENS AND SHE BECOMES DIFFICULT TO CARE FOR. donepezil 5 mg tablet 5 mg PO QAM docusate sodium [Stool Softener] 100 mg Capsule 100 mg PO QAM lidocaine 5 % adhesive patch,medicated 2 patch topical .DAILY X 12HRS Rx Instructions: APPLY TWO PATCHES TO LOWER BACK DAILY, ON 12 HOURS, OFF12 HOURS. Discontinued atorvastatin 40 mg tablet 40 mg PO QAM famotidine 10 mg tablet 10 mg PO QAM glipizide 5 mg tablet extended release 24hr 5 mg PO DAILYBB magnesium oxide 400 mg (241.3 mg magnesium) tablet 400 mg PO QAM metoprolol succinate 25 mg tablet extended release 24 hr 12.5 mg PO QAM cinacalcet 30 mg tablet 30 mg PO [id number] Rx Instructions: TAKE THIS MED EVERY MON/WED/FRI Jardiance 25 mg tablet 25 mg PO QAM aspirin [Aspir-Low] 81 mg Tablet,Delayed Release (Dr/Ec) 81 mg PO QPM cholecalciferol (vitamin D3) [Vitamin D3] 25 mcg (1,000 unit) Tablet 25 mcg PO QAM cyanocobalamin (vitamin B-12) 1,000 mcg Tablet 1,000 mcg PO QAM gabapentin 100 mg capsule 100 mg PO TID polysaccharide iron complex [Ferrex 150] 150 mg iron capsule 150 mg PO HS Rx Instructions: 07/18/24 :PER FAMILY - PT TAKES THIS MED IN THE AM. metformin 500 mg tablet extended release 24 hr 500 mg PO QAM Entresto 24-26 mg tablet 1 tab PO AMHS naloxone [Narcan] 4 mg/actuation [place],Non-Aerosol 4 mg intranasal DAILY PRN (Reason: Drug Intoxication Symptoms) Discharge Orders: Discharge Order (Routine); Ordered 08/26/24 Ordered By: Eliceo Hooker/Other Patient Handouts: High Blood Sugar (Hyperglycemia), Hypoglycemia (Low Blood Sugar), Managing Type 2 Diabetes Admission Data Admit Date/Time: 08/18/24 02:25 Attending Provider: Eliceo Ricketts Admit Provider: Pierre Martinez Primary Care Provider: Melanie Ramirez Other Providers: Pierre aMrtinez; Rojas Toro
== END 2024-08-26 12:30 | disposition hospice, home (50) | DRG 871 ==
LOC: ED 18:45 → 2E 08-18 02:25 → SUATTDRO 08-18 02:25 → 2E 08-18 03:22 → 3W 08-21 13:26